=== PATIENT | female | born 1970 ===

== ENCOUNTER 2020-12-11 20:09 | Emergency (ER) | payer MEDICARE, MEDICAID, SELFPAY ==
--- NOTE | 2020-12-12 01:21 | ED_ITS ---
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 Mode of arrival: ambulatory Limitations: no limitations History of Present Illness HPI narrative: 50 yo female with LLE pain and erythema x 1 day has known ulcer on leg then noted x 1 day increased redness and pain, has not been on antibiotics recently MD complaint: rash Onset (ago): day(s) (1) Location: LLE Severity: moderate Quality: aching Pain Consistency: constant Relieving factors: none Exacerbating factors: movement Context: none Associated symptoms: myalgias Treatments prior to arrival: bandages Related Data Previous Rx's Medication Instructions Recorded cephalexin 500 mg PO TID 7 Days #21 cap 12/12/20 doxycycline hyclate 100 mg PO BID 7 Days #14 cap 12/12/20 Allergies Allergy/AdvReac Type Severity Reaction Status Date / Time penicillin V Allergy Unknown Verified 05/11/18 00:00 Penicillins Allergy Unknown RASH Unverified 08/06/20 16:21 Review of Systems Review of Systems: Constitutional : No Fever, No Chills ENT/Mouth : No sore throat, No Rhinorrhea Eyes: No Eye Pain, No Swelling, No Redness Cardiovascular : No Chest Pain, No SOB Respiratory : No Cough, No Sputum Gastrointestinal : No Nausea, No Vomiting, No Diarrhea, No abdominal Pain Genitourinary : No Dysuria, No Hematuria Musculoskeletal : No joint pain, pos Myalgias, No Joint Swelling Skin : No Skin Lesions, positive skin rash Neuro : No Weakness, No Numbness, No Headache Psych : No Anxiety, No Depression Heme/Lymph: No Bruising, No Bleeding,No Lymphadenopathy Endocrine : No Polyuria, No Polydipsia All other systems reviewed and are negative PMFSH Past Medical History Attestation statement: The following information was validated with the patient. Medical History Anemia Cognitive impairment DVT (deep venous thrombosis) Hypertension Hypothyroid Obesity TBI (traumatic brain injury) Social History Social History (Updated 12/12/20 @ 01:49 by Nati Higgins DO) Smoking Status: Never smoker Use of substances other than those prescribed or required for medical reasons: No Advance Directives: No Advance Directives Information Provided: No Physical Exam Vital Signs: Vital Signs: Body Mass Index 70.9 Appearance: Alert. Oriented X3. No acute distress. Eyes: Pupils equal, round and reactive to light. ENT: Pharynx normal. Neck: Normal inspection. Neck supple. CVS: Normal heart rate and rhythm. Pulses normal. Respiratory: No respiratory distress. Breath sounds normal. Abdomen: Soft and nontender. morbidly obese Skin: Skin warm and dry. Normal skin color. Normal skin turgor. Extremities: bilateral LE edema 3+ with hyperpigmented flaking skin, LLE superficial ulcerations on lower calf - significant erythema noted on anterior hernandez goes up medially to prox thigh, no obvious fluctuance, distal pulses intact Neuro: Oriented X 3. No motor deficit. No sensory deficit. Course Course Course Narrative: hospitalist has seen the patient at this time, feels patient can trial PO antibiotics and return if area worsens MDM - Skin/Abscess/Foreign Bdy MDM Narrative Medical decision making narrative: 50 yo female with hx of obesity, asthma, anemia LE edema (?lymphedema) reports 1 day of worsening L leg pain and erythema - at this time skin appears infected and erythema extends to L upper thigh - will need labs, cultures, DVT study, IV antibiotics, likely admit Lab Data Result diagrams: 12/12/20 02:55 12/12/20 02:54 Labs: Lab Results 12/12/20 12/12/20 Range/Units 02:55 02:55 WBC 10.7 (4.8-10.8) X10*3/uL RBC 3.88 L (4.20-5.50) X10*6/uL Hgb 11.0 L (12.0-16.0) g/dl Hct 34.6 L (37-47) % MCV 89.2 (80-98) fL MCH 28.4 (27.0-33.0) pg MCHC 31.8 (31.0-35.0) g/dl RDW 15.1 (11.0-16.0) % Plt Count 234 (160-400) X10*3/uL MPV 10.8 (9.4-12.3) fL Immature Gran % (Auto) 0.7 H (0.0-0.4) % Neut % (Auto) 77.7 H (45-73) % Lymph % (Auto) 7.7 L (20-40) % Linn % (Auto) 11.7 H (2-11) % Eos % (Auto) 1.7 (0-4) % Baso % (Auto) 0.5 (0-2) % Lymph # (Auto) 0.8 L (1.2-4.9) X10*3/uL Linn # (Auto) 1.3 H (0.1-1.2) X10*3/uL Eos # (Auto) 0.2 (0.0-0.4) X10*3/uL Baso # (Auto) 0.1 (0.0-0.2) X10*3/uL Abs Immat Gran (auto) 0.08 H (0.00-0.03) X10*3/uL Absolute Neuts (auto) 8.3 (2.0-8.3) X10*3/uL Absolute Nucleated RBC 0.000 (0.0-0.012) X10*3/uL Nucleated RBC % (auto) 0.0 (0.0-0.2) /100WBC COVID-19 (ADRIANO) Negative (Negative) COVID-19 Clin Com See Note Discharge Plan Discharge Clinical Impression: Cellulitis Patient Disposition: Home, Self-Care Instructions: Cellulitis (ED) Additional Instructions: return to ED for any worsening symptoms or concerns RETURN IF YOU FEEL YOU ARE NOT IMPROVING Prescriptions: New doxycycline hyclate 100 mg capsule 100 mg PO BID 7 Days Qty: 14 RF: 0 cephalexin 500 mg capsule 500 mg PO TID 7 Days Qty: 21 RF: 0 Print Language: Azeri
--- NOTE | 2020-12-12 01:31 | US_ITS ---
EXAMINATION: US VENOUS ULTRASOUND WITH DOPPLER LOWER EXTREMITY, LEFT CLINICAL INFORMATION: Pain, swelling COMPARISON: None TECHNIQUE: Ultrasound of the deep veins is performed from the hip to the calf with compression sonography and color and pulse Doppler assessment. Spectral analysis with color-flow imaging is performed. FINDINGS: There is normal venous compression and respiratory variation and augmented flow. The visualized common femoral vein, superficial femoral vein, profunda femoral vein, popliteal vein, and the trifurcation region shows no evidence of deep venous thrombosis. There is no significant popliteal fossa cyst. Prominent lymph node is noted in the upper left thigh. If the patient's symptoms persist, followup ultrasound in 5 days 7 days might be of value to exclude proximal propagation from a non-visualized calf vein. US/US venous duplex LE LT IMPRESSION: 1. No DVT demonstrated in the left lower extremity. 2. Prominent lymph node in the upper left thigh which is nonspecific and may be reactive.
[2020-12-12 01:34] VITALS: BMI 70.9
[2020-12-12 02:00] VITALS: BP 113/69; PULSE 68; RESP 20; O2SAT 96
[2020-12-12 03:03] LABS: MANUAL DIFF FLAG NO
[2020-12-12 03:07] LABS: Basophils Absolute Auto 0.1 X10*3/uL (0.0-0.2); Basophils Percent Auto 0.5 % (0-2); Eosinophils Absolute Auto 0.2 X10*3/uL (0.0-0.4); Eosinophils Percent Auto 1.7 % (0-4); Hematocrit 34.6 % (37-47); Imm Gran Abs Auto 0.08 X10*3/uL (0.00-0.03); Imm Gran Pct Auto 0.7 % (0.0-0.4); Lymphocytes Absolute Auto 0.8 X10*3/uL (1.2-4.9); Lymphocytes Percent Auto 7.7 % (20-40); Mean Corpuscular HGB Conc 31.8 g/dl (31.0-35.0); Mean Corpuscular Hemoglobin 28.4 pg (27.0-33.0); Mean Corpuscular Volume 89.2 fL (80-98); Mean Platelet Volume 10.8 fL (9.4-12.3); Monocytes Absolute Auto 1.3 X10*3/uL (0.1-1.2); Monocytes Percent Auto 11.7 % (2-11); Neutrophils Absolute Auto 8.3 X10*3/uL (2.0-8.3); Neutrophils Percent Auto 77.7 % (45-73); Platelet Count 234 X10*3/uL (160-400); Red Blood Count 3.88 X10*6/uL (4.20-5.50); Red Cell Distribution Width 15.1 % (11.0-16.0); White Blood Count 10.7 X10*3/uL (4.8-10.8)
[2020-12-12] MEDS: cefEPime HCl 1 GM in 0.9 % Sodium Chloride 50 ML IV (03:14)
[2020-12-12 03:19] LABS: COVID-19 Test Negative (Negative)
[2020-12-12 04:00] VITALS: BP 147/69; PULSE 66; TEMP 37.3; O2SAT 96
[2020-12-12] MEDS: vancomycin HCL 1,000 MG, vancomycin HCL 750 MG in 0.9 % Sodium Chloride 500 ML 267.5 MG IV (04:25)
[2020-12-12 04:28] LABS: INTERNATIONAL NORM RATIO 1.2 (0.9-1.1)
[2020-12-12 04:31] LABS: Partial Thromboplastin Time 19.3 SEC (24.1-38.0)
[2020-12-12 04:51] LABS: Alanine Aminotransferase 19 U/L (0-31); Albumin Level 3.3 g/dL (3.5-5.0); Alkaline Phosphatase 91 U/L (39-117); Anion Gap 17 (12-20); Aspartate Amino Transferase 25 U/L (5-31); Bilirubin Direct 0.2 mg/dL (0.0-0.5); Bilirubin Total 0.6 mg/dL (0.0-1.0); Blood Urea Nitrogen 16 mg/dL (9-16); Calcium 6.3 mg/dL (8.4-10.2); Carbon Dioxide 23 mmol/L (22-29); Chloride 98 mmol/L (96-108); Creatinine Clr Calc Pharmacy 130.1; Estimated Glomerular Filt Rate > 60; Glucose Random 118 mg/dL (60-115); Magnesium 1.9 mg/dL (1.6-2.6); Potassium 3.4 mmol/l (3.3-5.1); Sodium 135 mmol/L (135-145); Total Protein 6.8 g/dL (6.5-8.0)
== END 2020-12-12 06:33 | disposition home or self-care (01) ==
PROVIDERS: Emergency Provider Emergency Medicine; PCP Nurse Practitioner Family
DX: L03.116 Cellulitis of left lower limb (principal); M79.662 Pain in left lower leg; M79.10 Myalgia, unspecified site; R60.0 Localized edema; Z79.899 Other long term (current) drug therapy; Z20.822 Contact with and (suspected) exposure to COVID-19
CPT/HCPCS: 36415; 80048; 80076; 83605; 83735; 85025; 85610; 85730; 87040; 87635; 93971; 96365; 96366; 96367; 99283; 99284; J0692; J3370

== ENCOUNTER → 2021-11-10 14:09 | Outpatient (REF) | payer MEDICARE, MEDICAID, SELFPAY ==
--- NOTE | 2021-11-10 14:16 | CA_ITS ---
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 The visually estimated ejection fraction is between 60-65%. - No obvious valvular pathology seen on this study. - Probable aortic arch plaque, but not well seen. Findings Procedure Information The patient declines contrast. Left Ventricle Normal left ventricular cavity size. There is mildly increased left ventricular wall thickness. The left ventricular systolic function is normal. The visually estimated ejection fraction is between 60-65%. There is no evidence of regional wall motion abnormalities. Diastolic function is normal for age. Right Ventricle Normal right ventricular cavity size and systolic function. Atria Both atria are normal in size. Aortic Valve The aortic valve was not well visualized. There is no aortic valve stenosis. The mean gradient is 6 mmHg. There is no aortic valve regurgitation. Mitral Valve The mitral valve appears normal. There is mild mitral annular calcification. There is no mitral valve stenosis. Pulmonic Valve The pulmonic valve was not well visualized. Tricuspid Valve The tricuspid valve was not well visualized. There is trace tricuspid valve regurgitation. Tricuspid regurgitation envelope is inadequate for calculation of right ventricular systolic pressure. Great Vessels The asc aorta and aortic arch are normal in size. Probable aortic arch plaque, but not well seen. Venous The inferior vena cava is normal in size and collapses greater than 50% with inspiration. Pericardium/Pleural There is no evidence of pericardial effusion. Prior Study Comparison Changes noted compared to prior study dated: 07/08/2020. See comments on aorta. Recommendations, Care & Conclusions No obvious valvular pathology seen on this study. Measurements 2D Linear Measurements IVSd: 1.10 0.6-0.9/0.6-1.0 cm LVIDd: 4.68 3.9-5.3/4.2-5.9 cm LVIDd Index: 1.93 2.4-3.2/2.2-3.1 cm/m2 LVIDs: 2.88 2.0-3.6 cm LVPWd: 1.02 0.7-1.1 cm Ao Root: 2.90 2.1-3.5 cm LA Diam: 4.60 2.7-3.8/3.0-4.0 cm LAIDs Index: 1.90 1.5-2.3 cm/m2 LV Mass: 220.41 67-162/88-224 g LV Mass Index: 91.08 43-95/49-115 g/m2 LVOT Diam: 2.00 3.0+(-)1.3 cm Mitral Valve MV Pk E: 0.75 MV PK A: 0.68 MV Decel Time: 212.00 E/A: 1.10 E'Lateral: 7.51 E'Medial: 11.40 E/E' Med: 6.60 E/E' Lat: 9.90 PHT: 62.00 MVA PHT: 3.55 Decel Calvert: 3.52 Aortic Valve AoV Pk Kalen: 1.69 AoV Mn Kalen: 1.17 AoV VTI: 0.40 AoV Pk Grad: 11.00 Aov Mn Grad: 6.00 KAYODE Cont.VTI: 2.13 LVOT LVOT Pk Kalen: 1.29 LVOT Mn Kalen: 0.89 LVOT VTI: 0.27 LVOT Pk Grad: 7.00 LVOT Mn Grad: 3.00 LVOT Diam: 2.00 LVOT Area: 3.14 Diastolic Function MV Pk E: 0.75 MV Pk A: 0.68 E/A: 1.10 E'Medial: 11.40 E/E' Med: 6.60 E' Laterial: 7.51 E/E' Lat: 9.90 Right Ventricle TAPSE (mm): 2.29 TVS' Kalen: 16.50 Great Vessels Aorta Ao Root-2D: 2.90 2.0-3.7 cm Ao Asc: 3.50 2.1-3.4 cm Ao Arch: 3.30 Updated in Other Vendor System with Status of Final Baldo Gudino MD electronically signed on 11/12/2021 12:50:10 PM with status of Final
== END ==
LOC: HO.CARD 14:09
PROVIDERS: PCP Nurse Practitioner Family; Visit Provider Internal Medicine Cardiovascular Disease
DX: I10 Essential (primary) hypertension (principal)
CPT/HCPCS: 93306

== ENCOUNTER 2021-12-08 10:24 | Outpatient (REF) | payer MEDICARE, MEDICAID, SELFPAY ==
--- NOTE | ~2021-12-08 | US_ITS ---
EXAMINATION: US RETROPERITONEAL LIMITED (RENAL ONLY) US RENAL DOPPLER CLINICAL INFORMATION: Hypertension. Rule out renal artery stenosis. COMPARISON: None TECHNIQUE: Mckeon-scale and color imaging of the kidneys. Mckeon-scale, color and Doppler imaging of the renal arteries including waveform spectral analysis. Exam is limited due to patient body habitus. FINDINGS: RIGHT KIDNEY: 10.8 x 5.5 x 6.1 cm (SAG x AP x TRV). The kidney is normal in size, contour, and echogenicity. Renal cortical thickness is normal. No calculi or focal parenchymal lesions. No hydronephrosis. LEFT KIDNEY: 10.5 x 5.1 x 5.2 cm (SAG x AP x TRV). The kidney is normal in size, contour, and echogenicity. Renal cortical thickness is normal. No calculi or focal parenchymal lesions. No hydronephrosis. The abdominal aorta is difficult to visualize. Peak systolic velocity measures 220 cm/s which is elevated making calculation of renal artery to aorta ratio inaccurate. The visualized right renal artery appears patent. Right renal artery peak systolic velocities are normal measuring 134 cm/s, 128 cm/s and 80 cm/s proximally, in the midportion and distally. Segmental resistive indices in the right kidney are normal measuring between 0.6 and 0.8. The right renal vein is patent. The visualized left renal artery appears patent. Left renal artery peak systolic velocities are normal measuring 101, 81 and 79 cm/s proximally, in the midportion and distally. Resistive indices of the segmental renal arteries in the left kidney are normal measuring 0.7. The left renal vein is patent. US/US renal BI IMPRESSION: Limited exam due to patient body habitus. Normal-appearing kidneys. No evidence of renal artery stenosis.
--- NOTE | ~2021-12-08 | US_ITS ---
EXAMINATION: US RETROPERITONEAL LIMITED (RENAL ONLY) US RENAL DOPPLER CLINICAL INFORMATION: Hypertension. Rule out renal artery stenosis. COMPARISON: None TECHNIQUE: Mckeon-scale and color imaging of the kidneys. Mckeon-scale, color and Doppler imaging of the renal arteries including waveform spectral analysis. Exam is limited due to patient body habitus. FINDINGS: RIGHT KIDNEY: 10.8 x 5.5 x 6.1 cm (SAG x AP x TRV). The kidney is normal in size, contour, and echogenicity. Renal cortical thickness is normal. No calculi or focal parenchymal lesions. No hydronephrosis. LEFT KIDNEY: 10.5 x 5.1 x 5.2 cm (SAG x AP x TRV). The kidney is normal in size, contour, and echogenicity. Renal cortical thickness is normal. No calculi or focal parenchymal lesions. No hydronephrosis. The abdominal aorta is difficult to visualize. Peak systolic velocity measures 220 cm/s which is elevated making calculation of renal artery to aorta ratio inaccurate. The visualized right renal artery appears patent. Right renal artery peak systolic velocities are normal measuring 134 cm/s, 128 cm/s and 80 cm/s proximally, in the midportion and distally. Segmental resistive indices in the right kidney are normal measuring between 0.6 and 0.8. The right renal vein is patent. The visualized left renal artery appears patent. Left renal artery peak systolic velocities are normal measuring 101, 81 and 79 cm/s proximally, in the midportion and distally. Resistive indices of the segmental renal arteries in the left kidney are normal measuring 0.7. The left renal vein is patent. US/US renal doppler IMPRESSION: Limited exam due to patient body habitus. Normal-appearing kidneys. No evidence of renal artery stenosis.
== END 2021-12-08 10:25 | disposition home or self-care (01) ==
LOC: HO.US 10:24
PROVIDERS: Visit Provider Internal Medicine Cardiovascular Disease
DX: I10 Essential (primary) hypertension (principal)
CPT/HCPCS: 76775; 93975

== ENCOUNTER 2022-02-17 17:44 | Emergency (ER) | payer MEDICARE, MEDICAID, SELFPAY ==
[2022-02-17 18:37] VITALS: BP 115/62; PULSE 64; RESP 18; TEMP 37; O2SAT 98; BMI 73.2
--- NOTE | 2022-02-17 18:41 | ECG_ITS ---
Test Reason : abnormal labs Blood Pressure : / mmHG Vent. Rate : 073 BPM Atrial Rate : 073 BPM P-R Int : 178 ms QRS Dur : 084 ms QT Int : 438 ms P-R-T Axes : 072 001 073 degrees QTc Int : 482 ms Sinus rhythm with Premature atrial complexes Prolonged QT Abnormal ECG When compared with ECG of 21-MAY-2018 09:47, Premature atrial complexes are now Present T wave inversion less evident in Lateral leads Referred By: Generic ED Physician Electronically Signed By:PAMELLA VICTOR
[2022-02-17 19:41] LABS: MANUAL DIFF FLAG NO
[2022-02-17 19:59] LABS: Basophils Absolute Auto 0.1 X10*3/uL (0.0-0.2); Basophils Percent Auto 0.7 % (0-2); Eosinophils Absolute Auto 0.2 X10*3/uL (0.0-0.4); Eosinophils Percent Auto 2.6 % (0-4); Hematocrit 33.4 % (37.0-47.0); Hemoglobin 10.3 g/dl (12.0-16.0); Imm Gran Abs Auto 0.02 X10*3/uL (0.00-0.03); Imm Gran Pct Auto 0.3 % (0.0-0.4); Lymphocytes Absolute Auto 1.1 X10*3/uL (1.2-4.9); Lymphocytes Percent Auto 15.9 % (20-40); Mean Corpuscular HGB Conc 30.8 g/dl (31.0-35.0); Mean Corpuscular Hemoglobin 26.8 pg (27.0-33.0); Mean Corpuscular Volume 86.8 fL (80.0-98.0); Mean Platelet Volume 9.8 fL (9.4-12.3); Monocytes Absolute Auto 0.8 X10*3/uL (0.1-1.2); Monocytes Percent Auto 11.3 % (2-11); Neutrophils Percent Auto 69.2 % (45-73); Platelet Count 303 X10*3/uL (160-400); Red Blood Count 3.85 X10*6/uL (4.20-5.50); Red Cell Distribution Width 17.4 % (11.0-16.0); White Blood Count 7.2 X10*3/uL (4.8-10.8)
[2022-02-17 20:09] LABS: Anion Gap 12 (12-20); Blood Urea Nitrogen 11 mg/dL (9-16); Calcium 7.1 mg/dL (8.4-10.2); Carbon Dioxide 28 mmol/L (22-29); Chloride 102 mmol/L (96-108); Creatinine Clr Calc Pharmacy 122.1; Estimated Glomerular Filt Rate > 60; Glucose Random 109 mg/dL (60-115); Potassium 3.8 mmol/L (3.3-5.1); Sodium 138 mmol/L (135-145)
--- NOTE | 2022-02-17 20:55 | ED_ITS ---
HPI - Recheck/Abnormal Lab/Rx General Chief Complaint: Recheck/Abnormal Lab/Rx Stated Complaint: Abnormal labs Time Seen by Provider: 02/17/22 20:54 Source: patient and family Mode of arrival: ambulatory Limitations: no limitations History of Present Illness HPI narrative: patient had labs drawn at [facility] nurse called to go to the hospital for abnormal labs patient not aware what kind of abnormal labs per records we do not see any labs done last labs were done on 12/12. Patient asymptomatic otherwise Related Data Previous Rx's Medication Instructions Recorded cephalexin 500 mg capsule 500 mg PO TID 7 Days #21 cap 12/12/20 doxycycline hyclate 100 mg capsule 100 mg PO BID 7 Days #14 cap 12/12/20 Allergies Allergy/AdvReac Type Severity Reaction Status Date / Time penicillin V Allergy Unknown Rash Verified 02/17/22 18:36 Penicillins Allergy Unknown RASH Verified 02/17/22 18:36 Review of Systems Review of Systems: Yes all other systems are reviewed and are negative FOR[facility] Past Medical History Medical History Anemia Cognitive impairment DVT (deep venous thrombosis) Hypertension Hypothyroid Obesity TBI (traumatic brain injury) Social History Social History Advance Directives: No Advance Directives Information Provided: No Patient : No Physical Exam Vital Signs: Vital Signs: Last Vital Signs Temp 98.6 F 02/17/22 18:37 Pulse 64 02/17/22 18:37 Resp 18 02/17/22 18:37 BP 115/62 02/17/22 18:37 Pulse Ox 98 02/17/22 18:37 BMI result Body Mass Index 73.2 Appearance: Alert. Oriented X3. No acute distress. obese patient Eyes: PERRLA, No Nystagmus ENT: Pharynx normal. Oral Mucosa moist Neck: Normal inspection. Neck supple. CVS: Normal heart rate and rhythm. Pulses normal. Respiratory: No respiratory distress. Equal air entry bilateral, no wheezing/rales/rhonchi Abdomen: Soft and nontender. Bowel sounds are present, no mass palpable, no CVA tenderness Skin: Skin warm and dry. Normal skin color. Normal skin turgor. Extremities: No lower extremity edema. No calf tenderness Neuro: Oriented X 3. No motor deficit. MDM - Recheck/Abnormal Lab/Rx MDM Narrative Medical decision making narrative: patient is stable vitals stable labs no acute metabolic problem was seen patient advised to follow with PCP Lab Data Attestation: I reviewed the patient's lab results. Result diagrams: 02/17/22 19:37 02/17/22 19:37 Labs: Lab Results 02/17/22 02/17/22 02/17/22 Range/Units 19:37 19:37 19:37 WBC 7.2 (4.8-10.8) X10*3/uL RBC 3.85 L (4.20-5.50) X10*6/uL Hgb 10.3 L (12.0-16.0) g/dl Hct 33.4 L (37.0-47.0) % MCV 86.8 (80.0-98.0) fL MCH 26.8 L (27.0-33.0) pg MCHC 30.8 L (31.0-35.0) g/dl RDW 17.4 H (11.0-16.0) % Plt Count 303 (160-400) X10*3/uL MPV 9.8 (9.4-12.3) fL Immature Gran % (Auto) 0.3 (0.0-0.4) % Neut % (Auto) 69.2 (45-73) % Lymph % (Auto) 15.9 L (20-40) % Gibson % (Auto) 11.3 H (2-11) % Eos % (Auto) 2.6 (0-4) % Baso % (Auto) 0.7 (0-2) % Lymph # (Auto) 1.1 L (1.2-4.9) X10*3/uL Gibson # (Auto) 0.8 (0.1-1.2) X10*3/uL Eos # (Auto) 0.2 (0.0-0.4) X10*3/uL Baso # (Auto) 0.1 (0.0-0.2) X10*3/uL Abs Immat Gran (auto) 0.02 (0.00-0.03) X10*3/uL Absolute Neuts (auto) 5.0 (2.0-8.3) x10*3/uL Absolute Nucleated RBC 0.000 (0.0-0.012) X10*3/uL Nucleated RBC % (auto) 0.0 (0.0-0.2) /100WBC Sodium 138 (135-145) mmol/L Potassium 3.8 (3.3-5.1) mmol/L Chloride 102 (96-108) mmol/L Carbon Dioxide 28 (22-29) mmol/L Anion Gap 12 (12-20) BUN 11 (9-16) mg/dL Creatinine 0.82 (0.5-1.4) mg/dL Estim Creat Clear Calc 122.1 Estimated GFR > 60 Random Glucose 109 (60-115) mg/dL Calcium 7.1 L D (8.4-10.2) mg/dL Troponin I High Sens 10.0 (<3.5-17.0) ng/L ECG Data Attestation: I personally reviewed and interpreted this ECG as follows: Interpretation: normal sinus rhythm with heart rate 73 beats per minute with few premature PACs no acute ST-T changes no acute ischemia normal interval normal axis Discharge Plan Discharge Clinical Impression: Normal exam Patient Disposition: Home, Self-Care Instructions: Normal Exam (ED) Additional Instructions: we did not find anything significant wrong in your labs , follow with PCP Prescriptions: No Action doxycycline hyclate 100 mg capsule 100 mg PO BID 7 Days Qty: 14 0RF cephalexin 500 mg capsule 500 mg PO TID 7 Days Qty: 21 0RF Interventions: ED Discharge Assessment Last Done: 02/17/22 21:22 Discharge Date/Time: 02/17/22 21:23
== END 2022-02-17 21:23 | disposition home or self-care (01) ==
PROVIDERS: Emergency Provider Internal Medicine; PCP Nurse Practitioner Family
DX: Z03.89 Encounter for observation for other suspected diseases and conditions ruled out (principal); Z87.820 Personal history of traumatic brain injury; Z86.718 Personal history of other venous thrombosis and embolism
CPT/HCPCS: 36415; 80048; 84484; 85025; 93005; 99283

== ENCOUNTER 2022-06-10 11:07 | Outpatient (REF) | payer MEDICARE, MEDICAID, SELFPAY ==
--- NOTE | ~2022-06-10 | MM_ITS ---
EXAMINATION: MM SCREENING DIGITAL BREAST TOMOSYNTHESIS, BILATERAL CLINICAL INFORMATION: Screening. Asymptomatic. The lifetime risk of breast cancer based on the Tyrer-Cuzick Model is 10%. COMPARISON: Mammography: 02/25/2019 (baseline). TECHNIQUE: Digital breast tomosynthesis is performed in both the craniocaudal and mediolateral oblique views along with computer-aided detection (CAD). Synthesized 2D images are generated from the tomosynthesis. Additional right MLO x2 and additional left MLO views are provided. FINDINGS: There are scattered areas of fibroglandular density (ACR BI-RADS breast composition Category b). There are no significant masses, abnormal calcifications, or other abnormalities. Parenchymal pattern is similar to prior studies. No developing density. No significant changes. MM/MM tomosynthesis screening BI IMPRESSION: No mammographic evidence of malignancy. ASSESSMENT: BI-RADS 1: Negative RECOMMENDATION: Routine annual mammography screening. This patient's information was entered into a reminder system with a target due date for their next mammogram.
== END 2022-06-10 11:08 | disposition home or self-care (01) ==
LOC: HO.MAMMO 11:07
PROVIDERS: PCP Nurse Practitioner Family; Visit Provider Pediatrics Pediatric Gastroenterology
DX: Z12.31 Encounter for screening mammogram for malignant neoplasm of breast (principal)
CPT/HCPCS: 77063; 77067

== ENCOUNTER 2022-06-20 11:13 | Outpatient (REF) | payer MEDICARE, MEDICAID, SELFPAY ==
[2022-06-20 12:05] LABS: COVID-19 Test Negative (Negative)
== END 2022-06-20 11:14 | disposition home or self-care (01) ==
LOC: HO.LAB 11:13
PROVIDERS: Visit Provider Internal Medicine
DX: Z20.822 Contact with and (suspected) exposure to COVID-19 (principal)
CPT/HCPCS: 87635; C9803

== ENCOUNTER 2022-08-03 11:01 | Outpatient (REF) | payer MEDICARE, MEDICAID, SELFPAY ==
--- NOTE | ~2022-08-03 | US_ITS ---
EXAMINATION: US DIAGNOSTIC ULTRASOUND BREAST, RIGHT CLINICAL INFORMATION: Question right breast lump lower inner quadrant. COMPARISON: Mammography of June 10, 2022 and February 25, 2019. TECHNIQUE: Ultrasound of the breast is performed with real-time childress scale imaging and color Doppler. FINDINGS: There is no focal suspicious finding. There is no solid mass, architectural abnormality, duct ectasia, or edema in the soft tissue planes. No abnormality was identified on mammography of June 10, 2022 on reexamination. Results are discussed with the patient at time of visit. US/US breast RT limited IMPRESSION: No specific ultrasound findings to suggest malignancy. Recommend continued clinical follow-up. ASSESSMENT: BI-RADS 1: Negative RECOMMENDATION: Routine annual mammography screening. Clinical follow-up This patient's information was entered into a reminder system with a target due date for their next mammogram.
== END 2022-08-03 11:02 | disposition home or self-care (01) ==
LOC: HO.MAMMO 11:01
PROVIDERS: PCP Nurse Practitioner Family; Visit Provider Nurse Practitioner Family
DX: N63.14 Unspecified lump in the right breast, lower inner quadrant (principal)
CPT/HCPCS: 76642

== ENCOUNTER → 2022-08-23 10:57 | Outpatient (BNVA) | payer MEDICARE, MEDICAID, SELFPAY | PROVIDERS: PCP Nurse Practitioner Family; Visit Provider Internal Medicine Endocrinology, Diabetes & Metabolism | DX: E20.9 Hypoparathyroidism, unspecified (principal) | CPT/HCPCS: 99202 ==

== ENCOUNTER → 2022-11-22 08:16 | Outpatient (REF) | payer MEDICARE, MEDICAID, SELFPAY ==
[2022-11-22 09:24] LABS: Albumin Level 3.8 g/dL (3.5-5.0); Phosphorus 5.5 mg/dL (2.7-4.5)
[2022-11-22 09:44] LABS: Vitamin D 25-OH Total 42.3 ng/mL (>30)
[2022-11-23 16:14] LABS: Calcium (PTHI) 7.4 mg/dL (8.6-10.4); PTHI 8 pg/mL (16-77)
== END ==
LOC: HO.CARD 08:16
PROVIDERS: Absent Provider Internal Medicine Endocrinology, Diabetes & Metabolism; Visit Provider Physician Assistant Medical
DX: R07.9 Chest pain, unspecified (principal); E20.9 Hypoparathyroidism, unspecified
CPT/HCPCS: 36415; 82040; 82306; 83970; 84100

== ENCOUNTER → 2022-11-24 09:52 | Outpatient (BNVA) | payer MEDICARE, MEDICAID, SELFPAY | PROVIDERS: PCP Nurse Practitioner Family; Visit Provider Internal Medicine Endocrinology, Diabetes & Metabolism | DX: E20.9 Hypoparathyroidism, unspecified (principal) | CPT/HCPCS: 99212 ==

== ENCOUNTER 2022-12-25 22:02 | Emergency (ER) | payer MEDICARE, MEDICAID, SELFPAY ==
--- NOTE | ~2022-12-25 | CT_ITS ---
EXAMINATION: CT HEAD WITHOUT CONTRAST CLINICAL INFORMATION: Headache COMPARISON: 09/14/2007 TECHNIQUE: Contiguous axial imaging was performed from the skull base to vertex without intravenous administration of contrast. This CT examination was performed using dose optimization techniques as appropriate, variously including the following: *Automated exposure control *Adjustment of mA and/or kV according to patient size (this includes techniques or standardized protocols for targeted exams where dose is matched to indication/reason for exam; i.e. extremities or head) *Use of iterative reconstruction technique DLP: 779 mGy-cm FINDINGS: There is no evidence of acute intracranial hemorrhage or territorial infarction. No abnormal mass-effect or midline shift is seen. Mckeon to white matter differentiation is well preserved. No extra-axial fluid collections are identified. The ventricles are normal in size. There is moderate periventricular and patchy subcortical white matter hypoattenuation consistent with chronic small vessel ischemic disease. The osseous structures and soft tissues are normal. The mastoid air cells and visualized portions of the paranasal sinuses are well-aerated. CT/CT head/brain wo IV con IMPRESSION: No acute intracranial pathology. Chronic small vessel ischemic disease.
[2022-12-25 22:41] VITALS: BP 149/73; PULSE 47; RESP 16; TEMP 36.1; O2SAT 94; BMI 47.1
--- NOTE | 2022-12-26 01:21 | ECG_ITS ---
Test Reason : headache Blood Pressure : / mmHG Vent. Rate : 046 BPM Atrial Rate : 046 BPM P-R Int : 186 ms QRS Dur : 090 ms QT Int : 450 ms P-R-T Axes : 063 -18 064 degrees QTc Int : 393 ms Sinus bradycardia Otherwise normal ECG When compared with ECG of 17-FEB-2022 19:12, Premature atrial complexes are no longer Present Vent. rate has decreased BY 27 BPM QT has shortened Referred By: Sydni Vitale Electronically Signed By:HEIDY FOFANA MD
--- NOTE | 2022-12-26 01:32 | ED_ITS ---
HPI - Headache General Chief Complaint: Headache Stated Complaint: paralaysis,headache on the left side for 4 days Time Seen by Provider: 12/26/22 00:58 History of Present Illness HPI Narrative: Patient is 52 years old presents today with having headache that is been ongoing for the last week. Patient was evaluated at [facility], had a CT scan of the head done which were grossly negative. Diagnosed with migraine patient given pain medications. The pain is on the right side. Associated with nausea. No vomiting. Patient complaining of continuing pain. Now feels like she has pain in her eye. She came in for further evaluation. Related Data Home Medications Medication Instructions Recorded Confirmed cholecalciferol (vitamin D3) 50 50 mcg PO QAM 04/27/22 mcg (2,000 unit) capsule clonidine HCl 0.1 mg tablet 0.1 mg PO BEDTIME 04/27/22 diltiazem HCl 360 mg 360 mg PO DAILY 04/27/22 capsule,extended release 24 hr docusate sodium 100 mg capsule 100 mg PO 04/27/22 labetalol 100 mg tablet 200 mg PO BID 04/27/22 lisinopril 40 mg tablet 40 mg PO QAM 04/27/22 calcium carbonate 500 mg calcium 500 mg PO BID 08/23/22 08/23/22 (1,250 mg) tablet ferrous sulfate 325 mg (65 mg 325 mg PO TID 08/23/22 iron) tablet (FeroSul) levothyroxine 112 mcg tablet 112 mcg PO QAM 08/23/22 Previous Rx's Medication Instructions Recorded calcitriol 0.25 mcg capsule 0.5 mcg PO QAM #30 caps 11/24/22 ibuprofen 400 mg tablet 400 mg PO Q6H PRN pain #20 tabs 12/26/22 ondansetron 4 mg disintegrating 4 mg PO TID PRN nausea and 12/26/22 tablet vomiting 5 days #10 tabs Allergies Allergy/AdvReac Type Severity Reaction Status Date / Time Penicillins Allergy Unknown RASH Verified 12/25/22 22:49 Review of Systems Review of Systems: No fever no chills no cough no congestion or upper respiratory symptoms No diaphoresis All system reviewed otherwise negative Yes all other systems are reviewed and are negative PMFSH Past Medical History Attestation statement: The following information was validated with the patient. Medical History Anemia Cognitive impairment DVT (deep venous thrombosis) Hypertension Hypoparathyroidism Hypothyroid Obesity TBI (traumatic brain injury) Surgical History No pertinent past surgical history Family History Family History Mother HTN (hypertension) Father Diabetes Social History Social History Household Members Other:: mom Housing: House Alcohol intake: never Patient Tobacco Use Status: Never used Tobacco Advance Directives: No Physical Exam Vital Signs: Vital Signs: Last Vital Signs Temp 97.8 F 12/26/22 01:44 Pulse 43 L 12/26/22 01:49 Resp 22 H 12/26/22 01:49 BP 144/69 H 12/26/22 01:49 Pulse Ox 96 12/26/22 01:44 O2 Del Method 12/26/22 01:44 BMI result Body Mass Index 47.1 Appearance: Alert. Oriented X3. No acute distress. Eyes: Pupils equal, round and reactive to light. Extraocular muscles grossly intact. ENT: Pharynx normal. Neck: Normal inspection. Neck supple. No lymph nodes noted. No crepitus CVS: Normal heart rate and rhythm. Pulses normal. Normal S1 and S2 Respiratory: No respiratory distress. Breath sounds normal. No Wheezing. No rales Abdomen: Soft and nontender. No rigidity. No distention. good BS x4 Skin: Skin warm and dry. Normal skin color. Normal skin turgor. Extremities: No lower extremity edema. Neurovascular intact to all extremities. No Lacerations. No Rash Neuro: Oriented X 3. No motor deficit. No sensory deficit. Moving all extermities. No slurred speech Medications Administered Discontinued Medications Generic Name Dose Route Start Last Admin Trade Name Freq PRN Reason Stop Dose Admin Diphenhydramine HCl 50 mg 12/26/22 01:21 12/26/22 01:45 Diphenhydramine Hcl 50 Mg/Ml Vial IVPUSH 12/26/22 01:22 50 mg ONCE ONE Administration Ketorolac Tromethamine 30 mg 12/26/22 01:20 12/26/22 01:45 Ketorolac Tromethamine 30 Mg/Ml Vial IVPUSH 12/26/22 01:21 30 mg ONCE ONE Administration Metoclopramide HCl 10 mg 12/26/22 01:21 12/26/22 01:45 Metoclopramide Hcl 10 Mg/2 Ml Vial IVPUSH 12/26/22 01:22 10 mg ONCE ONE Administration Medical Decision Making Medical Decision Making MDM Narrative: Patient's symptom is ongoing. In the last couple days there is question of unable to open the right eye fully. No difficulty closing the eye. No difficulty with speech. No focal weakness in the arms or legs. Vision grossly intact. Patient's sed rate was less than 50. There is no evidence for temporal arteritis. Patient's intra-ocular pressure was checked it was 18 OS, OD. No evidence for glaucoma. Pupils are equal reactive. Gross vision was intact. CT scan of the head was negative for any acute evidence of bleeding. Given patient's symptom onset was a few days ago. There is no signs of ischemia noted on the CT scan. Patient was given treatment for migraine she had a history of the same. She was given Toradol, Reglan, Benadryl. Good resolution of patient's headache. Will discharge patient home. He is currently in stable condition neurologically intact. Patient's symptoms not consistent with meningitis. Differential Diagnosis Differential Diagnoses: The differential diagnosis associated with the presentation includes Migraine headache, temporal arteritis, intracranial bleed, meningitis Admission/Observation Consideration of admission/observation: Escalation of care including admission/observation considered Lab Data MDM Lab Attestation statement: I reviewed the patient's lab results. 12/26/22 01:39 12/26/22 01:39 Labs: Lab Results 12/26/22 12/26/22 12/26/22 Range/Units 01:39 01:39 01:39 WBC 7.3 (4.8-10.8) X10*3/uL RBC 4.46 (4.20-5.50) X10*6/uL Hgb 12.5 D (12.0-16.0) g/dl Hct 38.7 (37.0-47.0) % MCV 86.8 (80.0-98.0) fL MCH 28.0 (27.0-33.0) pg MCHC 32.3 (31.0-35.0) g/dl RDW 14.6 (11.0-16.0) % Plt Count 234 (160-400) X10*3/uL MPV 10.7 (9.4-12.3) fL Immature Gran % (Auto) 0.1 (0.0-0.4) % Neut % (Auto) 62.9 (45-73) % Lymph % (Auto) 21.3 (20-40) % Peach % (Auto) 11.9 H (2-11) % Eos % (Auto) 3.0 (0-4) % Baso % (Auto) 0.8 (0-2) % Lymph # (Auto) 1.6 (1.2-4.9) X10*3/uL Peach # (Auto) 0.9 (0.1-1.2) X10*3/uL Eos # (Auto) 0.2 (0.0-0.4) X10*3/uL Baso # (Auto) 0.1 (0.0-0.2) X10*3/uL Abs Immat Gran (auto) 0.01 (0.00-0.03) X10*3/uL Absolute Neuts (auto) 4.6 (2.0-8.3) x10*3/uL Absolute Nucleated RBC 0.000 (0.0-0.012) X10*3/uL Nucleated RBC % (auto) 0.0 (0.0-0.2) /100WBC ESR 28 H (0-20) MM/HR Sodium 140 (135-145) mmol/L Potassium 4.5 (3.3-5.1) mmol/L Chloride 102 (96-108) mmol/L Carbon Dioxide 25 (22-29) mmol/L Anion Gap 18 (12-20) BUN 23 H (9-16) mg/dL Creatinine 0.92 (0.5-1.4) mg/dL Estim Creat Clear Calc 106.8 Estimated GFR > 60 Random Glucose 122 H (60-115) mg/dL Calcium 9.6 D (8.4-10.2) mg/dL Total Bilirubin 0.5 (0.0-1.0) mg/dL Direct Bilirubin < 0.2 (0.0-0.5) mg/dL AST 29 (5-31) U/L ALT 29 (0-31) U/L Alkaline Phosphatase 105 (39-117) U/L Total Protein 7.3 (6.5-8.0) g/dL Albumin 4.0 (3.5-5.0) g/dL Radiology Impression Discussion of test interpretation with radiology: I have reviewed the radiologist's reading. Independent Historian Clinical information obtained from an independent historian. History obtained from or confirmed by: Other Family External Record Review External record reviewed: Inpatient record Prescription Management I considered prescription management with: Other Pain medication Chronic Conditions Patient?s care impacted by: Hypertension Discharge Plan Discharge Clinical Impression: Headache, Migraine Patient Disposition: Home, Self-Care Instructions: Migraine Headache (ED) Prescriptions: New ibuprofen 400 mg tablet 400 mg PO Q6H PRN (Reason: pain) Qty: 20 0RF ondansetron 4 mg tablet,disintegrating 4 mg PO TID PRN (Reason: nausea and vomiting) 5 Days Qty: 10 0RF No Action cholecalciferol (vitamin D3) 50 mcg (2,000 unit) capsule 50 mcg PO QAM docusate sodium 100 mg capsule 100 mg PO labetalol 100 mg tablet 200 mg PO BID diltiazem HCl 360 mg capsule,extended release 24hr 360 mg PO DAILY clonidine HCl 0.1 mg tablet 0.1 mg PO BEDTIME lisinopril 40 mg tablet 40 mg PO QAM levothyroxine 112 mcg tablet 112 mcg PO QAM ferrous sulfate [FeroSul] 325 mg (65 mg iron) tablet 325 mg PO TID calcium carbonate 500 mg calcium (1,250 mg) tablet 500 mg PO BID calcitriol 0.25 mcg capsule 0.5 mcg PO QAM Qty: 30 3RF Referrals: [facility] [Primary Care Provider] - Print Language: Japanese
[2022-12-26 01:43] LABS: MANUAL DIFF FLAG NO
[2022-12-26 01:44] VITALS: BP 144/69; PULSE 44; RESP 20; TEMP 36.6; O2SAT 96
[2022-12-26] MEDS: Metoclopramide HCl 10 MG/2 ML VIAL IVPUSH (01:45)
[2022-12-26] MEDS: diphenhydrAMINE HCL 50 MG/ML VIAL IVPUSH (01:45)
[2022-12-26] MEDS: Ketorolac Tromethamine 30 MG/ML VIAL IVPUSH (01:45)
--- NOTE | 2022-12-26 01:45 | MHC.EDTECH ---
pt unable to keep eyes open for visual acuity at this time.
[2022-12-26 01:46] LABS: Basophils Absolute Auto 0.1 X10*3/uL (0.0-0.2); Basophils Percent Auto 0.8 % (0-2); Eosinophils Absolute Auto 0.2 X10*3/uL (0.0-0.4); Hematocrit 38.7 % (37.0-47.0); Hemoglobin 12.5 g/dl (12.0-16.0); Imm Gran Abs Auto 0.01 X10*3/uL (0.00-0.03); Imm Gran Pct Auto 0.1 % (0.0-0.4); Lymphocytes Absolute Auto 1.6 X10*3/uL (1.2-4.9); Lymphocytes Percent Auto 21.3 % (20-40); Mean Corpuscular HGB Conc 32.3 g/dl (31.0-35.0); Mean Corpuscular Volume 86.8 fL (80.0-98.0); Mean Platelet Volume 10.7 fL (9.4-12.3); Monocytes Absolute Auto 0.9 X10*3/uL (0.1-1.2); Monocytes Percent Auto 11.9 % (2-11); Neutrophils Absolute Auto 4.6 x10*3/uL (2.0-8.3); Neutrophils Percent Auto 62.9 % (45-73); Platelet Count 234 X10*3/uL (160-400); Red Blood Count 4.46 X10*6/uL (4.20-5.50); Red Cell Distribution Width 14.6 % (11.0-16.0); White Blood Count 7.3 X10*3/uL (4.8-10.8)
[2022-12-26 01:49] VITALS: BP 144/69; PULSE 43; RESP 22
--- NOTE | 2022-12-26 02:00 | PC.NURSE ---
iv line placed. flushing well. bloodwork obtained and sent down to lab. pt medicated according to mar. family member at bedside
[2022-12-26 02:01] LABS: Alanine Aminotransferase 29 U/L (0-31); Alkaline Phosphatase 105 U/L (39-117); Anion Gap 18 (12-20); Aspartate Amino Transferase 29 U/L (5-31); Bilirubin Direct < 0.2 mg/dL (0.0-0.5); Bilirubin Total 0.5 mg/dL (0.0-1.0); Blood Urea Nitrogen 23 mg/dL (9-16); Calcium 9.6 mg/dL (8.4-10.2); Carbon Dioxide 25 mmol/L (22-29); Chloride 102 mmol/L (96-108); Creatinine Clr Calc Pharmacy 106.8; Estimated Glomerular Filt Rate > 60; Glucose Random 122 mg/dL (60-115); Potassium 4.5 mmol/L (3.3-5.1); Sodium 140 mmol/L (135-145); Total Protein 7.3 g/dL (6.5-8.0)
[2022-12-26 02:23] LABS: Erythrocyte Sedimentation Rate 28 MM/HR (0-20)
--- NOTE | 2022-12-26 03:41 | PC.NURSE ---
pt able to sleep at this time. pt sister cortes left at this time. asked to please call for updates [phone]
[2022-12-26 05:18] VITALS: BP 131/60; PULSE 40; RESP 18; O2SAT 97
--- NOTE | 2022-12-26 05:37 | PC.NURSE ---
this rn called pt sister cortes. sister states will arrive in about 15 minutes
--- NOTE | 2022-12-26 05:44 | MHC.EDTECH ---
pt able to stand and open eyes for visual acuity. pt forgot glasses at home that she uses daily. pt unable to complete visual acuity due to not having her glasses with her. pt unable to see majority of chart, only top two lines completed. rn aware.
--- NOTE | 2022-12-26 06:13 | PC.NURSE ---
iv removed at time of discharge. pt verbalized no pain at this time. pt ambulatory at discharge however requested w/c to assist into car. pt sister picked pt up for discharge. discharge packet provided to pt. pt and sister verbalize understanding of discharge plan.
== END 2022-12-26 06:15 | disposition home or self-care (01) ==
PROVIDERS: Emergency Provider Emergency Medicine Emergency Medical Services
DX: G43.909 Migraine, unspecified, not intractable, without status migrainosus (principal); Z79.899 Other long term (current) drug therapy
CPT/HCPCS: 36415; 70450; 80048; 80076; 85025; 85652; 93005; 96374; 96375; 99284; J1200; J1885; J2765

== ENCOUNTER 2023-01-10 12:59 | Outpatient (REF) | payer MEDICARE, MEDICAID, SELFPAY ==
[2023-01-10 14:56] LABS: Albumin Level 4.1 g/dL (3.5-5.0); Phosphorus 5.2 mg/dL (2.7-4.5)
[2023-01-10 14:59] LABS: Blood Urea Nitrogen 15 mg/dL (9-16); Estimated Glomerular Filt Rate > 60
== END 2023-01-10 13:00 | disposition home or self-care (01) ==
LOC: HO.LAB 12:59
PROVIDERS: Internal Medicine Endocrinology, Diabetes & Metabolism; PCP Registered Nurse; Visit Provider Psychiatry & Neurology Neurology
DX: E20.9 Hypoparathyroidism, unspecified (principal); G93.49 Other encephalopathy; I10 Essential (primary) hypertension
CPT/HCPCS: 36415; 82040; 82310; 82565; 84100; 84520

== ENCOUNTER 2023-01-23 13:48 | Outpatient (REF) | payer MEDICARE, MEDICAID, SELFPAY ==
[2023-01-23 14:45] LABS: Creatinine, mg/dL 83.35
[2023-01-23 15:43] LABS: Creatinine, 24Hr Urine 2.5 G/Day (1.0-2.0); Total Volume 24 Hour Urine 3000 mL
[2023-01-25 18:39] LABS: Calcium, 24 Hr Urine 339 mg/24 h; Calcium/Creatinine Ratio 136 mg/g creat (30-275); Creatinine 24Hr Urine 2.49 g/24 h (0.50-2.15)
== END 2023-01-23 13:49 | disposition home or self-care (01) ==
LOC: HO.LNP 13:48
PROVIDERS: Visit Provider Internal Medicine Endocrinology, Diabetes & Metabolism
DX: E20.9 Hypoparathyroidism, unspecified (principal)
CPT/HCPCS: 82340; 82570

== ENCOUNTER 2023-01-25 10:04 | Outpatient (REF) | payer MEDICARE, MEDICAID, SELFPAY ==
--- NOTE | ~2023-01-25 | CT_ITS ---
EXAMINATION: CT ANGIOGRAM BRAIN, HEAD CLINICAL INFORMATION: Persistent headache COMPARISON: CT head without contrast 12/26/2022 TECHNIQUE: Noncontrast head CT was performed. Test bolus sequences followed by intravenous administration 75 mL of Omnipaque 350 intravenous contrast. Helical imaging was performed in the axial plane from the skull base to the vertex. Delayed postcontrast imaging of the head was also performed. The data was processed at the radiology ct technologist workstation for generation of MIP sequences. Three-dimensional volume rendered reformatted images were also generated at an offline 3-D workstation. The degree of stenosis determined by NASCET criteria. This CT examination was performed using dose optimization techniques as appropriate, variously including the following: *Automated exposure control *Adjustment of mA and/or kV according to patient size (this includes techniques or standardized protocols for targeted exams where dose is matched to indication/reason for exam; i.e. extremities or head) *Use of iterative reconstruction technique DLP: 2983 mGy-cm FINDINGS: CT Head: There is no evidence of acute intracranial hemorrhage or edematous territorial infarction. Scattered hypoattenuation in the periventricular and deep white matter are consistent with moderate microangiopathy. Mckeon-white matter differentiation is preserved. The ventricles are normal in size and configuration. No evidence for obstructive hydrocephalus. No abnormal mass effect or midline shift. No extra-axial fluid collections. No pathologic intra-axial enhancement or regional oligemia. No acute soft tissue or osseous abnormalities. Left maxillary sinus mucosal thickening.> Brain CTA: Intracranial Internal Carotid Arteries: No focal stenosis or occlusion. Right Anterior Cerebral Artery: Normal A1 segment. Normal opacification of the distal [place]UPE segments. Left Anterior Cerebral Artery: Normal A1 segment. Normal opacification of the distal [place] segments. Anterior Communicating Artery: Normal. Right Middle Cerebral Artery: Normal M1 segment of the MCA without focal stenosis or occlusion. Normal arborization of the distal segments. Left Middle Cerebral Artery: Normal M1 segment of the MCA without focal stenosis or occlusion. Normal arborization of the distal segments. Right Vertebral Artery: Congenitally diminutive and terminates as PICA. Left Vertebral Artery: Moderate calcified atherosclerotic disease of the intradural left vertebral artery without significant luminal narrowing. Basilar Artery: Mild calcified atherosclerotic disease of the proximal basilar artery without focal stenosis or occlusion. Normal appearance of the proximal superior cerebellar arteries. Right Posterior Cerebral Artery: Normal P1 segment. Normal opacification of the distal CHOKER SETTER segments. Left Posterior Cerebral Artery: Normal P1 segment. Normal opacification of the distal CHOKER SETTER segments. CT/CT angio head IMPRESSION: 1. No acute intracranial abnormality including hemorrhage, mass effect, hydrocephalus, or acute territorial edematous infarction. 2. No intracranial arterial high-grade stenosis or large vessel occlusion. No intracranial aneurysm.
[2023-01-25] MEDS: iohexoL 350 MG/ML 100 ML INFUS..BTL IV (11:30)
== END 2023-01-25 10:05 | disposition home or self-care (01) ==
LOC: HO.CT 10:04
PROVIDERS: Visit Provider Psychiatry & Neurology Neurology
DX: G44.52 New daily persistent headache (NDPH) (principal)
CPT/HCPCS: 70496; Q9967

== ENCOUNTER → 2023-02-02 10:35 | Outpatient (BNVA) | payer MEDICARE, MEDICAID, SELFPAY | PROVIDERS: PCP Registered Nurse; Visit Provider Internal Medicine Endocrinology, Diabetes & Metabolism | DX: E20.9 Hypoparathyroidism, unspecified (principal) | CPT/HCPCS: 99212 ==

== ENCOUNTER 2023-06-14 09:53 | Outpatient (REF) | payer MEDICARE, MEDICAID, SELFPAY ==
--- NOTE | ~2023-06-14 | MM_ITS ---
EXAMINATION: MM SCREENING DIGITAL BREAST TOMOSYNTHESIS, BILATERAL CLINICAL INFORMATION: Screening. Asymptomatic. The lifetime risk of breast cancer based on the Tyrer-Cuzick Model is 14%. COMPARISON: Mammography: 06/10/2022, 02/25/2019. Right breast ultrasound 08/03/2022. TECHNIQUE: Digital breast tomosynthesis is performed in both the craniocaudal and mediolateral oblique views along with computer-aided detection (CAD). Synthesized 2D images are generated from the tomosynthesis. FINDINGS: There are scattered areas of fibroglandular density (ACR BI-RADS breast composition Category b). There are no suspicious masses, suspicious grouped calcifications, or areas of architectural distortion. The parenchymal pattern is stable from prior exams. MM/MM tomosynthesis screening BI IMPRESSION: No mammographic evidence of malignancy. ASSESSMENT: BI-RADS BI-RADS 1 - Negative RECOMMENDATION: Routine annual mammography screening. 1 year F/U This examination should not preclude the clinical evaluation of a suspicious palpable abnormality. This patient's information was entered into a reminder system with a target due date for their next mammogram.
== END 2023-06-14 09:54 | disposition home or self-care (01) ==
LOC: HO.MAMMO 09:53
PROVIDERS: PCP Nurse Practitioner Family; Visit Provider Nurse Practitioner Family
DX: Z12.31 Encounter for screening mammogram for malignant neoplasm of breast (principal)
CPT/HCPCS: 77063; 77067

== ENCOUNTER → 2023-06-14 10:30 | Outpatient (BNV) | payer MEDICARE, MEDICAID, SELFPAY | PROVIDERS: PCP Nurse Practitioner Family; Visit Provider Radiology Diagnostic Radiology | DX: Z12.31 Encounter for screening mammogram for malignant neoplasm of breast (principal) | CPT/HCPCS: 77063; 77067 ==

== ENCOUNTER 2023-08-30 14:31 | Emergency (ER) | payer MEDICARE, MEDICAID, SELFPAY ==
--- NOTE | 2023-08-30 | ECG_ITS ---
Test Reason : cp Blood Pressure : / mmHG Vent. Rate : 052 BPM Atrial Rate : 000 BPM P-R Int : 000 ms QRS Dur : 084 ms QT Int : 458 ms P-R-T Axes : 000 006 054 degrees QTc Int : 425 ms Sinus bradycardia with occasional Premature ventricular complexes Abnormal ECG When compared with ECG of 26-DEC-2022 01:31, Premature ventricular complexes are new Referred By: Generic ED Physician Electronically Signed By:AZIZA OLMOS MD
--- NOTE | ~2023-08-30 | XR_ITS ---
EXAMINATION: XR CHEST CLINICAL INFORMATION: Chest pain. COMPARISON: 05/21/2018. TECHNIQUE: Frontal view of the chest was obtained. FINDINGS: The lung volumes are low. The cardiomediastinal silhouette is stable. There is mild diffuse increased markings. There is no focal lung consolidation or pleural effusion. The bony structures and soft tissues are unremarkable. XR/XR chest 1V IMPRESSION: Low lung volume slightly limits evaluation. Mild diffuse increased markings possibly technical due to the low lung volumes. Edema or developing pneumonia considered less likely.
--- NOTE | ~2023-08-30 | CT_ITS ---
EXAMINATION: CT ANGIOGRAM OF THE CHEST WITH AND WITHOUT CONTRAST (CT PULMONARY ANGIOGRAM FOR PE) CLINICAL INFORMATION: Reason for Exam cp COMPARISON: None available. TECHNIQUE: Prior to contrast administration, noncontrast localization images were obtained. Subsequently, multidetector volumetric imaging was performed from the thoracic inlet to below the diaphragms following the administration of 65 mL Omnipaque 350 intravenous contrast. No contrast reaction reported Sagittal, coronal, and MIP oblique sagittal reformatted images were obtained on the CT workstation, uploaded to PACS, and reviewed. This CT examination was performed using dose optimization techniques as appropriate, variously including the following: *Automated exposure control *Adjustment of mA and/or kV according to patient size (this includes techniques or standardized protocols for targeted exams where dose is matched to indication/reason for exam; i.e. extremities or head) *Use of iterative reconstruction technique Total exam dose-length product 593 mGy-cm FINDINGS: QUALITY OF STUDY/CONTRAST BOLUS: Satisfactory. PULMONARY ARTERIES: No pulmonary emboli. THORACIC AORTA: No aneurysm. LUNG: There is minimal atelectatic change or scarring at the right lung base. The lungs are otherwise clear. PLEURA: No pleural effusion or pneumothorax. MEDIASTINUM: Normal heart size. No pericardial effusion. No hilar or mediastinal lymphadenopathy. No evidence of septal bowing or right heart strain. CORONARY ARTERY CALCIFICATION: Mild. CHEST WALL/AXILLA: There are enlarged left axillary lymph nodes measuring up to 2.8 cm. OSSEOUS STRUCTURES: No acute or suspicious osseous abnormality. UPPER ABDOMEN: Unremarkable. No reflux of contrast into the hepatic veins to suggest elevated right heart pressures. CT/CT angio chest PE protocol IMPRESSION: No evidence for pulmonary embolism. No active cardiopulmonary disease. Enlarged left axillary lymph nodes of uncertain significance. Clinical follow-up suggested. Consider CT follow-up in 3 months. VTE: Negative.
[2023-08-30 14:34] VITALS: BP 108/50; PULSE 50; O2SAT 96
[2023-08-30 14:42] VITALS: BP 92/54; PULSE 47; RESP 15; TEMP 36.6; O2SAT 95; BMI 68.2
--- NOTE | 2023-08-30 15:05 | ED_ITS ---
HPI - Chest Pain General Chief Complaint: Chest Pain Stated Complaint: CP Time Seen by Provider: 08/30/23 14:34 History of Present Illness HPI narrative: Patient is a 53-year-old female with a history of hypertension, question history of atrial fibrillation history of hypothyroid presented with having chest pain while patient trying to walk out of the wound center at [facility]. Patient claims she has some chest pain associated with some shortness of breath and dizziness. The dizziness is fairly constant. There was no diaphoresis. There is no fever there is no chills. There is no coughing or congestion or upper respiratory symptoms. Patient from home. Never had any risk stratification. No history of diabetes, high cholesterol, smoking, [place]. No family history of coronary artery disease. No new leg swelling. No travel history. ? history of blood clots. The pain is nonradiating it seems to be constant Related Data Home Medications Medication Instructions Recorded Confirmed cholecalciferol (vitamin D3) 50 50 mcg PO QAM 04/27/22 mcg (2,000 unit) capsule clonidine HCl 0.1 mg tablet 0.1 mg PO BEDTIME 04/27/22 diltiazem HCl 360 mg 360 mg PO DAILY 04/27/22 capsule,extended release 24 hr docusate sodium 100 mg capsule 100 mg PO 04/27/22 labetalol 100 mg tablet 200 mg PO BID 04/27/22 lisinopril 40 mg tablet 40 mg PO QAM 04/27/22 calcium carbonate 500 mg calcium 500 mg PO BID 08/23/22 08/23/22 (1,250 mg) tablet ferrous sulfate 325 mg (65 mg 325 mg PO TID 08/23/22 iron) tablet (FeroSul) levothyroxine 112 mcg tablet 112 mcg PO QAM 08/23/22 Previous Rx's Medication Instructions Recorded ibuprofen 400 mg tablet 400 mg PO Q6H PRN pain #20 tabs 12/26/22 ondansetron 4 mg disintegrating 4 mg PO TID PRN nausea and 12/26/22 tablet vomiting 5 days #10 tabs calcitriol 0.25 mcg capsule 0.5 mcg (2 x 0.25 mcg) PO QAM #60 07/17/23 caps Allergies Allergy/AdvReac Type Severity Reaction Status Date / Time Penicillins Allergy Unknown RASH Verified 08/30/23 14:42 Review of Systems Review of Systems: Positive for chest pain Yes all other systems are reviewed and are negative [facility] Past Medical History Attestation statement: The following information was validated with the patient. Medical History Hypoparathyroidism TBI (traumatic brain injury) Obesity Cognitive impairment Anemia DVT (deep venous thrombosis) Hypothyroid Hypertension Surgical History No pertinent past surgical history Family History Family History Mother HTN (hypertension) Father Diabetes Social History Social History Household Members Other:: mom Housing: House Alcohol intake: never Patient Tobacco Use Status: Never used Tobacco Advance Directives: No Advance Directives Information Provided: No Physical Exam Vital Signs: Vital Signs: Last Vital Signs Temp 97.8 F 08/30/23 14:42 Pulse 47 L 08/30/23 14:42 Resp 15 08/30/23 14:42 BP 92/54 L 08/30/23 14:42 Pulse Ox 95 08/30/23 14:42 O2 Del Method Room Air 08/30/23 14:42 BMI result Body Mass Index 68.2 Appearance: Alert. Oriented X3. No acute distress. Eyes: Pupils equal, round and reactive to light. ENT: Pharynx normal. Neck: Normal inspection. Neck supple. No lymph nodes noted. No crepitus CVS: Normal heart rate and rhythm. Pulses normal. Normal S1 and S2 Respiratory: No respiratory distress. Breath sounds normal. No Wheezing. No rales Abdomen: Soft and nontender. No rigidity. No distention. good BS x4 Skin: Skin warm and dry. Normal skin color. Normal skin turgor. Extremities: No lower extremity edema. Neurovascular intact to all extremities. No Lacerations. No Rash Neuro: Oriented X 3. No motor deficit. No sensory deficit. Moving all extermities. No slurred speech Medical Decision Making Medical Decision Making MDM Narrative: Patient is 53 years old positive history of hypertension. A larger size lady. Weighs approximately 380 lb. Question history of DVT in the past was documented in chart. Patient's cardiac enzymes and D-dimer is pending. Patient's chest pain is atypical for ACS. My interpretation of the patient's EKG showed a sinus rhythm heart rate is 50 SD QRS QTC within normal limits there is PVC noted patient in no distress. Pain is controlled. Awaiting cardiac enzyme awaiting D-dimer results. Differential Diagnosis Differential Diagnoses: The differential diagnosis associated with the presentation includes ACS, pneumonia, pneumothorax, PE Admission/Observation Consideration of admission/observation: Escalation of care including admission/observation considered Lab Data MDM Lab Attestation statement: I reviewed the patient's lab results. Independent Historian Clinical information obtained from an independent historian. History obtained from or confirmed by: EMS External Record Review External record reviewed: Prior outpatient radiology Previous outpatient echo showed a normal EF. Discharge Plan Discharge Clinical Impression: Chest pain Patient Disposition: Still a Patient Prescriptions: No Action calcitriol 0.25 mcg capsule 0.5 mcg PO QAM Qty: 60 4RF ibuprofen 400 mg tablet 400 mg PO Q6H PRN (Reason: pain) Qty: 20 0RF ondansetron 4 mg tablet,disintegrating 4 mg PO TID PRN (Reason: nausea and vomiting) 5 Days Qty: 10 0RF cholecalciferol (vitamin D3) 50 mcg (2,000 unit) capsule 50 mcg PO QAM docusate sodium 100 mg capsule 100 mg PO labetalol 100 mg tablet 200 mg PO BID diltiazem HCl 360 mg capsule,extended release 24hr 360 mg PO DAILY clonidine HCl 0.1 mg tablet 0.1 mg PO BEDTIME lisinopril 40 mg tablet 40 mg PO QAM levothyroxine 112 mcg tablet 112 mcg PO QAM ferrous sulfate [FeroSul] 325 mg (65 mg iron) tablet 325 mg PO TID calcium carbonate 500 mg calcium (1,250 mg) tablet 500 mg PO BID
[2023-08-30 15:48] LABS: MANUAL DIFF FLAG NO
[2023-08-30 15:49] LABS: Basophils Absolute Auto 0.1 X10*3/uL (0.0-0.2); Basophils Percent Auto 0.9 % (0-2); Eosinophils Absolute Auto 0.2 X10*3/uL (0.0-0.4); Eosinophils Percent Auto 2.7 % (0-4); Hematocrit 29.4 % (37.0-47.0); Hemoglobin 9.1 g/dl (12.0-16.0); Imm Gran Abs Auto 0.02 X10*3/uL (0.00-0.03); Imm Gran Pct Auto 0.3 % (0.0-0.4); Lymphocytes Absolute Auto 0.9 X10*3/uL (1.2-4.9); Lymphocytes Percent Auto 14.2 % (20-40); Mean Corpuscular Hemoglobin 27.2 pg (27.0-33.0); Mean Corpuscular Volume 87.8 fL (80.0-98.0); Mean Platelet Volume 10.1 fL (9.4-12.3); Monocytes Absolute Auto 0.8 X10*3/uL (0.1-1.2); Monocytes Percent Auto 11.6 % (2-11); Neutrophils Absolute Auto 4.7 x10*3/uL (2.0-8.3); Neutrophils Percent Auto 70.3 % (45-73); Platelet Count 254 X10*3/uL (160-400); Red Blood Count 3.35 X10*6/uL (4.20-5.50); Red Cell Distribution Width 15.7 % (11.0-16.0); White Blood Count 6.6 X10*3/uL (4.8-10.8)
[2023-08-30 15:58] LABS: D Dimer High Sensitivity 344 NG/ML
[2023-08-30 16:01] LABS: Anion Gap 16 (12-20); Blood Urea Nitrogen 21 mg/dL (9-16); Calcium 7.9 mg/dL (8.4-10.2); Carbon Dioxide 23 mmol/L (22-29); Chloride 105 mmol/L (96-108); Creatinine Clr Calc Pharmacy 98.1; Estimated Glomerular Filt Rate 54; Glucose Random 151 mg/dL (60-115); Potassium 4.1 mmol/L (3.3-5.1); Sodium 140 mmol/L (135-145)
[2023-08-30 16:10] VITALS: PULSE 49
[2023-08-30 16:13] VITALS: BMI 68.9
[2023-08-30 16:17] VITALS: BP 93/51; PULSE 45; RESP 14; TEMP 36.9; O2SAT 95
[2023-08-30] MEDS: iohexoL 350 MG/ML 100 ML INFUS..BTL IV (16:53)
--- NOTE | 2023-08-30 18:43 | PC.NURSE ---
Addendum entered by Arabella Boles 08/30/23 18:46: monitor car operator applied on pt arrival - kishor/junctional rhythm, hypotensive. 20 G IV placed by right AC by EMS. Original Note: pt a&ox4, vss, reporting improvement of sob/cp/dizziness prior to arrival. pt resting quietly, pending repeat trop, family member/health care proxy at bedside. no new orders at this time.
[2023-08-30 18:57] LABS: Troponin-I High Sensitivity 8.5 ng/L (<3.5-17.0)
[2023-08-30 19:33] VITALS: PULSE 49; RESP 20; O2SAT 96
== END 2023-08-30 19:36 | disposition home or self-care (01) ==
PROVIDERS: Emergency Medicine Emergency Medical Services; Emergency Provider Emergency Medicine
DX: R07.9 Chest pain, unspecified (principal); R06.02 Shortness of breath; I10 Essential (primary) hypertension; G31.84 Mild cognitive impairment of uncertain or unknown etiology; E66.9 Obesity, unspecified; Z68.44 Body mass index [BMI] 60.0-69.9, adult; I48.91 Unspecified atrial fibrillation; Z87.820 Personal history of traumatic brain injury; Z86.718 Personal history of other venous thrombosis and embolism; Z79.899 Other long term (current) drug therapy
CPT/HCPCS: 36415; 71045; 71275; 80048; 84484; 85025; 85379; 93005; 99284; 99285; Q9967

== ENCOUNTER 2024-03-06 12:03 | Outpatient (REF) | payer MEDICARE, MEDICAID, SELFPAY ==
[2024-03-06 13:19] LABS: MANUAL DIFF FLAG NO
[2024-03-06 13:35] LABS: Basophils Absolute Auto 0.1 X10*3/uL (0.0-0.2); Basophils Percent Auto 0.9 % (0-2); Eosinophils Absolute Auto 0.3 X10*3/uL (0.0-0.4); Eosinophils Percent Auto 4.4 % (0-4); Hematocrit 26.7 % (37.0-47.0); Hemoglobin 7.2 g/dl (12.0-16.0); Imm Gran Abs Auto 0.09 X10*3/uL (0.00-0.03); Imm Gran Pct Auto 1.2 % (0.0-0.4); Lymphocytes Percent Auto 13.5 % (20-40); Mean Corpuscular Volume 77.8 fL (80.0-98.0); Mean Platelet Volume 9.8 fL (9.4-12.3); Monocytes Absolute Auto 0.8 X10*3/uL (0.1-1.2); NRBC Pct Auto 0.3 /100WBC (0.0-0.2); Neutrophils Absolute Auto 5.2 x10*3/uL (2.0-8.3); Platelet Count 341 X10*3/uL (160-400); Red Blood Count 3.43 X10*6/uL (4.20-5.50); Red Cell Distribution Width 19.5 % (11.0-16.0); White Blood Count 7.5 X10*3/uL (4.8-10.8)
[2024-03-06 13:49] LABS: Iron 18 mcg/dL (30-160); Percent Iron Saturation 6 % (15-50); Total Iron Binding Capacity 301 mcg/dL (228-428); Unsaturated Iron Binding 283 ug/dL
[2024-03-06 14:05] LABS: Ferritin 35 ng/mL (10-250)
== END 2024-03-06 12:04 | disposition home or self-care (01) ==
LOC: HO.HHCL 12:03
PROVIDERS: Visit Provider Registered Nurse
DX: D64.9 Anemia, unspecified (principal)
CPT/HCPCS: 36415; 82728; 83540; 85025

== ENCOUNTER → 2024-04-02 10:03 | Outpatient (BNV) | payer MEDICARE, MEDICAID, SELFPAY | PROVIDERS: PCP Registered Nurse; Referring Provider Registered Nurse; Visit Provider Internal Medicine Medical Oncology | DX: D50.9 Iron deficiency anemia, unspecified (principal) | CPT/HCPCS: 99204; 99213 ==

== ENCOUNTER 2024-04-11 15:03 | Outpatient (AMB) | payer MEDICARE, MEDICAID, SELFPAY ==
[2024-04-11 15:10] VITALS: BP 136/56; PULSE 64; BMI 67.1
--- NOTE | 2024-04-11 15:10 | A.OFFVIS_ITS ---
Vital Signs 04/11/24 15:10 Height 5 ft 2 in Weight 366 lb 13.587 oz BMI 67.1 BP 136/56 L Blood Pressure Location Lt brachial Position Sitting Pulse 64 Pulse Source Pulse Oximeter Intake Visit Reasons: Hypoparathyroidism-lvm Intake Note: Patient present today for Hypoparathyroidism follow up visit. Sensor Specialist Required: Yes Sensor Specialist Language: Electric Sign Assembler Name: Zak Mckeon Accompanied by: niece Allergies Penicillins Allergy (Unknown, Verified 04/11/24 15:17) RASH HPI Comments Details: This is a 52-year-old female referred for hypoparathyroidism. Dxed 1 mo ago Patient is currently on vitamin D3 2000 IU per day,.calcitrol 0.5 ug QD and calcium 500 mg BID . There is no history of thyroid or parathyroid surgery. 3 . repeat uncorrected calcium was 7.4 PTH of 8. The patient c/o numbness but no paresthesias or cramping or history of seizures.Father has hypocalcemia . Denies kidney stones or osteoporosis. [facility] Medical History Hypoparathyroidism TBI (traumatic brain injury) Obesity Cognitive impairment Anemia DVT (deep venous thrombosis) Hypothyroid Hypertension Surgical History No pertinent past surgical history Family History Mother HTN (hypertension) Father Diabetes Paternal Aunt Colon cancer Maternal Aunt Breast CA Social History Household Members Other:: mom Housing: House Alcohol intake: never Patient Tobacco Use Status: Never used Tobacco service: No Physical Exam Vital Signs: Last Vital Signs Pulse 64 04/11/24 15:10 BP 136/56 L 04/11/24 15:10 BMI result Body Mass Index 67.1 Const Other: There is a negative Chovsteks and Troussea's sign. thyroid gland is normal size weighs by 15 g. There are no thyroid nodules palpated. lungs are clear to auscultation. Heart is S1-S2 . abdominal exam is benign Assessment & Plan Assessment & Plan (1) Hypoparathyroidism: Code(s): E20.9 - Hypoparathyroidism, unspecified Category: Medical Plan: this is a 53-year-old female with history of hypoparathyroidism. Possible etiologies behind the hypocalcemia idiopathic hypoparathyroidism. A 24 hour urine collection for calcium was normal on 0.5 mcg of calcitriol Plan is to increase the calcitriol to 0. 0.5 mcg in the a.m. and 0.25 mcg in the p.m. will recheck calcium, albumin phosphorus about 10 days' time. Will attempt to refer to a hypoparathyroidism expert at [facility] as this is unusual case of possible genetic etiology namely Dr. Pj Mitchell[facility] use of recombinant PTH such as Transcon PTH in future. Orders: Referrals Endocrinology Referral E20.9 - Hypoparathyroidism, unspecified Medications: Changed From calcitriol 0.5 mcg (2 x 0.25 mcg) PO QAM 60 caps 4RF To calcitriol take 2 capsules in AM (o.5 mcg) and 1 capsule in PM (.25 mcg) orally every morning; 90 caps 4RF Coding Level of Care Code Est Pt Level 3 (18102) Diagnoses Hypoparathyroidism E20.9
== END 2024-04-11 16:10 | disposition home or self-care (01) ==
PROVIDERS: Visit Provider Internal Medicine Endocrinology, Diabetes & Metabolism
DX: E20.9 Hypoparathyroidism, unspecified (principal)
CPT/HCPCS: 99213

== ENCOUNTER → 2024-04-11 15:03 | Outpatient (BNVA) | payer MEDICARE, MEDICAID, SELFPAY | PROVIDERS: Visit Provider Internal Medicine Endocrinology, Diabetes & Metabolism | DX: E20.9 Hypoparathyroidism, unspecified (principal); E66.01 Morbid (severe) obesity due to excess calories; Z68.44 Body mass index [BMI] 60.0-69.9, adult | CPT/HCPCS: 99212 ==

== ENCOUNTER 2024-05-29 10:15 | Outpatient (RCR) | payer MEDICARE, MEDICAID, SELFPAY ==
[2024-04-11 09:59] VITALS: BP 125/49; PULSE 59; RESP 20; TEMP 36.8; O2SAT 97
[2024-04-11] MEDS: Iron Sucrose Complex 200 MG in 0.9 % Sodium Chloride 100 ML 440 MG IV (10:07)
[2024-04-18 12:05] VITALS: BP 123/58; PULSE 53; RESP 16; TEMP 36.6; O2SAT 97
[2024-04-18] MEDS: Iron Sucrose Complex 200 MG in 0.9 % Sodium Chloride 100 ML 440 MG IV (12:14)
[2024-05-09 11:12] VITALS: BP 140/78; PULSE 55; RESP 18; TEMP 36.6
[2024-05-09] MEDS: Iron Sucrose Complex 200 MG in 0.9 % Sodium Chloride 100 ML 440 MG IV (11:24)
[2024-05-16 12:03] VITALS: BP 106/54; PULSE 50; RESP 20; TEMP 36.4; O2SAT 95
[2024-05-16] MEDS: Iron Sucrose Complex 200 MG in 0.9 % Sodium Chloride 100 ML 440 MG IV (12:20)
[2024-05-16] MEDS: 0.9 % Sodium Chloride Flush 10 ML SYRINGE 5 ML IVFLUSH (12:37)
[2024-05-16 12:43] LABS: MANUAL DIFF FLAG NO
[2024-05-16 12:45] LABS: Basophils Absolute Auto 0.1 X10*3/uL (0.0-0.2); Basophils Percent Auto 1.3 % (0-2); Eosinophils Absolute Auto 0.2 X10*3/uL (0.0-0.4); Hematocrit 35.5 % (37.0-47.0); Hemoglobin 10.9 g/dl (12.0-16.0); Imm Gran Abs Auto 0.02 X10*3/uL (0.00-0.03); Imm Gran Pct Auto 0.4 % (0.0-0.4); Lymphocytes Absolute Auto 0.8 X10*3/uL (1.2-4.9); Lymphocytes Percent Auto 17.4 % (20-40); Mean Corpuscular HGB Conc 30.7 g/dl (31.0-35.0); Mean Corpuscular Hemoglobin 24.5 pg (27.0-33.0); Mean Platelet Volume 9.9 fL (9.4-12.3); Monocytes Absolute Auto 0.7 X10*3/uL (0.1-1.2); Monocytes Percent Auto 14.2 % (2-11); Neutrophils Percent Auto 62.7 % (45-73); Platelet Count 194 X10*3/uL (160-400); Red Blood Count 4.44 X10*6/uL (4.20-5.50); Red Cell Distribution Width 23.6 % (11.0-16.0); White Blood Count 4.7 X10*3/uL (4.8-10.8)
--- NOTE | 2024-05-16 12:45 | HO.INF ---
12:40pm lab in blood drawn. no difficulties noted
[2024-05-16 13:19] LABS: Ferritin 133 ng/mL (10-250)
[2024-05-21 11:25] VITALS: BP 115/65; PULSE 58; RESP 16; TEMP 36.6; O2SAT 95
[2024-05-21] MEDS: Iron Sucrose Complex 200 MG in 0.9 % Sodium Chloride 100 ML 440 MG IV (11:38)
[2024-05-21] MEDS: 0.9 % Sodium Chloride Flush 10 ML SYRINGE 5 ML IVFLUSH (11:39)
[2024-05-29 10:25] VITALS: BP 137/72; PULSE 56; RESP 18; TEMP 36.6; O2SAT 97
[2024-05-29] MEDS: Iron Sucrose Complex 200 MG in 0.9 % Sodium Chloride 100 ML 440 MG IV (10:38)
[2024-05-29] MEDS: 0.9 % Sodium Chloride Flush 10 ML SYRINGE 5 ML IVFLUSH (10:56)
== END 2024-05-29 11:05 | disposition home or self-care (01) ==
LOC: HO.INF 10:15
PROVIDERS: Visit Provider Internal Medicine Medical Oncology
DX: D50.9 Iron deficiency anemia, unspecified (principal)
CPT/HCPCS: 36415; 82728; 85025; 96365; 96374; J1756

== ENCOUNTER 2024-06-19 09:37 | Outpatient (REF) | payer MEDICARE, MEDICAID, SELFPAY | END 2024-06-19 09:38 | disposition home or self-care (01) | LOC: HO.MAMMO 09:37 | PROVIDERS: PCP Registered Nurse; Visit Provider Nurse Practitioner Family | DX: Z12.31 Encounter for screening mammogram for malignant neoplasm of breast (principal) | CPT/HCPCS: 77063; 77067 ==

== ENCOUNTER → 2024-06-19 10:15 | Outpatient (BNV) | payer MEDICARE, MEDICAID, SELFPAY | PROVIDERS: PCP Registered Nurse; Visit Provider Radiology Diagnostic Radiology | DX: Z12.31 Encounter for screening mammogram for malignant neoplasm of breast (principal) | CPT/HCPCS: 77063; 77067 ==

== ENCOUNTER 2024-08-01 08:02 | Outpatient (AMB) | payer MEDICARE, MEDICAID, SELFPAY ==
--- NOTE | 2024-08-01 08:04 | MHC.OFFVIS ---
Vital Signs 08/01/24 08:07 Height 5 ft 3 in Weight 372 lb 12.827 oz BMI 66.0 BP 148/80 H Blood Pressure Location Lt brachial Position Sitting Pulse 61 Pulse Source Pulse Oximeter Intake Visit Reasons: Hypoparathyroidism-conf Intake Note: Patient present today for Hypoparathyroidism follow up visit. Refractory Products Supervisor Required: No Refractory Products Supervisor Services: Refractory Products Supervisor Offered & Declined Accompanied by: Other Relationship Allergies Penicillins Allergy (Unknown, Verified 08/01/24 08:10) RASH Medication List - Last Reconciled 08/01/24 by Gay Bellamy MD calcitriol take 2 capsules in AM (o.5 mcg) and 1 capsule in PM (.25 mcg) orally every morning; calcium carbonate 500 mg PO BID cholecalciferol (vitamin D3) 50 mcg PO QAM diltiazem HCl CD 360 mg PO DAILY docusate sodium 100 mg PO DAILY ferrous sulfate (FeroSul) 325 mg PO TID labetalol 200 mg PO BID levothyroxine 112 mcg PO QAM lisinopril 40 mg PO QAM ondansetron 4 mg PO TID PRN 5 days HPI Comments Details: 54-year-old female coming in today for follow up of hypoparathyroidism. Here today with sebastian Marroquin who is doing the interpretation. She was previously seeing Dr. Agrawal, last visit March 2024. Per chart review he was originally diagnosed sometime in 2020/beginning of 2021 with hypoparathyroidism after she was noted to be hypocalcemic. No history of thyroid or parathyroid surgery. Father has a history of hypocalcemia. She has no history of kidney stones. No history of fractures. Reviewed investigations of the time, which showed a normal magnesium level from 2020 of 1.9. Patient is currently on vitamin D3 2000 IU per day,.calcitrol 0.5 ug in the morning and 0.25 mcg in evening and calcium 500 mg BID.. Sebastian lives with her and reports good adherence to the medications The patient denies any perioral numbness, paresthesias or cramping or history of seizures. No blood in urine. Perimenopausal, get periods every few months. No vision changes, but hasnt seen an eye doctor in a while. No history of cataracts. No kidney stones. No fractures or falls. No mental status changes. No nausea , vomiting, no abd pain , weight has been stable no weight changes. repeat uncorrected calcium was 7.4 PTH of 8. Denies kidney stones or osteoporosis. Review of systems Constitutional: no fevers, chills or weight loss HEENT: no changes in vision Cardiac: No chest pain, discomfort or palpitations. Pulmonary: dypnea on exertion GI:No abdominal pain, no nausea or vomiting, no anorexia, no blood in stool : no burning micturition, dysuria or increase in urinary frequency Neurologic: No dizziness, no weakness in extremities Physical exam General: sitting comfortably in no acute distress HEENT: normocephalic/atraumatic, , moist oral mucosa Neck: supple, symmetrical, no thyromegaly , no dorsocervical or supraclavicular fat pads Cardiac: normal heart sounds Pulm: normal breath sounds B/L, no added breath sounds Abd: not distended, no tenderness Extremities: Has bilateral pitting edema chronic venous stasis, ulceration on the left leg. Neuro: AAO x3, Speech: normal, no facial droop, moving all 4 extremities [facility] Medical History (Updated 08/01/24 @ 08:59 by Gay Bellamy MD) Hypoparathyroidism TBI (traumatic brain injury) Obesity Cognitive impairment Anemia DVT (deep venous thrombosis) Hypothyroid Hypertension Surgical History No pertinent past surgical history Family History Mother HTN (hypertension) Father Diabetes Paternal Aunt Colon cancer Maternal Aunt Breast CA Social History Household Members Other:: mom Housing: House Alcohol intake: never Patient Tobacco Use Status: Never used Tobacco service: No Physical Exam Vital Signs: Last Vital Signs Pulse 61 08/01/24 08:07 BP 148/80 H 08/01/24 08:07 BMI result Body Mass Index 66.0 Results Reviewed Results Reviewed: Laboratory Tests 02/25/19 12/12/20 02/17/22 11:40 04:17 19:37 Hgb Hct Creatinine Estimated GFR Calcium 8.5 D 6.3 L 7.1 L D Magnesium 1.9 Phosphorus Iron 26 L Iron Saturation 8 L TIBC % Saturation Unsat Iron Binding Ferritin AST ALT TSH 3rd Generation 4.09 H PTH Intact Calcium (PTH Intact) Ur 24 Hour Volume Ur Creatinine 24 Hour Ur Calcium 24 Hr Calcium/Creat 24 Hr 11/22/22 12/26/22 01/10/23 08:29 01:39 13:15 Hgb Hct Creatinine 0.92 0.83 Estimated GFR > 60 > 60 Calcium 9.6 D 9.0 D Magnesium Phosphorus 5.5 H 5.2 H Iron Iron Saturation TIBC % Saturation Unsat Iron Binding Ferritin AST ALT TSH 3rd Generation PTH Intact 8 L Calcium (PTH Intact) 7.4 L Ur 24 Hour Volume Ur Creatinine 24 Hour Ur Calcium 24 Hr Calcium/Creat 24 Hr 01/23/23 01/23/23 08/30/23 08:00 08:00 15:41 Hgb Hct Creatinine 1.06 Estimated GFR 54 Calcium 7.9 L D Magnesium Phosphorus Iron Iron Saturation TIBC % Saturation Unsat Iron Binding Ferritin AST ALT TSH 3rd Generation PTH Intact Calcium (PTH Intact) Ur 24 Hour Volume 3000 Ur Creatinine 24 Hour 2.49 H 2.5 H Ur Calcium 24 Hr 339 H Calcium/Creat 24 Hr 136 03/06/24 04/02/24 05/16/24 12:07 11:00 12:42 Hgb 7.2 L D 8.7 L D 10.9 L D Hct 26.7 L 30.5 L 35.5 L Creatinine 0.71 Estimated GFR > 60 Calcium 7.5 L Magnesium Phosphorus Iron 18 L 207 H Iron Saturation TIBC 301 347 % Saturation 6 L 60 H Unsat Iron Binding 283 140 Ferritin 35 31 133 AST 17 ALT 9 TSH 3rd Generation PTH Intact Calcium (PTH Intact) Ur 24 Hour Volume Ur Creatinine 24 Hour Ur Calcium 24 Hr Calcium/Creat 24 Hr US RETROPERITONEAL LIMITED (RENAL ONLY) Nov 2021 US RENAL DOPPLER CLINICAL INFORMATION: Hypertension. Rule out renal artery stenosis. COMPARISON: None TECHNIQUE: Mckeon-scale and color imaging of the kidneys. Mckeon-scale, color and Doppler imaging of the renal arteries including waveform spectral analysis. Exam is limited due to patient body habitus. FINDINGS: RIGHT KIDNEY: 10.8 x 5.5 x 6.1 cm (SAG x AP x TRV). The kidney is normal in size, contour, and echogenicity. Renal cortical thickness is normal. No calculi or focal parenchymal lesions. No hydronephrosis. LEFT KIDNEY: 10.5 x 5.1 x 5.2 cm (SAG x AP x TRV). The kidney is normal in size, contour, and echogenicity. Renal cortical thickness is normal. No calculi or focal parenchymal lesions. No hydronephrosis. The abdominal aorta is difficult to visualize. Peak systolic velocity measures 220 cm/s which is elevated making calculation of renal artery to aorta ratio inaccurate. The visualized right renal artery appears patent. Right renal artery peak systolic velocities are normal measuring 134 cm/s, 128 cm/s and 80 cm/s proximally, in the midportion and distally. Segmental resistive indices in the right kidney are normal measuring between 0.6 and 0.8. The right renal vein is patent. The visualized left renal artery appears patent. Left renal artery peak systolic velocities are normal measuring 101, 81 and 79 cm/s proximally, in the midportion and distally. Resistive indices of the segmental renal arteries in the left kidney are normal measuring 0.7. The left renal vein is patent. US/US renal BI IMPRESSION: Limited exam due to patient body habitus. Normal-appearing kidneys. No evidence of renal artery stenosis. Assessment & Plan Assessment & Plan (1) Hypoparathyroidism: Code(s): E20.9 - Hypoparathyroidism, unspecified Category: Medical Qualifiers: Hypoparathyroidism type: unspecified Qualified Code(s): E20.9 - Hypoparathyroidism, unspecified Plan: Patient who is diagnosed with hypoparathyroidism sometime around 11/2021, who is currently maintained on calcitriol 0.5 mcg in a.m. and 0.25 mcg in evening, calcium 500 mg b.i.d. and vitamin-D 2000 units daily, these labs in March 2023 showed calcium of 7.5 with albumin of 3.6, hence corrected calcium of 7.9. Our goal is to maintain it in the lower normal range which would be something around 8-8.5. This is in order to prevent hypercalciuria. Her dosage of calcitriol was increased after this from 0.5 once a day to 0.5 in the morning and 0.25 mcg in the evening which she has been taking. We will repeat her calcium, phosphorus, magnesium and PTH levels. I will also obtain 24 hour urine calcium levels. The last 1 done in 2022 showed her 24 hour urine calcium was 339 which is elevated since goal in woman is less than 250 mg per 24 hours, however her urine volume was 3 L which was also very increased so inadequate collection. Her kidney function stable, and renal ultrasound from November 2021 did not show any nephrocalcinosis, however even though it was in an appropriate collection, given elevated calcium levels in the urine, we will repeat renal ultrasound as well. These should be done of the 2 or 3 year kylah on treatment. She has not had any workup for why she has developed hypoparathyroidism. Differentials include autoimmune polyglandular syndrome type 1, however no history of candidiasis. She does not have any symptoms of adrenal insufficiency, however we will check for 21 hydroxylase antibodies. Other differentials include other genetic mutations causing hyperparathyroidism especially given that she has family history of hypercalcemia in her father per the chart. I will please genetics referral for [facility]. This was placed previously as well but does not seem like patient was able to get to them. She was also previously given a referral for [facility] to see hyperparathyroidism expert over there, however she says she did not hear from them, we will place this again as she would benefit from genetic workup to evaluate this. In the near future, trans con PTH has been approved by FDA, and we will hopefully be available in December 2024, can consider treating her with that in the future if she does not reach her goals with adequate calcium and calcitriol treatment. Plan: -ordered repeat calcium, phosphorus, creatinine, PTH, ionized calcium, albumin, magnesium levels to be done -ordered 21 hydroxylase antibodies to evaluate for adrenal insufficiency as 1 of the differentials is autoimmune polyglandular syndrome type 1 -ordered 24 hour urine calcium and creatinine -ordered kidney ultrasound -[facility] genetics referral -[facility] endocrinology referral for further evaluation of hyperparathyroidism etiology if genetics is more feasible to be done there -continue calcitriol 0.25 mcg in a.m. 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 Currently does not report any symptoms of hypothyroidism or hyperthyroidism. She has not had TFTs done in a while. Plan: -ordered TSH with reflex T4 Plan I spent 30 minutes in reviewing the record, seeing the patient and documenting in the medical record. Orders: Orders Calcium Today E20.9 - Hypoparathyroidism, unspecified Calcium, Ionized Today E20.9 - Hypoparathyroidism, unspecified Magnesium Today E20.9 - Hypoparathyroidism, unspecified 21 Hydroxylase Antibody Today E20.9 - Hypoparathyroidism, unspecified Albumin Level Today E20.9 - Hypoparathyroidism, unspecified Phosphorus Today E20.9 - Hypoparathyroidism, unspecified Parathyroid Hormone Intact Today E20.9 - Hypoparathyroidism, unspecified Vitamin D 25-OH Total Today E20.9 - Hypoparathyroidism, unspecified TSH reflex Free T4 Today E20.9 - Hypoparathyroidism, unspecified Calcium, 24 Hr Ur Today E20.9 - Hypoparathyroidism, unspecified Creatinine, 24 Hr Group Today E20.9 - Hypoparathyroidism, unspecified Creatinine Today E20.9 - Hypoparathyroidism, unspecified US renal BI Today E20.9 - Hypoparathyroidism, unspecified Referrals Genetics Referral E20.9 - Hypoparathyroidism, unspecified Endocrinology Referral E20.9 - Hypoparathyroidism, unspecified Patient Instructions: Dr. Pj Mitchell at [facility] [email or web address] [id number] Also placing genetics referral for [facility] Do kidney ultrasound Do blood work Do 24 hour urine test 24 hr urine collection instructions You have been asked to collect your urine for 24 hours to assess for calcium excretion. You must choose a 24 hour period of time when you will be home. The morning of the first day, DISCARD the FIRST morning void and then note the time. You will collect every single void from then on for 24 hours. For example, if you wake up at 6am and urinate, flush down that void. You will then collect every drop of urine all day and all night through 6am the following day. You will urinate one last time at 6am for the collection. The jug of urine must be kept in the refrigerator until you bring it to the lab.You have been asked to collect your urine for 24 hours to assess for calcium excretion. You must choose a 24 hour period of time when you will be home. The morning of the first day, DISCARD the FIRST morning void and then note the time. You will collect every single void from then on for 24 hours. For example, if you wake up at 6am and urinate, flush down that void. You will then collect every drop of urine all day and all night through 6am the following day. You will urinate one last time at 6am for the collection. The jug of urine must be kept in the refrigerator until you bring it to the lab. 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
[2024-08-01 08:07] VITALS: BP 148/80; PULSE 61; BMI 66.0
== END 2024-08-01 08:46 | disposition home or self-care (01) ==
PROVIDERS: PCP Registered Nurse; Visit Provider Student in an Organized Health Care Education/Training Program
DX: E20.9 Hypoparathyroidism, unspecified (principal); E06.3 Autoimmune thyroiditis
CPT/HCPCS: 99214; G2211

== ENCOUNTER → 2024-08-01 08:02 | Outpatient (BNVA) | payer MEDICARE, MEDICAID, SELFPAY | PROVIDERS: PCP Registered Nurse; Visit Provider Student in an Organized Health Care Education/Training Program | DX: E20.9 Hypoparathyroidism, unspecified (principal); E06.3 Autoimmune thyroiditis | CPT/HCPCS: 99212 ==

== ENCOUNTER 2024-08-13 10:00 | Outpatient (REF) | payer MEDICARE, MEDICAID, SELFPAY ==
--- NOTE | ~2024-08-13 | US_ITS ---
EXAMINATION: US RETROPERITONEAL LIMITED (RENAL ONLY) CLINICAL INFORMATION: Hypoparathyroidism, unspecified.. COMPARISON: Ultrasound renal with Doppler 12/08/2021. TECHNIQUE: Real-time imaging of the kidneys. Technically limited study secondary to body habitus. FINDINGS: RIGHT KIDNEY: 9.9 x 4.6 x 6.5 cm (SAG x AP x TRV). The kidney is normal in size, contour, and echogenicity. Renal cortical thickness is normal. No calculi or focal parenchymal lesions. No hydronephrosis. LEFT KIDNEY: 10.9 x 4.9 x 6.6 cm (SAG x AP x TRV). The kidney is normal in size, contour, and echogenicity. Renal cortical thickness is normal. No calculi or focal parenchymal lesions. No hydronephrosis. US/US renal BI IMPRESSION: Normal exam without nephrolithiasis. Electronically signed by: Keagan Guillen MD 10/03/2024 11:51 AM [facility]
== END 2024-08-13 10:01 | disposition home or self-care (01) ==
LOC: HO.HMGCX 10:00
PROVIDERS: PCP Registered Nurse; Visit Provider Student in an Organized Health Care Education/Training Program
DX: E20.9 Hypoparathyroidism, unspecified (principal)
CPT/HCPCS: 76775

== ENCOUNTER 2024-10-01 11:03 | Outpatient (AMB) | payer MEDICARE, MEDICAID, SELFPAY ==
[2024-10-01 11:06] VITALS: BP 122/70; PULSE 55; BMI 69.5
--- NOTE | 2024-10-01 11:06 | A.OFFVIS_ITS ---
Vital Signs 10/01/24 11:06 Height 5 ft 3 in Weight 392 lb 6.765 oz BMI 69.5 BP 122/70 Blood Pressure Location Rt brachial Position Sitting Pulse 55 Pulse Source Pulse Oximeter Intake Visit Reasons: Hypoparathyroidism-lvm Intake Note: Patient present today for Hypoparathyroidism follow up visit. Hotel Director Required: Yes Hotel Director Language: Pre Algebra Teacher Services: Hotel Director Present Hotel Director Name: YARITZA Dean/GUANAKO SPANS Accompanied by: Other Relationship Allergies Penicillins Allergy (Unknown, Verified 10/01/24 11:08) RASH Medication List - Last Reconciled 10/01/24 by Gay Bellamy MD calcitriol take 2 capsules in AM (o.5 mcg) and 1 capsule in PM (.25 mcg) orally every morning; calcium carbonate 500 mg PO BID cholecalciferol (vitamin D3) 50 mcg PO QAM diltiazem HCl CD 360 mg PO DAILY docusate sodium 100 mg PO DAILY ferrous sulfate (FeroSul) 325 mg PO TID labetalol 200 mg PO BID levothyroxine 112 mcg PO QAM lisinopril 40 mg PO QAM ondansetron 4 mg PO TID PRN 5 days HPI Comments Details: 54-year-old female coming in today for follow up of hypoparathyroidism. Here today with daughter who is doing the interpretation. HPI from prior visit Per chart review he was originally diagnosed sometime in 2020/beginning of 2021 with hypoparathyroidism after she was noted to be hypocalcemic. No history of thyroid or parathyroid surgery. Father has a history of hypocalcemia. She has no history of kidney stones. No history of fractures. Reviewed investigations of the time, which showed a normal magnesium level from 2020 of 1.9. Interval history Patient is currently on vitamin D3 2000 IU per day,.calcitrol 0.5 ug in the morning and 0.25 mcg in evening and calcium 500 mg once daily.. Last time they had reported 500 mg twice daily. But she showed me a list which has 500 mg as once daily and she gets prepackaged medications. Daughter lives with her and reports good adherence to the medications Today she is complaining of intermittent perioral numbness, paresthesias or cramping denies history of seizures. No blood in urine. Renal ultrasound done 08/13/2024, still not reported Perimenopausal, get periods every few months. No vision changes, but hasnt seen an eye doctor in a while. No history of cataracts. No kidney stones. No fractures or falls. No mental status changes. No nausea , vomiting, no abd pain , weight has been stable no weight changes. 2022 PTH of 8. Denies kidney stones or osteoporosis. Most recent labs are from April 12 calcium 7.5, albumin 3.6 I had ordered repepat ;labs last visit in Aug 13 she hasnt had them done Review of systems Constitutional: no fevers, chills or weight loss HEENT: no changes in vision Cardiac: No chest pain, discomfort or palpitations. Pulmonary: dypnea on exertion GI:No abdominal pain, no nausea or vomiting, no anorexia, no blood in stool : no burning micturition, dysuria or increase in urinary frequency Neurologic: No dizziness, no weakness in extremities Physical exam General: sitting comfortably in no acute distress HEENT: normocephalic/atraumatic, , moist oral mucosa Neck: supple, symmetrical, no thyromegaly , no dorsocervical or supraclavicular fat pads Cardiac: normal heart sounds Pulm: normal breath sounds B/L, no added breath sounds Abd: not distended, no tenderness Extremities: Has bilateral pitting edema chronic venous stasis, ulceration on the left leg. Neuro: AAO x3, Speech: normal, no facial droop, moving all 4 extremities Laboratory Tests 02/25/19 12/12/20 02/17/22 11:40 04:17 19:37 Hgb Hct Creatinine Estimated GFR Calcium 8.5 D 6.3 L 7.1 L D Magnesium 1.9 Phosphorus Iron 26 L Iron Saturation 8 L TIBC % Saturation Unsat Iron Binding Ferritin AST ALT TSH 3rd Generation 4.09 H PTH Intact Calcium (PTH Intact) Ur 24 Hour Volume Ur Creatinine 24 Hour Ur Calcium 24 Hr Calcium/Creat 24 Hr 11/22/22 12/26/2201/10/23 08:29 01:39 13:15 Hgb Hct Creatinine 0.92 0.83 Estimated GFR > 60 > 60 Calcium 9.6 D 9.0 D Magnesium Phosphorus 5.5 H 5.2 H Iron Iron Saturation TIBC % Saturation Unsat Iron Binding Ferritin AST ALT TSH 3rd Generation PTH Intact 8 L Calcium (PTH Intact) 7.4 L Ur 24 Hour Volume Ur Creatinine 24 Hour Ur Calcium 24 Hr Calcium/Creat 24 Hr 01/23/23 01/23/23 08/30/23 08:00 08:00 15:41 Hgb Hct Creatinine 1.06 Estimated GFR 54 Calcium 7.9 L D Magnesium Phosphorus Iron Iron Saturation TIBC % Saturation Unsat Iron Binding Ferritin AST ALT TSH 3rd Generation PTH Intact Calcium (PTH Intact) Ur 24 Hour Volume 3000 Ur Creatinine 24 Hour 2.49 H 2.5 H Ur Calcium 24 Hr 339 H Calcium/Creat 24 Hr 136 03/06/24 04/02/24 05/16/24 12:07 11:00 12:42 Hgb 7.2 L D 8.7 L D 10.9 L D Hct 26.7 L 30.5 L 35.5 L Creatinine 0.71 Estimated GFR > 60 Calcium 7.5 L Magnesium Phosphorus Iron 18 L 207 H Iron Saturation TIBC 301 347 % Saturation 6 L 60 H Unsat Iron Binding 283 140 Ferritin 35 31 133 AST 17 ALT 9 TSH 3rd Generation PTH Intact Calcium (PTH Intact) Ur 24 Hour Volume Ur Creatinine 24 Hour Ur Calcium 24 Hr Calcium/Creat 24 Hr US RETROPERITONEAL LIMITED (RENAL ONLY) Nov 2021 US RENAL DOPPLER CLINICAL INFORMATION: Hypertension. Rule out renal artery stenosis. COMPARISON: None TECHNIQUE: Mckeon-scale and color imaging of the kidneys. Mckeon-scale, color and Doppler imaging of the renal arteries including waveform spectral analysis. Exam is limited due to patient body habitus. FINDINGS: RIGHT KIDNEY: 10.8 x 5.5 x 6.1 cm (SAG x AP x TRV). The kidney is normal in size, contour, and echogenicity. Renal cortical thickness is normal. No calculi or focal parenchymal lesions. No hydronephrosis. LEFT KIDNEY: 10.5 x 5.1 x 5.2 cm (SAG x AP x TRV). The kidney is normal in size, contour, and echogenicity. Renal cortical thickness is normal. No calculi or focal parenchymal lesions. No hydronephrosis. The abdominal aorta is difficult to visualize. Peak systolic velocity measures 220 cm/s which is elevated making calculation of renal artery to aorta ratio inaccurate. The visualized right renal artery appears patent. Right renal artery peak systolic velocities are normal measuring 134 cm/s, 128 cm/s and 80 cm/s proximally, in the midportion and distally. Segmental resistive indices in the right kidney are normal measuring between 0.6 and 0.8. The right renal vein is patent. The visualized left renal artery appears patent. Left renal artery peak systolic velocities are normal measuring 101, 81 and 79 cm/s proximally, in the midportion and distally. Resistive indices of the segmental renal arteries in the left kidney are normal measuring 0.7. The left renal vein is patent. US/US renal BI IMPRESSION: Limited exam due to patient body habitus. Normal-appearing kidneys. No evidence of renal artery stenosis. [facility] Medical History Hypoparathyroidism TBI (traumatic brain injury) Obesity Cognitive impairment Anemia DVT (deep venous thrombosis) Hypothyroid Hypertension Surgical History No pertinent past surgical history Family History Mother HTN (hypertension) Father Diabetes Paternal Aunt Colon cancer Maternal Aunt Breast CA Social History Household Members Other:: mom Housing: House Alcohol intake: never Patient Tobacco Use Status: Never used Tobacco service: No Physical Exam Vital Signs: Last Vital Signs Pulse 55 10/01/24 11:06 BP 122/70 10/01/24 11:06 BMI result Body Mass Index 69.5 Assessment & Plan Assessment & Plan (1) Hypoparathyroidism: Code(s): E20.9 - Hypoparathyroidism, unspecified Category: Medical Qualifiers: Hypoparathyroidism type: unspecified Qualified Code(s): E20.9 - Hypoparathyroidism, unspecified Plan: Patient who is diagnosed with hypoparathyroidism sometime around 11/2021, who is currently maintained on calcitriol 0.5 mcg in a.m. and 0.25 mcg in evening, calcium 500 mg once daily. and vitamin-D 2000 units daily, these labs in March 2023 showed calcium of 7.5 with albumin of 3.6, hence corrected calcium of 7.9. Our goal is to maintain it in the lower normal range which would be something around 8-8.5. This is in order to prevent hypercalciuria. Her dosage of calcitriol was increased after this from 0.5 once a day to 0.5 in the morning and 0.25 mcg in the evening which she has been taking. We had ordered repeat her calcium, phosphorus, magnesium and PTH levels. She hasnt had these done yet. I will also obtain 24 hour urine calcium levels. The last 1 done in 2022 stef wed her 24 hour urine calcium was 339 which is elevated since goal in woman is less than 250 mg per 24 hours, however her urine volume was 3 L which was also very increased so inadequate collection. Her kidney function stable, and renal ultrasound from November 2021 did not show any nephrocalcinosis, however even though it was in an appropriate collection, given elevated calcium levels in the urine, we will repeat renal ultrasound as well. These should be done of the 2 or 3 year kylah on treatment. US renal done 07/29/24 , report pending She has not had any workup for why she has developed hypoparathyroidism. Differentials include autoimmune polyglandular syndrome type 1, however no history of candidiasis. She does not have any symptoms of adrenal insufficiency, however we will check for 21 hydroxylase antibodies. Other differentials include other genetic mutations causing hypoparathyroidism especially given that she has family history of hypocalcemia in her father per the chart. I will please genetics referral for [facility]. This was placed previously as well but does not seem like patient was able to get to them. She was also previously given a referral for [facility] to see hyperparathyroidism expert over there, however she says she did not hear from them, I placed this again visit in Jul 2024 as she would benefit from genetic workup to evaluate this and I have asked them to call their office. Patients daughter expressed difficult yregarding trnasport to [place] but will ing to take her for one visit . In the near future, trans con PTH has been approved by FDA, and we will hopefully be available in December 2024, can consider treating her with that in the future if she does not reach her goals with adequate calcium and calcitriol treatment. Today 10/01/2024 she is reporting intermittent perioral numbness and paresthesias in her extremities. Plan: -ordered repeat calcium, phosphorus, creatinine, PTH, ionized calcium, albumin, magnesium levels to be done -ordered 21 hydroxylase antibodies to evaluate for adrenal insufficiency as 1 of the differentials is autoimmune polyglandular syndrome type 1 -ordered 24 hour urine calcium and creatinine -follow up report of kidney ultrasound -[facility] genetics referral already in place, we will method staff to check status -[facility] referral for further evaluation of hyperparathyroidism etiology if genetics is more feasible to be done there -continue calcitriol 0.25 mcg in a.m. 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 Currently does not report any symptoms of hypothyroidism or hyperthyroidism. She has not had TFTs done in a while. Plan: -ordered TSH with reflex T4 Plan I spent 30 minutes in reviewing the record, seeing the patient and documenting in the medical record. Patient Instructions: Dr. Pj Mitchell at [facility] [email or web address] [id number] Call the office of the doctor in [facility] and schedule an appointment Also placing genetics referral for [facility], call our office to check status of this in 2-3 weeks if you havent heard from anyone Do blood work Do 24 hour urine test Increase calcium to 500 mg twice daily 24 hr urine collection instructions You have been asked to collect your urine for 24 hours to assess for calcium excretion. You must choose a 24 hour period of time when you will be home. The morning of the first day, DISCARD the FIRST morning void and then note the time. You will collect every single void from then on for 24 hours. For example, if you wake up at 6am and urinate, flush down that void. You will then collect every drop of urine all day and all night through 6am the following day. You will urinate one last time at 6am for the collection. The jug of urine must be kept in the refrigerator until you bring it to the lab.You have been asked to collect your urine for 24 hours to assess for calcium excretion. You must choose a 24 hour period of time when you will be home. The morning of the first day, DISCARD the FIRST morning void and then note the time. You will collect every single void from then on for 24 hours. For example, if you wake up at 6am and urinate, flush down that void. You will then collect every drop of urine all day and all night through 6am the following day. You will urinate one last time at 6am for the collection. The jug of urine must be kept in the refrigerator until you bring it to the lab. Call our office to confirm what doses of calcium, calcitriol (rocaltrol) , vitamin D she is taking Llame al consultorio del m?dico en [place] y programe josh chau. Adem?s de realizar josh referencia gen?krysten para [facility], llame a nuestra oficina para verificar el estado de esto en 2 o 3 semanas si no cervantes tenido noticias de nadie. hacer an?lisis de rosanna Hacer examen de orina de 24 horas Aumentar el calcio a 500 mg dos veces al d?a. Instrucciones para la recolecci?n de orina de 24 horas. Se le cervantes pedido que recolecte orina samantha 24 horas para evaluar la excreci?n de calcio. Debe elegir un per?odo de 24 horas en el que estar? en casa. La ma?crow del primer d?a, DESCARTE el PRIMER vac?o de la ma?crow y luego anote la hora. A partir de domonique momento, recolectar?s todos los vac?os samantha 24 horas. Por ejemplo, si te despiertas a las 6 de la ma?crow y orinas, pilar domonique vac?o. Luego recolectar? cada gota de orina samantha todo el d?a y toda la noche hasta las 6 a.m. del d?a siguiente. Orinar?s por ?ltima vez a las 6 a. m. para la recolecci?n. La jarra de orina debe guardarse en el refrigerador hasta que la lleve al laboratorio. Se le cervantes pedido que recolecte orina samantha 24 horas para evaluar la excreci?n de calcio. Debe elegir un per?odo de 24 horas en el que estar? en casa. La ma?crow del primer d?a, DESCARTE el PRIMER vac?o de la ma?crow y luego anote la hora. A partir de domonique momento, recolectar?s todos los vac?os samantha 24 horas. Por ejemplo, si te despiertas a las 6 de la ma?crow y orinas, pilar domonique vac?o. Luego recolectar? cada gota de orina samantha todo el d?a y toda la noche hasta las 6 a.m. del d?a siguiente. Orinar?s por ?ltima vez a las 6 a. m. para la recolecci?n. El frasco de orina debe conservarse en el frigor?fico hasta eaton llegada al laboratorio. Llame a nuestra oficina para confirmar qu? dosis de calcio, calcitriol (rocaltrol) y vitamina D est? tomando. 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
== END 2024-10-01 11:36 | disposition home or self-care (01) ==
PROVIDERS: PCP Registered Nurse; Visit Provider Student in an Organized Health Care Education/Training Program
DX: E20.9 Hypoparathyroidism, unspecified (principal); E06.3 Autoimmune thyroiditis
CPT/HCPCS: 99214

== ENCOUNTER → 2024-10-01 11:03 | Outpatient (BNVA) | payer MEDICARE, MEDICAID, SELFPAY | PROVIDERS: PCP Registered Nurse; Visit Provider Student in an Organized Health Care Education/Training Program | DX: E20.9 Hypoparathyroidism, unspecified (principal); E06.3 Autoimmune thyroiditis | CPT/HCPCS: 99212 ==

== ENCOUNTER 2024-10-07 09:54 | Outpatient (REF) | payer MEDICARE, MEDICAID, SELFPAY ==
[2024-10-07 10:28] LABS: MANUAL DIFF FLAG NO
[2024-10-07 10:41] LABS: Basophils Absolute Auto 0.1 X10*3/uL (0.0-0.2); Basophils Percent Auto 0.9 % (0-2); Eosinophils Absolute Auto 0.2 X10*3/uL (0.0-0.4); Eosinophils Percent Auto 3.3 % (0-4); Hematocrit 36.7 % (37.0-47.0); Hemoglobin 11.9 g/dl (12.0-16.0); Imm Gran Abs Auto 0.05 X10*3/uL (0.00-0.03); Imm Gran Pct Auto 0.7 % (0.0-0.4); Lymphocytes Absolute Auto 0.9 X10*3/uL (1.2-4.9); Lymphocytes Percent Auto 13.6 % (20-40); Mean Corpuscular HGB Conc 32.4 g/dl (31.0-35.0); Mean Corpuscular Volume 89.3 fL (80.0-98.0); Mean Platelet Volume 10.5 fL (9.4-12.3); Monocytes Absolute Auto 0.8 X10*3/uL (0.1-1.2); Neutrophils Absolute Auto 4.9 x10*3/uL (2.0-8.3); Neutrophils Percent Auto 70.5 % (45-73); Platelet Count 235 X10*3/uL (160-400); Red Blood Count 4.11 X10*6/uL (4.20-5.50); White Blood Count 6.9 X10*3/uL (4.8-10.8)
[2024-10-07 10:51] LABS: Estimated Average Glucose 143 mg/dL; Hemoglobin A1c % 6.6 % (<6.0); Total Hemoglobin (HGBA1C) 3133.9864 umol/L
[2024-10-07 11:07] LABS: Parathyroid Hormone Intact 9.7 pg/mL (8.7-77.1)
[2024-10-07 11:19] LABS: Alanine Aminotransferase 15 U/L (0-31); Albumin Level 3.7 g/dL (3.5-5.0); Alkaline Phosphatase 110 U/L (39-117); Anion Gap 10 (12-20); Aspartate Amino Transferase 26 U/L (5-31); Bilirubin Total 0.4 mg/dL (0.0-1.0); Blood Urea Nitrogen 15 mg/dL (9-16); Calcium 8.2 mg/dL (8.4-10.2); Carbon Dioxide 30 mmol/L (22-29); Chloride 104 mmol/L (96-108); Estimated Glomerular Filt Rate > 60; Glucose Random 147 mg/dL (60-115); Magnesium 1.7 mg/dL (1.6-2.6); Phosphorus 5.2 mg/dL (2.7-4.5); Potassium 4.4 mmol/L (3.3-5.1); Sodium 140 mmol/L (135-145); Total Protein 7.4 g/dL (6.5-8.0)
[2024-10-07 11:20] LABS: Cholesterol 126 mg/dL (<200); HDL Cholesterol 42 mg/dL (>40); LDL Cholesterol Calculated 67 mg/dL (<100); Triglycerides 88 mg/dL (<150)
[2024-10-07 11:22] LABS: HIV AB/AG Nonreactive (Nonreactive); HIV Num 1 0.08 S/CO (0.00-0.99)
[2024-10-07 11:24] LABS: TSH reflex Free T4 2.78 uIU/mL (0.32-4.0); Vitamin D 25-OH Total 32.9 ng/mL (>30)
[2024-10-07 11:25] LABS: Ferritin 70 ng/mL (10-250)
[2024-10-08 14:29] LABS: Calcium, Ionized 4.5 mg/dL (4.7-5.5)
[2024-10-08 14:48] LABS: HCV Log PCR <1.18 NOT DETECTED Log IU/mL (NOT DETECTED); HepC Viral Load <15 NOT DETECTED IU/mL (NOT DETECTED)
[2024-10-09 09:03] LABS: RPR Rapid Plasma Reagin NON-REACTIVE (NON-REACTIVE)
[2024-10-18 17:38] LABS: 21 Hydroxylase Antibody NEGATIVE (NEGATIVE)
== END 2024-10-07 09:55 | disposition home or self-care (01) ==
LOC: HO.LAB 09:54
PROVIDERS: Internal Medicine Medical Oncology; PCP Registered Nurse; Visit Provider Student in an Organized Health Care Education/Training Program
DX: Z00.00 Encounter for general adult medical examination without abnormal findings (principal); Z11.3 Encounter for screening for infections with a predominantly sexual mode of transmission; E20.9 Hypoparathyroidism, unspecified; D50.9 Iron deficiency anemia, unspecified
CPT/HCPCS: 36415; 80053; 80061; 82306; 82330; 82728; 83036; 83519; 83735; 83970; 84100; 84443; 85025; 86592; 87389; 87522

== ENCOUNTER 2024-10-09 12:02 | Outpatient (REF) | payer MEDICARE, MEDICAID, SELFPAY ==
[2024-10-09 12:40] LABS: Creatinine, mg/dL 72.71
[2024-10-09 12:46] LABS: Creatinine, 24Hr Urine 0.7 G/Day (1.0-2.0); Total Volume 24 Hour Urine 975 mL
[2024-10-11 17:07] LABS: Calcium, 24 Hr Urine 189 mg/24 h; Calcium/Creatinine Ratio 285 mg/g creat (30-275); Creatinine 24Hr Urine 0.66 g/24 h (0.50-2.15)
== END 2024-10-09 12:03 | disposition home or self-care (01) ==
LOC: HO.LNP 12:02
PROVIDERS: Visit Provider Student in an Organized Health Care Education/Training Program
DX: E20.9 Hypoparathyroidism, unspecified (principal)
CPT/HCPCS: 82340; 82570

== ENCOUNTER 2024-10-28 10:00 | Outpatient (AMB) | payer MEDICARE, MEDICAID, SELFPAY ==
--- NOTE | 2024-10-28 10:01 | A.OFFVIS_ITS ---
Vital Signs 10/28/24 10:02 Height 5 ft 3 in Weight 395 lb 8.148 oz BMI 70.1 BP 130/90 H Blood Pressure Location Lt brachial Position Sitting Pulse 65 Pulse Source Pulse Oximeter Intake Visit Reasons: Hypoparathyroidism Intake Note: Patient present today for Hypoparathyroidism follow up visit. Enterprise Services Manager Required: Yes Enterprise Services Manager Language: Cable Television Program Director Services: Enterprise Services Manager Present Enterprise Services Manager Name: Polly Information Interpreted: non-clinical & clinical Accompanied by: Sister Allergies Penicillins Allergy (Unknown, Verified 10/28/24 10:06) RASH Medication List - Last Reconciled 10/28/24 by Gay Bellamy MD calcitriol take 2 capsules in AM (o.5 mcg) and 2 capsule in PM (0.5 mcg) orally every morning; calcium carbonate 500 mg PO BID cholecalciferol (vitamin D3) 50 mcg PO QAM diltiazem HCl CD 360 mg PO DAILY docusate sodium 100 mg PO DAILY labetalol 200 mg PO BID levothyroxine 112 mcg PO QAM lisinopril 40 mg PO QAM ondansetron 4 mg PO TID PRN 5 days HPI Comments Details: 54-year-old female coming in today for follow up of hypoparathyroidism. Here today with daughter who is doing the interpretation. HPI from prior visit Per chart review he was originally diagnosed sometime in 2020/beginning of 2021 with hypoparathyroidism after she was noted to be hypocalcemic. No history of thyroid or parathyroid surgery. Father has a history of hypocalcemia. She has no history of kidney stones. No history of fractures. Reviewed investigations of the time, which showed a normal magnesium level from 2020 of 1.9. Renal Us 08/13/24 normal No blood in urine. Perimenopausal, get periods every few months. No vision changes, but hasnt seen an eye doctor in a while. No history of cataracts. No kidney stones. No fractures or falls. No mental status changes. No nausea , vomiting, no abd pain , weight has been stable no weight changes. 2022 PTH of 8. Denies kidney stones or osteoporosis. labs are from April 12 calcium 7.5, albumin 3.6 Interval history Patient is currently on vitamin D3 2000 IU per day,.calcitrol 0.5 ug in the morning and 0.5 mcg in evening and not taking the calcium anymore due to size of the pills.. she gets prepackaged medications. Daughter lives with her and reports good adherence to the medications Today she is complaining of intermittent perioral numbness, paresthesias or cramping denies history of seizures. labs last visit 10/07/24 showed low ionized calcium of Ionized calcium of 4.5 which is low, low total calcium of 8.2 with albumin of 3.7, corrected calcium would be something around 8.5. Given she was having symptoms of perioral numbness, I had increased her calcium carbonate to 500 mg twice daily as well as went up on her calcitriol to 0.5 mcg twice daily. However patient tells me today that she has not been taking her calcium carbonate because the size of the pills was bothering her. I emphasized to her importance of taking her calcium and low calcium levels in the blood can result in if not managed timely. Review of systems Constitutional: no fevers, chills or weight loss HEENT: no changes in vision Cardiac: No chest pain, discomfort or palpitations. Pulmonary: dypnea on exertion GI:No abdominal pain, no nausea or vomiting, no anorexia, no blood in stool : no burning micturition, dysuria or increase in urinary frequency Neurologic: No dizziness, no weakness in extremities Physical exam General: sitting comfortably in no acute distress HEENT: normocephalic/atraumatic, , moist oral mucosa Neck: supple, symmetrical, no thyromegaly , no dorsocervical or supraclavicular fat pads Cardiac: normal heart sounds Pulm: normal breath sounds B/L, no added breath sounds Abd: not distended, no tenderness Extremities: Has bilateral pitting edema chronic venous stasis, ulceration on the left leg. Neuro: AAO x3, Speech: normal, no facial droop, moving all 4 extremities Laboratory Tests 02/25/19 12/12/20 02/17/22 11:40 04:17 19:37 Hgb Hct Creatinine Estimated GFR Calcium 8.5 D 6.3 L 7.1 L D Magnesium 1.9 Phosphorus Iron 26 L Iron Saturation 8 L TIBC % Saturation Unsat Iron Binding Ferritin AST ALT TSH 3rd Generation 4.09 H PTH Intact Calcium (PTH Intact) Ur 24 Hour Volume Ur Creatinine 24 Hour Ur Calcium 24 Hr Calcium/Creat 24 Hr 11/22/22 12/26/22 01/10/23 08:29 01:39 13:15 Hgb Hct Creatinine 0.92 0.83 Estimated GFR > 60 > 60 Calcium 9.6 D 9.0 D Magnesium Phosphorus 5.5 H 5.2 H Iron Iron Saturation TIBC % Saturation Unsat Iron Binding Ferritin AST ALT TSH 3rd Generation PTH Intact 8 L Calcium (PTH Intact) 7.4 L Ur 24 Hour Volume Ur Creatinine 24 Hour Ur Calcium 24 Hr Calcium/Creat 24 Hr 01/23/23 01/23/23 08/30/23 08:00 08:00 15:41 Hgb Hct Creatinine 1.06 Estimated GFR 54 Calcium 7.9 L D Magnesium Phosphorus Iron Iron Saturation TIBC % Saturation Unsat Iron Binding Ferritin AST ALT TSH 3rd Generation PTH Intact Calcium (PTH Intact) Ur 24 Hour Volume 3000 Ur Creatinine 24 Hour 2.49 H 2.5 H Ur Calcium 24 Hr 339 H Calcium/Creat 24 Hr 136 03/06/24 04/02/24 05/16/24 12:07 11:00 12:42 Hgb 7.2 L D 8.7 L D 10.9 L D Hct 26.7 L 30.5 L 35.5 L Creatinine 0.71 Estimated GFR > 60 Calcium 7.5 L Magnesium Phosphorus Iron 18 L 207 H Iron Saturation TIBC 301 347 % Saturation 6 L 60 H Unsat Iron Binding 283 140 Ferritin 35 31 133 AST 17 ALT 9 TSH 3rd Generation PTH Intact Calcium (PTH Intact) Ur 24 Hour Volume Ur Creatinine 24 Hour Ur Calcium 24 Hr Calcium/Creat 24 Hr Laboratory Tests 01/23/23 04/02/24 10/07/24 08:00 11:00 10:25 Calcium 8.2 L D Ionized Calcium 4.5 L Phosphorus 5.2 H Magnesium 1.7 Albumin 3.6 3.7 25-OH Vitamin D Total 32.9 TSH 2.78 PTH Intact 9.7 Ur 24 Hour Volume Ur Creatinine mg/dL 83.35 Ur Creatinine 24 Hour Ur Calcium 24 Hr Calcium/Creat 24 Hr 10/09/24 08:00 Calcium Ionized Calcium Phosphorus Magnesium Albumin 25-OH Vitamin D Total TSH PTH Intact Ur 24 Hour Volume 975 Ur Creatinine mg/dL 72.71 Ur Creatinine 24 Hour 0.7 L Ur Calcium 24 Hr 189 Calcium/Creat 24 Hr 285 H US RETROPERITONEAL LIMITED (RENAL ONLY) 08/13/24 CLINICAL INFORMATION: Hypoparathyroidism, unspecified.. COMPARISON: Ultrasound renal with Doppler 12/08/2021. TECHNIQUE: Real-time imaging of the kidneys. Technically limited study secondary to body habitus. FINDINGS: RIGHT KIDNEY: 9.9 x 4.6 x 6.5 cm (SAG x AP x TRV). The kidney is normal in size, contour, and echogenicity. Renal cortical thickness is normal. No calculi or focal parenchymal lesions. No hydronephrosis. LEFT KIDNEY: 10.9 x 4.9 x 6.6 cm (SAG x AP x TRV). The kidney is normal in size, contour, and echogenicity. Renal cortical thickness is normal. No calculi or focal parenchymal lesions. No hydronephrosis. US/US renal BI IMPRESSION: Normal exam without nephrolithiasis. Electronically signed by: Keagan Guillen MD 10/03/2024 11:51 AM EST US RETROPERITONEAL LIMITED (RENAL ONLY) Nov 2021 US RENAL DOPPLER CLINICAL INFORMATION: Hypertension. Rule out renal artery stenosis. COMPARISON: None TECHNIQUE: Mckeon-scale and color imaging of the kidneys. Mckeon-scale, color and Doppler imaging of the renal arteries including waveform spectral analysis. Exam is limited due to patient body habitus. FINDINGS: RIGHT KIDNEY: 10.8 x 5.5 x 6.1 cm (SAG x AP x TRV). The kidney is normal in size, contour, and echogenicity. Renal cortical thickness is normal. No calculi or focal parenchymal lesions. No hydronephrosis. LEFT KIDNEY: 10.5 x 5.1 x 5.2 cm (SAG x AP x TRV). The kidney is normal in size, contour, and echogenicity. Renal cortical thickness is normal. No calculi or focal parenchymal lesions. No hydronephrosis. The abdominal aorta is difficult to visualize. Peak systolic velocity measures 220 cm/s which is elevated making calculation of renal artery to aorta ratio inaccurate. The visualized right renal artery appears patent. Right renal artery peak systolic velocities are normal measuring 134 cm/s, 128 cm/s and 80 cm/s proximally, in the midportion and distally. Segmental resistive indices in the right kidney are normal measuring between 0.6 and 0.8. The right renal vein is patent. The visualized left renal artery appears patent. Left renal artery peak systolic velocities are normal measuring 101, 81 and 79 cm/s proximally, in the midportion and distally. Resistive indices of the segmental renal arteries in the left kidney are normal measuring 0.7. The left renal vein is patent. US/US renal BI IMPRESSION: Limited exam due to patient body habitus. Normal-appearing kidneys. No evidence of renal artery stenosis. ON LICENSE OF [facility] Medical History Hypoparathyroidism TBI (traumatic brain injury) Obesity Cognitive impairment Anemia DVT (deep venous thrombosis) Hypothyroid Hypertension Surgical History No pertinent past surgical history Family History Mother HTN (hypertension) Father Diabetes Paternal Aunt Colon cancer Maternal Aunt Breast CA Social History Household Members Other:: mom Housing: House Alcohol intake: never Patient Tobacco Use Status: Never used Tobacco service: No Assessment & Plan Assessment & Plan (1) Hypoparathyroidism: Code(s): E20.9 - Hypoparathyroidism, unspecified Category: Medical Qualifiers: Hypoparathyroidism type: unspecified Qualified Code(s): E20.9 - Hypoparathyroidism, unspecified Plan: Patient who is diagnosed with hypoparathyroidism sometime around 11/2021, who is currently maintained on calcitriol 0.5 mcg in a.m. and 0.5 mcg in evening, and vitamin-D 2000 units daily, Our goal is to maintain calcium it in the lower normal range which would be something around 8-8.5. This is in order to prevent hypercalciuria. in 2022 showed her 24 hour urine calcium was 339 which is elevated since goal in woman is less than 250 mg per 24 hours, however her urine volume was 3 L which was also very increased so inadequate collection. Her kidney function stable, and renal ultrasound from 2023 did not show any nephrocalcinosis, These should be done of the 2 or 3 year kylah on treatment. US renal done 07/29/24 She has not had any workup for why she has developed hypoparathyroidism. Differentials include autoimmune polyglandular syndrome type 1, however no history of candidiasis. She does not have any symptoms of adrenal insufficiency, however we will check for 21 hydroxylase antibodies. Twenty-one hydroxylase antibodies came back negative. Other differentials include other genetic mutations causing hypoparathyroidism especially given that she has family history of hypocalcemia in her father per the chart. I will please genetics referral for [facility]. This was placed previously as well but does not seem like patient was able to get to them. She was also previously given a referral for [facility] to see hyperparathyroidism expert over there, however she says she did not hear from them, I placed this again visit in Jul 2024 as she would benefit from genetic workup to evaluate this and I have asked them to call their office. Patients daughter expressed difficult yregarding trnasport to [place] and at this time the refusing to go, we will let me know of the change their mind. [facility] has a wait time of 6-9 months and at this time referral is pending evaluation.. In the near future, trans con PTH has been approved by FDA, and we will hopefully be available in December 2024, can consider treating her with that in the future if she does not reach her goals with adequate calcium and calcitriol treatment. Last appointment 10/01/2024 she is reporting intermittent perioral numbness and paresthesias in her extremities. I had increased her calcium to 500 mg twice daily. labs last visit 10/07/24 showed low ionized calcium of Ionized calcium of 4.5 which is low, low total calcium of 8.2 with albumin of 3.7, corrected calcium would be something around 8.5. Given she was having symptoms of perioral numbness, I had increased her calcium carbonate to 500 mg twice daily as well as went up on her calcitriol to 0.5 mcg twice daily. Her 24 hour urine calcium was okay at 189. Slightly high calcium creatinine ratio of 285. However patient tells me today that she has not been taking her calcium carbonate because the size of the pills was bothering her. I emphasized to her importance of taking her calcium and low calcium levels in the blood can result in if not managed timely. Plan: -ordered repeat calcium, phosphorus, creatinine, , ionized calcium, albumin, magnesium levels to be done today -[facility] genetics referral already in place, she is on the wait list -[facility] endocrinology referral for further evaluation of hyperparathyroidism etiology if genetics is more feasible to be done there , patient refusing at this time we will let us know if she changes her mind -continue calcitriol 0.5 mcg in a.m. 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 Normal TSH at 2.87 from September 2024. Plan: -continue levothyroxine 112 mcg daily Plan I spent 30 minutes in reviewing the record, seeing the patient and documenting in the medical record. Orders: Orders Phosphorus Today E06.3 - Autoimmune thyroiditis, E20.9 - Hypoparathyroidism, unspecified Calcium, Ionized Today E06.3 - Autoimmune thyroiditis, E20.9 - Hypoparathyroidism, unspecified Magnesium Today E06.3 - Autoimmune thyroiditis, E20.9 - Hypoparathyroidism, unspecified Albumin Level Today E06.3 - Autoimmune thyroiditis, E20.9 - Hypoparathyroidism, unspecified Calcium Today E06.3 - Autoimmune thyroiditis, E20.9 - Hypoparathyroidism, unspecified Basic Metabolic Panel Today E20.9 - Hypoparathyroidism, unspecified Medications: New cholecalciferol (vitamin D3) 25 mcg PO DAILY 30 caps 6RF Changed From calcium carbonate 500 mg PO BID 60 tabs 6RF To calcium carbonate please send her a formulation with smaller pill size 500 mg PO BID 60 tabs 6RF Patient Instructions: Take calcium carbonate 500 mg twice daily Take calcitriol 0.5 mcg (0.25 mcg 2 pills ) twice daily Cotinue vitamin Do blood work today Repeat blood work in 2 weeks Follow up in 3 months [place] carbonato de calcio 500 mg dos veces al d?a. [place] calcitriol 0,5 mcg (0,25 mcg 2 pastillas) dos veces al d?a Continuar vitamina Hazte an?lisis de rosanna hoy Repetir an?lisis de rosanna en 2 semanas. Seguimiento en 3 meses. 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
[2024-10-28 10:02] VITALS: BP 130/90; PULSE 65; BMI 70.1
--- OUTSIDE RECORDS SUMMARY | 2024-10-30 14:19 | XMS_ITS | Patient Health Record ---
Author Organization [facility] enter Address [address] [place] [id number] Support Name Relationship Address Phone Yael Lee Guarantor Unknown [phone] Allergies Allergen (clinical drug ingredient) Drug/Non Drug Allergy documented on EMR Reaction Allergy Type Onset Date Status penicillin G Penicillin G Potassium rash Drug Allergy Active Reason For Referral No Information Medications Medication SIG (Take, Route, Frequency, Duration) Notes Start Date End Date Status Calcitriol 0.25 MCG 2 capsule Orally Onc e a day Active Docusate Sodium 100 MG 1 capsule as need ed Orally tome 1 capsula por la boca dos veces al linda en la manana y en la tarde Active Ferrous Sulfate 325 (65 Fe) MG 1 tablet Orally Three times a Week Active Labetalol HCl 100 MG 2 tablets Orally Tw ice a day Active Levothyroxine Sodium 112 MCG 1 tablet in the morning on an empty stomach Orally Once a day Active Lisinopril 40 MG 1 tablet Orally Once a day Active Oyster Calcium 500 MG 1 tablet with food Orally Twice a day Active Vitamin D 50 MCG (2000 UT) 1 capsule Ora lly Once a day Active Cardizem CD 360 MG 1 capsule Orally Onc e a day Active Social History DAST - Drug and Alcohol Question Answer Notes Total Score: 0 Interpretation: No problems reported Plan Of Treatment Pending Test Test Name Order Date [facility] 12/22/2022 Insurance Providers Payer Name Payer Address Payer Phone Subscriber Number Group Number Insured Name Patient Relationship to Insured Coverage Start Date Coverage End Date [facility] [address] [place] [phone] [id number] Yael Lee Self - patient is the insured [facility] Medicare Advantage Plan 1 [facility] [address] [place] [phone] [id number] Yael Lee Self - patient is the insured Medical (General) History Medical History History ICD Code hypertension Hypothyroidism anemia
--- OUTSIDE RECORDS SUMMARY | 2024-10-30 14:19 | XMS_ITS | Continuity of Care Document ---
Author Organization [facility] Address [address] [place] [id number] Care Team Providers Care Stores Assistant Name Role Phone Nila Barber NP, V Primary Care Physician [id number] Date(s): 09/11/24 - 10/11/[address] [address]- [place] Attending Physician: Alexis Greene Admitting Physician: Alexis Greene Referring Physician: Alexis Greene Encounter Type: Triage Allergies, Adverse Reactions, Alerts Substance Criticality Severity Reaction Reaction Severity Status penicillin rash all over my body Active Dilaudid unknown Active Problem List Condition Confirmation Course Effective Dates Status Health St atus Informant Depression Confirmed Active Enuresis Confirmed Active HYPERTENSION Confirmed Active Hypothyroidism Confirmed Active Mental retardation Confirmed Active MORBID OBESITY Confirmed Active Severe obesity Confirmed Active Venous ulcer Confirmed Active Ulcer Confirmed 2019 Active Social History Social History Type Response Smoking Status Former smoker, quit more than 30 days ago entered on: 05/20/24 Sex Sex Representation Female (finding) Patient Care team information Care Team Personnel Name: Nila Barber NP, V Position: [facility] Outreach Member Role: PCP [address]: [address] [place] [address] [address] [place] [address], [place] [address]- [place] Tele[employer]: Name: Marva Flores RN Position: [facility] RN Member Role: Primary Care Nurse Name: Brandon Valle RN Position: S RN Member Role: Primary Care Nurse Name: Duyen Enriquez RN Position: S RN Member Role: Primary Care Nurse Care Team Related Persons Name: MIMI PITTS Name: FRANNY MCGARRY Insurance Providers Guarantor name: EDUARDA Health Plan Information #: 1 Payer: MEDICARE PART B OUTPT Member Number: NA Policy Number: NA Group Number: NA Health Plan Information #: 2 Payer: [facility] Member Number: EDUARDA Policy Number: NA Group Number: NA
== END 2024-10-28 10:35 | disposition home or self-care (01) ==
PROVIDERS: PCP Registered Nurse; Visit Provider Student in an Organized Health Care Education/Training Program
DX: E20.9 Hypoparathyroidism, unspecified (principal); E06.3 Autoimmune thyroiditis
CPT/HCPCS: 99214

== ENCOUNTER → 2024-10-28 10:00 | Outpatient (BNVA) | payer MEDICARE, MEDICAID, SELFPAY | PROVIDERS: PCP Registered Nurse; Visit Provider Student in an Organized Health Care Education/Training Program | DX: E20.9 Hypoparathyroidism, unspecified (principal); E06.3 Autoimmune thyroiditis | CPT/HCPCS: 99212 ==

== ENCOUNTER 2025-01-27 11:09 | Outpatient (AMB) | payer MEDICARE, MEDICAID, SELFPAY ==
--- NOTE | 2025-01-27 11:12 | A.OFFVIS_ITS ---
Vital Signs 01/27/25 11:20 Weight 400 lb 12.806 oz BP 130/68 Blood Pressure Location Rt brachial Position Sitting Pulse 66 Pulse Source Pulse Oximeter Pulse Oximetry (%) 96 Oxygen Delivery Method Room Air Intake Visit Reasons: Hypoparathyroidism Intake Note: Patient present today for Hypoparathyroidism office visit. [employer] Boards Inspector Name: devonte dumas [id number] Information Interpreted: non-clinical & clinical Accompanied by: Sister Allergies Penicillins Allergy (Unknown, Verified 01/27/25 11:18) RASH Medication List - Last Reconciled 01/27/25 by Gay Bellamy MD [id number] 250-250-65 mg (Excedrin Migraine) 1 tab PO Q4-6H PRN calcitriol take 2 capsules in AM (o.5 mcg) and 2 capsule in PM (0.5 mcg) orally every morning; calcium carbonate 500 mg PO BID cholecalciferol (vitamin D3) 25 mcg PO DAILY diltiazem HCl CD 360 mg PO DAILY docusate sodium 100 mg PO DAILY labetalol 200 mg PO BID levothyroxine 112 mcg PO QAM lisinopril 40 mg PO QAM ondansetron 4 mg PO TID PRN 5 days HPI Comments Details: 54-year-old female coming in today for follow up of hypoparathyroidism. Here today with sister HPI from prior visit Per chart review he was originally diagnosed sometime in 2020/beginning of 2021 with hypoparathyroidism after she was noted to be hypocalcemic. No history of thyroid or parathyroid surgery. Father has a history of hypocalcemia. She has no history of kidney stones. No history of fractures. Reviewed investigations of the time, which showed a normal magnesium level from 2020 of 1.9. Renal Us 08/13/24 normal No blood in urine. Perimenopausal, get periods every few months. No vision changes, but hasnt seen an eye doctor in a while. No history of cataracts. No kidney stones. No fractures or falls. No mental status changes. No nausea , vomiting, no abd pain , weight has been stable no weight changes. 2022 PTH of 8. Denies kidney stones or osteoporosis. labs are from April 12 calcium 7.5, albumin 3.6 labs 10/07/24 showed low ionized calcium of Ionized calcium of 4.5 which is low, low total calcium of 8.2 with albumin of 3.7, corrected calcium would be something around 8.5. Given she was having symptoms of perioral numbness, I had increased her calcium carbonate to 500 mg twice daily as well as went up on her calcitriol to 0.5 mcg twice daily. However patient at last visit in October 2024 endorsed she was not taking her calcium carbonate because the size of the pills was bothering her. I had emphasized to her importance of taking her calcium and low calcium levels in the blood can result in if not managed timely. I had also asked her to do blood work at that time, but no blood work was done. Interval history Patient is currently on vitamin D3 1000 IU per day,. calcitrol 0.5 ug in the morning and 0.5 mcg in evening Calcium carbonate 500 mg BID, she is taking gummies from [employer] she gets prepackaged medications. sister lives with her and reports good adherence to the medications Today she is complaining of intermittent cramping in hands , denies perioral numbness denies history of seizures. She did not do the blood work on I had ordered it at the end of her visit in October 2024. Patients mother last week Physical exam General: sitting comfortably in no acute distress HEENT: normocephalic/atraumatic, , moist oral mucosa Neck: supple, symmetrical, Cardiac: normal heart sounds Pulm: normal breath sounds B/L, no added breath sounds Laboratory Tests 02/25/19 12/12/20 02/17/22 11:40 04:17 19:37 Hgb Hct Creatinine Estimated GFR Calcium 8.5 D 6.3 L 7.1 L D Magnesium 1.9 Phosphorus Iron 26 L Iron Saturation 8 L TIBC % Saturation Unsat Iron Binding Ferritin AST ALT TSH 3rd Generation 4.09 H PTH Intact Calcium (PTH Intact) Ur 24 Hour Volume Ur Creatinine 24 Hour Ur Calcium 24 Hr Calcium/Creat 24 Hr 11/22/22 12/26/22 01/10/23 08:29 01:39 13:15 Hgb Hct Creatinine 0.92 0.83 Estimated GFR > 60 > 60 Calcium 9.6 D 9.0 D Magnesium Phosphorus 5.5 H 5.2 H Iron Iron Saturation TIBC % Saturation Unsat Iron Binding Ferritin AST ALT TSH 3rd Generation PTH Intact 8 L Calcium (PTH Intact) 7.4 L Ur 24 Hour Volume Ur Creatinine 24 Hour Ur Calcium 24 Hr Calcium/Creat 24 Hr 01/23/23 01/23/23 08/30/23 08:00 08:00 15:41 Hgb Hct Creatinine 1.06 Estimated GFR 54 Calcium 7.9 L D Magnesium Phosphorus Iron Iron Saturation TIBC % Saturation Unsat Iron Binding Ferritin AST ALT TSH 3rd Generation PTH Intact Calcium (PTH Intact) Ur 24 Hour Volume 3000 Ur Creatinine 24 Hour 2.49 H 2.5 H Ur Calcium 24 Hr 339 H Calcium/Creat 24 Hr 136 03/06/24 04/02/24 05/16/24 12:07 11:00 12:42 Hgb 7.2 L D 8.7 L D 10.9 L D Hct 26.7 L 30.5 L 35.5 L Creatinine 0.71 Estimated GFR > 60 Calcium 7.5 L Magnesium Phosphorus Iron 18 L 207 H Iron Saturation TIBC 301 347 % Saturation 6 L 60 H Unsat Iron Binding 283 140 Ferritin 35 31 133 AST 17 ALT 9 TSH 3rd Generation PTH Intact Calcium (PTH Intact) Ur 24 Hour Volume Ur Creatinine 24 Hour Ur Calcium 24 Hr Calcium/Creat 24 Hr Laboratory Tests 01/23/23 04/02/24 10/07/24 08:00 11:00 10:25 Calcium 8.2 L D Ionized Calcium 4.5 L Phosphorus 5.2 H Magnesium 1.7 Albumin 3.6 3.7 25-OH Vitamin D Total 32.9 TSH 2.78 PTH Intact 9.7 Ur 24 Hour Volume Ur Creatinine mg/dL 83.35 Ur Creatinine 24 Hour Ur Calcium 24 Hr Calcium/Creat 24 Hr 10/09/24 08:00 Calcium Ionized Calcium Phosphorus Magnesium Albumin 25-OH Vitamin D Total TSH PTH Intact Ur 24 Hour Volume 975 Ur Creatinine mg/dL 72.71 Ur Creatinine 24 Hour 0.7 L Ur Calcium 24 Hr 189 Calcium/Creat 24 Hr 285 H US RETROPERITONEAL LIMITED (RENAL ONLY) 08/13/24 CLINICAL INFORMATION: Hypoparathyroidism, unspecified.. COMPARISON: Ultrasound renal with Doppler 12/08/2021. TECHNIQUE: Real-time imaging of the kidneys. Technically limited study secondary to body habitus. FINDINGS: RIGHT KIDNEY: 9.9 x 4.6 x 6.5 cm (SAG x AP x TRV). The kidney is normal in size, contour, and echogenicity. Renal cortical thickness is normal. No calculi or focal parenchymal lesions. No hydronephrosis. LEFT KIDNEY: 10.9 x 4.9 x 6.6 cm (SAG x AP x TRV). The kidney is normal in size, contour, and echogenicity. Renal cortical thickness is normal. No calculi or focal parenchymal lesions. No hydronephrosis. US/US renal BI IMPRESSION: Normal exam without nephrolithiasis. Electronically signed by: Keagan Guillen MD 10/03/2024 11:51 AM [facility] US RETROPERITONEAL LIMITED (RENAL ONLY) Nov 2021 US RENAL DOPPLER CLINICAL INFORMATION: Hypertension. Rule out renal artery stenosis. COMPARISON: None TECHNIQUE: Mckeon-scale and color imaging of the kidneys. Mckeon-scale, color and Doppler imaging of the renal arteries including waveform spectral analysis. Exam is limited due to patient body habitus. FINDINGS: RIGHT KIDNEY: 10.8 x 5.5 x 6.1 cm (SAG x AP x TRV). The kidney is normal in size, contour, and echogenicity. Renal cortical thickness is normal. No calculi or focal parenchymal lesions. No hydronephrosis. LEFT KIDNEY: 10.5 x 5.1 x 5.2 cm (SAG x AP x TRV). The kidney is normal in size, contour, and echogenicity. Renal cortical thickness is normal. No calculi or focal parenchymal lesions. No hydronephrosis. The abdominal aorta is difficult to visualize. Peak systolic velocity measures 220 cm/s which is elevated making calculation of renal artery to aorta ratio inaccurate. The visualized right renal artery appears patent. Right renal artery peak systolic velocities are normal measuring 134 cm/s, 128 cm/s and 80 cm/s proximally, in the midportion and distally. Segmental resistive indices in the right kidney are normal measuring between 0.6 and 0.8. The right renal vein is patent. The visualized left renal artery appears patent. Left renal artery peak systolic velocities are normal measuring 101, 81 and 79 cm/s proximally, in the midportion and distally. Resistive indices of the segmental renal arteries in the left kidney are normal measuring 0.7. The left renal vein is patent. US/US renal BI IMPRESSION: Limited exam due to patient body habitus. Normal-appearing kidneys. No evidence of renal artery stenosis. [facility] Medical History Hypoparathyroidism TBI (traumatic brain injury) Obesity Cognitive impairment Anemia DVT (deep venous thrombosis) Hypothyroid Hypertension Surgical History No pertinent past surgical history Family History Mother HTN (hypertension) Father Diabetes Paternal Aunt Colon cancer Maternal Aunt Breast CA Social History Household Members Other:: mom Housing: House Alcohol intake: never Patient Tobacco Use Status: Never used Tobacco service: No Assessment & Plan Assessment & Plan (1) Hypoparathyroidism: Code(s): E20.9 - Hypoparathyroidism, unspecified Category: Medical Qualifiers: Hypoparathyroidism type: unspecified Qualified Code(s): E20.9 - Hypoparathyroidism, unspecified Plan: Patient who is diagnosed with hypoparathyroidism sometime around 11/2021, who is currently maintained on calcitriol 0.5 mcg in a.m. and 0.5 mcg in evening, and vitamin-D 2000 units daily, Our goal is to maintain calcium it in the lower normal range which would be something around 8-8.5. This is in order to prevent hypercalciuria. in 2022 showed her 24 hour urine calcium was 339 which is elevated since goal in woman is less than 250 mg per 24 hours, however her urine volume was 3 L which was also very increased so inadequate collection. Her kidney function stable, and renal ultrasound from 2023 did not show any nephrocalcinosis, These should be done of the 2 or 3 year kylah on treatment. US renal done 07/29/24 She has not had any workup for why she has developed hypoparathyroidism. Differentials include autoimmune polyglandular syndrome type 1, however no history of candidiasis. She does not have any symptoms of adrenal insufficiency, Twenty-one hydroxylase antibodies came back negative. Other differentials include other genetic mutations causing hypoparathyroidism especially given that she has family history of hypocalcemia in her father per the chart. I referred her to Genetics at [facility] in 08/13. [facility] genetics has a wait time of 6-9 months and at this time referral is pending evaluation.This was placed previously as well but does not seem like patient was able to get to them. She was also previously given a referral for [facility] to see hyperparathyroidism expert over there, however she says she did not hear from them, I placed this again visit in Jul 2024 as she would benefit from genetic workup to evaluate this and I have asked them to call their office. Patients daughter expressed difficult yregarding trnasport to [place] and at this time the refusing to go, will let me know of the change their mind. . Her mother also last week, and she is very distraught at this time. At the visit on 10/01/2024 she is reporting intermittent perioral numbness and paresthesias in her extremities. I had increased her calcium to 500 mg twice daily. labs 10/07/24 showed low ionized calcium of Ionized calcium of 4.5 which is low, low total calcium of 8.2 with albumin of 3.7, corrected calcium would be something around 8.5. Given she was having symptoms of perioral numbness, I had increased her calcium carbonate to 500 mg twice daily as well as went up on her calcitriol to 0.5 mcg twice daily. Her 24 hour urine calcium was okay at 189. Slightly high calcium creatinine ratio of 285. However patient was not adherent with her calcium carbonate because the size of the pills was bothering her. I had emphasized to her importance of taking her calcium and low calcium levels in the blood can result in if not managed timely. I had asked her to do blood work at last visit in October 2024. She did not get this done. Today she comes without any blood work done. I emphasized importance of doing blood work today, Plan: -ordered repeat calcium, phosphorus, creatinine, , ionized calcium, albumin, magnesium levels to be done today -[facility] genetics referral already in place, she is on the wait list [place] [place] for further evaluation of hyperparathyroidism etiology if genetics is more feasible to be done there , patient refusing at this time we will let us know if she changes her mind -continue calcitriol 0.5 mcg in a.m. 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 Normal TSH at 2.87 from September 2024. Plan: -continue levothyroxine 112 mcg daily Plan See above Orders: Orders TSH reflex Free T4 Today E06.3 - Autoimmune thyroiditis, E20.9 - Hypoparathyroidism, unspecified Albumin Level Today E06.3 - Autoimmune thyroiditis, E20.9 - Hypoparathyroidism, unspecified Vitamin D 25-OH Total Today E06.3 - Autoimmune thyroiditis, E20.9 - Hypoparathyroidism, unspecified Basic Metabolic Panel Today E06.3 - Autoimmune thyroiditis, E20.9 - Hypoparathyroidism, unspecified Calcium Today E06.3 - Autoimmune thyroiditis, E20.9 - Hypoparathyroidism, unspecified Calcium, Ionized Today E06.3 - Autoimmune thyroiditis, E20.9 - Hypoparathyroidism, unspecified Phosphorus Today E06.3 - Autoimmune thyroiditis, E20.9 - Hypoparathyroidism, unspecified Parathyroid Hormone Intact Today E06.3 - Autoimmune thyroiditis, E20.9 - Hyp oparathyroidism, unspecified Magnesium Today E06.3 - Autoimmune thyroiditis, E20.9 - Hypoparathyroidism, unspecified Medications: Refilled cholecalciferol (vitamin D3) 25 mcg PO DAILY 30 caps 8RF Patient Instructions: Take calcium carbonate 500 mg twice daily Take calcitriol 0.5 mcg (0.25 mcg 2 pills ) twice daily Cotinue vitamin D Do blood work today Follow up in 3 months [place] carbonato de calcio 500 mg dos veces al d?a. [place] calcitriol 0,5 mcg (0,25 mcg 2 pastillas) dos veces al d?a Continuar vitamina D Hazte an?lisis de rosanna hoy Seguimiento en 3 meses. 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
[2025-01-27 11:20] VITALS: BP 130/68; PULSE 66; O2SAT 96
--- OUTSIDE RECORDS SUMMARY | 2025-01-27 12:40 | XMS_ITS | Encounter Summary ---
Author Organization [employer] Address [address] [place] [address] Care Team Providers Care Real Estate Coordinator Name Role Phone Monica Hernandez Primary Care Provider Loc Agrawal MD Unavailable [phone] Lamar De Paz MD Unavailable [phone] Ralph Reece MD Unavailable [phone] Reason for Visit * Reason Onset Date Comments Durable Medical Equipment 04/11/2024 Encounter Details Date Type Department Care Team (Late st Contact Info) Description 04/11/2024 Telephone [facility] MED [facility] PEDS [address], [place] [phone] Monica Hernandez FNP [address] [place], [place] [phone] Durable Medical Equipment Social History Tobacco Use Types Packs/Day Years Used Date Smoking Tobacco: Former Cigarettes Passive Smoke Exposure: Never Smokeless Tobacco: Never Alcohol Use Standard Drinks/Week Comments Never 0 (1 standard drink = 0.6 oz pur e alcohol) Depression Answer Date Recorded Patient Health Questionnaire-9 Score 4 04/05/2024 Patient Health Questionnaire-9 Score 4 04/05/2024 Last PHQ-9: Questionnaire Data Not on file 0 04/05/2024 Housing Stability Answer Date Recorded What is your housing situation today? I have vi bustos 04/05/[address] you li ve. Do you have problems with any of the following? Not on file 04/05/2024 Food Insecurity Answer Date Recorded Within the past 12 months, y ou worried that your food would run out before you got money to buy more: Never True 04/05/2024 Within the past 12 months,th e food you bought just didn't last and you didn't have enough money to get more: Never True Transportation Answer Date Recorded In the past 12 months, has l ack of transportation kept you from medical appts, meetings, work or from getting things needed for daily living? No 04/05/2024 Utilities Answer Date Recorded In the past 12 months, has t he electric, gas, oil or water company threatened to shut off services in your home? No 04/05/2024 Depression Answer Date Recorded Patient Health Questionnaire-2 Score 2 04/05/2024 Comments Unknown Sex and Gender Information Value Date Recorded Sex Assigned at Female 09/19/2022 10:15 AM EDT Legal Sex Female 10:15 AM EDT Gender Identity Female 09/19/2022 10:15 AM EDT Sexual Orientation Choose not to disclose 2021 10:15 AM EDT documented as of this encounter Miscellaneous Notes * Telephone Encounter - Jerri Bates - 04/18/2024 10:13 AM EDT TC from PT's sister requested a call back regarding the electric scooter. I asked sister who did the evaluation, and she was unsure. Also, I informed her that the script was sent to [facility], but now she states they never received anything. Please call to clarify, as I am getting different explanations. * Telephone Encounter - Jerri Bates - 04/11/2024 11:37 AM EDT Tc from pt sister Yary requesting a call back regarding status on electrical scooter, states theycontacted [facility] however was advised to call pcp office because they do not handle supply. Was informed script has to be sent over to [facility] instead. Sister quan little upset due to it being several month trying to get DME . Please contact phone# [phone] regarding next step. documented in this encounter Plan of Treatment Upcoming Encounters Date Type Department Care Team (Late st Contact Info) Description 03/03/2025 11:15 AM EDT Office Visit [facility] MED [facility] PEDS [address] [place] [address] Monica Hernandez FNP [address] [place] [address] documented as of this encounter Visit Diagnoses Not on filedocumented in this encounter Additional Health Concerns Assessment Noted Time PHQ-9 Depression Total Score: 4 04/05/20 24 10:31 AM EDT documented as of this encounter Care Teams Real Estate Coordinator Relationship Specialty Start Date End Date Monica Hernandez FNP [address] [place] [address] PCP - General Family Medicine 07/14/22 Loc Agrawal MD [address] [address] Endocrinology 10/20/24 Lamar De Paz MD [address] [place] [address] Hematology and Oncology 10/20/24 Ralph Reece MD [address] [place] [address] Cardiology 10/20/24 documented as of this encounter
--- OUTSIDE RECORDS SUMMARY | 2025-01-27 12:40 | XMS_ITS | Patient Health Record ---
Author Organization [facility] Address [address] [place] [id number] Support Name Relationship Address Phone Yael Lee Guarantor Unknown [phone] Allergies Allergen (clinical drug ingredient) Drug/Non Drug [...] Insured Coverage Start Date Coverage End Date [facility] [address] [place] [address] [id number] Yael Lee Self - patient is the insured [facility] Medicare Advantage Plan 1 [facility] [address] [place] [address] [id number] Yael Lee Self - patient is the insured Medical (General) History Medical History History ICD Code hypertension Hypothyroidism anemia
--- OUTSIDE RECORDS SUMMARY | 2025-01-27 12:40 | XMS_ITS | Encounter Summary ---
Author Organization [employer] Address [address] [facility] [facility] [address] [place] [address] Care Team Providers Care Pharmacy Affairs Assistant Name Role Phone Monica Hernandez Primary Care Provider Loc Agrawal MD Unavailable [phone] Lamar De Paz MD Unavailable [phone] Ralph Reece MD Unavailable [phone] Reason for Visit * Reason Comments Med Refill Encounter Details Date Type Department Care Team (Late st Contact Info) Description 05/06/2024 Refill [facility] MED [facility] PEDS [address] [place], [place] [phone] Monica Hernandez FNP [address] [place], [place] [phone] Hypothyroidism, unspecified type Social History Tobacco Use Types Packs/Day Years [...] AM EDT documented as of this encounter Plan of Treatment Upcoming Encounters Date Type Department Care Team (Late st Contact Info) Description 03/03/2025 11:15 AM EDT Office Visit [facility]EDS [address] [place] [address] Monica Hernandez FNP [address] [place] [address] documented as of this encounter Visit Diagnoses Diagnosis Hypothyroidism, unspecified type documented in this encounter Additional Health Concerns Assessment Noted Time PHQ-9 Depression Total Score: 4 04/05/20 24 10:31 AM EDT documented as of this encounter Care Teams Pharmacy Affairs Assistant Relationship Specialty Start Date End Date Monica Hernandez FNP [address] [place] [address] PCP - General Family Medicine 07/14/22 Loc Agrawal MD [address] [address] Endocrinology 10/20/24 Lamar De Paz MD [address] [place] [address] Hematology and Oncology 10/20/24 Ralph Reece MD [address] [place] [address] Cardiology 10/20/24 documented as of this encounter
--- OUTSIDE RECORDS SUMMARY | 2025-01-27 12:40 | XMS_ITS | Clinical Summary ---
Author Organization [employer] Address [address] [place] [address] Care Team Providers Care Winder Fixer Name Role Phone PedroMonica matos CLARISSE Primary Care Provider [phone] Loc Agrawal MD Unavailable [phone] Lamar De Paz MD Unavailable [phone] Ralph Reece MD Unavailable [phone] Allergies Active Allergy Reactions Criticality Noted Date Comments Hydromorphone-Bupivacaine- Nacl 02/06/2023 Penicillin G Unknown 12/22/2022 Penicillins Other reaction(s): unspecified Medications * This document contains information received from the source organization and may not represent a complete record from that organization. levothyroxine (Synthroid, Levoxyl) 112 MCG tabletIndications :Hypothyroidism, unspecified type TAKE 1 TABLET BY MOUTH EVERY MORNING 90 tablet 4 Active D3 Super Strength 50 MCG (1999 UT) capsuleIndication s:Vitamin D deficiency TAKE 1 CAPSULE BY MOUTH EVERY MORNING 90 capsule 3 4 Active Oyster Shell Calcium 500 MG tabletIndications :Routine health maintenance TAKE 1 TABLET BY MOUTH EVERY MORNING 90 tablet 3 4 Active calcitriol (Rocaltrol) 0.25 MCG capsule Take 0.5 mcg by mouth Once per day. 3 Active ferrous sulfate (FeroSul) 325 (65 Fe) MG tabletIndications :Anemia, unspecified type TAKE 1 TABLET BY MOUTH EVERY MORNING 90 tablet 4 Active lisinopril 40 MG tabletIndications :Essential hypertension TAKE 1 TABLET BY MOUTH EVERY MORNING 90 tablet 3 4 Active docusate sodium (Colace) 100 MG capsuleIndication s:Constipation, unspecified constipation type TAKE 1 CAPSULE BY MOUTH TWICE DAILY IN THE MORNING AND IN THE EVENING 180 capsule 1 4 Active labetalol (Normodyne) 100 MG tablet TAKE 2 TABLETS BY MOUTH TWICE DAILY IN THE MORNING AND EVENING 360 tablet 1 4 Active dilTIAZem CD (Cardizem CD) 360 MG 24 hr capsule TAKE 1 CAPSULE BY MOUTH EVERY MORNING 90 capsule 1 4 Active melatonin 5 MG tabletIndications :Sleep difficulties TAKE 1 TABLET BY MOUTH 60 MINUTES BEFORE BEDTIME NEEDED FOR SLEEP 90 tablet 3 4 Active Active Problems Problem Noted Date Diagnosed Date Elevated hemoglobin A1c 10/31/2024 Assessment & Plan (10/31/2024 11:15 AM EST): Lab Results Component Value Date HGBA1C 6.6 (H) 10/07/2024 - Repeat A1c to confirm diagnosis - Encouraged lifestyle intervention to decrease simple sugar/carb intake Intermittent chest pain 10/20/2024 Overview (10/20/2024): Followed by [facility] - Dr. Reece Sep 2024: echo, nuclear stress test, 30 day Holter pending ED precautions Healthcare maintenance 11/11/2023 Overview (08/18/2024): Mammogram: BIRADS 1 on 06/09/24 Colon CA screening: (+) fam hx of colon CA. Cologuard ordered 11/10/23. Initially declined colonoscopy referral, but then did accept and was referred to [facility] in March 2024 Pap: 07/12/22 NILM HPV neg (repeat 3 years due to infrequent testing) Assessment & Plan (08/18/2024 2:59 PM EDT): Requested routine labs, ordered today to complete prior to next appt Venous stasis dermatitis of both lower extremiti es 05/10/2023 Assessment & Plan (11/11/2023 12:03 PM EST): -Cont triamcinolone 0.1% cream BID PRN. Reviewed med use and safety Assessment & Plan (05/10/2023 7:46 AM EDT): -Start triamcinolone 0.1% cream BID PRN. Reviewed med use and safety Hypothyroidism 05/04/2023 Overview (04/06/2024): Following with [facility] Davida Agrawal Levothyroxine 112mcg daily Assessment & Plan (04/06/2024 11:15 AM EDT): Repeat TSH ordered Assessment & Plan (08/11/2023 6:18 AM EDT): Following with [facility] Davida Agrawal Depressive disorder 02/06/2023 Vitamin D deficiency 10/22/2022 Assessment & Plan (04/05/2024 11:21 AM EDT): -Cont Vit D 2000 units daily Family history of colon cancer 10/22/2022 Hypoparathyroidism 09/01/2022 Overview (10/31/2024): Following with [facility] Davida Agrawal/ Dr. Bellamy (last consult Oct 2024) Goal calcium range: 8-8.5 Referred for [facility] genetics consult in Jul 2024 to eval for genetic mutations that may be contributing to condition Medications: Calcitriol 0.5mcg BID Vit D 2000 units daily Calcium 500mg BID (purchasing OTC gummies as pills were too big) Assessment & Plan (04/06/2024 11:22 AM EDT): -Endo note w/ calcium 500mg BID, although pt currently taking once daily. She would like to replace current calcium pill due to size. -Plan: check BMP, phosphorus, PTH, TSH -Med adjustment (calcium) pending lab results Assessment & Plan (11/11/2023 11:55 AM EST): -Following with [facility] Davida Agrawal. Per last consult note in Aug 2022: Hypoparathyroidism. Possible etiologies behind the hypocalcemia could include secondary hyperparathyroidism due to vitamin-D deficiency versus idiopathic hypoparathyroidism. Plan is to recheck calcium, phosphorus, PTH, albumin. Further workup and/or treatment will be based on the above Menorrhagia with irregular cycle 02/16/2022 Overview (08/18/2024): Following with [facility] - Dr. Mayers 2013: recommendation for EMB & sonohysterogram d/t focal endometrial hypoechoic area on US measuring [id number] Pap: 07/12/22 NILM HPV neg [facility]: hysteroscopy with polypectomy, D&C, IUD insertion on 06/10/24 Assessment & Plan (04/06/2024 11:41 AM EDT): Have missed multiple appts for procedure, although hero reports that pt recently completed US and has follow up scheduled with [facility] within the next month. Reviewed importance of keeping appt Physical deconditioning 07/19/2018 Assessment & Plan (10/20/2024 7:56 PM EST): - High risk for falls - Preventative measures: Bariatric commode: DME request Jul 2024 - pending Bariatric Tub Transfer Bench: DME request 10/20/24 Microcytic anemia 11/10/2015 Overview (10/20/2024): Following with [facility] Heme/Onc - Dr. De Paz (last consult note Sep 2024) Completed IV iron (Venofer) in 2023 GI: referred to [facility], initial consult scheduled. Per Heme/Onc note Sep 2024, pt declining colonoscopy but open to Cologuard. 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 [facility] - had IUD placement in 2023 but fell out shortly thereafter Lab Results Component Value Date HGB 11.9 (L) 10/07/2024 HGB 7.2 (L) 03/06/2024 HGB 12.9 05/09/2023 Assessment & Plan (10/20/2024 7:41 PM EST): Reports feeling better s/p iron infusions, Hbg level has improved to 11.9 Determination of need for PO iron per Heme/Onc ED precautions Assessment & Plan (08/18/2024 2:53 PM EDT): Reports feeling better s/p iron infusions, and that her HBG has improved (no number available) Evaluation is in process ED precautions Assessment & Plan (04/06/2024 11:51 AM EDT): Hx ANIYA, previously followed by [facility]. Last available consult note from Jul 2018 Plan to cont on oral iron (pt declined IV iron), and to arrange for colonoscopy (does not appear this was performed) ED precautions reviewed Follow up with [facility] as scheduled Assessment & Plan (11/11/2023 12:02 PM EST): ?? Hx ANIYA, previously followed by [facility]. Last available consult note from Jul 2018 ?? Plan to cont on oral iron (pt declined IV iron), and to arrange for colonoscopy (does not appear this was performed) ?? Repeat labs ordered today Assessment & Plan (05/10/2023 7:45 AM EDT): Requested to check POC Hbg, WNL in office today Essential hypertension 11/10/2015 Overview (08/15/2024): [facility] - Dr. Reece (last consult: March 2024) Medications: - lisinopril 40mg daily - labetalol 200mg BID - diltiazem 360mg daily Assessment & Plan (08/18/2024 2:54 PM EDT): Well controlled in office, cont as above Assessment & Plan (04/06/2024 11:27 AM EDT): Well controlled in office, cont as above Intellectual disability 11/10/2015 Severe obesity (BMI >= 40) 11/10/2015 Assessment & Plan (10/20/2024 8:00 PM EST): BMI 64.66 Encouraged lifestyle interventions including physical movement/activity and diet rich in fruits, vegetables, and lean meat Previous interventions include RW for ambulation and PT Proposed benefits of electric scooter: improve ability to complete iADLs and mobility outside of the home while still maintaining safety. TEAM Rehab eval completed Jul 2024. 2nd eval at [facility] completed Sep 2024. Documents faxed to [employer]. DME request for bariatric commode placed 04/06/24 DME request for bariatric tub transfer bench placed 10/20/24 Assessment & Plan (08/20/2024 10:30 AM EDT): BMI 66.78 Encouraged lifestyle interventions including physical movement/activity and diet rich in fruits, vegetables, and lean meat Due to body habitus and gait instability, pt reports has experienced >2 falls in the past year Previous interventions include RW for ambulation and PT Proposed benefits of electric scooter: improve ability to complete iADLs and mobility outside of the home while still maintaining safety. TEAM Rehab eval completed Jul 2024. DME request for bariatric commode placed 04/06/24 Assessment & Plan (04/06/2024 11:50 AM EDT): BMI 64.21 Encouraged lifestyle interventions including physical movement/activity and diet rich in fruits, vegetables, and lean meat Due to body habitus and gait instability, pt reports has experienced >2 falls in the past year Previous interventions include RW for ambulation and PT Proposed benefits of electric scooter: improve ability to complete iADLs and mobility outside of the home while still maintaining safety. DME pending DME request for bariatric commode placed 04/06/24 Assessment & Plan (05/10/2023 7:42 AM EDT): ?? BMI 68.09 ?? Encouraged lifestyle interventions including physical movement/activity and diet rich in fruits, vegetables, and lean meat ?? Due to body habitus and gait instability, pt reports has experienced >2 falls in the past year ?? Previous interventions include RW for ambulation and PT ?? Proposed benefits of electric scooter: improve ability to complete iADLs and mobility outside of the home while still maintaining safety ?? Referral to PT for eval of electric scooter on 05/09/23 Peripheral venous insufficiency 11/10/2015 Urinary incontinence 11/10/2015 Assessment & Plan (10/31/2024 11:13 AM EST): - DME request for 2XL diapers from other supply company as current diapers no longer very absorbant per pt report Assessment & Plan (05/10/2023 7:43 AM EDT): ?? 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 Overview (04/06/2024): Following with [facility] PRN Resolved Problems Problem Noted Date Diagnosed Date Resolved Date Hypertension 05/04/2023 08/11/2023 Ulcerative lesion 02/06/2023 04/06/2024 Noncompliance with treatment regimen 02/16/2022 08/11/2023 Acquired hypothyroidism 11/10/201507/22 Encounters Date Type Department Care Team Description 01/23/2025 Telephone [facility] [address] [place] [address] Monica Hernandez FNP January recall 11/01/2024 Telephone [facility] [address] [place] [address] Monica Hernandez FNP Durable Medical Equipment 10/30/2024 3:30 PM EST Telemedicine [facility] [address], [place] [phone] Monica Hernandez FNP Elevated hemoglobin A1c (Primary Dx); Healthcare maintenance; Hypoparathyroidism, unspecified hypoparathyroidism type (CMS/HCC); Urinary incontinence, unspecified type 10/30/2024 Travel from Last 3 Months Immunizations Name Administration Dates Next Due Influenza, IIV3, injectable 07/21/2011 Moderna Covid-19 Vaccine 12+ 02/17/2022,04/14/20,03/17/2021 Pneumococcal Polysaccharide PPSV23 10/10/2011, TD (adult), 2 Lf tetanus tox oid, preservative free, adsorbed 11/28/2006,07/01/1997 Tdap 05/09/2023,12/28/2012 Zoster, Recombinant 05/31/2022,03/23/2022 Family History Medical History Relation Name Comments Hypertension Brother Diabetes Father Colon cancer Father's Sister 4 Aunts Hypertension Maternal Grandfather Diabetes Maternal Grandmother Hypertension Maternal Grandmother Hypertension Mother Colon cancer Paternal Grandfather Diabetes Paternal Grandmother Hypertension Paternal Grandmother Relation Name Status Comments Brother Father Father's Sister Maternal Grandfather Maternal Grandmother Mother Paternal Grandfather Paternal Grandmother Social History Tobacco Use Types Packs/Day Years [...] not to disclose 2021 10:15 AM EDT Last Filed Vital Signs Vital Sign Reading Time Taken Comments Blood Pressure 142/80 10/14/2024 11:25 AM EST Pulse 63 10/14/2024 10:29 AM EST Temperature 36.8 ??C (98.2 ??F) 10/14/2024 10:[address] Respiratory Rate 16 10/14/2024 10:29 AM EST Oxygen Saturation 93% 10/14/2024 10:29 AM EST Inhaled Oxygen Concentration - - Weight 166 kg (365 lb) 10/14/2024 10:29 AM EST Height 160 cm (5' 3 ) 10/14/2024 10:29 AM EST Body Mass Index 64.66 10/14/2024 10:29 AM EST Plan of Treatment Upcoming Encounters Date Type Department Care Team (Late st Contact Info) Description 03/03/2025 11:15 AM EDT Office Visit [facility] [address] [place], [place] [phone] Monica Hernandez, CLARISSE [address] [place] [address] Health Maintenance Due Date Last Done Comments CT Colonography 1970 Colonoscopy 1970 Colorectal Cancer Screening 1970 FIT DNA/Cologuard 1970 FIT 1970 FOBT 1970 Sigmoidoscopy 1970 Alcohol/Substance Use Screening 1982 Hepatitis B Vaccines (1 of 3 - 19+ 3-dose series) 1989 Pneumococcal Vaccine: 50+ Years (2 of 2 - PCV) 2020 10/10/2011, 06/29/2010 COVID-19 Vaccine ( season) 2024 02/17/2022, 04/14/2021, 03/17/2021 Influenza Vaccine (#1) 2024 07/21/2011 Depression Screening 04/05/2025 04/05/2024, 04/05/20 24 SDOH Screening 04/05/2025 04/05/2024 Mammogram 06/19/2025 06/19/2024, 02/26/2019 Pap Smear 07/15/2025 07/15/2022 Tobacco Screening 08/16/2025 08/16/2024 Cervical Cancer Screening 07/15/2027 HPV/Cotest 07/15/2027 07/15/2022 Lipid Panel 10/07/2029 10/07/2024, 02/16/2022 DTaP/Tdap/Td Vaccines (3 - Td or Tdap) 05/09/2033 05/09/2023, 12/28/2012, 11/28/2006, Additional history exists RSV Patients and Patients Aged 60 years or older (1 - 1-dose 75+ series) 2045 Zoster Vaccines Completed 05/31/2022, 03/23/2022 HIV Screening Completed 10/07/2024 Hepatitis C Screening Completed 10/07/2024 HIB Vaccines Aged Out No longer eligi ble based on patient's age to complete this topic HPV Vaccines Aged Out No longer eligi ble based on patient's age to complete this topic Hepatitis A Vaccines Aged Out No long er eligible based on patient's age to complete this topic IPV Vaccines Aged Out No longer eligi ble based on patient's age to complete this topic Meningococcal Vaccine Aged Out No renetta mouna eligible based on patient's age to complete this topic RSV under 20 months Aged Out No longe r eligible based on patient's age to complete this topic Rotavirus Vaccines Aged Out No longer eligible based on patient's age to complete this topic Procedures Procedure Name Priority Date/Time Associated Diagnosis Comments HEPATITIS C VIRAL RNA, QUANTITATIVE, REAL-TIME PCR Routine 10/07/2024 10:25 AM EST Healthcare maintenance HIV 1/2 ANTIGEN/ANTIBODY, FOURTH GENERATION W/RFL Routine 10/07/2024 10:25 AM EST Healthcare maintenance LIPID PANEL, STANDARD Routine 10/07/2024 10:25 AM EST Healthcare maintenance BI MAMMOGRAM SCREENING TOMOSYNTHESIS BILATERAL Routine 06/19/2024 10:05 AM EDT THINPREP IMAGING PAP AND HPV MRNA E6/E7, WITH CT/NG, TRICHOMONAS Routine 07/15/2022 5:54 PM EDT from Last 3 Months or Most Recently Relevant to Health Maintenance Results * Hepatitis C Viral RNA, Quantitative, Real-Time PCR (10/07/2024 10:25 AM EST) Hepatitis C Viral Load <15 NOT DETECTED NOT DETECTED IU/mL [facility] HCV Log PCR <1.18 NOT DETECTED NOT DETECTED Log IU/mL [facility] Comment:For additional infor juan josé, please refer tohttp://education.Right Relevance/faq/FQH88v8(This link is being provided for informational/educational purposes only.)THIS TEST WAS PERFORMED AT:[employer] [place] [phone] BARR MD Blood 10/07/2024 10:2 5 AM EST 10/07/2024 10:25 AM EST Monica Hernandez RN ASSESSMENT LAB BLOOD ORDERABLES Final Res ult [facility] [address] [place] [address] [phone] * HIV-1/2 Antigen and Antibodies, Fourth Generation, with Reflexes (10/07/2024 10:25 AM EST) [facility] HIV AB/AG Nonreactive Nonreactive [facility] Comment:HIV-1 p24 Ag and/or HIV-1/HIV-2 Ab not detected.A test result that is nonreactive does not exclude thepossibility of exposure to or infection with HIV-1 and/orHIV-2. Nonreactive results in this assay for individualswith prior exposure to HIV-1 and/or HIV-2 may be due toantigen and antibody levels that are below the limit ofdetection of this assay.The [employer] HIV Ag/Ab Combo assay result andsupplemental assay results should be interpreted inconjunction with the patient's clinical presentation,history and other laboratory results. If the results areinconsistent with clinical evidence, additional testing issuggested to confirm the result. Blood Venous blood specimen / Unknown 10/07/2024 10:25 AM EST 10/07/2024 10:25 AM EST us Monica Hernandez RN ASSESSMENT LAB BLOOD ORDERABLES Final Res ult [facility] [address] [place] [address] [phone] * BI Mammogram Screening Tomosynthesis Bilateral (06/19/2024 10:05 AM EDT) Anatomical Region Laterality Modality Breast Bilateral Mammography 06/19/2024 10:0 5 AM EDT Narrative 06/26/2024 11:59 AM EDT ? [facility] [place] ? [address] ?[place] [address] ? Mammography Report ? Signed ? Patient: Yael Lee ?MR#: [id number] ?? [id number] ? : 1970 ?Acct:[id number] ? Age/Sex: 54 / F ?ADM Date: 06/19/24 ? Loc: HO.MAMMO ? Attending Dr: Anahy Mcbride ? Ordering Physician: Monica Hernandez ?Results: 1Negat ?? francesca ? Date of Service: 06/19/24 ?Follow Up: 1 Year From Orig ?? inal Mammogram ? Procedure(s): MM tomosynthesis screening BI ?? Accession Number(s): [id number] ? cc: Monica Hernandez RN ASSESSMENT ? EXAMINATION: ?? MM SCREENING DIGITAL BREAST TOMOSYNTHESIS, BILATERAL ? CLINICAL INFORMATION: ? Screening. Asymptomatic. ? COMPARISON: ?? Mammography: This study is compared with prior exams dating back to ?? 2019. ? TECHNIQUE: ?? Digital breast tomosynthesis is performed in both the craniocaudal and ?? mediolateral oblique views along with computer-aided detection (CAD). ?? Synthesized 2D images are generated from the tomosynthesis. ? FINDINGS: ?? The breasts are almost entirely fatty (ACR BI-RADS breast composition ?? Category a). ? There are no significant masses, abnormal calcifications, or other ?? abnormalities. ? MM/MM tomosynthesis screening BI ?? IMPRESSION: ?? No mammographic evidence of malignancy. ? ASSESSMENT: ? BI-RADS BI-RADS 1 - Negative ? RECOMMENDATION: ?? Routine annual mammography screening. ? 1 year F/U ? This examination should not preclude the clinical evaluation of a ?? suspicious palpable abnormality. ? This patient's information was entered into a reminder system with a ?? target due date for their next mammogram. ? Dictated By: ?Silvana Espinoza MD ? Signed By: ?<Electronically signed by Silvana Espinoza MD in OV> ? 06/26/24 1155 ? DD/ 1005 ? TD/TT: ? Industrial Economics Teacher: ? Procedure Note Mason, Image - 06/26/2024 [facility] [address] [place] [address] Mammography Report Signed Patient: Yael Lee MMR#: [id number] : 1970Acct:[id number] Age/Sex: 54 / FADM Date: 06/19/24 Loc: HO.MAMMO Attending Dr: Anahy Mcbride Ordering Physician: Monica Hernandez FNPResults: 1Negat francesca Date of Service: 06/19/24Follow Up: 1 Year From Orig inal Mammogram Procedure(s): MM tomosynthesis screening BI Accession Number(s): [id number] cc: Monica Hernandez RN ASSESSMENT EXAMINATION: MM SCREENING DIGITAL BREAST TOMOSYNTHESIS, BILATERAL CLINICAL INFORMATION: Screening. Asymptomatic. COMPARISON: Mammography: This study is compared with prior exams dating back to 2019. TECHNIQUE: Digital breast tomosynthesis is performed in both the craniocaudal and mediolateral oblique views along with computer-aided detection (CAD). Synthesized 2D images are generated from the tomosynthesis. FINDINGS: The breasts are almost entirely fatty (ACR BI-RADS breast composition Category a). There are no significant masses, abnormal calcifications, or other abnormalities. MM/MM tomosynthesis screening BI IMPRESSION: No mammographic evidence of malignancy. ASSESSMENT: BI-RADS BI-RADS 1 - Negative RECOMMENDATION: Routine annual mammography screening. 1 year F/U This examination should not preclude the clinical evaluation of a suspicious palpable abnormality. This patient's information was entered into a reminder system with a target due date for their next mammogram. Dictated By: Silvana Espinoza MD Signed By: <Electronically signed by Silvana Espinoza MD in OV> 06/26/24 1155 DD/ 1005 TD/TT: Industrial Economics Teacher: Monica Hernandez RN ASSESSMENT IMG BI PROCEDURES Final Result * THINPREP TIS PAP AND HPV mRNA E6/E7, CT/NG, TRICH (07/15/2022 5:54 PM EDT) Chlamydia trachomatis RNA, TMA, Urogenital NOT DETECTED NOT DETECTED [facility] Clinical Information: None given [facility] COMMENT SEE COMMENT [facility] Comment: The analytical performance characteristics of this assay, when used to test SurePath(TM) specimens have been determined by [facility]. The modifications have not been cleared or approved by the FDA. This assay has been validated pursuant to the CLIA regulations and is used for clinical purposes. ?? For additional information, please refer to https://education.wesync.tv.SideStripe/faq/QAZ211 (This link is being provided for information/ educational purposes only.) ?? COMMENT [facility] Comment: EXPLANATORY NOTE: ? The Pap is a screening test for cervical cancer. It is ?? not a diagnostic test and is subject to false negative ?? and false positive results. It is most reliable when a ?? satisfactory sample, regularly obtained, is submitted ?? with relevant clinical findings and history, and when ?? the Pap result is evaluated along with historic and ?? current clinical information. ?? COMMENT: SEE COMMENT [facility] Comment: This case could not be evaluated with computer assisted technology. The slide was manually screened according to routine procedures. Account Administrator: SEE COMMENT [facility] Comment: MARAMIRO Gallagher(ASCP) CT screening location: [address] ??[id number] HPV nRNA E6/E7 Not Detected Not Detected [facility] Comment: Methodology: Substation Supervisor-Mediated Amplification This assay detects E6/E7 viral messenger RNA (mRNA) from 14 high-risk HPV types (16,18,31,33,35,39,45,51,52,56,58,59,66,68). ? Cervical sources are required for HPV testing. If a vaginal source from a patient who has had a total hysterectomy with removal of cervix was ?? submitted, please contact the testing laboratory for alternative testing options. ?? For additional information, please refer to http://[employer].Right Relevance/faq/MSU256n0 (This link if provided for information/ educational purposes only.) Interpretation/Re sult: Negative for intraepithelial lesion or malignancy. [facility] LMP: NONE GIVEN [facility] Neisseria gonorrhoeae RNA, TMA, Urogenital NOT DETECTED NOT DETECTED [facility] Prev. BX: NONE GIVEN [facility] Prev. PAP: NONE GIVEN [facility] SOURCE: None given [facility] Statement Of Adequacy: SEE COMMENT [facility] Comment: Satisfactory for evaluation. Endocervical/transformation zone component absent. Age and/or menstrual status not provided Trichomonas vaginalis, QL, TMA, PAP Vial NOT DETECTED NOT DETECTED [facility] Comment: The analytical performance characteristics of this assay have been determined by [facility]. The modifications have not been cleared or approved by the FDA. This assay has been validated pursuant to the CLIA regulations and is used for clinical purposes. ?? For additional information, please refer to http://[employer]vance/ faq/Trichomonastma (This link is being provided for information/ educational purposes only.) ?? NO COLLECTION DATE RECEIVED. WE HAVE USED THE DATE THE SPECIMEN WAS RECEIVED BY THIS LABORATORY THE COLLECTION DATE. IF THIS IS INCORRECT, PLEASE CONTACT CLIENT SERVICES. PHONE NUMBER: ?? Chlamydia trachomatis RNA, TMA, Urogenital NOT DETECTED NOT DETECTED [facility] Clinical Information: None given [facility] COMMENT SEE COMMENT [facility] Comment: The analytical performance characteristics of this assay, when used to test SurePath(TM) specimens have been determined by [facility]. The modifications have not been cleared or approved by the FDA. This assay has been validated pursuant to the CLIA regulations and is used for clinical purposes. ?? For additional information, please refer to https://[employer]/faq/ZQE191 (This link is being provided for information/ educational purposes only.) ?? COMMENT SEE COMMENT [facility] Comment: EXPLANATORY NOTE: ? The Pap is a screening test for cervical cancer. It is ?? not a diagnostic test and is subject to false negative ?? and false positive results. It is most reliable when a ?? satisfactory sample, regularly obtained, is submitted ?? with relevant clinical findings and history, and when ?? the Pap result is evaluated along with historic and ?? current clinical information. ?? COMMENT: SEE COMMENT [facility] Comment: This case could not be evaluated with computer assisted technology. The slide was manually screened according to routine procedures. Account Administrator: SEE COMMENT [facility] Comment: RAMIRO CALABRESE(ASCP) CT screening location: [address] ??[address] HPV nRNA E6/E7 Not Detected Not Detected [facility] Comment: Methodology: Substation Supervisor-Mediated Amplification This assay detects E6/E7 viral messenger RNA (mRNA) from 14 high-risk HPV types (16,18,31,33,35,39,45,51,52,56,58,59,66,68). ? Cervical sources are required for HPV testing. If a vaginal source from a patient who has had a total hysterectomy with removal of cervix was ?? submitted, please contact the testing laboratory for alternative testing options. ?? For additional information, please refer to http://education.Right Relevance/faq/TQM541q0 (This link if provided for information/ educational purposes only.) Interpretation/Re sult: Negative for intraepithelial lesion or malignancy. [facility] LMP: NONE GIVEN [facility] Neisseria gonorrhoeae RNA, TMA, Urogenital NOT DETECTED NOT DETECTED [facility] Prev. BX: NONE GIVEN [facility] Prev. PAP: NONE GIVEN [facility] SOURCE: None given [facility] Statement Of Adequacy: SEE COMMENT [facility] Comment: Satisfactory for evaluation. Endocervical/transformation zone component absent. Age and/or menstrual status not provided Trichomonas vaginalis, QL, TMA, PAP Vial NOT DETECTED NOT DETECTED [facility] Comment: The analytical performance characteristics of this assay have been determined by [facility]. The modifications have not been cleared or approved by the FDA. This assay has been validated pursuant to the CLIA regulations and is used for clinical purposes. ?? For additional information, please refer to http://education.[employer]vance/ faq/Trichomonastma (This link is being provided for information/ educational purposes only.) ?? NO COLLECTION DATE RECEIVED. WE HAVE USED THE DATE THE SPECIMEN WAS RECEIVED BY THIS LABORATORY THE COLLECTION DATE. IF THIS IS INCORRECT, PLEASE CONTACT CLIENT SERVICES. PHONE NUMBER: ?? 07/15/2022 5:54 PM EDT Anahy Mcbride [facility] ORDERABLES Final Result [facility] [address] from Last 3 Months or Most Recently Relevant to Health Maintenance Insurance [facility] STAND[employer] [place] [id number] Care Teams Winder Fixer Relationship Specialty Start Date End Date Monica Hernandez FNP [address] [place] [address] PCP - General Family Medicine 07/14/22 Loc Agrawal MD [address] [place] [address] Endocrinology 10/20/24 Lamar De Paz MD [address] [place] [address] Hematology and Oncology 10/20/24 Ralph Reece MD [address] [place] [address] Cardiology 10/20/24
--- OUTSIDE RECORDS SUMMARY | 2025-01-27 12:40 | XMS_ITS | Clinical Summary ---
Author Organization [employer] [employer] [facility] it Address [address] [place] [address] Care Team Providers Care Library Attendant Name Role Phone Unavailable Primary Care Provider Unavailabl e Social History Tobacco Use Types Packs/Day Years Used Date Smoking Tobacco: Never Assessed Comments Unknown Sex and Gender Information Value Date Recorded Sex Assigned at Not on file Legal Sex Female 12:37 PM EST Gender Identity Not on file Sexual Orientation Not on file Plan of Treatment Health Maintenance Due Date Last Done Comments Breast Cancer Screening 1970 DTaP,Tdap,and Td Vaccines (1 - Tdap) 1989 Hepatitis B Vaccines (1 of 3 - 19+ 3-dose series) 1989 Cervical Cancer Screening: P ap Smear 1991 Pneumococcal Vaccine: 50+ Ye ars (1 of 1 - PCV) 2020 Zoster Vaccines (1 of 2) 2020 COVID-19 Vaccine ( - 2023-2 5 season) 2024 Influenza Vaccine (#1) 2024 HIB Vaccines Aged Out No longer eligi [...] on patient's age to complete this topic MMR Vaccines Aged Out No longer eligi ble based on patient's age to complete this topic Meningococcal ACWY Vaccine Aged Out N o longer eligible based on patient's age to complete this topic Meningococcal B Vacine Aged Out No lo nger eligible based on patient's age to complete this topic Pneumococcal Vaccine: Pediat rics (0 to 5 Years) and At-Risk Patients (6 to 64 Years) Aged Out No longer eligible b ased on patient's age to complete this topic RSV Immunization Patients Un víctor 20 months Aged Out No longer eligible b ased on patient's age to complete this topic Varicella Vaccines Aged Out No longer eligible based on patient's age to complete this topic
--- OUTSIDE RECORDS SUMMARY | 2025-01-27 12:41 | XMS_ITS | Encounter Summary ---
Author Organization [employer] Address [address] [facility] 7t [place] [address] Care Team Providers Care Rotary Surface Grinder Name Role Phone Monica Hernandez Primary Care Provider [phone] Loc Agrawal MD Unavailable [phone] Lamar De Paz MD Unavailable [phone] Ralph Reece MD Unavailable [phone] Reason for Visit * Reason Comments Med Refill Encounter Details Date Type Department Care Team (Late st Contact Info) Description 08/12/2023 Refill [facility] MEDICINE [address] [place] [address] Monica Hernandez FNP [address] [place] [address] Sleep difficulties Social History Tobacco Use Types Packs/Day Years Used Date Smoking Tobacco: Former Cigarettes Passive Smoke Exposure: Never Smokeless Tobacco: Never Alcohol Use Standard Drinks/Week Comments Never 0 (1 standard drink = 0.6 oz pur e alcohol) Depression Answer Date Recorded Patient Health Questionnaire-9 Score 2 05/09/2023 Depression Answer Date Recorded Patient Health Questionnaire-2 Score 0 05/09/2023 Comments Unknown Sex and Gender Information Value [...] Description 03/03/2025 11:15 AM EDT Office Visit [facility] MED & PEDS [address] [place] [address] Monica Hernandez FNP [address] [place] [address] documented as of this encounter Visit Diagnoses Diagnosis Sleep difficulties documented in this encounter Additional Health Concerns Assessment Noted Time PHQ-9 Depression Total Score: 2 05/09/20 23 9:29 AM EDT documented as of this encounter Care Teams Rotary Surface Grinder Relationship Specialty Start Date End Date Monica Hernandez FNP [address] [place] [address] PCP - General Family Medicine 07/14/22 Loc Agrawal MD [address] [place] [address] Endocrinology 10/20/24 Lamar De Paz MD [address] [place] [address] Hematology and Oncology 10/20/24 Ralph Reece MD [address] [place] [address] Cardiology 10/20/24 documented as of this encounter
--- OUTSIDE RECORDS SUMMARY | 2025-01-27 12:41 | XMS_ITS | Encounter Summary ---
Author Organization [employer] Address [address] [facility] 7t [place] [address] Care Team Providers Care Exhibit Display Representative Name Role Phone Monica Hernandez Primary Care Provider [phone] Loc Agrawal MD Unavailable [phone] Lamar De Paz MD Unavailable [phone] Ralph Reece MD Unavailable [phone] Encounter Details Date Type Department Care Team (Late st Contact Info) Description 10/25/2022 Telephone [facility] MEDICINE [address] [place] [address] Monica Hernandez FNP [address] [place], [place] [phone] Social History Tobacco Use Types Packs/Day Years [...] Description 03/03/2025 11:15 AM EDT Office Visit [facility] CHC MED & PEDS [address] [place], [place] [phone] Monica Hernandez FNP [address], [place] [phone] documented as of this encounter Visit Diagnoses Not on filedocumented in this encounter Care Teams Exhibit Display Representative Relationship Specialty Start Date End Date Monica Hernandez FNP [address] [place] [address] PCP - General Family Medicine 07/14/22 Loc Agrawal MD [address] [place] [address] Endocrinology 10/20/24 Lamar De Paz MD [address] [place] [address] Hematology and Oncology 10/20/24 Ralph Reece MD [address] [place] [address] Cardiology 10/20/24 documented as of this encounter
--- OUTSIDE RECORDS SUMMARY | 2025-01-27 12:41 | XMS_ITS | Encounter Summary ---
Author Organization [employer] Address [address] [facility] 7t [place] [address] Care Team Providers Care Asphalt Engineer Name Role Phone Monica Hernandez Primary Care Provider Loc Agrawal MD Unavailable [phone] Lamar De Paz MD Unavailable [phone] Ralph Reece MD Unavailable [phone] Reason for Visit * Reason Onset Date Comments January recall 01/23/2025 Encounter Details Date Type Department Care Team (Late st Contact Info) Description 01/23/2025 Telephone [facility] CHC MED & PEDS [address] [place], [place] [phone] Monica Hernandez FNP [address] [place], [place] [phone] January recall Social History Tobacco Use Types Packs/Day Years [...] encounter Miscellaneous Notes * Telephone Encounter - Mat Maldonado MA - 01/23/2025 9:07 AM EST Telephone call to patient to schedule the following recall: Visit type: Follow up Appointment notes: Chronic conditions Patient agree to appointment on 03/03/2025 at 11:15 AM with Mary . Pt aware appt location geni be [facility]. documented in this encounter Plan of Treatment Upcoming Encounters Date Type Department Care Team ([facility] Contact Info) Description 03/03/2025 11:15 AM EDT Office Visit [facility] MED & PEDS [address] [place] [address] Monica Hernandez FNP [address] [place] [address] documented as of this encounter Visit Diagnoses Not on filedocumented in this encounter Additional Health Concerns Assessment Noted Time PHQ-9 Depression Total Score: 4 04/05/20 24 10:31 AM EDT documented as of this encounter Care Teams Asphalt Engineer Relationship Specialty Start Date End Date Monica Hernandez FNP [address] [place] [address] PCP - General Family Medicine 07/14/22 Loc Agrawal MD [address] [address] Endocrinology 10/20/24 Lamar De Paz MD [address] [place] [address] Hematology and Oncology 10/20/24 Ralph Reece MD [address] [place] [address] Cardiology 10/20/24 documented as of this encounter
--- OUTSIDE RECORDS SUMMARY | 2025-01-27 12:41 | XMS_ITS | Encounter Summary ---
Author Organization [employer] Address [address] [facility] 7t [place] [address] Care Team Providers Care Family Member Caretaker Name Role Phone Monica Hernandez Primary Care Provider Loc Agrawal MD Unavailable [phone] Lamar De Paz MD Unavailable [phone] Ralph Reece MD Unavailable [phone] Reason for Visit * Reason Onset Date Comments Durable Medical Equipment 11/01/2024 Encounter Details Date Type Department Care Team (Late st Contact Info) Description 11/01/2024 Telephone [facility] CHC MED & PEDS [address] [place], [place] [phone] Monica eHrnandez FNP [address] [place], [place] [phone] Durable Medical Equipment Social History Tobacco Use [...] encounter Miscellaneous Notes * Telephone Encounter - Myrtle Jessica LPN - 11/01/2024 11:21 AM EST Transportation Inspector spoke with pt and sister both requested for Rx to be sent to [facility] and request to cancel order at [facility] which physician underwriter call multiple time to [facility] LVM . Sending to pcp as an FYI ----- Message from Monica Hernandez sent at 10/31/2024 11:18 AM EST ----- Hola Pryor - thank you for all your attention to [employer] DME items! I spoke with them yesterday and the bariatric commode and tub transfer bench are ready for bean picker. Electric scooter in process. They did report that current 2XL diapers from [facility] are less absorbant (brand changed), and I spoke with [facility] and they no longer carry any other brands in her size. Pt/sister asking if possible to send DME request for diapers to other DME company to see if they have more absorbant diaper brand? I * Telephone Encounter - Myrtle Jessica LPN - 11/01/2024 11:21 AM EST ----- Message from Monica Hernandez sent at 10/31/2024 11:18 AM EST ----- Hola Pryor - thank you for all your attention to [employer] items! I spoke with them yesterday and the bariatric commode and tub transfer bench are ready for bean picker. Electric scooter in process. They did report that current 2XL diapers from [facility] are less absorbant (brand changed), and I spoke with [facility] and they no longer carry any other brands in her size. Pt/sister asking if possible to send DME request for diapers to other DME company to see if they have more absorbant diaper brand? I documented in this encounter Plan of Treatment Upcoming Encounters Date Type Department Care Team (Late st Contact Info) Description 03/03/2025 11:15 AM EDT Office Visit [facility] MED & PEDS [address] [place] [address] Monica Hernandez FNP [address] [place] [address] documented as of this encounter Visit Diagnoses Not on filedocumented in this encounter Additional Health Concerns Assessment Noted Time PHQ-9 Depression Total Score: 4 04/05/20 24 10:31 AM EDT documented as of this encounter Care Teams Family Member Caretaker Relationship Specialty Start Date End Date Monica Hernandez FNP [address] [place] [address] PCP - General Family Medicine 07/14/22 Loc Agrawal MD [address] [place] [address] Endocrinology 10/20/24 Lamar De Paz MD [address] [place] [address] Hematology and Oncology 10/20/24 Ralph Reece MD [address] [place] [address] Cardiology 10/20/24 documented as of this encounter
== END 2025-01-27 11:47 | disposition home or self-care (01) ==
PROVIDERS: PCP Registered Nurse; Visit Provider Student in an Organized Health Care Education/Training Program
DX: E20.9 Hypoparathyroidism, unspecified (principal); E06.3 Autoimmune thyroiditis
CPT/HCPCS: 99213

== ENCOUNTER 2025-01-27 11:09 | Outpatient (REF) | payer MEDICARE, MEDICAID, SELFPAY ==
[2025-01-27 12:18] LABS: MANUAL DIFF FLAG NO
[2025-01-27 13:30] LABS: Basophils Absolute Auto 0.1 X10*3/uL (0.0-0.2); Eosinophils Absolute Auto 0.2 X10*3/uL (0.0-0.4); Eosinophils Percent Auto 2.8 % (0-4); Hematocrit 22.2 % (37.0-47.0); Imm Gran Abs Auto 0.06 X10*3/uL (0.00-0.03); Lymphocytes Absolute Auto 0.9 X10*3/uL (1.2-4.9); Lymphocytes Percent Auto 14.3 % (20-40); Mean Corpuscular HGB Conc 27.9 g/dl (31.0-35.0); Mean Corpuscular Hemoglobin 20.8 pg (27.0-33.0); Mean Corpuscular Volume 74.5 fL (80.0-98.0); Mean Platelet Volume 9.8 fL (9.4-12.3); Monocytes Absolute Auto 0.7 X10*3/uL (0.1-1.2); Neutrophils Absolute Auto 4.2 x10*3/uL (2.0-8.3); Neutrophils Percent Auto 69.9 % (45-73); Platelet Count 268 X10*3/uL (160-400); Red Blood Count 2.98 X10*6/uL (4.20-5.50); Red Cell Distribution Width 18.4 % (11.0-16.0)
[2025-01-27 13:39] LABS: Estimated Average Glucose 157 mg/dL; Hemoglobin A1C 81.8434 umol/L; Hemoglobin A1c % 7.1 % (<6.0)
--- OUTSIDE RECORDS SUMMARY | 2025-01-27 13:45 | XMS_ITS | Clinical Summary ---
Author Organization [employer] [facility] it Address [address] [place] [address] Care Team Providers Care Media Technician Name Role Phone Unavailable Primary Care Provider [...]
[2025-01-27 14:02] LABS: Hemoglobin 6.2 g/dl (12.0-16.0); NRBC Pct Auto 1.2 /100WBC (0.0-0.2)
[2025-01-27 14:14] LABS: Parathyroid Hormone Intact 10.3 pg/mL (8.7-77.1)
[2025-01-27 14:17] LABS: Alanine Aminotransferase 19 U/L (0-31); Albumin Level 3.5 g/dL (3.5-5.0); Alkaline Phosphatase 93 U/L (39-117); Anion Gap 14 (12-20); Aspartate Amino Transferase 27 U/L (5-31); Bilirubin Total 0.5 mg/dL (0.0-1.0); Blood Urea Nitrogen 20 mg/dL (9-16); Calcium 6.6 mg/dL (8.4-10.2); Carbon Dioxide 26 mmol/L (22-29); Chloride 104 mmol/L (96-108); Estimated Glomerular Filt Rate > 60; Glucose Random 110 mg/dL (60-115); Magnesium 1.7 mg/dL (1.6-2.6); Phosphorus 4.6 mg/dL (2.7-4.5); Potassium 3.9 mmol/L (3.3-5.1); Sodium 140 mmol/L (135-145); Total Protein 7.6 g/dL (6.5-8.0)
[2025-01-27 14:28] LABS: TSH reflex Free T4 4.02 uIU/mL (0.32-4.0); Vitamin D 25-OH Total 34.4 ng/mL (>30)
[2025-01-27 15:52] LABS: Free T4 (Free Thyroxine) 1.12 ng/dL (0.71-1.85)
[2025-01-28 13:24] LABS: Calcium, Ionized 3.6 mg/dL (4.7-5.5)
== END 2025-01-27 11:10 | disposition home or self-care (01) ==
LOC: HO.LAB 11:09
PROVIDERS: PCP Registered Nurse; Visit Provider Student in an Organized Health Care Education/Training Program
DX: Z13.89 Encounter for screening for other disorder (principal)
CPT/HCPCS: 36415; 80053; 82306; 82330; 83036; 83735; 83970; 84100; 84439; 84443; 85025; 99212

== ENCOUNTER 2025-01-27 15:44 | Emergency (ER) | payer MEDICARE, MEDICAID, SELFPAY ==
[2025-01-27] VITALS (9 sets, daily range): BP systolic 133–166; BP diastolic 61–91; PULSE 60–72; RESP 16–25; TEMP 36.6–36.8; O2SAT 93–98; BMI 73.2
--- NOTE | 2025-01-27 15:56 | ED.GENADULT ---
HPI - General Adult General Chief complaint: Recheck/Abnormal Lab/Rx Stated complaint: abnormal labs Time Seen by Provider: 01/27/25 17:04 Source: patient Mode of arrival: ambulatory Limitations: no limitations and other (Traumatic brain injury) History of Present Illness ED Provider: Dr. Darlin Pratt HPI narrative: Patient comes to the emergency room accompanied by her family. According to the family, patient had an appointment today with her vocational psychologist who ordered routine lab work. It was noted on the lab work that patient's hemoglobin is low. Patient states that she has had this issue in the past, patient complaining of heavy menstrual periods, patient currently menstruating. According to the family, they have tried to correct the menorrhea with IUDs. However, last summer patient had an IUD placed and the IUD ?fell out . Since then, patient had refused to have the IUD reinserted. Patient states that she has been feeling a bit tired, denies chest pain or shortness of breath. Also, per patient's sister/healthcare proxy, the patient has been a bit depressed. A few days ago patient's mother . Patient is not SI or HI Related Data Home Medications ?Medication ?Instructions ?Recorded ?Confirmed diltiazem HCl 360 mg 360 mg PO DAILY 04/27/22 01/27/25 capsule,extended release 24 hr docusate sodium 100 mg capsule 100 mg PO DAILY 04/27/22 01/27/25 labetalol 100 mg tablet 200 mg PO BID 04/27/22 01/27/25 lisinopril 40 mg tablet 40 mg PO QAM 04/27/22 01/27/25 Previous Rx's ?Medication ?Instructions ?Recorded ondansetron 4 mg disintegrating 4 mg PO TID PRN nausea and 12/26/22 tablet vomiting 5 days #10 tabs calcitriol 0.25 mcg capsule See Rx Instructions PO QAM #120 10/14/24 caps culibmh-ajloagefvfnfd-vkdakbim 250 1 tab PO Q4-6H PRN Headache #30 10/28/24 mg-250 mg-65 mg tablet (Excedrin tabs Migraine) calcium carbonate 500 mg PO BID #60 tabs 10/28/24 levothyroxine 112 mcg tablet 112 mcg PO QAM #90 tabs 01/08/25 cholecalciferol (vitamin D3) 25 25 mcg PO DAILY #30 caps 01/27/25 mcg (1,000 unit) capsule Allergies Allergy/AdvReac Type Severity Reaction Status Date / Time Penicillins Allergy Unknown RASH Verified 01/27/25 15:57 Review of Systems Review of Systems: Constitutional : No Weight loss, No Fever, No Chills, No Night Sweats, complaining of chronic fatigue ENT/Mouth : No Hearing loss, No Ear Pain, No Nasal Congestion, No Sinus Pain, No Hoarseness, No sore throat, No Rhinorrhea, No Swallowing Difficulty Eyes: No Eye Pain, No Swelling, No Redness, No Foreign Body, No Discharge, No Vision Changes Cardiovascular : No Chest Pain, No SOB, No Dyspnea on Exertion, No Orthopnea, No Edema, No Palpitations Respiratory : No Cough, No Sputum, No Wheezing, No Smoke Exposure, No Dyspnea Gastrointestinal : No Nausea, No Vomiting, No Diarrhea, No Constipation, No abdominal Pain, No Hematochezia, No Melena Genitourinary : Complaining of menorrhagia, No Dysuria, No Urinary Frequency, No Hematuria, No Urinary Incontinence, No Urgency, No Flank Pain, No Urinary Flow Changes, No Hesitancy Musculoskeletal : No joint pain, No Myalgias, No Joint Swelling Skin : No Skin Lesions, No rash Neuro : No Weakness, No Numbness, No Paresthesias, No Loss of Consciousness, No Dizziness, No Headache Psych : No Anxiety/Panic, No Depression, No SI/HI/AH/VH, No Social Issues, Heme/Lymph: No Bruising, No Bleeding,No Lymphadenopathy Endocrine : No Polyuria, No Polydipsia, No Temperature Intolerance [facility] Past Medical History Medical History Hypoparathyroidism TBI (traumatic brain injury) Obesity Cognitive impairment Anemia DVT (deep venous thrombosis) Hypothyroid Hypertension Surgical History No pertinent past surgical history Family History Family History Mother HTN (hypertension) Father Diabetes Paternal Aunt Colon cancer Maternal Aunt Breast CA Social History Social History Household Members Other:: mom Housing: House Alcohol intake: never Patient Tobacco Use Status: Never used Tobacco Smoked in Last 30 Days: No Use of substances other than those prescribed or required for medical reasons: No Advance Directives: No Advance Directives Information Provided: No Do you have a plan to hurt others: No Plan Patient : No service: No Physical Exam ED Vital Signs: Vital Signs - 24 hr 01/27/25 15:54 01/27/25 17:22 01/27/25 17:55 Temperature 98 F 98.2 F 98.3 F Pulse Rate 72 62 61 Respiratory Rate 19 24 H 18 Blood Pressure 146/71 H 135/74 150/75 H Pulse Oximetry 93 98 Oxygen Delivery Method Room Air Room Air 01/27/25 18:15 01/27/25 20:06 01/27/25 20:20 Temperature 98.3 F 98.3 F Pulse Rate 60 65 64 Respiratory Rate 16 25 H 16 Blood Pressure 156/73 H 133/91 H 136/79 Pulse Oximetry 96 Oxygen Delivery Method Room Air 01/27/25 20:55 01/27/25 21:20 01/27/25 22:24 Temperature 98.0 F 98.3 F 98.1 F Pulse Rate 65 65 66 Respiratory Rate 24 H 16 18 Blood Pressure 166/78 H 164/83 H 145/61 H Pulse Oximetry 97 Oxygen Delivery Method Room Air 01/28/25 00:03 Temperature 97.8 F Pulse Rate 66 Respiratory Rate 16 Blood Pressure 161/85 H Pulse Oximetry 95 Oxygen Delivery Method Room Air BMI result Body Mass Index 73.2 Const Other: Appearance: Alert. Oriented X3. No acute distress. Eyes: Pupils equal, round and reactive to light. ENT: Pharynx normal. Neck: Normal inspection. Neck supple. No lymph nodes noted. No crepitus CVS: Normal heart rate and rhythm. Pulses normal. Normal S1 and S2 Respiratory: No respiratory distress. Breath sounds normal. No Wheezing. No rales Abdomen: Soft and nontender. No rigidity. No distention. Skin: Skin warm and dry. Pale skin color. Normal skin turgor. Extremities: No lower extremity edema. No Lacerations. No Rash Neuro: Oriented X 3. No motor deficit. No sensory deficit. Moving all extremities. No slurred speech. CN 2 through 12 grossly intact Psych: calm, cooperative, normal affect Course Course Course Narrative: This is a Rapid Medical Examination (RME) performed by Bobo Ku PA-C in triage. Full HPI, ROS, assessment and treatment plan per primary provider in the Main ED. 54 yo female hx of hypothyroid, heavy AUB, here for eval of low H&H. had blood work done this morning per PCP - hgb 6.2, hct 22.2. admits to vaginal bleeding at present. assoc fatigue. no chest pain. hx of blood transfusions/ iron infusions. last transfusion 05/2024. Plan: repeat labs, iron profile, type and screen Medical Decision Making Medical Decision Making [facility] Narrative: My interpretation of labs: Patient's hemoglobin 6.2, hematocrit 21.6, platelets 249. No abnormality in patient's chemistry. Patient's family at bedside, patient awake and alert. Patient has a healthcare proxy due to history of TBI. Both patient and family are agreeable with a blood transfusion. Patient's sister/healthcare proxy signed the consent. Otherwise, patient has no other complaints. Discussed with the patient and her family that it is likely that after a blood transfusion, if she is feeling well, she will likely be discharged home. They all agree with plan Patient received 2 units of blood, patient feeling better. Patient ready for discharge Differential Diagnosis Differential Diagnoses: The differential diagnosis associated with the presentation includes (Chronic anemia, iron deficiency anemia, blood loss anemia) Admission/Observation Consideration of admission/observation: Escalation of care including admission/observation considered (Given patient's past medical history and presentation, observation has been considered) Lab Data [facility] Lab Attestation statement: I reviewed the patient's lab results. 01/27/25 16:23 01/27/25 16:23 Labs: Lab Results 01/27/25 Range/Units 16:23 WBC 5.9 (4.8-10.8) X10*3/uL RBC 2.97 L (4.20-5.50) X10*6/uL Hgb 6.2 L* (12.0-16.0) g/dl Hct 21.6 L (37.0-47.0) % MCV 72.7 L (80.0-98.0) fL MCH 20.9 L (27.0-33.0) pg MCHC 28.7 L (31.0-35.0) g/dl RDW 18.2 H (11.0-16.0) % Plt Count 249 (160-400) X10*3/uL MPV 9.2 L (9.4-12.3) fL Immature Gran % (Auto) 0.8 H (0.0-0.4) % Neut % (Auto) 68.4 (45-73) % Lymph % (Auto) 14.8 L (20-40) % [place] % (Auto) 12.3 H (2-11) % Eos % (Auto) 2.7 (0-4) % Baso % (Auto) 1.0 (0-2) % Lymph # (Auto) 0.9 L (1.2-4.9) X10*3/uL [place] # (Auto) 0.7 (0.1-1.2) X10*3/uL Eos # (Auto) 0.2 (0.0-0.4) X10*3/uL Baso # (Auto) 0.1 (0.0-0.2) X10*3/uL Abs Immat Gran (auto) 0.05 H (0.00-0.03) X10*3/uL Absolute Neuts (auto) 4.1 (2.0-8.3) x10*3/uL Absolute Nucleated RBC 0.070 H (0.0-0.012) X10*3/uL Nucleated RBC % (auto) 1.2 H (0.0-0.2) /100WBC PT 13.9 H (10.9-12.4) SEC INR 1.2 H (0.9-1.1) APTT 26.5 (26.0-36.8) SEC Sodium 138 (135-145) mmol/L Potassium 3.8 (3.3-5.1) mmol/L Chloride 104 (96-108) mmol/L Carbon Dioxide 26 (22-29) mmol/L Anion Gap 12 (12-20) BUN 18 H (9-16) mg/dL Creatinine 0.66 (0.5-1.4) mg/dL Estim Creat Clear Calc 157.8 Estimated GFR > 60 Random Glucose 143 H (60-115) mg/dL Calcium 6.4 L (8.4-10.2) mg/dL Magnesium 1.7 (1.6-2.6) mg/dL Iron 11 L (30-160) mcg/dL TIBC 307 (228-428) mcg/dL % Saturation 4 L (15-50) % Unsat Iron Binding 296 ug/dL Total Bilirubin 0.6 (0.0-1.0) mg/dL AST 30 (5-31) U/L ALT 19 (0-31) U/L Alkaline Phosphatase 90 (39-117) U/L Total Protein 7.4 (6.5-8.0) g/dL Albumin 3.4 L (3.5-5.0) g/dL Blood Type B Positive Antibody Screen NEGATIVE Crossmatch See Detail Critical Care Time Critical Care Time Critical Care Time: Yes Total Critical Care Time: 60 Attestation: I have personally provided critical care time. Time includes review of lab data, radiology results, discussion with consultants, and monitoring for potential decompensation. Intervention performed as documented. Discharge Plan Discharge Clinical Impression: Menorrhagia, Anemia Patient Disposition: Home, Self-Care Instructions: Dysfunctional Uterine Bleeding (ED), Anemia (ED) Additional Instructions: Please follow-up with your primary care physician tomorrow. If you have any worsening or new symptoms, please return to the emergency room or call 911 Prescriptions: No Action calcitriol 0.25 mcg capsule See Rx Instructions PO QAM Qty: 120 8RF Rx Instructions: take 2 capsules in AM (o.5 mcg) and 2 capsule in PM (0.5 mcg) orally every morning; levothyroxine 112 mcg tablet 112 mcg PO QAM Qty: 90 3RF ondansetron 4 mg tablet,disintegrating 4 mg PO TID PRN (Reason: nausea and vomiting) 5 Days Qty: 10 0RF Excedrin Migraine 250-250-65 mg Tablet 1 tab PO Q4-6H PRN (Reason: Headache) Qty: 30 3RF docusate sodium 100 mg capsule 100 mg PO DAILY labetalol 100 mg tablet 200 mg PO BID diltiazem HCl 360 mg capsule,extended release 24hr 360 mg PO DAILY lisinopril 40 mg tablet 40 mg PO QAM calcium carbonate 500 mg calcium (1,250 mg) tablet 500 mg PO BID Qty: 60 6RF Rx Instructions: please send her a formulation with smaller pill size cholecalciferol (vitamin D3) 25 mcg (1,000 unit) capsule 25 mcg PO DAILY Qty: 30 8RF Print Language: [place]
--- NOTE | 2025-01-27 15:57 | ECG_ITS ---
Test Reason : fatigue Blood Pressure : */* mmHG Vent. Rate : 66 BPM Atrial Rate : 66 BPM P-R Int : 160 ms QRS Dur : 92 ms QT Int : 434 ms P-R-T Axes : 80 -2 74 degrees QTcB Int : 454 ms Sinus rhythm with occasional Premature ventricular complexes Otherwise normal ECG When compared with ECG of 30-Aug-2023 14:43, rhythm change Referred By: Kerry Ku Electronically Signed By: PAMELLA VICTOR
[2025-01-27 16:28] LABS: MANUAL DIFF FLAG NO
[2025-01-27 16:31] LABS: Basophils Absolute Auto 0.1 X10*3/uL (0.0-0.2); Eosinophils Absolute Auto 0.2 X10*3/uL (0.0-0.4); Eosinophils Percent Auto 2.7 % (0-4); Hematocrit 21.6 % (37.0-47.0); Imm Gran Abs Auto 0.05 X10*3/uL (0.00-0.03); Imm Gran Pct Auto 0.8 % (0.0-0.4); Lymphocytes Absolute Auto 0.9 X10*3/uL (1.2-4.9); Lymphocytes Percent Auto 14.8 % (20-40); Mean Corpuscular HGB Conc 28.7 g/dl (31.0-35.0); Mean Corpuscular Hemoglobin 20.9 pg (27.0-33.0); Mean Corpuscular Volume 72.7 fL (80.0-98.0); Mean Platelet Volume 9.2 fL (9.4-12.3); Monocytes Absolute Auto 0.7 X10*3/uL (0.1-1.2); Monocytes Percent Auto 12.3 % (2-11); Neutrophils Absolute Auto 4.1 x10*3/uL (2.0-8.3); Neutrophils Percent Auto 68.4 % (45-73); Platelet Count 249 X10*3/uL (160-400); Red Blood Count 2.97 X10*6/uL (4.20-5.50); Red Cell Distribution Width 18.2 % (11.0-16.0); White Blood Count 5.9 X10*3/uL (4.8-10.8)
[2025-01-27 16:32] LABS: NRBC Pct Auto 1.2 /100WBC (0.0-0.2)
[2025-01-27 16:33] LABS: Hemoglobin 6.2 g/dl (12.0-16.0)
[2025-01-27 16:35] LABS: INTERNATIONAL NORM RATIO 1.2 (0.9-1.1); Prothrombin Time 13.9 SEC (10.9-12.4)
[2025-01-27 16:38] LABS: Partial Thromboplastin Time 26.5 SEC (26.0-36.8)
[2025-01-27 17:00] LABS: Alanine Aminotransferase 19 U/L (0-31); Albumin Level 3.4 g/dL (3.5-5.0); Alkaline Phosphatase 90 U/L (39-117); Anion Gap 12 (12-20); Aspartate Amino Transferase 30 U/L (5-31); Bilirubin Total 0.6 mg/dL (0.0-1.0); Blood Urea Nitrogen 18 mg/dL (9-16); Calcium 6.4 mg/dL (8.4-10.2); Carbon Dioxide 26 mmol/L (22-29); Chloride 104 mmol/L (96-108); Creatinine Clr Calc Pharmacy 157.8; Estimated Glomerular Filt Rate > 60; Glucose Random 143 mg/dL (60-115); Iron 11 mcg/dL (30-160); Magnesium 1.7 mg/dL (1.6-2.6); Percent Iron Saturation 4 % (15-50); Potassium 3.8 mmol/L (3.3-5.1); Sodium 138 mmol/L (135-145); Total Iron Binding Capacity 307 mcg/dL (228-428); Total Protein 7.4 g/dL (6.5-8.0); Unsaturated Iron Binding 296 ug/dL
--- NOTE | 2025-01-27 17:40 | PC.NURSE ---
2, 18gIVs placed in the AC's bilaterally. blood transfusion slip filled out/placed in pt's chart. pt pending blood from blood bank at this time. vitals remain stable/up to date. nsr on the community marketing manager. on RA w/o difficulty - no sob/wob noted. respirations even/unlabored. family bedside for support. plan of care ongoing. call babcock placed within reach.
--- NOTE | 2025-01-27 18:17 | PC.NURSE ---
pt tolerated first 15 min of 1st unit of PRBC w/o difficulty. no signs of complications/adverse reactions noted. vss and up to date. nsr on the manager cardiac cath. pt remains on RA w/o difficulty. PRBC transfusion set to maintenance rate of 190mls/hr. plan of care ongoing. call babcock placed within reach.
--- OUTSIDE RECORDS SUMMARY | 2025-01-27 18:22 | XMS_ITS | Encounter Summary ---
Author Organization [employer] Address [address] [facility] [address] [place] [address] Care Team Providers Care Benzol Still Operator Name Role Phone Monica Hernandez Primary Care Provider [phone] Loc Agrawal MD Unavailable [phone] Lamar De Paz MD Unavailable [phone] Ralph Reece MD Unavailable [phone] Encounter Details Date Type Department Care Team (Late st Contact Info) Description 10/25/2022 Telephone [facility] [address] [place] [address] Monica Hernandez FNP [address] [place], [place] [phone] Social History Tobacco Use Types Packs/Day Years [...] 11:15 AM EDT Office Visit [facility] MED & PEDS [address] [place], [place] [phone] Monica Hernandez FNP [address] [place], [place] [phone] documented as of this encounter Visit Diagnoses Not on filedocumented in this encounter Care Teams Benzol Still Operator Relationship Specialty Start Date End Date Monica Hernandez FNP [address] [place] [address] PCP - General Family Medicine 07/14/22 Loc Agrawal MD [address] [place] [id number] Endocrinology 10/20/24 Lamar De Paz MD [address] [place] [id number] Hematology and Oncology 10/20/24 Ralph Reece MD [address] [place] [address] Cardiology 10/20/24 documented as of this encounter
--- OUTSIDE RECORDS SUMMARY | 2025-01-27 18:22 | XMS_ITS | Clinical Summary ---
Author Organization [employer] [facility] it Address [address] [place] [address] Care Team Providers Care Micro Paleontologist Name Role Phone Unavailable Primary Care Provider [...]
--- OUTSIDE RECORDS SUMMARY | 2025-01-27 18:22 | XMS_ITS | Encounter Summary ---
Author Organization [employer] Address [address] [facility] [address] [place] [address] Care Team Providers Care Cleaner Wall Name Role Phone Monica Hernandez Primary Care Provider [phone] Loc Agrawal MD Unavailable [phone] Lamar De Paz MD Unavailable Ralph Reece MD Unavailable [phone] Reason for Visit * Reason Comments Med Refill Encounter Details Date Type Department Care Team (Late st Contact Info) Description 08/12/2023 Refill [facility] [address] [place] [address] Monica Hernandez FNP [address] [place] [address] Sleep difficulties Social History Tobacco Use Types [...] Description 03/03/2025 11:15 AM EDT Office Visit [facility] PEDS [address] [place] [address] Monica Hernandez FNP [address] [place] [address] documented as of this encounter Visit Diagnoses Diagnosis Sleep difficulties documented in this encounter Additional Health Concerns Assessment Noted Time PHQ-9 Depression Total Score: 2 05/09/20 23 9:29 AM EDT documented as of this encounter Care Teams Cleaner Wall Relationship Specialty Start Date End Date Monica Hernandez FNP [address] [place] [address] PCP - General Family Medicine 07/14/22 Loc Agrawal MD [address] [place] [address] Endocrinology 10/20/24 Lamar De Paz MD [address] [place] [address] Hematology and Oncology 10/20/24 Ralph Reece MD [address] [place] [address] Cardiology 10/20/24 documented as of this encounter
--- OUTSIDE RECORDS SUMMARY | 2025-01-27 18:22 | XMS_ITS | Clinical Summary ---
Author Organization [employer] Address [address] [place] [address] Care Team Providers Care Actuarial Technician Name Role Phone PedroMonica matos CLARISSE Primary Care Provider [phone] oLc Agrawal MD Unavailable [phone] Lamar De Paz MD Unavailable [phone] Ralph Reece MD Unavailable [phone] Allergies Active Allergy Reactions Criticality Noted [...] chest pain 10/20/2024 Overview (10/20/2024): Followed by [facility] - Dr. Reece Sep 2024: echo, nuclear stress test, 30 day Holter pending ED precautions Healthcare maintenance 11/11/2023 Overview (08/18/2024): Mammogram: BIRADS 1 on 06/09/24 Colon CA screening: (+) fam hx of colon CA. Cologuard ordered 11/10/23. Initially declined colonoscopy referral, but then did accept and was referred to [facility] in March 2024 Pap: 07/12/22 NILM [...] safety Hypothyroidism 05/04/2023 Overview (04/06/2024): Following with [facility] Davida Agrawal Levothyroxine 112mcg daily Assessment & Plan (04/06/2024 11:15 AM EDT): Repeat TSH ordered Assessment & Plan (08/11/2023 6:18 AM EDT): Following with [facility] Davida Agrawal Depressive disorder 02/06/2023 Vitamin D deficiency 10/22/2022 Assessment & Plan (04/05/2024 11:21 AM EDT): -Cont Vit D 2000 units daily Family history of colon cancer 10/22/2022 Hypoparathyroidism 09/01/2022 Overview (10/31/2024): Following with [facility] Davida Agrawal/ Dr. Bellamy (last consult Oct 2024) Goal calcium range: 8-8.5 Referred for [facility] [place] in Jul 2024 to eval [...] Plan (11/11/2023 11:55 AM EST): -Following with [facility] Davida Agrawal. Per last consult note in Aug 2022: Hypoparathyroidism. Possible etiologies behind the hypocalcemia could include secondary hyperparathyroidism due to vitamin-D deficiency versus idiopathic hypoparathyroidism. Plan is to recheck calcium, phosphorus, PTH, albumin. Further workup and/or treatment will be based on the above Menorrhagia with irregular cycle 02/16/2022 Overview (08/18/2024): Following with [facility] OYSTER SORTER - Dr. Mayers 2013: recommendation for EMB & sonohysterogram d/t focal endometrial hypoechoic area on US measuring [id number] Pap: 07/12/22 NILM HPV neg [facility]: hysteroscopy with polypectomy, D&C, IUD insertion on 06/10/24 Assessment & Plan (04/06/2024 11:41 AM EDT): Have missed multiple appts for procedure, although hero reports that pt recently completed US and has follow up scheduled with [facility] OYSTER SORTER within the next month. Reviewed importance of keeping appt Physical deconditioning 07/19/2018 Assessment & Plan (10/20/2024 7:56 PM EST): - High risk for falls - Preventative measures: Bariatric commode: DME request Jul 2024 - pending Bariatric Tub Transfer Bench: DME request 10/20/24 Microcytic anemia 11/10/2015 Overview (10/20/2024): Following with [facility] Heme/Onc - Dr. De Paz (last consult note Sep 2024) Completed IV iron (Venofer) in 2023 GI: referred to [facility], initial consult scheduled. Per Heme/Onc note Sep 2024, pt declining colonoscopy but open to Cologuard. Order placed through PCP on 10/20/24 OYSTER SORTER: following with [facility] OBGYN - had IUD placement in [...] AM EDT): Hx ANIYA, previously followed by [facility] Heme/Onc. Last available consult note from Jul 2018 Plan to cont on oral iron (pt declined IV iron), and to arrange for colonoscopy (does not appear this was performed) ED precautions reviewed Follow up with [facility] Heme/Onc as scheduled Assessment & Plan (11/11/2023 12:02 PM EST): ?? Hx ANIYA, previously followed by [facility] Heme/Onc. Last available consult note from Jul 2018 ?? Plan to cont on oral iron (pt declined IV iron), and to arrange for colonoscopy (does not appear this was performed) ?? Repeat labs ordered today Assessment & Plan (05/10/2023 7:45 AM EDT): Requested to check POC Hbg, WNL in office today Essential hypertension 11/10/2015 Overview (08/15/2024): Following with [facility] - Dr. Reece (last consult: March 2024) [...] eval completed Jul 2024. 2nd eval at [facility] completed Sep 2024. Documents faxed to [employer]. DME request for bariatric [...] extremity with ulcer Overview (04/06/2024): Following with [facility] PRN Resolved Problems Problem Noted Date Diagnosed Date Resolved Date Hypertension 05/04/2023 08/11/2023 Ulcerative lesion 02/06/2023 04/06/2024 Noncompliance with treatment regimen 02/16/2022 08/11/2023 Acquired hypothyroidism 11/10/201507/22 Encounters Date Type Department Care Team Description 01/27/2025 Orders Only GENERIC EXTERNAL DATA DEPARTMENT Provider, Generic External Data 01/27/2025 Telephone [facility] [address] [place] [address] Monica Hernandez FNP critical lab 01/23/2025 Telephone [facility] [address] [place] [address] Monica Hernandez FNP January11/01/2024 Telephone [facility] [address] [place] [address] Monica Hernandez FNP Durable Medical Equipment 10/30/2024 3:30 PM EST Telemedicine [facility] [address] [place] [address] Monica Hernandez FNP Elevated hemoglobin A1c (Primary Dx); Healthcare maintenance; Hypoparathyroidism, unspecified hypoparathyroidism type (CMS/HCC); Urinary incontinence, unspecified type 10/30/2024 Travel from Last 3 Months Immunizations Name Administration Dates Next Due Influenza, IIV3, injectable 07/21/2011 Moderna Covid-19 Vaccine 12+ 02/17/2022,04/14/20 21,03/17/2021 Pneumococcal Polysaccharide PPSV23 10/10/2011, TD (adult), 2 [...] Upcoming Encounters Date Type Department Care Team ([facility] st Contact Info) Description 03/03/2025 11:15 AM EDT Office Visit [facility] [address] [place] [address] Monica Hernandez, LITHOGRAPH DESIGNER [address] [place] [address] Health Maintenance Due Date Last Done Comments [...] Procedure Name Priority Date/Time Associated Diagnosis Comments TYPE AND SCREEN Routine 01/27/2025 4:23 PM EDT IRON AND TOTAL IRON BINDING CAPACITY Routine 01/27/2025 4:23 PM EDT MAGNESIUM Routine 01/27/2025 4:23 PM EDT COMPREHENSIVE METABOLIC PANEL Routine 01/27/2025 4:23 PM EDT APTT Routine 01/27/2025 4:23 PM EDT PROTHROMBIN TIME-INR Routine 01/27/2025 4:23 PM EDT CBC WITH AUTO DIFFERENTIAL Routine 01/27/2025 4:23 PM EDT T4, FREE Routine 01/27/2025 12:16 PM EDT TSH W/REFLEX TO FT4 Routine 01/27/2025 1 2:16 PM EDT VITAMIN D,25-OH,TOTAL,IA Routine 01/27/2025 12:16 PM EDT MAGNESIUM Routine 01/27/2025 12:16 PM EDT PHOSPHATE ( PHOSPHORUS) Routine 01/27/2025 12:16 PM EDT PTH, INTACT WITHOUT CALCIUM Routine 01/27/2025 12:16 PM EDT COMPREHENSIVE METABOLIC PANEL Routine 01/27/2025 12:16 PM EDT Healthcare maintenance HEMOGLOBIN A1C Routine 01/27/2025 12:16 PM EDT Healthcare maintenance CBC WITH AUTO DIFFERENTIAL Routine 01/27/2025 12:16 PM EDT Healthcare maintenance HEPATITIS C VIRAL RNA, QUANTITATIVE, REAL-TIME PCR [...] Recently Relevant to Health Maintenance Results * (ABNORMAL) CBC auto differential (01/27/2025 4:23 PM EDT) White Blood Count 5.9 4.8 - 10.8 X10*3/uL [facility] Red Blood Count 2.97(L) 4.20 - 5.50 X10*6/uL [facility] Hemoglobin 6.2(LL) 12.0 - 16.0 g/dl [facility] Comment:Results of HGB leyva d to and read back by Amadeo 01/27/25 at 1633 by [email or web address].@[email or web address] require pathologyreview. Hematocrit 21.6(L) 37.0 - 47.0 % [facility] Mean Corpuscular Volume 72.7(L) 80.0 - 98.0 fL [facility] Mean Corpuscular Hemoglobin 20.9(L) 27.0 - 33.0 pg [facility] Mean Corpuscular HGB Conc 28.7(L) 31.0 - 35.0 g/dl [facility] Red Cell Distribution Width 18.2(H) 11.0 - 16.0 % [facility] Platelet Count 249 160 - 400 X10*3/uL [facility] Mean Platelet Volume 9.2(L) 9.4 - 12.3 fL [facility] Neutrophils Percent Auto 68.4 45 - 73 % [facility] Imm Gran Pct Auto 0.8(H) 0.0 - 0.4 % [facility] Lymphocytes Percent Auto 14.8(L) 20 - 40 % [facility] Monocytes Percent Auto 12.3(H) 2 - 11 % [facility] Eosinophils Percent Auto 2.7 0 - 4 % [facility] Basophils Percent Auto 1.0 0 - 2 % [facility] NRBC Pct Auto 1.2(H) 0.0 - 0.2 /100WBC [facility] Neutrophils Absolute Auto 4.1 2.0 - 8.3 x10*3/uL [facility] Imm Gran Abs Auto 0.05(H) 0.00 - 0.03 X10*3/uL [facility] Lymphocytes Absolute Auto 0.9(L) 1.2 - 4.9 X10*3/uL [facility] Monocytes Absolute Auto 0.7 0.1 - 1.2 X10*3/uL [facility] Eosinophils Absolute Auto 0.2 0.0 - 0.4 X10*3/uL [facility] Basophils Absolute Auto 0.1 0.0 - 0.2 X10*3/uL [facility] NRBC Abs Auto 0.070(H) 0.0 - 0.012 X10*3/uL [facility] 01/27/2025 4:23 PM EDT 01/27/2025 4:27 PM EDT Generic External Data Provider LAB BLOOD ORDERAB LES Final Result Performing Organization Address [facility] Co de Phone Number [facility] [address] [place] [phone] * (ABNORMAL) Iron And Total Iron Binding Capacity (01/27/2025 4:23 PM EDT) Iron 11(L) 30 - 160 mcg/dL [facility] Total Iron Binding Capacity 307 228 - 428 mcg/dL [facility] Percent Iron Saturation 4(L) 15 - 50 % [facility] Unsaturated Iron Binding 296 ug/dL [facility] 01/27/2025 4:23 PM EDT 01/27/2025 4:27 PM EDT Generic External Data Provider LAB BLOOD ORDERAB LES Final Result Performing Organization Address [facility]/ZIP Co de Phone Number [facility] [address] [place] [phone] [phone] * Partial Thromboplastin Time, Activated (APTT) (01/27/2025 4:23 PM EDT) Partial Thromboplastin Time 26.5 26.0 - 36.8 SEC [facility] Comment:For information rega rding the monitoring of direct thrombininhibitors, please refer to Pharmacy. 01/27/2025 4:23 PM EDT 01/27/2025 4:27 PM EDT us Generic External Data Provider LAB BLOOD ORDERAB LES Final Result Performing Organization Address [facility] Co de Phone Number [facility] [address] [place] [phone] * (ABNORMAL) Prothrombin Time-INR (01/27/2025 4:23 PM EDT) Prothrombin Time 13.9(H) 10.9 - 12.4 SEC [facility] INTERNATIONAL NORM RATIO 1.2(H) 0.9 - 1.1 [facility] Comment:INTERNATIONAL NORMAL IZED RATIO (INR) REFERENCE RANGES Reference RangeFor patients not on anticoagulant therapy: 0.9 - 1.1INR ranges for oral anticoagulanttherapy:For prevention and treatment of venous thrombosis and pulmonary embolism: 2.0 - 3.0For acute myocardial infarction with aspirin therapy: 2.0 - 3.0For acute myocardial infarction without aspirin therapy: 3.0 - 4.0For patients with mechanical prosthetic heart valves: 2.5 - 3.5 01/27/2025 4:23 PM EDT 01/27/2025 4:27 PM EDT us Generic External Data Provider LAB BLOOD ORDERAB LES Final Result Performing Organization Address [facility] Co de Phone Number [facility] [address] [place] [phone] * Type and screen (01/27/2025 4:23 PM EDT) Blood Type BP [facility] Antibody Screen NEGATIVE [facility] 01/27/2025 4:23 PM EDT 01/27/2025 4:29 PM EDT Generic External Data Provider LAB BLOOD BANK TE ST ORDERABLES Final Result Performing Organization Address City/[facility]/ZIP Co de Phone Number [facility] [address] [place] [phone] * Magnesium (01/27/2025 4:23 PM EDT) Only the most recent of2 resultswithin the time period is included. Magnesium 1.7 1.6 - 2.6 mg/dL [facility] 01/27/2025 4:23 PM EDT 01/27/2025 4:27 PM EDT us Generic External Data Provider LAB BLOOD ORDERAB LES Final Result [facility] [address] [place] [phone] * (ABNORMAL) Comprehensive Metabolic Panel (01/27/2025 4:23 PM EDT) Only the most recent of2 resultswithin the time period is included. Pathologist [facility] Sodium 138 135 - 145 mmol/L [facility] Potassium 3.8 3.3 - 5.1 mmol/L [facility] Chloride 104 96 - 108 mmol/L [facility] Carbon Dioxide 26 22 - 29 mmol/L [facility] Anion Gap 12 12 - 20 [facility] Urea Nitrogen (BUN) 18(H) 9 - 16 mg/dL [facility] Creatinine, Serum 0.66 0.5 - 1.4 mg/dL [facility] Creatinine Clr Calc Pharmacy 157.8 [facility] Comment:Provided height and weight: 157.48 cm,181.437 kg.eGFR (calculated from the MDRD study equation) and eCrCl(calculated from the Cockcroft-Gault equation) are based ondifferent parameters and may not yield comparable results.If eCrCl result is absurd, please check patient'sheight/weight. Estimated Glomerular Filt Rate >60 [facility] Comment:Chronic Kidney Disea se: Estimated GFR < 60 mL/min/1.45m0Xddsjw Kidney Disease: Estimated GFR < 15 mL/min/1.73m2 Glucose 143(H) 60 - 115 mg/dL [facility] Calcium 6.4(L) 8.4 - 10.2 mg/dL [facility] Bilirubin, Total 0.6 0.0 - 1.0 mg/dL [facility] Aspartate Amino Transferase 30 5 - 31 U/L [facility] Alanine Aminotransferase 19 0 - 31 U/L [facility] Total Protein 7.4 6.5 - 8.0 g/dL [facility] Albumin Level 3.4(L) 3.5 - 5.0 g/dL [facility] Alkaline Phosphatase 90 39 - 117 U/L [facility] 01/27/2025 4:23 PM EDT 01/27/2025 4:27 PM EDT us Generic External Data Provider LAB BLOOD ORDERAB LES Final Result [facility] [address] [place] [phone] * Vitamin D, 25-Hydroxy, Total, Immunoassay (01/27/2025 12:16 PM EDT) Vitamin D 25-OH Total 34.4 >30 ng/mL [facility] Comment:Health Based Referen ce Values*< 20 ng/mL [id number] ng/mL Insufficient> 30 ng/mL Sufficient*Tena CHERY. N Engl J Med. 2007;357:266-280Care must be taken in interpreting Vitamin D results fromdifferent laboratories and methodologies. Published datademonstrated that results from patients undergoinghemodialysis may show a negative bias when tested withvarious automated 25-OH vitamin D assays when compared toLC-MS/MS.When testing samples from patients whose predominant form ofVitamin D is Vitamin D2, such as patients receiving VitaminD2 supplementation, results that are subtherapeutic shouldbe confirmed with another method such as LC-MS/MS. 01/27/2025 12:1 6 PM EDT 01/27/2025 12:16 PM EDT us Generic External Data Provider LAB BLOOD ORDERAB LES Final Result Performing Organization Address [facility] Co de Phone Number [facility] [address] [place] [phone] * (ABNORMAL) TSH with Reflex to Free T4 (01/27/2025 12:16 PM EDT) TSH reflex Free T4 4.02(H) 0.32 - 4.0 uIU/mL [facility] 01/27/2025 12:1 6 PM EDT 01/27/2025 12:16 PM EDT us Generic External Data Provider LAB BLOOD ORDERAB LES Final Result Performing Organization Address [facility] Co de Phone Number [facility] [address] [place] [phone] * T4, Free (01/27/2025 12:16 PM EDT) Free T4 (Free Thyroxine) 1.12 0.71 - 1.85 ng/dL [facility] 01/27/2025 12:1 6 PM EDT 01/27/2025 12:16 PM EDT us Generic External Data Provider LAB BLOOD ORDERAB LES Final Result Performing Organization Address [facility] Co de Phone Number [facility] [address] [place] [phone] * (ABNORMAL) Phosphate (As Phosphorus) (01/27/2025 12:16 PM EDT) Phosphorus 4.6(H) 2.7 - 4.5 mg/dL [facility] 01/27/2025 12:1 6 PM EDT 01/27/2025 12:16 PM EDT us Generic External Data Provider LAB BLOOD ORDERAB LES Final Result Performing Organization Address [facility] Co de Phone Number [facility] [address] [place] [phone] * PTH, Intact Without Calcium (01/27/2025 12:16 PM EDT) Pathologist [facility] Parathyroid Hormone, Intact 10.3 8.7 - 77.1 pg/mL [facility] 01/27/2025 12:1 6 PM EDT 01/27/2025 12:16 PM EDT us Generic External Data Provider LAB BLOOD ORDERAB LES Final Result Performing Organization Address [facility]/ZIP Co de Phone Number [facility] [address] [place] [phone] * (ABNORMAL) Hemoglobin A1c (01/27/2025 12:16 PM EDT) [facility] Hemoglobin A1c 7.1(H) <6.0 % [facility] Comment:Hemoglobin A1C Refer ence Range Adults: 4.8 - 6.0 % Non diabetic: < 6.0 % Goal: < 7.0 %Additional Action Suggested: > 8.0 %Note: Hemoglobin A1c results are invalid for patients with abnormal amounts of HbF. Blood transfusions may impact the HbA1c concentration in the patient sample. Estimated Average Glucose 157 mg/dL [facility] Comment:eAG = Estimated ave rage glucose which is %A1C expressed asaverage glucose, using the formula of the J3E-SejfluiIeudfzd Glucose study (ADAG), Diabetes Care, Vol.31,#8,Jun. 2007 Blood Venous blood specimen / Unknown 01/27/2025 12:16 PM EDT 01/27/2025 12:16 PM EDT us Monica Hernandez LITHOGRAPH DESIGNER LAB BLOOD ORDERABLES Final Res ult Performing Organization Address [facility]/ZIP Co de Phone Number [facility] [address] [place] [phone] * Hepatitis C Viral RNA, Quantitative, Real-Time PCR (10/07/2024 10:25 AM EST) [facility] Hepatitis C Viral Load <15 NOT DETECTED NOT DETECTED IU/mL [facility] HCV Log PCR <1.18 NOT DETECTED NOT DETECTED Log IU/mL [facility] Comment:For additional infor juan josé, please refer tohttp://education.[address]/faq/WJD57e3(This link is being provided for informational/educational purposes only.)THIS TEST WAS PERFORMED AT:[employer] [place] [phone] BARR MD Blood 10/07/2024 10:2 5 AM EST 10/07/2024 10:25 AM EST Monica Hernandez LITHOGRAPH DESIGNER LAB BLOOD ORDERABLES Final Res ult [facility] [address] [place] [phone] * HIV-1/2 Antigen and Antibodies, Fourth Generation, with Reflexes (10/07/2024 10:25 AM EST) [facility] HIV AB/AG Nonreactive Nonreactive [facility] Comment:HIV-1 p24 Ag and/or HIV-1/HIV-2 Ab not detected.A test result that is nonreactive does not exclude thepossibility of exposure to or infection with HIV-1 and/orHIV-2. Nonreactive results in this assay for individualswith prior exposure to HIV-1 and/or HIV-2 may be due toantigen and antibody levels that are below the limit ofdetection of this assay.The AmberWave HIV Ag/Ab Combo assay result andsupplemental assay results should be interpreted inconjunction with the patient's clinical presentation,history and other laboratory results. If the results areinconsistent with clinical evidence, additional testing issuggested to confirm the result. Blood Venous blood specimen / Unknown 10/07/2024 10:25 AM EST 10/07/2024 10:25 AM EST us Monica Hernandez LITHOGRAPH DESIGNER LAB BLOOD ORDERABLES Final Res ult [facility] [address] [place] [phone] * BI Mammogram Screening Tomosynthesis Bilateral (06/19/2024 10:05 AM EDT) Anatomical Region Laterality Modality Breast Bilateral Mammography 06/19/2024 10:0 5 AM EDT Narrative 06/26/2024 11:59 AM EDT ? [facility] ? [address] ?[place] [id number] ? Mammography Report ? Signed ? Patient: Yael Lee ?MR#: [id number] ?? [id number] ? : 1970 ?Acct:[id number] ? Age/Sex: 54 / F ?ADM Date: 06/19/24 ? Loc: HO.MAMMO ? Attending Dr: Anahy Mcbride ? Ordering Physician: Monica Hernandez ?Results: 1Negat ?? francesca ? Date of Service: 06/19/24 ?Follow Up: 1 Year From Orig ?? inal Mammogram ? Procedure(s): MM tomosynthesis screening BI ?? Accession Number(s): [id number] ? cc: Monica Hernandez LITHOGRAPH DESIGNER ? EXAMINATION: ?? MM SCREENING DIGITAL BREAST [...] 1155 ? DD/ 1005 ? TD/TT: ? Indian Trader: ? Procedure Note Mason, Image - 06/26/2024 [facility] [address] [place] [address] Mammography Report Signed Patient: Yael Lee MMR#: [id number] : 1970Acct:[id number] Age/Sex: 54 / FADM Date: 06/19/24 Loc: HO.MAMMO Attending Dr: Anahy Mcbride Ordering Physician: Monica Hernandez FNPResults: 1Negat francesca Date of Service: 06/19/24Follow Up: 1 Year From Orig inal Mammogram Procedure(s): MM tomosynthesis screening BI Accession Number(s): [id number] cc: Monica Hernandez LITHOGRAPH DESIGNER EXAMINATION: MM SCREENING DIGITAL BREAST TOMOSYNTHESIS, BILATERAL [...] in OV> 06/26/24 1155 DD/ 1005 TD/TT: Indian Trader: Monica Hernandez LITHOGRAPH DESIGNER IMG BI PROCEDURES Final Result * THINPREP TIS PAP AND HPV mRNA E6/E7, CT/NG, TRICH (07/15/2022 5:54 PM EDT) Chlamydia trachomatis RNA, TMA, Urogenital NOT DETECTED NOT DETECTED [facility] Clinical Information: None given [facility] COMMENT [facility] Comment: The analytical performance characteristics of this assay, when used to test SurePath(TM) specimens have been determined by [employer]. The modifications have not been cleared or approved by the FDA. This assay has been validated pursuant to the CLIA regulations and is used for clinical purposes. ?? For additional information, please refer to https://education.[employer].com.Interactive TKO/faq/VKO595 (This link is being provided for information/ [...] was manually screened according to routine procedures. Litigation Docket Manager: [facility] Comment: MARAMRIO Gallagher(ASCP) CT screening location: [address] ??[id number] HPV nRNA E6/E7 Not Detected Not Detected [facility] Comment: Methodology: Microbiological Laboratory Technician-Mediated Amplification This assay detects E6/E7 viral messenger RNA (mRNA) from 14 high-risk HPV types (16,18,31,33,35,39,45,51,52,56,58,59,66,68). ? Cervical sources are required for HPV testing. If a vaginal source from a patient who has had a total hysterectomy with removal of cervix was ?? submitted, please contact the testing laboratory for alternative testing options. ?? For additional information, please refer to http://Your Style [email or web address].[address]/faq/[email or web address] (This link if provided for information/ educational [...] of this assay have been determined by [employer]. The modifications have not been cleared or approved by the FDA. This assay has been validated pursuant to the CLIA regulations and is used for clinical purposes. ?? For additional information, please refer to http://Your Style [email or web address].[address]/ faq/Trichomonastma (This link is being provided for information/ educational purposes only.) ?? NO COLLECTION DATE RECEIVED. WE HAVE USED THE DATE THE SPECIMEN WAS RECEIVED BY THIS LABORATORY THE COLLECTION DATE. IF THIS IS INCORRECT, PLEASE CONTACT CLIENT SERVICES. PHONE NUMBER: ?? Chlamydia trachomatis RNA, TMA, Urogenital NOT DETECTED NOT DETECTED [facility] Clinical Information: None given [facility] COMMENT SEE COMMENT [facility] Comment: The analytical performance characteristics of this assay, when used to test SurePath(TM) specimens have been determined by [employer]. The modifications have not been cleared or approved by the FDA. This assay has been validated pursuant to the CLIA regulations and is used for clinical purposes. ?? For additional information, please refer to https://Your Style [email or web address].[address]/faq/ZLW031 (This link is being provided for information/ [...] was manually screened according to routine procedures. Litigation Docket Manager: SEE COMMENT [facility] Comment: RAMIRO CALABRESE(ASCP) CT screening location: [address] ??[id number] HPV nRNA E6/E7 Not Detected Not Detected [facility] Comment: Methodology: Microbiological Laboratory Technician-Mediated Amplification This assay detects E6/E7 viral messenger RNA (mRNA) from 14 high-risk HPV types (16,18,31,33,35,39,45,51,52,56,58,59,66,68). ? Cervical sources are required for HPV testing. If a vaginal source from a patient who has had a total hysterectomy with removal of cervix was ?? submitted, please contact the testing laboratory for alternative testing options. ?? For additional information, please refer to http://education.[address]/faq/YMG983u8 (This link if provided for information/ educational [...] of this assay have been determined by [employer]. The modifications have not been cleared or approved by the FDA. This assay has been validated pursuant to the CLIA regulations and is used for clinical purposes. ?? For additional information, please refer to http://education.[address]/ faq/Trichomonastma (This link is being provided for information/ educational purposes only.) ?? NO COLLECTION DATE RECEIVED. WE HAVE USED THE DATE THE SPECIMEN WAS RECEIVED BY THIS LABORATORY THE COLLECTION DATE. IF THIS IS INCORRECT, PLEASE CONTACT CLIENT SERVICES. PHONE NUMBER: ?? 07/15/2022 5:54 PM EDT Anahy Mcbride [facility] LAB PATHOLOGY ORDERABLES Final Result [facility] [address] from Last 3 Months or Most Recently Relevant to Health Maintenance Insurance [facility] STANDARD [place] [id number] Care Teams Actuarial Technician Relationship Specialty Start Date End Date Monica Hernandez FNP [address] [place] [address] PCP - General Family Medicine 07/14/22 Loc Agrawal MD [address] [place] [address] Endocrinology 10/20/24 Lamar De Paz MD [address] [place] [address] Hematology and Oncology 10/20/24 Ralph Reece MD [address] [place] [address] Cardiology 10/20/24
--- OUTSIDE RECORDS SUMMARY | 2025-01-27 18:22 | XMS_ITS | Encounter Summary ---
Author Organization [employer] Address 75 [facility] 7t [place] [address] Care Team Providers Care Telecommunication Equipment Repairer Name Role Phone Monica Hernandez Primary Care Provider [phone] Loc Agrawal MD Unavailable [phone] Lamar De Paz MD Unavailable [phone] Ralph Reeec MD Unavailable [phone] Reason for Visit * Reason Onset Date Comments January recall 01/23/2025 Encounter Details Date Type Department Care Team (Late st Contact Info) Description 01/23/[address] [facility] [address] [place], [place] [phone] Monica Hernandez FNP [address] [place], [place] [phone] January recall Social History Tobacco Use Types [...] . Pt aware appt location geni be [facility]. documented in this encounter Plan of Treatment Upcoming Encounters Date Type Department Care Team ([facility] Contact Info) Description 03/03/2025 11:15 AM EDT Office Visit [facility] [address] [place] [address] Monica Hernandez FNP [address] [place] [address] documented as of this encounter Visit Diagnoses Not on filedocumented in this encounter Additional Health Concerns Assessment Noted Time PHQ-9 Depression Total Score: 4 04/05/20 24 10:31 AM EDT documented as of this encounter Care Teams Telecommunication Equipment Repairer Relationship Specialty Start Date End Date Monica Hernandez FNP [address] [place] [address] PCP - General Family Medicine 07/14/22 Loc Agrawal MD [address] [address] Endocrinology 10/20/24 Lamar De Paz MD [address] [place] [address] Hematology and Oncology 10/20/24 Ralph Reece MD [address] [place] [address] Cardiology 10/20/24 documented as of this encounter
--- OUTSIDE RECORDS SUMMARY | 2025-01-27 18:22 | XMS_ITS | Encounter Summary ---
Author Organization [employer] Address 75 [facility] 7t [place] [address] Care Team Providers Care Windows Desktop Support Name Role Phone Monica Hernandez Primary Care Provider Loc Agrawal MD Unavailable [phone] Lamar De Paz MD Unavailable [phone] Ralph Reece MD Unavailable [phone] Reason for Visit * Reason Comments Med Refill Encounter Details Date Type Department Care Team (Late st Contact Info) Description 05/06/2024 Refill [facility]EDS [address] [place], [place] [phone] Monica Hernandez FNP [address] [place], [place] [phone] Hypothyroidism, unspecified type Social History Tobacco Use [...] 11:15 AM EDT Office Visit [facility] MED & PEDS [address] [place] [address] Monica Hernandez FNP [address] [place] [address] documented as of this encounter Visit Diagnoses Diagnosis Hypothyroidism, unspecified type documented in this encounter Additional Health Concerns Assessment Noted Time PHQ-9 Depression Total Score: 4 04/05/20 24 10:31 AM EDT documented as of this encounter Care Teams Windows Desktop Support Relationship Specialty Start Date End Date Monica Hernandez FNP [address] [place] [address] PCP - General Family Medicine 07/14/22 Loc Agrawal MD [address] [address] Endocrinology 10/20/24 Lamar De Paz MD [address] [place] [address] Hematology and Oncology 10/20/24 Ralph Reece MD [address] [place] [address] Cardiology 10/20/24 documented as of this encounter
--- OUTSIDE RECORDS SUMMARY | 2025-01-27 18:22 | XMS_ITS | Encounter Summary ---
Author Organization [employer] Address 75 [facility] 7t [place] [address] Care Team Providers Care Brusher And Shearer Name Role Phone Monica Hernandez Primary Care Provider [phone] Loc Agrawal MD Unavailable [phone] Lamar De Paz MD Unavailable [phone] Ralph Reece MD Unavailable [phone] Reason for Visit * Reason Onset Date Comments critical lab 01/27/2025 Encounter Details Date Type Department Care Team (Late st Contact Info) Description 01/27/2025 Telephone [facility] [address] [place] [address] Monica Hernandez FNP [address] [place], [place] [phone] critical lab Social History Tobacco Use Types Packs/Day Years [...] encounter Miscellaneous Notes * Telephone Encounter - Dora Armas RN - 01/27/2025 4:23 PM EDT TC to [facility] Department to have wellness check done on pt due to critical results and recommendations to go to ER. [facility] Department stated that an officer will go to pt house and attempt to make contact. * Telephone Encounter - Dora Armas RN - 01/27/2025 4:00 PM EDT Call attempt #3. TC to pt using strawberry grower services. No answer. Voicemail left informing pt they have a critical blood count and provider if recommending they go to ER. Instructions left to pt to call office if they need clarification of instructions. * Telephone Encounter - Dora Armas RN - 01/27/2025 3:11 PM EDT Call Attempt #2. TC to pt using strawberry grow[employer] services. No answer. Detailed voicemail left informing that pt has a critical lab regarding her blood count and to go to nearest ER for further assessments and treatment. * Telephone Encounter - Dora Armas RN - 01/27/2025 2:22 PM EDT TC to pt using strawberry grower services. No answer. Detailed voicemail left informing that pt has a critical lab regarding her blood count and to go to nearest ER for further assessments and treatment. * Telephone Encounter - Daniela Sawyer RN - 01/27/2025 2:01 PM EDT TC to [facility] returning call from message left on critical line. Per pt has critical lab result. Hemoglobin 6.2 Hematocrit 22.2 Will route to PCP and team to advise. Haley COWART verbally aware. documented in this encounter Plan of Treatment Upcoming Encounters Date Type Department Care Team (Late st Contact Info) Description 03/03/2025 11:15 AM EDT Office Visit [facility] MED & PEDS [address] [place] [address] Monica Hernandez FNP [address] [place] [address] documented as of this encounter Visit Diagnoses Not on filedocumented in this encounter Additional Health Concerns Assessment Noted Time PHQ-9 Depression Total Score: 4 04/05/20 24 10:31 AM EDT documented as of this encounter Care Teams Brusher And Shearer Relationship Specialty Start Date End Date Monica Hernandez FNP [address] [place] [address] PCP - General Family Medicine 07/14/22 Loc Agrawal MD [address] [place] [address] [place] [address] Endocrinology 10/20/24 Lamar De Paz MD [address] [place] [address] Hematology and Oncology 10/20/24 Ralph Reece MD [address] [place] [address] Cardiology 10/20/24 documented as of this encounter
--- OUTSIDE RECORDS SUMMARY | 2025-01-27 18:22 | XMS_ITS | Encounter Summary ---
Author Organization [employer] Address [address] [facility] [address] 7t [place] [address] Care Team Providers Care Electronics Maintenance Technician Name Role Phone Pedrocarlo Monica ROBB Primary Care Provider [phone] Loc Agrawal MD Unavailable [phone] Lamar De Paz MD Unavailable [phone] Ralph Reece MD Unavailable [phone] Encounter Details Date Type Department Care Team (Late st Contact Info) Description 01/27/2025 Orders Only GENERIC EXTERNAL DATA DEPARTMENT Provider, Generic External Data Social History Tobacco Use Types Packs/Day Years [...] Description 03/03/2025 11:15 AM EDT Office Visit [facility] MED & PEDS [address] [place] [address] Monica Hernandez, FOOD SERVICES COORDINATOR [address] [place] [address] documented as of this encounter Procedures Procedure Name Priority Date/Time Associated Diagnosis Comments CBC WITH AUTO DIFFERENTIAL Routine 01/27/2025 4:23 PM EDT IRON AND TOTAL IRON BINDING CAPACITY Routine 01/27/2025 4:23 PM EDT APTT Routine 01/27/2025 4:23 PM EDT PROTHROMBIN TIME-INR Routine 01/27/2025 4:23 PM EDT TYPE AND SCREEN Routine 01/27/2025 4:23 PM EDT MAGNESIUM Routine 01/27/2025 4:23 PM EDT COMPREHENSIVE METABOLIC PANEL Routine 01/27/2025 4:23 PM EDT VITAMIN D,25-OH,TOTAL,IA Routine 01/27/2025 12:16 PM EDT TSH W/REFLEX TO FT4 Routine 01/27/2025 1 2:16 PM EDT T4, FREE Routine 01/27/2025 12:16 PM EDT PHOSPHATE ( PHOSPHORUS) Routine 01/27/2025 12:16 PM EDT PTH, INTACT WITHOUT CALCIUM Routine 01/27/2025 12:16 PM EDT MAGNESIUM Routine 01/27/2025 12:16 PM EDT documented in this encounter Results * Type and screen (01/27/2025 4:23 PM EDT) Blood Type BP [facility] Antibody Screen NEGATIVE [facility] 01/27/2025 4:23 PM EDT 01/27/2025 4:29 PM EDT Generic External Data Provider LAB BLOOD BANK TE ST ORDERABLES Final Result Performing Organization Address City/[facility]/ZIP Co de Phone Number [facility] [address] [place] [address] [phone] * (ABNORMAL) Iron And Total Iron Binding Capacity (01/27/2025 4:23 PM EDT) Iron 11(L) 30 - 160 mcg/dL [facility] Total Iron Binding Capacity 307 228 - 428 mcg/dL [facility] Percent Iron Saturation 4(L) 15 - 50 % [facility] Unsaturated Iron Binding 296 ug/dL [facility] 01/27/2025 4:23 PM EDT 01/27/2025 4:27 PM EDT us Generic External Data Provider LAB BLOOD ORDERAB LES Final Result Performing Organization Address City/[facility]/ZIP Co de Phone Number [facility] [address] [place] [address] [phone] * Magnesium (01/27/2025 4:23 PM EDT) Magnesium 1.7 1.6 - 2.6 mg/dL [facility] 01/27/2025 4:23 PM EDT 01/27/2025 4:27 PM EDT us Generic External Data Provider LAB BLOOD ORDERAB LES Final Result [facility] [address] [place] [address] [phone] * (ABNORMAL) Comprehensive Metabolic Panel (01/27/2025 4:23 PM EDT) Sodium 138 135 - 145 mmol/L [facility] Potassium 3.8 3.3 - 5.1 mmol/L [facility] Chloride 104 96 - 108 mmol/L [facility] Carbon Dioxide 26 22 - 29 mmol/L [facility] Anion Gap 12 12 - 20 [facility] Urea Nitrogen (BUN) 18(H) 9 - 16 mg/dL [facility] Creatinine, Serum 0.66 0.5 - 1.4 mg/dL [facility] Creatinine Clr Calc Pharmacy 157.8 [facility] Comment:Provided height and weight: 157.48 cm,181.437 kg.eGFR (calculated from the MDRD study equation) and eCrCl(calculated from the Cockcroft-Gault equation) are based ondifferent parameters and may not yield comparable results.If eCrCl result is absurd, please check patient'sheight/weight. Estimated Glomerular Filt Rate >60 [facility] Comment:Chronic Kidney Disea se: Estimated GFR < 60 mL/min/1.42s7Hvtaaw Kidney Disease: Estimated GFR < 15 mL/min/1.73m2 Glucose 143(H) 60 - 115 mg/dL [facility] Calcium 6.4(L) 8.4 - 10.2 mg/dL [facility] Bilirubin, Total 0.6 0.0 - 1.0 mg/dL [facility] Aspartate Amino Transferase 30 5 - 31 U/L [facility] Alanine Aminotransferase 19 0 - 31 U/L [facility] Total Protein 7.4 6.5 - 8.0 g/dL [facility] Albumin Level 3.4(L) 3.5 - 5.0 g/dL [facility] Alkaline Phosphatase 90 39 - 117 U/L [facility] 01/27/2025 4:23 PM EDT 01/27/2025 4:27 PM EDT Generic External Data Provider LAB BLOOD ORDERAB LES Final Result Performing Organization Address [facility] Co de Phone Number [facility] [address] [place] [phone] * Partial Thromboplastin Time, Activated (APTT) (01/27/2025 4:23 PM EDT) Partial Thromboplastin Time 26.5 26.0 - 36.8 SEC [facility] Comment:For information rega rding the monitoring of direct thrombininhibitors, please refer to Pharmacy. 01/27/2025 4:23 PM EDT 01/27/2025 4:27 PM EDT Generic External Data Provider LAB BLOOD ORDERAB LES Final Result Performing Organization Address [facility] Co de Phone Number [facility] [address] [place] [phone] * (ABNORMAL) Prothrombin Time-INR (01/27/2025 4:23 PM EDT) Prothrombin Time 13.9(H) 10.9 - 12.4 SEC [facility] INTERNATIONAL NORM RATIO 1.2(H) 0.9 - 1.1 [facility] Comment:INTERNATIONAL NORMAL IZED RATIO (INR) REFERENCE [...] Provider LAB BLOOD ORDERAB LES Final Result [facility] [address] [place] [address] [phone] * (ABNORMAL) CBC auto differential (01/27/2025 4:23 PM EDT) White Blood Count 5.9 4.8 - 10.8 X10*3/uL [facility] Red Blood Count 2.97(L) 4.20 - 5.50 X10*6/uL [facility] Hemoglobin 6.2(LL) 12.0 - 16.0 g/dl [facility] Comment:Results of HGB leyva d to and read back by Amadeo 01/27/25 at 1633 by [email or web address] require pathologyreview. Hematocrit 21.6(L) 37.0 - 47.0 % [facility] Mean Corpuscular Volume 72.7(L) 80.0 - 98.0 fL [facility] Mean Corpuscular Hemoglobin 20.9(L) 27.0 - 33.0 pg [facility] Mean Corpuscular HGB Conc 28.7(L) 31.0 - 35.0 g/dl [facility] Red Cell Distribution Width 18.2(H) 11.0 - 16.0 % [facility] Platelet Count 249 160 - 400 X10*3/uL [facility] Mean Platelet Volume 9.2(L) 9.4 - 12.3 fL [facility] Neutrophils Percent Auto 68.4 45 - 73 % [facility] Imm Gran Pct Auto 0.8(H) 0.0 - 0.4 % [facility] Lymphocytes Percent Auto 14.8(L) 20 - 40 % [facility] Monocytes Percent Auto 12.3(H) 2 - 11 % [facility] Eosinophils Percent Auto 2.7 0 - 4 % [facility] Basophils Percent Auto 1.0 0 - 2 % [facility] NRBC Pct Auto 1.2(H) 0.0 - 0.2 /100WBC [facility] Neutrophils Absolute Auto 4.1 2.0 - 8.3 x10*3/uL [facility] Imm Gran Abs Auto 0.05(H) 0.00 - 0.03 X10*3/uL [facility] Lymphocytes Absolute Auto 0.9(L) 1.2 - 4.9 X10*3/uL [facility] Monocytes Absolute Auto 0.7 0.1 - 1.2 X10*3/uL [facility] Eosinophils Absolute Auto 0.2 0.0 - 0.4 X10*3/uL [facility] Basophils Absolute Auto 0.1 0.0 - 0.2 X10*3/uL [facility] NRBC Abs Auto 0.070(H) 0.0 - 0.012 X10*3/uL [facility] 01/27/2025 4:23 PM EDT 01/27/2025 4:27 PM EDT us Generic External Data Provider LAB BLOOD ORDERAB LES Final Result Performing Organization Address City/[facility]/ZIP Co de Phone Number [facility] [address] [place] [phone] * T4, Free (01/27/2025 12:16 PM EDT) Free T4 (Free Thyroxine) 1.12 0.71 - 1.85 ng/dL [facility] 01/27/2025 12:1 6 PM EDT 01/27/2025 12:16 PM EDT us Generic External Data Provider LAB BLOOD ORDERAB LES Final Result [facility] [address] [place] [address] [phone] * (ABNORMAL) TSH with Reflex to Free T4 (01/27/2025 12:16 PM EDT) TSH reflex Free T4 4.02(H) 0.32 - 4.0 uIU/mL [facility] 01/27/2025 12:1 6 PM EDT 01/27/2025 12:16 PM EDT us Generic External Data Provider LAB BLOOD ORDERAB LES Final Result Performing Organization Address [facility]/ZIP Co de Phone Number [facility] [address] [place] [phone] * Vitamin D, 25-Hydroxy, Total, Immunoassay (01/27/2025 12:16 PM EDT) Vitamin D 25-OH Total 34.4 >30 ng/mL [facility] Comment:Health Based Referen ce Values*< 20 ng/mL Szyeistvi52-53 ng/mL Insufficient> 30 ng/mL Sufficient*Tena CHERY. N [...] ORDERAB LES Final Result Performing Organization Address [facility]/ZIP Co de Phone Number [facility] [address] [place] [address] [phone] * Magnesium (01/27/2025 12:16 PM EDT) Magnesium 1.7 1.6 - 2.6 mg/dL [facility] 01/27/2025 12:1 6 PM EDT 01/27/2025 12:16 PM EDT us Generic External Data Provider LAB BLOOD ORDERAB LES Final Result Performing Organization Address [facility] Co de Phone Number [facility] [address] [place] [phone] * (ABNORMAL) Phosphate (As Phosphorus) (01/27/2025 12:16 PM EDT) Phosphorus 4.6(H) 2.7 - 4.5 mg/dL [facility] 01/27/2025 12:1 6 PM EDT 01/27/2025 12:16 PM EDT us Generic External Data Provider LAB BLOOD ORDERAB LES Final Result Performing Organization Address [facility] Co de Phone Number [facility] [address] [place] [phone] * PTH, Intact Without Calcium (01/27/2025 12:16 PM EDT) Parathyroid Hormone, Intact 10.3 8.7 - 77.1 pg/mL [facility] 01/27/2025 12:1 6 PM EDT 01/27/2025 12:16 PM EDT Generic External Data Provider LAB BLOOD ORDERAB LES Final Result Performing Organization Address [facility] Co de Phone Number [facility] [address] [place] [phone] documented in this encounter Visit Diagnoses Not on filedocumented in this encounter Additional Health Concerns Assessment Noted Time PHQ-9 Depression Total Score: 4 04/05/20 24 10:31 AM EDT documented as of this encounter Care Teams Electronics Maintenance Technician Relationship Specialty Start Date End Date Monica Hernandez FNP [address] [place] [address] PCP - General Family Medicine 07/14/22 Loc Agrawal MD [address] [place] [address] Endocrinology 10/20/24 Lamar De Paz MD [address] [place] [address] Hematology and Oncology 10/20/24 Ralph Recee MD [address] [place] [address] Cardiology 10/20/24 documented as of this encounter
--- OUTSIDE RECORDS SUMMARY | 2025-01-27 18:22 | XMS_ITS | Encounter Summary ---
Author Organization [employer] Address 75 [facility] 7t [place] [address] Care Team Providers Care Arc And Gas Welder Name Role Phone Monica Hernandez Primary Care Provider Loc Agrawal MD Unavailable [phone] Lamar De Paz MD Unavailable [phone] Ralph Reece MD Unavailable [phone] Reason for Visit * Reason Onset Date Comments Durable Medical Equipment 04/11/2024 Encounter Details Date Type Department Care Team (Late st Contact Info) Description 04/11/2024 Telephone [facility] [address] [place], [place] [phone] Monica eHrnandez FNP [address] [place], [place] [phone] Durable Medical Equipment Social History Tobacco Use [...] her that the script was sent to [facility], but now she states [...] script has to be sent over to [facility] instead. Sister quan little upset due to it being several month trying to get DME . Please contact phone# [phone] regarding next step. documented in this encounter Plan of Treatment Upcoming Encounters Date Type Department Care Team (Late st Contact Info) Description 03/03/2025 11:15 AM EDT Office Visit [facility] [address] [place] [address] Monica Hernandez FNP [address] [place] [address] documented as of this encounter Visit Diagnoses Not on filedocumented in this encounter Additional Health Concerns Assessment Noted Time PHQ-9 Depression Total Score: 4 04/05/20 24 10:31 AM EDT documented as of this encounter Care Teams Arc And Gas Welder Relationship Specialty Start Date End Date Monica Hernandez FNP [address] [place] [address] PCP - General Family Medicine 07/14/22 Loc Agrawal MD [address] [address] Endocrinology 10/20/24 Lamar De Paz MD [address] [place] [address] Hematology and Oncology 10/20/24 Ralph Reece MD [address] [place] [address] Cardiology 10/20/24 documented as of this encounter
--- OUTSIDE RECORDS SUMMARY | 2025-01-27 18:22 | XMS_ITS | Encounter Summary ---
Author Organization [employer] Address [address] [facility] [address] [place] [address] Care Team Providers Care On Air Talent Name Role Phone Monica Hernandez Primary Care Provider [phone] Loc Agrawal MD Unavailable [phone] Lamar De Paz MD Unavailable [phone] Ralph Reece MD Unavailable [phone] Reason for Visit * Reason Onset Date Comments Durable Medical Equipment 11/01/2024 Encounter Details Date Type Department Care Team (Late st Contact Info) Description 11/01/2024 Telephone [facility] MED & PEDS [address] [place], [place] [phone] Monica Hernandez FNP [address] [place], [place] [phone] Durable Medical Equipment Social History Tobacco Use [...] Jessica LPN - 11/01/2024 11:21 AM EST Sheet Writer spoke with pt and sister both requested for Rx to be sent to [facility] and request to cancel order at [facility] which staff writer call multiple time to [facility] LVM . Sending to pcp as an FYI ----- Message from Monica Hernandez sent at 10/31/2024 11:18 AM EST ----- Hola Pryor - thank you for all your attention to [employer] [facility]! I spoke with them yesterday and the bariatric commode and tub transfer bench are ready for sweet pickled fruit maker. Electric scooter in process. They did report [...] sent at 10/31/2024 11:18 AM EST ----- Hloa Pryor - thank you for all your attention to [employer] [facility]! I spoke with them yesterday and the bariatric commode and tub transfer bench are ready for sweet pickled fruit maker. Electric scooter in process. They did report [...] Description 03/03/2025 11:15 AM EDT Office Visit [facility] MED & PEDS [address] [place] [address] Monica Hernandez FNP [address] [place] [address] documented as of this encounter Visit Diagnoses Not on filedocumented in this encounter Additional Health Concerns Assessment Noted Time PHQ-9 Depression Total Score: 4 04/05/20 24 10:31 AM EDT documented as of this encounter Care Teams On Air Talent Relationship Specialty Start Date End Date Monica Hernandez FNP [address] [place] [address] PCP - General Family Medicine 07/14/22 Loc Agrawal MD [address] [place] [phone] Endocrinology 10/20/24 Lamar De Paz MD [address] [place] [id number] Hematology and Oncology 10/20/24 Ralph Reece MD [address] [place] [address] Cardiology 10/20/24 documented as of this encounter
--- NOTE | 2025-01-27 21:30 | PC.NURSE ---
2nd unit of RBC's started with no complications or reactions. Pt tolerating well. Monitoring is ongoing.
[2025-01-28 00:03] VITALS: BP 161/85; PULSE 66; RESP 16; TEMP 36.6; O2SAT 95
[2025-01-28 00:46] VITALS: BP 161/85; PULSE 66; RESP 16; TEMP 36.6
[2025-01-28 01:00] LABS: MANUAL DIFF FLAG NO
[2025-01-28 01:03] LABS: Basophils Absolute Auto 0.1 X10*3/uL (0.0-0.2); Eosinophils Absolute Auto 0.2 X10*3/uL (0.0-0.4); Eosinophils Percent Auto 2.7 % (0-4); Hematocrit 26.4 % (37.0-47.0); Hemoglobin 8.1 g/dl (12.0-16.0); Imm Gran Abs Auto 0.04 X10*3/uL (0.00-0.03); Imm Gran Pct Auto 0.5 % (0.0-0.4); Lymphocytes Absolute Auto 1.1 X10*3/uL (1.2-4.9); Lymphocytes Percent Auto 13.4 % (20-40); Mean Corpuscular HGB Conc 30.7 g/dl (31.0-35.0); Mean Corpuscular Hemoglobin 22.6 pg (27.0-33.0); Mean Corpuscular Volume 73.7 fL (80.0-98.0); Mean Platelet Volume 9.4 fL (9.4-12.3); Monocytes Absolute Auto 0.7 X10*3/uL (0.1-1.2); Monocytes Percent Auto 8.6 % (2-11); NRBC Pct Auto 0.5 /100WBC (0.0-0.2); Neutrophils Absolute Auto 6.1 x10*3/uL (2.0-8.3); Neutrophils Percent Auto 73.8 % (45-73); Platelet Count 267 X10*3/uL (160-400); Red Blood Count 3.58 X10*6/uL (4.20-5.50); Red Cell Distribution Width 19.5 % (11.0-16.0); White Blood Count 8.3 X10*3/uL (4.8-10.8)
[2025-01-28 01:24] VITALS: BP 156/73; PULSE 64; RESP 18; TEMP 36.9; O2SAT 95
== END 2025-01-28 01:25 | disposition home or self-care (01) ==
PROVIDERS: Physician Assistant Medical; Emergency Provider Emergency Medicine; PCP Registered Nurse
DX: N92.0 Excessive and frequent menstruation with regular cycle (principal); D64.9 Anemia, unspecified; I10 Essential (primary) hypertension; E03.9 Hypothyroidism, unspecified; E66.9 Obesity, unspecified; Z68.45 Body mass index [BMI] 70 or greater, adult; R79.1 Abnormal coagulation profile; Z87.820 Personal history of traumatic brain injury; Z86.718 Personal history of other venous thrombosis and embolism; Z79.899 Other long term (current) drug therapy
CPT/HCPCS: 36415; 36430; 80053; 82306; 82330; 83036; 83540; 83735; 83970; 84100; 84439; 84443; 85025; 85610; 85730; 86850; 86900; 86901; 86923; 93005; 99212; 99285; P9016

== ENCOUNTER → 2025-01-27 15:57 | Outpatient (BNV) | payer MEDICARE, MEDICAID, SELFPAY | PROVIDERS: Emergency Provider Emergency Medicine; PCP Registered Nurse; Visit Provider Internal Medicine | DX: I49.3 Ventricular premature depolarization (principal); R53.83 Other fatigue | CPT/HCPCS: 93010 ==

== ENCOUNTER 2025-01-28 17:20 | Observation (INO) | payer MEDICARE, MEDICAID, SELFPAY ==
[2025-01-28 17:32] VITALS: BP 138/64; PULSE 73; RESP 22; TEMP 36.6; O2SAT 94; BMI 73.2
--- NOTE | 2025-01-28 17:58 | ECG_ITS ---
Test Reason : ABNORMAL LABS Blood Pressure : */* mmHG Vent. Rate : 60 BPM Atrial Rate : 60 BPM P-R Int : 166 ms QRS Dur : 90 ms QT Int : 442 ms P-R-T Axes : 63 -9 63 degrees QTcB Int : 442 ms Normal sinus rhythm Normal ECG When compared with ECG of 27-Jan-2025 16:16, Premature ventricular complexes are no longer Present Referred By: Sydni Vitale Electronically Signed By: PAMELLA VICTOR
--- NOTE | 2025-01-28 18:06 | ED_ITS ---
HPI - General Adult General Chief complaint: Recheck/Abnormal Lab/Rx Stated complaint: Low calcium Time Seen by Provider: 01/28/25 17:26 History of Present Illness HPI narrative: Patient 54 years old presented today with having low calcium. Patient was noted to have a calcium of 6.4. Sent in for further evaluation. There is no chest pain or shortness breath no dizziness patient has no symptoms was in the ED yesterday. Was given a transfusion for the anemia. No coughing or congestion or upper respiratory symptoms no diaphoresis. Related Data Home Medications ?Medication ?Instructions ?Recorded ?Confirmed diltiazem HCl 360 mg 360 mg PO DAILY 04/27/22 01/27/25 capsule,extended release 24 hr docusate sodium 100 mg capsule 100 mg PO DAILY 04/27/22 01/27/25 labetalol 100 mg tablet 200 mg PO BID 04/27/22 01/27/25 lisinopril 40 mg tablet 40 mg PO QAM 04/27/22 01/27/25 Previous Rx's ?Medication ?Instructions ?Recorded ondansetron 4 mg disintegrating 4 mg PO TID PRN nausea and 12/26/22 tablet vomiting 5 days #10 tabs calcitriol 0.25 mcg capsule See Rx Instructions PO QAM #120 10/14/24 caps wetiihe-xzayofgyuocbg-xtfcnuul 250 1 tab PO Q4-6H PRN Headache #30 10/28/24 mg-250 mg-65 mg tablet (Excedrin tabs Migraine) calcium carbonate 500 mg PO BID #60 tabs 10/28/24 levothyroxine 112 mcg tablet 112 mcg PO QAM #90 tabs 01/08/25 cholecalciferol (vitamin D3) 25 25 mcg PO DAILY #30 caps 01/27/25 mcg (1,000 unit) capsule Allergies Allergy/AdvReac Type Severity Reaction Status Date / Time Penicillins Allergy Unknown RASH Verified 01/28/25 17:33 Review of Systems 2 Review of Systems: No chest pain or shortness breath no dizziness Yes all other systems are reviewed and are negative [facility] Past Medical History Attestation statement: The following information was validated with the patient. Medical History Hypoparathyroidism TBI (traumatic brain injury) Obesity Cognitive impairment Anemia DVT (deep venous thrombosis) Hypothyroid Hypertension Surgical History No pertinent past surgical history Family History Family History Mother HTN (hypertension) Father Diabetes Paternal Aunt Colon cancer Maternal Aunt Breast CA Social History Social History Household Members Other:: mom Housing: House Alcohol intake: never Patient Tobacco Use Status: Never used Tobacco Smoked in Last 30 Days: No Use of substances other than those prescribed or required for medical reasons: No Advance Directives: No Advance Directives Information Provided: No Do you have a plan to hurt others: No Plan Patient : No service: No Physical Exam ED Vital Signs: Vital Signs - 24 hr 01/28/25 17:32 01/28/25 19:22 Temperature 97.8 F 98.4 F Pulse Rate 73 59 Respiratory Rate 22 H 17 Blood Pressure 138/64 139/66 Pulse Oximetry 94 98 Oxygen Delivery Method Room Air Room Air BMI result Body Mass Index 73.2 Appearance: Alert. Oriented X3. No acute distress. Eyes: Pupils equal, round and reactive to light. ENT: Pharynx normal. Neck: Normal inspection. Neck supple. No lymph nodes noted. No crepitus CVS: Normal heart rate and rhythm. Pulses normal. Normal S1 and S2 Respiratory: No respiratory distress. Breath sounds normal. No Wheezing. No rales Abdomen: Soft and nontender. No rigidity. No distention. good BS x4 Skin: Skin warm and dry. Normal skin color. Normal skin turgor. Extremities: No lower extremity edema. Neurovascular intact to all extremities. No Lacerations. No Rash Neuro: Oriented X 3. No motor deficit. No sensory deficit. Moving all extermities. No slurred speech Medications Administered Generic Name Dose Route Start Last Admin Trade Name Freq PRN Reason Stop Dose Admin Calcium Gluconate 2 gm in 100 mls @ 400 mls/hr 01/28/25 20:20 01/28/25 20:29 Calcium Gluconate IV 01/28/25 20:34 400 mls/hr ONCE ONE Administration Discontinued Medications Generic Name Dose Route Start Last Admin Trade Name Freq PRN Reason Stop Dose Admin Calcium Carbonate 750 mg 01/28/25 20:21 01/28/25 20:29 Calcium Carbonate 750 Mg Tab.Chew PO 01/28/25 20:22 750 mg ONCE ONE Administration Calcium Gluconate 2 gm in 100 mls @ 400 mls/hr 01/28/25 19:04 01/28/25 19:40 Calcium Gluconate IV 01/28/25 19:18 Infused ONCE ONE Infusion Medical Decision Making Medical Decision Making [facility] Narrative: Patient's initial calcium came back in the 6 range. Patient's case discussed with the register of deeds. Wanted IV calcium. Patient is was given 2 g of calcium gluconate. The calcium level was repeated it was the same at 6.7. Had another discussion with the register of deeds. Wanted patient to be given additional oral and IV calcium. Patient will require admission monitoring until calcium stabilizes for 24 hours. Currently in stable condition. Case discussed with hospitalist team. Currently symptom free. Differential Diagnosis Differential Diagnoses: The differential diagnosis associated with the presentation includes Consult Healthcare Provider Management of the patient was discussed with: Hospitalist Lab Data [facility] Lab Attestation statement: I reviewed the patient's lab results. 01/28/25 18:38 01/28/25 18:38 Labs: Lab Results 01/28/25 01/28/25 Range/Units 18:38 19:53 WBC 6.5 (4.8-10.8) X10*3/uL RBC 3.50 L (4.20-5.50) X10*6/uL Hgb 7.8 L (12.0-16.0) g/dl Hct 26.8 L (37.0-47.0) % MCV 76.6 L (80.0-98.0) fL MCH 22.3 L (27.0-33.0) pg MCHC 29.1 L (31.0-35.0) g/dl RDW 19.6 H (11.0-16.0) % Plt Count 260 (160-400) X10*3/uL MPV 9.6 (9.4-12.3) fL Immature Gran % (Auto) 0.8 H (0.0-0.4) % Neut % (Auto) 72.8 (45-73) % Lymph % (Auto) 12.5 L (20-40) % Duval % (Auto) 9.6 (2-11) % Eos % (Auto) 3.1 (0-4) % Baso % (Auto) 1.2 (0-2) % Lymph # (Auto) 0.8 L (1.2-4.9) X10*3/uL Duval # (Auto) 0.6 (0.1-1.2) X10*3/uL Eos # (Auto) 0.2 (0.0-0.4) X10*3/uL Baso # (Auto) 0.1 (0.0-0.2) X10*3/uL Abs Immat Gran (auto) 0.05 H (0.00-0.03) X10*3/uL Absolute Neuts (auto) 4.7 (2.0-8.3) x10*3/uL Absolute Nucleated RBC 0.050 H (0.0-0.012) X10*3/uL Nucleated RBC % (auto) 0.8 H (0.0-0.2) /100WBC Sodium 139 (135-145) mmol/L Potassium 3.8 (3.3-5.1) mmol/L Chloride 104 (96-108) mmol/L Carbon Dioxide 28 (22-29) mmol/L Anion Gap 11 L (12-20) BUN 16 (9-16) mg/dL Creatinine 0.80 (0.5-1.4) mg/dL Estim Creat Clear Calc 130.2 Estimated GFR > 60 Random Glucose 124 H (60-115) mg/dL Calcium 6.7 L 6.7 L (8.4-10.2) mg/dL Magnesium 1.8 (1.6-2.6) mg/dL Independent Interpretation I performed an independent interpretation of an: EKG (My interpretation patient's EKG showed a sinus rhythm heart rate is 60 ND QRS QTC normal no acute ST segment elevation) External Record Review External record reviewed: Office record Chronic Conditions Hyperparathyroid Discharge Plan Discharge Clinical Impression: Hypoparathyroidism, Hypocalcemia Patient Disposition: Admitted As Inpatient Prescriptions: No Action calcitriol 0.25 mcg capsule See Rx Instructions PO QAM Qty: 120 8RF Rx Instructions: take 2 capsules in AM (o.5 mcg) and 2 capsule in PM (0.5 mcg) orally every morning; levothyroxine 112 mcg tablet 112 mcg PO QAM Qty: 90 3RF ondansetron 4 mg tablet,disintegrating 4 mg PO TID PRN (Reason: nausea and vomiting) 5 Days Qty: 10 0RF Excedrin Migraine 250-250-65 mg Tablet 1 tab PO Q4-6H PRN (Reason: Headache) Qty: 30 3RF docusate sodium 100 mg capsule 100 mg PO DAILY labetalol 100 mg tablet 200 mg PO BID diltiazem HCl 360 mg capsule,extended release 24hr 360 mg PO DAILY lisinopril 40 mg tablet 40 mg PO QAM calcium carbonate 500 mg calcium (1,250 mg) tablet 500 mg PO BID Qty: 60 6RF Rx Instructions: please send her a formulation with smaller pill size cholecalciferol (vitamin D3) 25 mcg (1,000 unit) capsule 25 mcg PO DAILY Qty: 30 8RF Print Language: English
[2025-01-28 18:43] LABS: MANUAL DIFF FLAG NO
[2025-01-28 18:47] LABS: Basophils Absolute Auto 0.1 X10*3/uL (0.0-0.2); Basophils Percent Auto 1.2 % (0-2); Eosinophils Absolute Auto 0.2 X10*3/uL (0.0-0.4); Eosinophils Percent Auto 3.1 % (0-4); Hematocrit 26.8 % (37.0-47.0); Hemoglobin 7.8 g/dl (12.0-16.0); Imm Gran Abs Auto 0.05 X10*3/uL (0.00-0.03); Imm Gran Pct Auto 0.8 % (0.0-0.4); Lymphocytes Absolute Auto 0.8 X10*3/uL (1.2-4.9); Lymphocytes Percent Auto 12.5 % (20-40); Mean Corpuscular HGB Conc 29.1 g/dl (31.0-35.0); Mean Corpuscular Hemoglobin 22.3 pg (27.0-33.0); Mean Corpuscular Volume 76.6 fL (80.0-98.0); Mean Platelet Volume 9.6 fL (9.4-12.3); Monocytes Absolute Auto 0.6 X10*3/uL (0.1-1.2); Monocytes Percent Auto 9.6 % (2-11); NRBC Pct Auto 0.8 /100WBC (0.0-0.2); Neutrophils Absolute Auto 4.7 x10*3/uL (2.0-8.3); Neutrophils Percent Auto 72.8 % (45-73); Platelet Count 260 X10*3/uL (160-400); Red Cell Distribution Width 19.6 % (11.0-16.0); White Blood Count 6.5 X10*3/uL (4.8-10.8)
[2025-01-28 19:01] LABS: Anion Gap 11 (12-20); Blood Urea Nitrogen 16 mg/dL (9-16); Calcium 6.7 mg/dL (8.4-10.2); Carbon Dioxide 28 mmol/L (22-29); Chloride 104 mmol/L (96-108); Creatinine Clr Calc Pharmacy 130.2; Estimated Glomerular Filt Rate > 60; Glucose Random 124 mg/dL (60-115); Magnesium 1.8 mg/dL (1.6-2.6); Potassium 3.8 mmol/L (3.3-5.1); Sodium 139 mmol/L (135-145)
[2025-01-28] MEDS: Calcium Gluconate/NaCl,Iso-Osm 2 GM/100 ML PLAST..BAG IV ×2 (19:20→20:29)
[2025-01-28 19:22] VITALS: BP 139/66; PULSE 59; RESP 17; TEMP 36.9; O2SAT 98
--- OUTSIDE RECORDS SUMMARY | 2025-01-28 19:36 | XMS_ITS | Encounter Summary ---
Author Organization [employer] Address [address] [facility] [address] [place] [address] Care Team Providers Care Pediatrics Physician Name Role Phone Monica Hernandez Primary Care Provider [phone] Loc Agrawal MD Unavailable [phone] Lamar De Paz MD Unavailable [phone] Ralph Reece MD Unavailable [phone] Encounter Details Date Type Department Care Team (Late st Contact Info) Description 10/25/[address] [facility] MEDICINE [address] [place] [address] Monica Hernandez FNP [address] [place], [place] [phone] Social History Tobacco Use Types Packs/Day Years [...] 11:15 AM EDT Office Visit [facility] MED & PEDS [address] [place], [place] [phone] Monica Hernandez FNP [address] [place], [place] [phone] documented as of this encounter Visit Diagnoses Not on filedocumented in this encounter Care Teams Pediatrics Physician Relationship Specialty Start Date End Date Monica Hernandez FNP [address] [place] [address] PCP - General Family Medicine 07/14/22 Loc Agrawal MD [address] [place] [address] Endocrinology 10/20/24 Lamar De Paz MD [address] [place] [address] Hematology and Oncology 10/20/24 Ralph Reece MD [address] [place] [address] Cardiology 10/20/24 documented as of this encounter
--- OUTSIDE RECORDS SUMMARY | 2025-01-28 19:36 | XMS_ITS | Clinical Summary ---
Author Organization [employer] Address [address] [facility] [address] [place] [address] Care Team Providers Care Load Builder Name Role Phone PedroMonica matos CLARISSE Primary Care Provider [phone] Loc Agrawal MD Unavailable [phone] Lamar De Paz MD Unavailable [phone] Ralph Reece MD Unavailable [phone] Allergies Active Allergy Reactions Criticality Noted [...] 10/20/2024 Overview (10/20/2024): Followed by [facility] - Dr. Reece Sep 2024: echo, nuclear stress test, 30 day Holter pending ED precautions Healthcare maintenance 11/11/2023 Overview (08/18/2024): Mammogram: BIRADS 1 on 06/09/24 Colon CA screening: (+) fam hx of colon CA. Cologuard ordered 11/10/23. Initially declined colonoscopy referral, but then did accept and was referred to [facility] in March 2024 Pap: 07/12/22 NILM [...] safety Hypothyroidism 05/04/2023 Overview (04/06/2024): Following with [facility] Daviad Agrawal Levothyroxine 112mcg daily Assessment & Plan (04/06/2024 11:15 AM EDT): Repeat TSH ordered Assessment & Plan (08/11/2023 6:18 AM EDT): Following with [facility] Davida Agrawal Depressive disorder 02/06/2023 Vitamin D deficiency 10/22/2022 Assessment & Plan (04/05/2024 11:21 AM EDT): -Cont Vit D 2000 units daily Family history of colon cancer 10/22/2022 Hypoparathyroidism 09/01/2022 Overview (10/31/2024): Following with [facility] Davida Agrawal/ Dr. Bellamy (last consult Oct 2024) Goal calcium range: 8-8.5 Referred for [facility] consult in Jul 2024 to eval [...] Plan (11/11/2023 11:55 AM EST): -Following with [facility] Davida Agrawal. Per last consult note in Aug 2022: Hypoparathyroidism. Possible etiologies behind the hypocalcemia could include secondary hyperparathyroidism due to vitamin-D deficiency versus idiopathic hypoparathyroidism. Plan is to recheck calcium, phosphorus, PTH, albumin. Further workup and/or treatment will be based on the above Menorrhagia with irregular cycle 02/16/2022 Overview (08/18/2024): Following with [facility] SENIOR SECURITY ANALYST - Dr. Mayers 2013: recommendation for EMB & sonohysterogram d/t focal endometrial hypoechoic area on US measuring [id number] Pap: 07/12/22 NILM HPV neg [facility] OBGYN: hysteroscopy with polypectomy, D&C, IUD insertion on 06/10/24 Assessment & Plan (04/06/2024 11:41 AM EDT): Have missed multiple appts for procedure, although hero reports that pt recently completed US and has follow up scheduled with [facility] SENIOR SECURITY ANALYST within the next month. Reviewed importance of keeping appt Physical deconditioning 07/19/2018 Assessment & Plan (10/20/2024 7:56 PM EST): - High risk for falls - Preventative measures: Bariatric commode: DME request Jul 2024 - pending Bariatric Tub Transfer Bench: DME request 10/20/24 Microcytic anemia 11/10/2015 Overview (10/20/2024): Following with [facility] Heme/Onc - Dr. De Paz (last consult note Sep 2024) Completed IV iron (Venofer) in 2023 GI: referred to [facility], initial consult scheduled. Per Heme/Onc note Sep 2024, pt declining colonoscopy but open to Cologuard. Order placed through PCP on 10/20/24 SENIOR SECURITY ANALYST: following with [facility] OBGYN - had IUD placement in 2023 [...] AM EDT): Hx ANIYA, previously followed by [facility]. Last available consult note from Jul 2018 Plan to cont on oral iron (pt declined IV iron), and to arrange for colonoscopy (does not appear this was performed) ED precautions reviewed Follow up with [facility] as scheduled Assessment & Plan (11/11/2023 12:02 PM EST): ?? Hx ANIYA, previously followed by [facility]. Last available consult note from Jul 2018 ?? Plan to cont on oral iron (pt declined IV iron), and to arrange for colonoscopy (does not appear this was performed) ?? Repeat labs ordered today Assessment & Plan (05/10/2023 7:45 AM EDT): Requested to check POC Hbg, WNL in office today Essential hypertension 11/10/2015 Overview (08/15/2024): [facility] (last consult: March 2024) [...] eval completed Jul 2024. 2nd eval at [facility] Re[facility] completed Sep 2024. Documents faxed to [employer]. DME request for bariatric [...] extremity with ulcer Overview (04/06/2024): Following with [facility] PRN Resolved Problems Problem Noted Date Diagnosed Date Resolved Date Hypertension 05/04/2023 08/11/2023 Ulcerative lesion 02/06/2023 04/06/2024 Noncompliance with treatment regimen 02/16/2022 08/11/2023 Acquired hypothyroidism 11/10/201507/22 Encounters Date Type Department Care Team Description 01/28/2025 Telephone [facility] [address] [place] [phone] Monica Hernandez FNP ER Follow-up 01/28/2025 Orders Only GENERIC EXTERNAL DATA DEPARTMENT Provider, Generic External Data 01/27/2025 Orders Only GENERIC EXTERNAL DATA DEPARTMENT Provider, Generic External Data 01/27/2025 Telephone [facility] [address] [place] [address] Monica Hernandez FNP critical lab 01/23/2025 Telephone [facility] [address] [place] [address] Monica Hernandez FNP January11/01/2024 Telephone [facility] [address] [place] [address] Monica Hernandez FNP Durable Medical Equipment 10/30/2024 3:30 PM EST Telemedicine [facility] [address] [place] [phone] Monica Hernandez FNP Elevated hemoglobin A1c (Primary [...] is your housing situation today? I have vijenae bustos 04/05/[address] you [...] [facility] [address] [place] [address] Monica Hernandez, AUDIO/VISUAL MANAGER [address] [place] [address] Health Maintenance Due Date Last Done Comments [...] 2024 07/21/2011 Depression Screening 04/05/2025 04/05/2024, 04/05/20 SDOH Screening 04/05/2025 04/05/2024 Mammogram 06/19/2025 06/19/2024, [...] Procedure Name Priority Date/Time Associated Diagnosis Comments MAGNESIUM Routine 01/28/2025 6:38 PM EDT BASIC METABOLIC PANEL Routine 01/28/2025 6:38 PM EDT CBC WITH AUTO DIFFERENTIAL Routine 01/28/2025 6:38 PM EDT CBC WITH AUTO DIFFERENTIAL Routine 01/28/2025 12:58 AM EDT TYPE AND SCREEN Routine 01/27/2025 4:23 PM EDT IRON AND TOTAL IRON BINDING CAPACITY Routine 01/27/2025 4:23 PM EDT MAGNESIUM Routine 01/27/2025 4:23 PM EDT COMPREHENSIVE METABOLIC PANEL Routine 01/27/2025 4:23 PM EDT APTT Routine 01/27/2025 4:23 PM EDT PROTHROMBIN TIME-INR Routine 01/27/2025 4:23 PM EDT CBC WITH AUTO DIFFERENTIAL Routine 01/27/2025 4:23 PM EDT PATHOLOGIST REVIEW - CBC Routine 01/27/2025 12:16 PM EDT CALCIUM, IONIZED Routine 01/27/2025 12:1 6 PM EDT T4, FREE Routine 01/27/2025 12:16 [...] Maintenance Results * (ABNORMAL) CBC auto differential (01/28/2025 6:38 PM EDT) Only the most recent of4 resultswithin the time period is included. White Blood Count 6.5 4.8 - 10.8 X10*3/uL [facility] Red Blood Count 3.50(L) 4.20 - 5.50 X10*6/uL [facility] Hemoglobin 7.8(L) 12.0 - 16.0 g/dl [facility] Hematocrit 26.8(L) 37.0 - 47.0 % [facility] Mean Corpuscular Volume 76.6(L) 80.0 - 98.0 fL [facility] Mean Corpuscular Hemoglobin 22.3(L) 27.0 - 33.0 pg [facility] Mean Corpuscular HGB Conc 29.1(L) 31.0 - 35.0 g/dl [facility] Red Cell Distribution Width 19.6(H) 11.0 - 16.0 % [facility] Platelet Count 260 160 - 400 X10*3/uL [facility] Mean Platelet Volume 9.6 9.4 - 12.3 fL [facility] Neutrophils Percent Auto 72.8 45 - 73 % [facility] Imm Gran Pct Auto 0.8(H) 0.0 - 0.4 % [facility] Lymphocytes Percent Auto 12.5(L) 20 - 40 % [facility] Monocytes Percent Auto 9.6 2 - 11 % [facility] Eosinophils Percent Auto 3.1 0 - 4 % [facility] Basophils Percent Auto 1.2 0 - 2 % [facility] NRBC Pct Auto 0.8(H) 0.0 - 0.2 /100WBC [facility] Neutrophils Absolute Auto 4.7 2.0 - 8.3 x10*3/uL [facility] Imm Gran Abs Auto 0.05(H) 0.00 - 0.03 X10*3/uL [facility] Lymphocytes Absolute Auto 0.8(L) 1.2 - 4.9 X10*3/uL [facility] Monocytes Absolute Auto 0.6 0.1 - 1.2 X10*3/uL [facility] Eosinophils Absolute Auto 0.2 0.0 - 0.4 X10*3/uL [facility] Basophils Absolute Auto 0.1 0.0 - 0.2 X10*3/uL [facility] NRBC Abs Auto 0.050(H) 0.0 - 0.012 X10*3/uL [facility] 01/28/2025 6:38 PM EDT 01/28/2025 6:42 PM EDT us Generic External Data Provider LAB BLOOD ORDERAB LES Final Result [facility] [address] [place] [phone] * Magnesium (01/28/2025 6:38 PM EDT) Only the most recent of3 resultswithin the time period is included. Magnesium 1.8 1.6 - 2.6 mg/dL [facility] 01/28/2025 6:38 PM EDT 01/28/2025 6:42 PM EDT us Generic External Data Provider LAB BLOOD ORDERAB LES Final Result Performing Organization Address [facility]/ZIP Co de Phone Number [facility] [address] [place] [phone] * (ABNORMAL) Basic Metabolic Panel (01/28/2025 6:38 PM EDT) Sodium 139 135 - 145 mmol/L [facility] Potassium 3.8 3.3 - 5.1 mmol/L [facility] Chloride 104 96 - 108 mmol/L [facility] Carbon Dioxide 28 22 - 29 mmol/L [facility] Anion Gap 11(L) 12 - 20 [facility] Urea Nitrogen (BUN) 16 9 - 16 mg/dL [facility] Creatinine, Serum 0.80 0.5 - 1.4 mg/dL [facility] Creatinine Clr Calc Pharmacy 130.2 [facility] Comment:Provided height and weight: 157.48 cm,181.437 kg.eGFR (calculated from the MDRD study equation) and eCrCl(calculated from the Cockcroft-Gault equation) are based ondifferent parameters and may not yield comparable results.If eCrCl result is absurd, please check patient'sheight/weight. Estimated Glomerular Filt Rate >60 [facility] Comment:Chronic Kidney Disea se: Estimated GFR < 60 mL/min/1.93g3Zxdolj Kidney Disease: Estimated GFR < 15 mL/min/1.73m2 Glucose 124(H) 60 - 115 mg/dL [facility] Calcium 6.7(L) 8.4 - 10.2 mg/dL [facility] 01/28/2025 6:38 PM EDT 01/28/2025 6:42 PM EDT us Generic External Data Provider LAB BLOOD ORDERAB LES Final Result Performing Organization Address City/[facility]/ZIP Co de Phone Number [facility] [address] [place] [phone] * (ABNORMAL) Iron And Total Iron Binding Capacity (01/27/2025 4:23 PM EDT) Iron 11(L) 30 - 160 mcg/dL [facility] Total Iron Binding Capacity 307 228 - 428 mcg/dL [facility] Percent Iron Saturation 4(L) 15 - 50 % [facility] Unsaturated Iron Binding 296 ug/dL [facility] 01/27/2025 4:23 PM EDT 01/27/2025 4:27 PM EDT Generic External Data Provider LAB BLOOD ORDERAB LES Final Result Performing Organization Address [facility]/ZIP Co de Phone Number [facility] [address] [place] [phone] * Partial Thromboplastin Time, Activated (APTT) (01/27/2025 4:23 PM EDT) Partial Thromboplastin Time 26.5 26.0 - 36.8 SEC [facility] Comment:For information rega rding the monitoring of direct thrombininhibitors, please refer to Pharmacy. 01/27/2025 4:23 PM EDT 01/27/2025 4:27 PM EDT us Generic External Data Provider LAB BLOOD ORDERAB LES Final Result Performing Organization Address [facility]/ZIP Co de Phone Number [facility] [address] [place] [address] [phone] * (ABNORMAL) Prothrombin Time-INR (01/27/2025 4:23 PM EDT) Prothrombin Time 13.9(H) 10.9 - 12.4 SEC [facility] INTERNATIONAL NORM RATIO 1.2(H) 0.9 - 1.1 [facility] Comment:INTERNATIONAL NORMAL IZED RATIO (INR) [...] ORDERAB LES Final Result Performing Organization Address City/[facility]/ZIP Co de Phone Number [facility] [address] [place] [phone] * Type and screen (01/27/2025 4:23 PM EDT) [facility] Blood Type BP [facility] Antibody Screen NEGATIVE [facility] 01/27/2025 4:23 PM EDT 01/27/2025 4:29 PM EDT Generic External Data Provider LAB BLOOD BANK TE ST ORDERABLES Final Result Performing Organization Address [facility] de Phone Number [facility] [address] [place] [phone] * (ABNORMAL) Comprehensive Metabolic Panel (01/27/2025 4:23 PM EDT) Only the most recent of2 resultswithin the time period is included. Sodium 138 135 - 145 mmol/L [facility] Potassium 3.8 3.3 - 5.1 mmol/L [facility] Chloride 104 96 - 108 mmol/L [facility] Carbon Dioxide 26 22 - 29 mmol/L [facility] Anion Gap 12 12 - 20 [facility] Urea Nitrogen (BUN) 18(H) 9 - 16 mg/dL [facility] Creatinine, Serum 0.66 0.5 - 1.4 mg/dL [facility] Creatinine Clr Calc Pharmacy 157.8 [facility] Comment:Provided height and weight: 157.48 cm,181.437 kg.eGFR (calculated from the MDRD study equation) and eCrCl(calculated from the Cockcroft-Gault equation) are based ondifferent parameters and may not yield comparable results.If eCrCl result is absurd, please check patient'sheight/weight. Estimated Glomerular Filt Rate >60 [facility] Comment:Chronic Kidney Disea se: Estimated GFR < 60 mL/min/1.83n0Rnfvaf Kidney Disease: Estimated GFR < 15 mL/min/1.73m2 Glucose 143(H) 60 - 115 mg/dL [facility] Calcium 6.4(L) 8.4 - 10.2 mg/dL [facility] Bilirubin, Total 0.6 0.0 - 1.0 mg/dL [facility] Aspartate Amino Transferase 30 5 - 31 U/L [facility] Alanine Aminotransferase 19 0 - 31 U/L [facility] Total Protein 7.4 6.5 - 8.0 g/dL [facility] Albumin Level 3.4(L) 3.5 - 5.0 g/dL [facility] Alkaline Phosphatase 90 39 - 117 U/L [facility] 01/27/2025 4:23 PM EDT 01/27/2025 4:27 PM EDT us Generic External Data Provider LAB BLOOD ORDERAB LES Final Result [facility] [address] [place] [phone] * Pathologist Review - CBC (01/27/2025 12:16 PM EDT) Pathologist Review - CBC SEE NOTE [facility] Comment:- Microcytic and hyp ochromic anemia with rare nucleatedRBCs: consider iron deficiency vs anemia of chronic diseasevs blood loss vs other etiologies.- No significant schistocytes are seen.Reviewed by Faustina Robertson MD 01/27/2025 12:1 6 PM EDT 01/27/2025 12:16 PM EDT us Monica Hernandez AUDIO/VISUAL MANAGER LAB BLOOD ORDERABLES Final Res ult Performing Organization Address [facility] Co de Phone Number [facility] [address] [place] [phone] * Vitamin D, 25-Hydroxy, Total, Immunoassay (01/27/2025 12:16 PM EDT) Vitamin D 25-OH Total 34.4 >30 ng/mL [facility] Comment:Health Based Referen ce Values*< 20 ng/mL Kvzyddezw77-42 ng/mL Insufficient> 30 ng/mL Sufficient*Tena CHERY. N [...] ORDERAB LES Final Result Performing Organization Address [facility] Co de Phone Number [facility] [address] [place] [phone] * (ABNORMAL) TSH with Reflex to Free T4 (01/27/2025 12:16 PM EDT) TSH reflex Free T4 4.02(H) 0.32 - 4.0 uIU/mL [facility] 01/27/2025 12:1 6 PM EDT 01/27/2025 12:16 PM EDT us Generic External Data Provider LAB BLOOD ORDERAB LES Final Result Performing Organization Address City/[facility] Co de Phone Number [facility] [address] [place] [phone] * T4, Free (01/27/2025 12:16 PM EDT) Free T4 (Free Thyroxine) 1.12 0.71 - 1.85 ng/dL [facility] 01/27/2025 12:1 6 PM EDT 01/27/2025 12:16 PM EDT us Generic External Data Provider LAB BLOOD ORDERAB LES Final Result Performing Organization Address [facility] Co de Phone Number [facility] [address] [place] [phone] * (ABNORMAL) Phosphate (As Phosphorus) (01/27/2025 12:16 PM EDT) Phosphorus 4.6(H) 2.7 - 4.5 mg/dL [facility] 01/27/2025 12:1 6 PM EDT 01/27/2025 12:16 PM EDT us Generic External Data Provider LAB BLOOD ORDERAB LES Final Result Performing Organization Address [facility] Co de Phone Number [facility] [address] [place] [phone] * PTH, Intact Without Calcium (01/27/2025 12:16 PM EDT) Parathyroid Hormone, Intact 10.3 8.7 - 77.1 pg/mL [facility] 01/27/2025 12:1 6 PM EDT 01/27/2025 12:16 PM EDT Generic External Data Provider LAB BLOOD ORDERAB LES Final Result Performing Organization Address [facility] Co de Phone Number [facility] [address] [place] [phone] * (ABNORMAL) Hemoglobin A1c (01/27/2025 12:16 PM EDT) Hemoglobin A1c 7.1(H) <6.0 % [facility] Comment:Hemoglobin A1C Refer ence Range Adults: 4.8 - 6.0 % Non diabetic: < 6.0 % Goal: < 7.0 %Additional Action Suggested: > 8.0 %Note: Hemoglobin A1c results are invalid for patients with abnormal amounts of HbF. Blood transfusions may impact the HbA1c concentration in the patient sample. Estimated Average Glucose 157 mg/dL [facility] Comment:eAG = Estimated ave rage glucose which is %A1C expressed asaverage glucose, using the formula of the O2S-PezagqdBmvmiwk Glucose study (ADAG), Diabetes Care, Vol.31,#8,Jun. 2007 Blood Venous blood specimen / Unknown 01/27/2025 12:16 PM EDT 01/27/2025 12:16 PM EDT Monica Hernandez AUDIO/VISUAL MANAGER LAB BLOOD ORDERABLES Final Res ult Performing Organization Address City/[facility]/ZIP Co de Phone Number [facility] [address] [place] [phone] * (ABNORMAL) Calcium, Ionized (01/27/2025 12:16 PM EDT) Calcium, Ionized 3.6(A) 4.7 - 5.5 mg/dL [facility] Comment:THIS TEST WAS PERFOR MED AT:[facility] [place] [phone] BARR MD 01/27/2025 12:1 6 PM EDT 01/27/2025 12:16 PM EDT Generic External Data Provider LAB BLOOD ORDERAB LES Final Result Performing Organization Address [facility]/ZIP Co de Phone Number [facility] [address] [place] [phone] * Hepatitis C Viral RNA, Quantitative, Real-Time PCR (10/07/2024 10:25 AM EST) Hepatitis C Viral Load <15 NOT DETECTED NOT DETECTED IU/mL [facility] HCV Log PCR <1.18 NOT DETECTED NOT DETECTED Log IU/mL [facility] Comment:For additional infor juan josé, please refer tohttp://education.[employer]/faq/NQG36d1(This link is being provided for informational/educational purposes only.)THIS TEST WAS PERFORMED AT:[facility] [place] [phone] BARR MD Blood 10/07/2024 10:2 5 AM EST 10/07/2024 10:25 AM EST Monica Hernandez AUDIO/VISUAL MANAGER LAB BLOOD ORDERABLES Final Res ult [facility] [address] [place] [phone] * HIV-1/2 Antigen and Antibodies, Fourth Generation, with Reflexes (10/07/2024 10:25 AM EST) Pathologist [facility] HIV AB/AG Nonreactive Nonreactive [facility] Comment:HIV-1 p24 Ag and/or HIV-1/HIV-2 Ab not detected.A test result that is nonreactive does not exclude thepossibility of exposure to or infection with HIV-1 and/orHIV-2. Nonreactive results in this assay for individualswith prior exposure to HIV-1 and/or HIV-2 may be due toantigen and antibody levels that are below the limit ofdetection of this assay.The [employer] HIV Ag/Ab Combo assay result andsupplemental assay results should be interpreted inconjunction with the patient's clinical presentation,history and other laboratory results. If the results areinconsistent with clinical evidence, additional testing issuggested to confirm the result. Blood Venous blood specimen / Unknown 10/07/2024 10:25 AM EST 10/07/2024 10:25 AM EST us Monica Hernandez AUDIO/VISUAL MANAGER LAB BLOOD ORDERABLES Final Res ult [facility] [address] [place] [phone] * BI Mammogram Screening Tomosynthesis Bilateral (06/19/2024 10:05 AM EDT) Anatomical Region Laterality Modality Breast Bilateral Mammography 06/19/2024 10:0 5 AM EDT Narrative 06/26/2024 11:59 AM EDT ? [facility] [place] ? [address] ?[place] [address] ? Mammography Report ? Signed ? Patient: Yael Lee ?MR#: [id number] ?? [id number] ? : 1970 ?Acct:[id number] ? Age/Sex: 54 / F ?ADM Date: 06/19/24 ? Loc: HO.MAMMO ? Attending Agnes Mcbride ? Ordering Physician: Monica Hernandez ?Results: 1Negat ?? francesca ? Date of Service: 06/19/24 ?Follow Up: 1 Year From Orig ?? inal Mammogram ? Procedure(s): MM tomosynthesis screening BI ?? Accession Number(s): [id number] ? cc: Monica Hernandez AUDIO/VISUAL MANAGER ? EXAMINATION: ?? MM SCREENING DIGITAL BREAST [...] 1155 ? DD/ 1005 ? TD/TT: ? Knitter Machine: ? Procedure Note Mason, Image - 06/26/2024 [facility] [address] [place] [address] Mammography Report Signed Patient: Yael Lee MMR#: [id number] : 1970Acct:[id number] Age/Sex: 54 / FADM Date: 06/19/24 Loc: [facility] Attending Dr: Anahy Mcbride Ordering Physician: Monica Hernandez FNPResults: 1Negat francesca Date of Service: 06/19/24Follow Up: 1 Year From Orig inal Mammogram Procedure(s): MM tomosynthesis screening BI Accession Number(s): [id number] cc: Monica Hernandez AUDIO/VISUAL MANAGER EXAMINATION: MM SCREENING DIGITAL BREAST TOMOSYNTHESIS, BILATERAL [...] in OV> 06/26/24 1155 DD/ 1005 TD/TT: Knitter Machine: Monica Hernandez AUDIO/VISUAL MANAGER IMG BI PROCEDURES Final Result * THINPREP TIS PAP AND HPV mRNA E6/E7, CT/NG, TRICH (07/15/2022 5:54 PM EDT) Chlamydia trachomatis RNA, TMA, Urogenital NOT DETECTED NOT DETECTED [facility] Clinical Information: None given [facility] COMMENT [facility] Comment: The analytical performance characteristics of this assay, when used to test SurePath(TM) specimens have been determined by [employer]. The modifications have not been cleared or approved by the FDA. This assay has been validated pursuant to the CLIA regulations and is used for clinical purposes. ?? For additional information, please refer to https://education.CloudByte/faq/HRL073 (This link is being provided for information/ [...] was manually screened according to routine procedures. Substance Abuse Therapist: [facility] Comment: RAMIRO CALABRESE(ASCP) CT screening location: [address] ??[phone] HPV nRNA E6/E7 Not Detected Not Detected [facility] Comment: Methodology: Pump Erector-Mediated Amplification This assay detects E6/E7 viral messenger RNA (mRNA) from 14 high-risk HPV types (16,18,31,33,35,39,45,51,52,56,58,59,66,68). ? Cervical sources are required for HPV testing. If a vaginal source from a patient who has had a total hysterectomy with removal of cervix was ?? submitted, please contact the testing laboratory for alternative testing options. ?? For additional information, please refer to http://[employer].CloudByte/faq/SGD781w4 (This link if provided for information/ educational [...] of this assay have been determined by [employer]. The modifications have not been cleared or approved by the FDA. This assay has been validated pursuant to the CLIA regulations and is used for clinical purposes. ?? For additional information, please refer to http://education.CloudByte/ faq/Trichomonastma (This link is being provided for information/ educational purposes only.) ?? NO COLLECTION DATE RECEIVED. WE HAVE USED THE DATE THE SPECIMEN WAS RECEIVED BY THIS LABORATORY THE COLLECTION DATE. IF THIS IS INCORRECT, PLEASE CONTACT CLIENT SERVICES. PHONE NUMBER: ?? Chlamydia trachomatis RNA, TMA, Urogenital NOT DETECTED NOT DETECTED [facility] Clinical Information: None given [facility] COMMENT SEE COMMENT [facility] Comment: The analytical performance characteristics of this assay, when used to test SurePath(TM) specimens have been determined by [employer]. The modifications have not been cleared or approved by the FDA. This assay has been validated pursuant to the CLIA regulations and is used for clinical purposes. ?? For additional information, please refer to https://[employer].CloudByte/faq/SNA903 (This link is being provided for information/ [...] was manually screened according to routine procedures. Substance Abuse Therapist: SEE COMMENT [facility] Comment: MAA, CT(ASCP) CT screening location: [address] ??[id number] HPV nRNA E6/E7 Not Detected Not Detected [facility] Comment: Methodology: Pump Erector-Mediated Amplification This assay detects E6/E7 viral messenger RNA (mRNA) from 14 high-risk HPV types (16,18,31,33,35,39,45,51,52,56,58,59,66,68). ? Cervical sources are required for HPV testing. If a vaginal source from a patient who has had a total hysterectomy with removal of cervix was ?? submitted, please contact the testing laboratory for alternative testing options. ?? For additional information, please refer to http://[employer].CloudByte/faq/PRR633g0 (This link if provided for information/ educational [...] of this assay have been determined by [employer]. The modifications have not been cleared or approved by the FDA. This assay has been validated pursuant to the CLIA regulations and is used for clinical purposes. ?? For additional information, please refer to http://education.Fiix.NextNine/ faq/Trichomonastma (This link is being provided for information/ educational purposes only.) ?? NO COLLECTION DATE RECEIVED. WE HAVE USED THE DATE THE SPECIMEN WAS RECEIVED BY THIS LABORATORY THE COLLECTION DATE. IF THIS IS INCORRECT, PLEASE CONTACT CLIENT SERVICES. PHONE NUMBER: ?? 07/15/2022 5:54 PM EDT Anahy Mcbride AUDIO/VISUAL MANAGER LAB PATHOLOGY ORDERABLES Final Result [facility] [address] from Last 3 Months or Most Recently Relevant to Health Maintenance Insurance [facility] STANDARD MEDICARE Care Teams Load Builder Relationship Specialty Start Date End Date Monica Hernandez FNP [address] [place] [address] PCP - General Family Medicine 07/14/22 Loc Agrawal MD [address] [place] [phone] Endocrinology 10/20/24 Lamar De Paz MD [address] [place] [phone] Hematology and Oncology 10/20/24 Ralph Reece MD [address] [place] [address] Cardiology 10/20/24
--- OUTSIDE RECORDS SUMMARY | 2025-01-28 19:36 | XMS_ITS | Encounter Summary ---
Author Organization [employer] Address [address] [place] [address] Care Team Providers Care Pharmacy Technician Assistant Name Role Phone Pedrocarlo Monica ROBB Primary Care Provider [phone] Loc Agrawal MD Unavailable [phone] Lamar De Paz MD Unavailable [phone] Ralph Reece MD Unavailable [phone] Encounter Details Date Type Department Care Team (Late st Contact Info) Description 01/28/2025 Orders Only GENERIC EXTERNAL DATA DEPARTMENT [...] [facility] [address] [place] [address] Monica Hernandez, SOCIAL SCIENCES DEPARTMENT CHAIR [address] [place] [address] documented as of this encounter Procedures Procedure Name Priority Date/Time Associated Diagnosis Comments CBC WITH AUTO DIFFERENTIAL Routine 01/28/2025 6:38 PM EDT MAGNESIUM Routine 01/28/2025 6:38 PM EDT BASIC METABOLIC PANEL Routine 01/28/2025 6:38 PM EDT CBC WITH AUTO DIFFERENTIAL Routine 01/28/2025 12:58 AM EDT documented in this encounter Results * Magnesium (01/28/2025 6:38 PM EDT) Magnesium 1.8 1.6 - 2.6 mg/dL [facility] 01/28/2025 6:38 PM EDT 01/28/2025 6:42 PM EDT us Generic External Data Provider LAB BLOOD ORDERAB LES Final Result [facility] [address] [place] [address] [phone] * (ABNORMAL) Basic Metabolic Panel (01/28/2025 6:38 PM EDT) Pathologist [facility] Sodium 139 135 - 145 mmol/L [facility] Potassium 3.8 3.3 - 5.1 mmol/L [facility] Chloride 104 96 - 108 mmol/L [facility] Carbon Dioxide 28 22 - 29 mmol/L [facility] Anion Gap 11(L) 12 - 20 [facility] Urea Nitrogen (BUN) 16 9 - 16 mg/dL [facility] Creatinine, Serum 0.80 0.5 - 1.4 mg/dL [facility] Creatinine Clr Calc Pharmacy 130.2 [facility] Comment:Provided height and weight: 157.48 cm,181.437 kg.eGFR (calculated from the MDRD study equation) and eCrCl(calculated from the Cockcroft-Gault equation) are based ondifferent parameters and may not yield comparable results.If eCrCl result is absurd, please check patient'sheight/weight. Estimated Glomerular Filt Rate >60 [facility] Comment:Chronic Kidney Disea se: Estimated GFR < 60 mL/min/1.04d3Zsmhwt Kidney Disease: Estimated GFR < 15 mL/min/1.73m2 Glucose 124(H) 60 - 115 mg/dL [facility] Calcium 6.7(L) 8.4 - 10.2 mg/dL [facility] 01/28/2025 6:38 PM EDT 01/28/2025 6:42 PM EDT us Generic External Data Provider LAB BLOOD ORDERAB LES Final Result [facility] [address] [place] [address] [phone] * (ABNORMAL) CBC auto differential (01/28/2025 6:38 PM EDT) [facility] White Blood Count 6.5 4.8 - 10.8 X10*3/uL [facility] Red Blood Count 3.50(L) 4.20 - 5.50 X10*6/uL [facility] Hemoglobin 7.8(L) 12.0 - 16.0 g/dl [facility] Hematocrit 26.8(L) 37.0 - 47.0 % [facility] Mean Corpuscular Volume 76.6(L) 80.0 - 98.0 fL [facility] Mean Corpuscular Hemoglobin 22.3(L) 27.0 - 33.0 pg [facility] Mean Corpuscular HGB Conc 29.1(L) 31.0 - 35.0 g/dl [facility] Red Cell Distribution Width 19.6(H) 11.0 - 16.0 % [facility] Platelet Count 260 160 - 400 X10*3/uL [facility] Mean Platelet Volume 9.6 9.4 - 12.3 fL [facility] Neutrophils Percent Auto 72.8 45 - 73 % [facility] Imm Gran Pct Auto 0.8(H) 0.0 - 0.4 % [facility] Lymphocytes Percent Auto 12.5(L) 20 - 40 % [facility] Monocytes Percent Auto 9.6 2 - 11 % [facility] Eosinophils Percent Auto 3.1 0 - 4 % [facility] Basophils Percent Auto 1.2 0 - 2 % [facility] NRBC Pct Auto 0.8(H) 0.0 - 0.2 /100WBC [facility] Neutrophils Absolute Auto 4.7 2.0 - 8.3 x10*3/uL [facility] Imm Gran Abs Auto 0.05(H) 0.00 - 0.03 X10*3/uL [facility] Lymphocytes Absolute Auto 0.8(L) 1.2 - 4.9 X10*3/uL [facility] Monocytes Absolute Auto 0.6 0.1 - 1.2 X10*3/uL [facility] Eosinophils Absolute Auto 0.2 0.0 - 0.4 X10*3/uL [facility] Basophils Absolute Auto 0.1 0.0 - 0.2 X10*3/uL [facility] NRBC Abs Auto 0.050(H) 0.0 - 0.012 X10*3/uL [facility] 01/28/2025 6:38 PM EDT 01/28/2025 6:42 PM EDT us Generic External Data Provider LAB BLOOD ORDERAB LES Final Result [facility] [address] [place] [address] [phone] * (ABNORMAL) CBC auto differential (01/28/2025 12:58 AM EDT) White Blood Count 8.3 4.8 - 10.8 X10*3/uL [facility] Red Blood Count 3.58(L) 4.20 - 5.50 X10*6/uL [facility] Hemoglobin 8.1(L) 12.0 - 16.0 g/dl [facility] Hematocrit 26.4(L) 37.0 - 47.0 % [facility] Mean Corpuscular Volume 73.7(L) 80.0 - 98.0 fL [facility] Mean Corpuscular Hemoglobin 22.6(L) 27.0 - 33.0 pg [facility] Mean Corpuscular HGB Conc 30.7(L) 31.0 - 35.0 g/dl [facility] Red Cell Distribution Width 19.5(H) 11.0 - 16.0 % [facility] Platelet Count 267 160 - 400 X10*3/uL [facility] Mean Platelet Volume 9.4 9.4 - 12.3 fL [facility] Neutrophils Percent Auto 73.8(H) 45 - 73 % [facility] Imm Gran Pct Auto 0.5(H) 0.0 - 0.4 % [facility] Lymphocytes Percent Auto 13.4(L) 20 - 40 % [facility] Monocytes Percent Auto 8.6 2 - 11 % [facility] Eosinophils Percent Auto 2.7 0 - 4 % [facility] Basophils Percent Auto 1.0 0 - 2 % [facility] NRBC Pct Auto 0.5(H) 0.0 - 0.2 /100WBC [facility] Neutrophils Absolute Auto 6.1 2.0 - 8.3 x10*3/uL [facility] Imm Gran Abs Auto 0.04(H) 0.00 - 0.03 X10*3/uL [facility] Lymphocytes Absolute Auto 1.1(L) 1.2 - 4.9 X10*3/uL [facility] Monocytes Absolute Auto 0.7 0.1 - 1.2 X10*3/uL [facility] Eosinophils Absolute Auto 0.2 0.0 - 0.4 X10*3/uL [facility] Basophils Absolute Auto 0.1 0.0 - 0.2 X10*3/uL [facility] NRBC Abs Auto 0.040(H) 0.0 - 0.012 X10*3/uL [facility] 01/28/2025 12:5 8 AM EDT 01/28/2025 1:00 AM EDT us Generic External Data Provider LAB BLOOD ORDERAB LES Final Result Performing Organization Address City/State/[facility] Co de Phone Number [facility] [address] [place] [address] [phone] documented in this encounter Visit Diagnoses Not on filedocumented in this encounter Additional Health Concerns Assessment Noted Time PHQ-9 Depression Total Score: 4 04/05/20 24 10:31 AM EDT documented as of this encounter Care Teams Pharmacy Technician Assistant Relationship Specialty Start Date End Date Monica Hernandez FNP [address] [place] [address] PCP - General Family Medicine 07/14/22 Loc Agrawal MD [address] [place] [address] [place] [phone] Endocrinology 10/20/24 Lamar De Paz MD [address] [place] [address] Hematology and Oncology 10/20/24 Ralph Reece MD [address] [place] [address] Cardiology 10/20/24 documented as of this encounter
--- OUTSIDE RECORDS SUMMARY | 2025-01-28 19:36 | XMS_ITS | Patient Health Record ---
Author Organization [facility] enter Address [address] [place] [phone] Support Name Relationship Address Phone Yael Lee Guarantor Unknown [phone] Allergies Allergen (clinical drug ingredient) Drug/Non Drug [...] Insured Coverage Start Date Coverage End Date [facility] [address] [place] [phone] [id number] Yael Lee Self - patient is the insured [facility] Medicare Advantage Plan 1 [facility] [address] [place] [address] [id number] Yael Lee Self - patient is the insured Medical (General) History Medical History History ICD Code hypertension Hypothyroidism anemia
--- OUTSIDE RECORDS SUMMARY | 2025-01-28 19:36 | XMS_ITS | Clinical Summary ---
Author Organization [facility] it Address [address] [place] [address] Care Team Providers Care Radio Frequency Design Engineer Name Role Phone Unavailable Primary Care Provider [...]
--- OUTSIDE RECORDS SUMMARY | 2025-01-28 19:36 | XMS_ITS | Encounter Summary ---
Author Organization [employer] Address [address] 7t [place] [address] Care Team Providers Care Field Artillery Senior Sergeant Name Role Phone Pedrocarlo Monica ROBB Primary Care Provider [phone] Loc Agrawal MD Unavailable [phone] Lamar De Paz MD Unavailable [phone] Ralph Reece MD Unavailable [phone] Encounter Details Date Type Department Care [...] Description 03/03/2025 11:15 AM EDT Office Visit [facility] [address] [place] [address] Monica Hernandez, GAS WELDING EQUIPMENT MECHANIC [address] [place] [address] documented as of this encounter Procedures Procedure [...] METABOLIC PANEL Routine 01/27/2025 4:23 PM EDT PATHOLOGIST REVIEW - CBC Routine 01/27/2025 12:16 PM EDT VITAMIN D,25-OH,TOTAL,IA Routine 01/27/2025 12:16 PM EDT TSH W/REFLEX TO FT4 Routine 01/27/2025 1 2:16 PM EDT T4, FREE Routine 01/27/2025 12:16 PM EDT PHOSPHATE ( PHOSPHORUS) Routine 01/27/2025 12:16 PM EDT PTH, INTACT WITHOUT CALCIUM Routine 01/27/2025 12:16 PM EDT MAGNESIUM Routine 01/27/2025 12:16 PM EDT CALCIUM, IONIZED Routine 01/27/2025 12:1 6 PM EDT documented in this encounter Results * Type and screen (01/27/2025 4:23 PM EDT) Blood Type BP [facility] Antibody Screen NEGATIVE [facility] 01/27/2025 4:23 PM EDT 01/27/2025 4:29 PM EDT us Generic External Data Provider LAB BLOOD BANK TE ST ORDERABLES Final Result [facility] [address] [place] [address] [phone] * (ABNORMAL) Iron And Total Iron Binding Capacity (01/27/2025 4:23 PM EDT) Iron 11(L) 30 - 160 mcg/dL [facility] Total Iron Binding Capacity 307 228 - 428 mcg/dL [facility] Percent Iron Saturation 4(L) 15 - 50 % [facility] Unsaturated Iron Binding 296 ug/dL [facility] 01/27/2025 4:23 PM EDT 01/27/2025 4:27 PM EDT us Generic External Data Provider LAB BLOOD ORDERAB LES Final Result Performing Organization Address City/[facility]/ZIP Co de Phone Number [facility] [address] [place] [address] [phone] * Magnesium (01/27/2025 4:23 PM EDT) Pathologist [facility] Magnesium 1.7 1.6 - 2.6 mg/dL [facility] 01/27/2025 4:23 PM EDT 01/27/2025 4:27 PM EDT Generic External Data Provider LAB BLOOD ORDERAB LES Final Result Performing Organization Address [facility] Co de Phone Number [facility] [address] [place] [address] [phone] * (ABNORMAL) Comprehensive Metabolic Panel (01/27/2025 4:23 PM EDT) Pathologist [facility] Sodium 138 135 - 145 mmol/L [facility] Potassium 3.8 3.3 - 5.1 mmol/L [facility] Chloride 104 96 - 108 mmol/L [facility] Carbon Dioxide 26 22 - 29 mmol/L [facility] Anion Gap 12 12 - 20 [facility] Urea Nitrogen (BUN) 18(H) 9 - 16 mg/dL [facility] Creatinine, Serum 0.66 0.5 - 1.4 mg/dL [facility] Creatinine Clr Calc Pharmacy 157.8 [facility] Comment:Provided height and weight: 157.48 cm,181.437 kg.eGFR (calculated from the MDRD study equation) and eCrCl(calculated from the Cockcroft-Gault equation) are based ondifferent parameters and may not yield comparable results.If eCrCl result is absurd, please check patient'sheight/weight. Estimated Glomerular Filt Rate >60 [facility] Comment:Chronic Kidney Disea se: Estimated GFR < 60 mL/min/1.74p7Vhegns Kidney Disease: Estimated GFR < 15 mL/min/1.73m2 Glucose 143(H) 60 - 115 mg/dL [facility] Calcium 6.4(L) 8.4 - 10.2 mg/dL [facility] Bilirubin, Total 0.6 0.0 - 1.0 mg/dL [facility] Aspartate Amino Transferase 30 5 - 31 U/L [facility] Alanine Aminotransferase 19 0 - 31 U/L [facility] Total Protein 7.4 6.5 - 8.0 g/dL [facility] Albumin Level 3.4(L) 3.5 - 5.0 g/dL [facility] Alkaline Phosphatase 90 39 - 117 U/L [facility] 01/27/2025 4:23 PM EDT 01/27/2025 4:27 PM EDT Generic External Data Provider LAB BLOOD ORDERAB LES Final Result Performing Organization Address [facility] Co de Phone Number [facility] [address] [place] [phone] * Partial Thromboplastin Time, Activated (APTT) (01/27/2025 4:23 PM EDT) Partial Thromboplastin Time 26.5 26.0 - 36.8 SEC [facility] Comment:For information rega rding the monitoring of direct thrombininhibitors, please refer to Pharmacy. 01/27/2025 4:23 PM EDT 01/27/2025 4:27 PM EDT Generic External Data Provider LAB BLOOD ORDERAB LES Final Result Performing Organization Address [facility] Co de Phone Number [facility] [address] [place] [phone] * (ABNORMAL) Prothrombin Time-INR (01/27/2025 4:23 PM EDT) Prothrombin Time 13.9(H) 10.9 - 12.4 SEC [facility] INTERNATIONAL NORM RATIO 1.2(H) 0.9 - 1.1 [facility] Comment:INTERNATIONAL NORMAL IZED RATIO (INR) [...] Provider LAB BLOOD ORDERAB LES Final Result [facility] [address] [place] [phone] * (ABNORMAL) CBC auto differential (01/27/2025 4:23 PM EDT) White Blood Count 5.9 4.8 - 10.8 X10*3/uL [facility] Red Blood Count 2.97(L) 4.20 - 5.50 X10*6/uL [facility] Hemoglobin 6.2(LL) 12.0 - 16.0 g/dl [facility] Comment:Results of HGB leyva d to and read back by Amadeo 01/27/25 at 1633 by [email or web address] require pathologyreview. Hematocrit 21.6(L) 37.0 - 47.0 % [facility] Mean Corpuscular Volume 72.7(L) 80.0 - 98.0 fL [facility] Mean Corpuscular Hemoglobin 20.9(L) 27.0 - 33.0 pg [facility] Mean Corpuscular HGB Conc 28.7(L) 31.0 - 35.0 g/dl [facility] Red Cell Distribution Width 18.2(H) 11.0 - 16.0 % [facility] Platelet Count 249 160 - 400 X10*3/uL [facility] Mean Platelet Volume 9.2(L) 9.4 - 12.3 fL [facility] Neutrophils Percent Auto 68.4 45 - 73 % [facility] Imm Gran Pct Auto 0.8(H) 0.0 - 0.4 % [facility] Lymphocytes Percent Auto 14.8(L) 20 - 40 % [facility] Monocytes Percent Auto 12.3(H) 2 - 11 % [facility] Eosinophils Percent Auto 2.7 0 - 4 % [facility] Basophils Percent Auto 1.0 0 - 2 % [facility] NRBC Pct Auto 1.2(H) 0.0 - 0.2 /100WBC [facility] Neutrophils Absolute Auto 4.1 2.0 - 8.3 x10*3/uL [facility] Imm Gran Abs Auto 0.05(H) 0.00 - 0.03 X10*3/uL [facility] Lymphocytes Absolute Auto 0.9(L) 1.2 - 4.9 X10*3/uL [facility] Monocytes Absolute Auto 0.7 0.1 - 1.2 X10*3/uL [facility] Eosinophils Absolute Auto 0.2 0.0 - 0.4 X10*3/uL [facility] Basophils Absolute Auto 0.1 0.0 - 0.2 X10*3/uL [facility] NRBC Abs Auto 0.070(H) 0.0 - 0.012 X10*3/uL [facility] 01/27/2025 4:23 PM EDT 01/27/2025 4:27 PM EDT us Generic External Data Provider LAB BLOOD ORDERAB LES Final Result [facility] [address] [place] [phone] * Pathologist Review - CBC (01/27/2025 12:16 PM EDT) Pathologist Review - CBC SEE NOTE [facility] Comment:- Microcytic and hyp ochromic anemia with rare nucleatedRBCs: consider iron deficiency vs anemia of chronic diseasevs blood loss vs other etiologies.- No significant schistocytes are seen.Reviewed by Faustina Robertson MD 01/27/2025 12:1 6 PM EDT 01/27/2025 12:16 PM EDT us Monica Hernandez GAS WELDING EQUIPMENT MECHANIC LAB BLOOD ORDERABLES Final Res ult Performing Organization Address [facility]/ZIP Co de Phone Number [facility] [address] [place] [phone] * (ABNORMAL) Calcium, Ionized (01/27/2025 12:16 PM EDT) Calcium, Ionized 3.6(A) 4.7 - 5.5 mg/dL [facility] Comment:THIS TEST WAS PERFOR MED AT:[employer] [place] [phone] BARR MD 01/27/2025 12:1 6 PM EDT 01/27/2025 12:16 PM EDT us Generic External Data Provider LAB BLOOD ORDERAB LES Final Result Performing Organization Address [facility] Co de Phone Number [facility] [address] [place] [phone] * T4, Free (01/27/2025 12:16 PM EDT) Free T4 (Free Thyroxine) 1.12 0.71 - 1.85 ng/dL [facility] 01/27/2025 12:1 6 PM EDT 01/27/2025 12:16 PM EDT us Generic External Data Provider LAB BLOOD ORDERAB LES Final Result Performing Organization Address [facility] Co de Phone Number [facility] [address] [place] [phone] * (ABNORMAL) TSH with Reflex to Free T4 (01/27/2025 12:16 PM EDT) TSH reflex Free T4 4.02(H) 0.32 - 4.0 uIU/mL [facility] 01/27/2025 12:1 6 PM EDT 01/27/2025 12:16 PM EDT Generic External Data Provider LAB BLOOD ORDERAB LES Final Result Performing Organization Address City/[facility]/ZIP Co de Phone Number [facility] [address] [place] [phone] * Vitamin D, 25-Hydroxy, Total, Immunoassay (01/27/2025 12:16 PM EDT) [facility] Vitamin D 25-OH Total 34.4 >30 ng/mL [facility] Comment:Health Based Referen ce Values*< 20 ng/mL [id number] ng/mL Insufficient> 30 ng/mL Sufficient*Tena CHERY. N [...] ORDERAB LES Final Result Performing Organization Address City/[facility]/ZIP Co de Phone Number [facility] [address] [place] [phone] * Magnesium (01/27/2025 12:16 PM EDT) Pathologist [facility] Magnesium 1.7 1.6 - 2.6 mg/dL [facility] 01/27/2025 12:1 6 PM EDT 01/27/2025 12:16 PM EDT Generic External Data Provider LAB BLOOD ORDERAB LES Final Result Performing Organization Address [facility] Co de Phone Number [facility] [address] [place] [phone] * (ABNORMAL) Phosphate (As Phosphorus) (01/27/2025 12:16 PM EDT) Phosphorus 4.6(H) 2.7 - 4.5 mg/dL [facility] 01/27/2025 12:1 6 PM EDT 01/27/2025 12:16 PM EDT Generic External Data Provider LAB BLOOD ORDERAB LES Final Result Performing Organization Address [facility] Phone Number [facility] [address] [place] [phone] * PTH, Intact Without Calcium (01/27/2025 12:16 PM EDT) Parathyroid Hormone, Intact 10.3 8.7 - 77.1 pg/mL [facility] 01/27/2025 12:1 6 PM EDT 01/27/2025 12:16 PM EDT Generic External Data Provider LAB BLOOD ORDERAB LES Final Result Performing Organization Address [facility] Co de Phone Number [facility] [address] [place] [phone] documented in this encounter Visit Diagnoses Not on filedocumented in this encounter Additional Health Concerns Assessment Noted Time PHQ-9 Depression Total Score: 4 04/05/20 24 10:31 AM EDT documented as of this encounter Care Teams Field Artillery Senior Sergeant Relationship Specialty Start Date End Date Monica Hernandez FNP [address] [place] [address] PCP - General Family Medicine 07/14/22 Loc Agrawal MD [address] [address] Endocrinology 10/20/24 Lamar De Paz MD 5 [place] [address] Hematology and Oncology 10/20/24 Ralph Reece MD [address] [place] [address] Cardiology 10/20/24 documented as of this encounter
--- OUTSIDE RECORDS SUMMARY | 2025-01-28 19:36 | XMS_ITS | Encounter Summary ---
Author Organization [employer] Address [address] [facility] 7t [place] [address] Care Team Providers Care Log Skidder Name Role Phone Monica Hernandez Primary Care Provider Loc Agrawal MD Unavailable [phone] Lamar De Paz MD Unavailable [phone] Ralph Reece MD Unavailable [phone] Reason for Visit * Reason Comments Med Refill Encounter Details Date Type Department Care Team (Late st Contact Info) Description 08/12/[address] [facility] [address] [place] [address] Monica Hernandez FNP [address] [place] [address] Sleep difficulties Social History Tobacco Use Types [...] Description 03/03/2025 11:15 AM EDT Office Visit [facility] MED & PEDS [address] [place] [address] Monica Hernandez FNP [address] [place] [address] documented as of this encounter Visit Diagnoses Diagnosis Sleep difficulties documented in this encounter Additional Health Concerns Assessment Noted Time PHQ-9 Depression Total Score: 2 05/09/20 23 9:29 AM EDT documented as of this encounter Care Teams Log Skidder Relationship Specialty Start Date End Date Monica Hernandez FNP [address] [place] [address] PCP - General Family Medicine 07/14/22 Loc Agrawal MD [address] [place] [address] Endocrinology 10/20/24 Lamar De Paz MD [address] [place] [address] Hematology and Oncology 10/20/24 Ralph Reece MD [address] [place] [address] Cardiology 10/20/24 documented as of this encounter
--- OUTSIDE RECORDS SUMMARY | 2025-01-28 19:36 | XMS_ITS | Encounter Summary ---
Author Organization [employer] Address [address] [facility] 7t [place] [address] Care Team Providers Care Environmental Planner Name Role Phone Monica Hernandez Primary Care Provider [phone] Loc Agrawal MD Unavailable [phone] Lamar De Paz MD Unavailable Ralph Reece MD Unavailable [phone] Reason for Visit * Reason Comments Med Refill Encounter Details Date Type Department Care Team (Late st Contact Info) Description 05/06/2024 Refill [facility] MED & PEDS [address] [place], [place] [phone] Monica Hernandez FNP [address] [place], [place] [phone] Hypothyroidism, unspecified type Social History Tobacco Use [...] Description 03/03/2025 11:15 AM EDT Office Visit [facility] MED & PEDS [address] [place] [address] Monica Hernandez FNP [address] [place] [address] documented as of this encounter Visit Diagnoses Diagnosis Hypothyroidism, unspecified type documented in this encounter Additional Health Concerns Assessment Noted Time PHQ-9 Depression Total Score: 4 04/05/20 24 10:31 AM EDT documented as of this encounter Care Teams Environmental Planner Relationship Specialty Start Date End Date Monica Hernandez FNP [address] [place] [address] PCP - General Family Medicine 07/14/22 Loc Agrawal MD [address] [address] Endocrinology 10/20/24 Lamar De Paz MD [address] [place] [address] Hematology and Oncology 10/20/24 Ralph Reece MD [address] [place] [address] Cardiology 10/20/24 documented as of this encounter
--- OUTSIDE RECORDS SUMMARY | 2025-01-28 19:36 | XMS_ITS | Encounter Summary ---
Author Organization [employer] Address [address] [facility] 7t [place] [address] Care Team Providers Care Dice Table Person Name Role Phone Monica Hernandez Primary Care Provider Loc Agrawal MD Unavailable [phone] Lamar De Paz MD Unavailable [phone] Ralph Reece MD Unavailable [phone] Reason for Visit * Reason Onset Date Comments critical lab 01/27/2025 Encounter Details Date Type Department Care Team (Late st Contact Info) Description 01/27/2025 Telephone [facility] [address] [place] [address] Monica Hernandez FNP [address] [place], [place] [phone] critical lab Social History Tobacco Use Types [...] Telephone Encounter - Dora Armas RN - 01/28/2025 9:24 AM EDT TC to pt using civil engineering intern services. No answer. Voicemail left instructing pt to call office back when able. * Telephone Encounter - Dora Armas RN - 01/27/2025 4:23 PM EDT TC to [employer] to have wellness check done on pt due to critical results and recommendations to go to ER. [facility] Department stated that an officer will go to pt house and attempt to make contact. * Telephone Encounter - Dora Armas RN - 01/27/2025 4:00 PM EDT Call attempt #3. TC to pt using civil engineering intern services. No answer. Voicemail left informing pt they have a critical blood count and provider if recommending they go to ER. Instructions left to pt to call office if they need clarification of instructions. * Telephone Encounter - Dora Armas RN - 01/27/2025 3:11 PM EDT Call Attempt #2. TC to pt using civil engineering intern services. No answer. Detailed voicemail left informing that pt has a critical lab regarding her blood count and to go to nearest ER for further assessments and treatment. * Telephone Encounter - Dora Armas RN - 01/27/2025 2:22 PM EDT TC to pt using civil engineering intern services. No answer. Detailed voicemail left informing that pt has a critical lab regarding her blood count and to go to nearest ER for further assessments and treatment. * Telephone Encounter - Daniela Sawyer RN - 01/27/2025 2:01 PM EDT TC to [facility] returning call from message left on critical line. Per pt has critical lab result. Hemoglobin 6.2 Hematocrit 22.2 Will route to PCP and team to advise. Haley COWART verbally aware. documented in this encounter Plan of Treatment Upcoming Encounters Date Type Department Care Team (Late st Contact Info) Description 03/03/2025 11:15 AM EDT Office Visit [facility] MED & PEDS [address] [place] [address] Monica Hernandez FNP [address] [place] [address] documented as of this encounter Visit Diagnoses Not on filedocumented in this encounter Additional Health Concerns Assessment Noted Time PHQ-9 Depression Total Score: 4 04/05/20 24 10:31 AM EDT documented as of this encounter Care Teams Dice Table Person Relationship Specialty Start Date End Date Monica Hernandez FNP [address] [place] [address] PCP - General Family Medicine 07/14/22 Loc Agrawal MD [address] [place] [address] Endocrinology 10/20/24 Lamar De Paz MD [address] [place] [address] Hematology and Oncology 10/20/24 Ralph Reece MD [address] [place] [address] Cardiology 10/20/24 documented as of this encounter
--- OUTSIDE RECORDS SUMMARY | 2025-01-28 19:36 | XMS_ITS | Encounter Summary ---
Author Organization [employer] Address 75 [facility] 7t [place] [address] Care Team Providers Care Forming Roll Operator Name Role Phone Monica Hernandez Primary Care Provider [phone] Loc Agrawal MD Unavailable [phone] Lamar De Paz MD Unavailable [phone] Ralph Reece MD Unavailable [phone] Reason for Visit * Reason Onset Date Comments Durable Medical Equipment 11/01/2024 Encounter Details Date Type Department Care Team (Late st Contact Info) Description 11/01/[address] [facility] MED & PEDS [address] [place], [place] [phone] Monica Hernandez FNP [address] [place], [place] [phone] Durable Medical Equipment Social History Tobacco Use [...] Jessica LPN - 11/01/2024 11:21 AM EST Hydraulic Strainer Operator spoke with pt and sister both requested for Rx to be sent to [facility] and request to cancel order at [facility] which global technical writer call multiple time to [facility] LVM . Sending to pcp as an FYI ----- Message from Monica Hernandez sent at 10/31/2024 11:18 AM EST ----- Hola Pryor - thank you for all your attention to Ms. [employer] DME items! I spoke with them yesterday and the bariatric commode and tub transfer bench are ready for chart picker. Electric scooter in process. They did [...] and tub transfer bench are ready for chart picker. Electric scooter in process. They did [...] Description 03/03/2025 11:15 AM EDT Office Visit [facility] MED & PEDS [address] [place] [address] Monica Hernandez FNP [address] [place] [address] documented as of this encounter Visit Diagnoses Not on filedocumented in this encounter Additional Health Concerns Assessment Noted Time PHQ-9 Depression Total Score: 4 04/05/20 24 10:31 AM EDT documented as of this encounter Care Teams Forming Roll Operator Relationship Specialty Start Date End Date Monica Hernandez FNP [address] [place] [address] PCP - General Family Medicine 07/14/22 Loc Agrawal MD [address] [place] [address] Endocrinology 10/20/24 Lamar De Paz MD [address] [place] [address] Hematology and Oncology 10/20/24 Ralph Reece MD [address] [place] [address] Cardiology 10/20/24 documented as of this encounter
--- OUTSIDE RECORDS SUMMARY | 2025-01-28 19:36 | XMS_ITS | Encounter Summary ---
Author Organization [employer] Address [address] [facility] 7t [place] [address] Care Team Providers Care Attendant Sales Name Role Phone Monica Hernandez Primary Care Provider Loc Agrawal MD Unavailable [phone] Lamar De Paz MD Unavailable [phone] Ralph Reece MD Unavailable [phone] Reason for Visit * Reason Onset Date Comments Durable Medical Equipment 04/11/2024 Encounter Details Date Type Department Care Team (Late st Contact Info) Description 04/11/2024 Telephone [facility] MED & PEDS [address] [place], [place] [phone] Monica Hernandez FNP [address] [place], [place] [phone] Durable Medical Equipment Social History Tobacco Use [...] her that the script was sent to [email or web address] [facility], but now she states they never received anything. Please call to clarify, as I am getting different explanations. * Telephone Encounter - Jerri Baets - 04/11/2024 11:37 AM EDT Tc from pt sister Yary requesting a call back regarding status on electrical scooter, states theycontacted [employer] [facility] [employer] however was advised to call pcp office because they do not handle supply. Was informed script has to be sent over to [place] tab ticketbroker instead. Sister quan little upset due to it being several month trying to get DME . Please contact phone# [phone] regarding next step. documented in this encounter Plan of Treatment Upcoming Encounters Date Type Department Care Team (Late st Contact Info) Description 03/03/2025 11:15 AM EDT Office Visit [facility] MED & PEDS [address] [place] [address] Monica Hernandez FNP [address] [place] [address] documented as of this encounter Visit Diagnoses Not on filedocumented in this encounter Additional Health Concerns Assessment Noted Time PHQ-9 Depression Total Score: 4 04/05/20 24 10:31 AM EDT documented as of this encounter Care Teams Attendant Sales Relationship Specialty Start Date End Date Monica Hernandez FNP [address] [place] [address] PCP - General Family Medicine 07/14/22 Loc Agrawal MD [address] [address] Endocrinology 10/20/24 Lamar De Paz MD [address] [place] [address] Hematology and Oncology 10/20/24 Ralph Reece MD [address] [place] [address] Cardiology 10/20/24 documented as of this encounter
--- OUTSIDE RECORDS SUMMARY | 2025-01-28 19:36 | XMS_ITS | Encounter Summary ---
Author Organization [employer] Address [address] [facility] [address] [place] [address] Care Team Providers Care Field Account Director Name Role Phone Monica Hernandez Primary Care Provider Loc Agrawal MD Unavailable [phone] Lamar De Paz MD Unavailable [phone] Ralph Reece MD Unavailable [phone] Reason for Visit * Reason Onset Date Comments January recall 01/23/2025 Encounter Details Date Type Department Care Team (Late st Contact Info) Description 01/23/2025 Telephone [facility] MED & PEDS [address] [place], [place] [phone] Monica Hernandez FNP [address] [place], [place] [phone] January recall Social History Tobacco Use Types [...] . Pt aware appt location geni be [facility]. documented in this encounter Plan of Treatment Upcoming Encounters Date Type Department Care Team ([facility] Contact Info) Description 03/03/2025 11:15 AM EDT Office Visit [facility] MED & PEDS [address] [place] [address] Monica Hernandez FNP [address] [place] [address] documented as of this encounter Visit Diagnoses Not on filedocumented in this encounter Additional Health Concerns Assessment Noted Time PHQ-9 Depression Total Score: 4 04/05/20 24 10:31 AM EDT documented as of this encounter Care Teams Field Account Director Relationship Specialty Start Date End Date Monica Hernandez FNP [address] [place] [address] PCP - General Family Medicine 07/14/22 Loc Agrawal MD [address] [address] Endocrinology 10/20/24 Lamar De Paz MD [address] [place] [id number] Hematology and Oncology 10/20/24 Ralph Reece MD [address] [place] [address] Cardiology 10/20/24 documented as of this encounter
--- OUTSIDE RECORDS SUMMARY | 2025-01-28 19:36 | XMS_ITS | Encounter Summary ---
Author Organization [employer] Address [address] [facility] 7[address] [place] [address] Care Team Providers Care Dry Starch Supervisor Name Role Phone Monica Hernandez Primary Care Provider Loc Agrawal MD Unavailable [phone] Lamar De Paz MD Unavailable [phone] Ralph Reece MD Unavailable [phone] Reason for Visit * Reason Onset Date Comments ER Follow-up 01/28/2025 Encounter Details Date Type Department Care Team (Late st Contact Info) Description 01/28/2025 Telephone [facility] [address] [place] [address] Monica Hernandez FNP [address] [place], [place] [phone] ER Follow-up Social History Tobacco Use Types Packs/Day Years [...] Encounter - Dora Armas RN - 01/28/2025 10:31 AM EDT TC to pt using tower equipment installer to schedule ER follow up appointment. No answer. Voicemail left instructing pt to return call to office. * Telephone Encounter - Gisela Sam - 01/28/2025 10:15 AM EDT Patient calling to report ED visit on : Date: 01/27/2025 Hospital: [facility] Seen for: Low hemoglobin (5) Symptomatic No *if yes message should go to Triage Patient advised will forward to team nurse for follow up documented in this encounter Plan of Treatment Upcoming Encounters Date Type Department Care Team ([facility] st Contact Info) Description 03/03/2025 11:15 AM EDT Office Visit [facility] MED & PEDS [address] [place] [address] Monica Hernandez FNP [address] [place], [place] [phone] documented as of this encounter Visit Diagnoses Not on filedocumented in this encounter Additional Health Concerns Assessment Noted Time PHQ-9 Depression Total Score: 4 04/05/20 10:31 AM EDT documented as of this encounter Care Teams Dry Starch Supervisor Relationship Specialty Start Date End Date Monica Hernandez FNP [address] [place] [address] PCP - General Family Medicine 07/14/22 Loc Agrawal MD [address] [place] [address] Endocrinology 10/20/24 Lamar De Paz MD [address] [place] [phone] Hematology and Oncology 10/20/24 Ralph Reece MD [address] [place] [address] Cardiology 10/20/24 documented as of this encounter
[2025-01-28 20:09] LABS: Calcium 6.7 mg/dL (8.4-10.2)
[2025-01-28] MEDS: Calcium Carbonate 750 MG TAB.CHEW PO (20:29)
--- NOTE | 2025-01-28 20:33 | PC.NURSE ---
sous chef kitchen manager at bedside. pt medicated per jan. this rn offered pt hospital bed at this time but pt states she is comfortable in the recliner at this time.
[2025-01-28 21:04] LABS: Alanine Aminotransferase 19 U/L (0-31); Albumin Level 3.5 g/dL (3.5-5.0); Alkaline Phosphatase 98 U/L (39-117); Aspartate Amino Transferase 27 U/L (5-31); Bilirubin Direct 0.2 mg/dL (0.0-0.5); Bilirubin Total 0.5 mg/dL (0.0-1.0); Total Protein 7.8 g/dL (6.5-8.0)
[2025-01-28 21:56] VITALS: BP 140/77; PULSE 76; RESP 20; TEMP 36.8; O2SAT 95
--- NOTE | 2025-01-28 22:40 | P.HPHOSP_ITS ---
History of Present Illness Date of Service: 01/28/25 Chief Complaint: Abnormal labs 54-year-old female with a past medical history of hypothyroidism, hypertension, anemia, mild cognitive impairment, traumatic brain injury, hypoparathyroidism, history of DVT; recent presentation to the ER for anemia status post blood transfusion; subsequently discharged home; patient had follow-up blood draw with her senior planning analyst and noticed to have hypocalcemia of 6.4-her senior planning analyst suggested to go to the ER for further evaluation. Patient denies any complaints. Denies any chest pain palpitations lightheadedness dizziness. Denies any fever chills cough or sputum production. Denies any GI or symptoms. Reports her appetite is normal. Review of all other systems is negative except mentioned above ER course: Per ER physician, patient is calcium levels were 6.4. Given 4 g of IV calcium gluconate in ER. ER MD Spoke to patient's senior planning analyst Dr. Gay Bellamy->who wanted to admit the patient until the calcium levels were above 7. Patient follow-up calcium level 1 in the ER was 6.7. Off note: I spoke to the patient and patient's family at bedside explained about the recommendations from the senior planning analyst, both agreed to the plan and agreed to stay in the hospital. [facility] Medical History Hypoparathyroidism TBI (traumatic brain injury) Obesity Cognitive impairment Anemia DVT (deep venous thrombosis) Hypothyroid Hypertension Family History Mother HTN (hypertension) Father Diabetes Paternal Aunt Colon cancer Maternal Aunt Breast CA Surgical History No pertinent past surgical history Social History Household Members Other:: mom Housing: House Alcohol intake: never Patient Tobacco Use Status: Never used Tobacco Smoked in Last 30 Days: No Use of substances other than those prescribed or required for medical reasons: No Advance Directives: No Advance Directives Information Provided: No Do you have a plan to hurt others: No Plan Patient : No service: No Meds Allergies Allergy/AdvReac Type Severity Reaction Status Date / Time Penicillins Allergy Unknown RASH Verified 01/28/25 17:33 Active Medications: Current Medications Acetaminophen (Acetaminophen 325 Mg Tablet) 650 mg PO Q6H PRN PRN Reason: Pain, Mild 1-3,fever,headache Calcium Carbonate (Calcium Carbonate 750 Mg Tab.Chew) 750 mg PO Q4H PRN PRN Reason: Heartburn Heparin Sodium (Porcine) (Heparin Sodium,Porcine 5,000 Unit/Ml Vial) 5,000 unit SUBCUT Q8H [facility] Magnesium Hydroxide (Milk Of Magnesia 30 Ml Oral.Susp) 30 ml PO DAILY PRN PRN Reason: Constipation Melatonin (Melatonin 3 Mg Tablet) 6 mg PO BEDTIME PRN PRN Reason: Insomnia Sodium Chloride (0.9 % Sodium Chloride Flush 3 Ml Syringe) 3 ml IVFLUSH QSHIFT [facility] Home Medications ?Medication ?Instructions ?Recorded ?Confirmed ?Last Taken ?Type diltiazem HCl 360 mg 360 mg PO DAILY 04/27/22 01/28/25 01/28/25 History capsule,extended release 24 hr docusate sodium 100 mg capsule 100 mg PO BID 04/27/22 01/28/25 01/28/25 History labetalol 100 mg tablet 200 mg PO BID 04/27/22 01/28/25 01/28/25 History lisinopril 40 mg tablet 40 mg PO DAILY 04/27/22 01/28/25 01/28/25 History calcitriol 0.25 mcg capsule 0.5 mcg PO BID 01/28/25 01/28/25 01/28/25 History levothyroxine 112 mcg tablet 112 mcg PO DAILY@0600 01/28/25 01/28/25 01/28/25 History Physical Exam 2 Vital Signs and Narrative: Vital Signs: Last Vital Signs Temp 98.2 F 01/28/25 21:56 Pulse 76 01/28/25 21:56 Resp 20 01/28/25 21:56 BP 140/77 H 01/28/25 21:56 Pulse Ox 95 01/28/25 21:56 O2 Del Method Room Air 01/28/25 21:56 BMI result Body Mass Index 73.2 Gen: Appears be in no acute distress HEENT: NCAT, Moist mucosa. Pulmonary: Vesicular breath sounds, fair air entry CVS: Normal S1-S2 Abdomen: BS+, Soft, Nontender Extremities: Warm well perfused Neuro: Alert and awake. Results Labs 01/28/25 18:38 01/28/25 18:38 Labs: Laboratory Results - last 24 hr 01/28/25 01/28/25 18:38 19:53 MCV 76.6 L MCH 22.3 L MCHC 29.1 L RDW 19.6 H Plt Count 260 MPV 9.6 Immature Gran % (Auto) 0.8 H Neut % (Auto) 72.8 Lymph % (Auto) 12.5 L [place] % (Auto) 9.6 Eos % (Auto) 3.1 Baso % (Auto) 1.2 Lymph # (Auto) 0.8 L [place] # (Auto) 0.6 Eos # (Auto) 0.2 Baso # (Auto) 0.1 Abs Immat Gran (auto) 0.05 H Absolute Neuts (auto) 4.7 Absolute Nucleated RBC 0.050 H Nucleated RBC % (auto) 0.8 H Anion Gap 11 L Estim Creat Clear Calc 130.2 Estimated GFR > 60 Random Glucose 124 H Calcium 6.7 L 6.7 L Magnesium 1.8 Total Bilirubin 0.5 Direct Bilirubin 0.2 AST 27 ALT 19 Alkaline Phosphatase 98 Total Protein 7.8 Albumin 3.5 Assessment and Plan (1) Hypocalcemia: Status: Acute Plan 54-year-old female with a past medical history of hypothyroidism, hypertension, anemia, mild cognitive impairment, traumatic brain injury, hypoparathyroidism, history of DVT; recent presentation to the ER for anemia status post blood transfusion; subsequently discharged home; patient had follow-up blood draw with her senior planning analyst and noticed to have hypocalcemia of 6.4 Hypocalcemia: Patient calcium levels were 6.4 as outpatient. Prior lab value shows calcium values ranging around 7.5-8.2. Calcium level on presentation to the ER was 6.7. Patient was given 4 g of calcium IV gluconate and follow-up calcium level of 6.7. (timing of the repeat labs is sooner) Patient albumin is 3.4. Corrected calcium is 6.9. I spoke to patient's senior planning analyst Dr. Gay Bellamy-> who specifically wanted the patient to be admitted, to repeat the calcium levels in the morning, and to increase the patient's calcitriol by 0.25 on current dose. Spoke to patient and patient's family who agreed to the above plan. Will add protein supplement Repeat calcium levels in a.m. Patient is on calcium carbonate b.i.d., calcitriol 0.5 mcg b.i.d., vitamin D3 25 mcg daily-> will continue. Calcitriol dose will be adjusted based on the morning levels of calcium. Ionized calcium levels pending. DVT prophylaxis: SubQ heparin Code status: Full code Quality Stroke Does the patient have a stroke diagnosis?: No VTE Prior VTE?: Yes VTE Risk Level:: Medical - moderate - high VTE Device Contraindication: N/A - Device Ordered VTE Drug Contraindication: N/A - Med Ordered
--- NOTE | 2025-01-28 23:02 | PHA.MEDREC ---
Addendum entered by Yakelin Hoffman RPh 01/28/25 23:08: Med rec was reviewed by [facility]. Original Note: Pharmacy Consult ? Medication Reconciliation Pharmacy has completed the medication reconciliation. Got Med Box List from family and was able to confirm med rec with that. Family at bedside confirmed she took her morning medications this morning,
[2025-01-29] MEDS: Heparin Sodium,Porcine 5,000 UNIT/ML VIAL 5000 UNIT SUBCUT ×4 (00:03→22:23)
[2025-01-29 01:04] VITALS: BP 142/71; PULSE 75; RESP 19; TEMP 36.7; O2SAT 95
[2025-01-29 05:22] LABS: Hematocrit 25.8 % (37.0-47.0); Hemoglobin 7.7 g/dl (12.0-16.0); Mean Corpuscular HGB Conc 29.8 g/dl (31.0-35.0); Mean Corpuscular Hemoglobin 22.4 pg (27.0-33.0); Mean Corpuscular Volume 75.2 fL (80.0-98.0); Mean Platelet Volume 9.7 fL (9.4-12.3); NRBC Pct Auto 0.7 /100WBC (0.0-0.2); Platelet Count 268 X10*3/uL (160-400); Red Blood Count 3.43 X10*6/uL (4.20-5.50); Red Cell Distribution Width 19.8 % (11.0-16.0); White Blood Count 7.4 X10*3/uL (4.8-10.8)
[2025-01-29 05:35] LABS: Anion Gap 15 (12-20); Blood Urea Nitrogen 14 mg/dL (9-16); Calcium 7.5 mg/dL (8.4-10.2); Carbon Dioxide 24 mmol/L (22-29); Chloride 102 mmol/L (96-108); Creatinine Clr Calc Pharmacy 140.8; Estimated Glomerular Filt Rate > 60; Glucose Random 99 mg/dL (60-115); Magnesium 1.7 mg/dL (1.6-2.6); Potassium 3.4 mmol/L (3.3-5.1); Sodium 138 mmol/L (135-145)
[2025-01-29 06:26] VITALS: BP 149/86; PULSE 64; RESP 15; TEMP 36.7; O2SAT 94
--- NOTE | 2025-01-29 06:28 | PC.NURSE ---
pt awake and sitting up in hospital bed, pt offers no complaints at this time. vss.
[2025-01-29 07:21] VITALS: BP 149/86; PULSE 96; RESP 20; TEMP 36.2; O2SAT 98
[2025-01-29] MEDS: 0.9 % Sodium Chloride Flush 3 ML SYRINGE IVFLUSH ×3 (07:44→22:24)
[2025-01-29] MEDS: Calcium Oyster Shell Elemental 500 MG TABLET PO ×2 (08:20→20:27)
[2025-01-29] MEDS: dilTIAZem HCL CD 180 MG CAP.ER.24H 360 MG PO (08:20)
[2025-01-29] MEDS: calcitrioL 0.25 MCG CAPSULE 0.5 MCG PO (08:20)
[2025-01-29] MEDS: Cholecalciferol (Vitamin D3) 25 MCG TABLET PO (08:21)
--- NOTE | 2025-01-29 10:29 | P.PNIM_ITS ---
Subjective Subjective Date of Service: 01/29/25 Review of Systems Follow hypocalcemia labs improving pt denies pain or discomfort Physical Exam 2 Vital Signs: Vital Signs: Last Vital Signs Temp 97.1 F 01/29/25 07:21 Pulse 96 01/29/25 07:21 Resp 20 01/29/25 07:21 BP 149/86 H 01/29/25 07:21 Pulse Ox 98 01/29/25 07:21 O2 Del Method Room Air 01/29/25 07:21 BMI result Body Mass Index 73.2 Appearing in no acute distress lung sounds are clear to auscultation heart regular rate rhythm, clear S1, S2 positive bowel sounds, abdomen is soft, nontender neuro patient is alert x3, no focal deficits Objective Data Active Medications Acetaminophen (Acetaminophen 325 Mg Tablet) 650 mg PO Q6H PRN PRN Reason: Pain, Mild 1-3,fever,headache Calcitriol (Calcitriol 0.25 Mcg Capsule) 0.5 mcg PO BID [facility] Last Admin: 01/29/25 08:20 Dose: 0.5 mcg Documented By: CHARIS Calcium Carbonate (Calcium Carbonate 750 Mg Tab.Chew) 750 mg PO Q4H PRN PRN Reason: Heartburn Calcium Carbonate (Calcium Oyster Shell Elemental 500 Mg Tablet) 500 mg PO BID [facility] Last Admin: 01/29/25 08:20 Dose: 500 mg Documented By: CHARIS Diltiazem HCl (Diltiazem Hcl Cd 180 Mg Cap.Er.24h) 360 mg PO DAILY [facility]; Protocol Last Admin: 01/29/25 08:20 Dose: 360 mg Documented By: CHARIS Heparin Sodium (Porcine) (Heparin Sodium,Porcine 5,000 Unit/Ml Vial) 5,000 unit SUBCUT Q8H [facility] Last Admin: 01/29/25 07:44 Dose: 5,000 unit Documented By: CHARIS Magnesium Hydroxide (Milk Of Magnesia 30 Ml Oral.Susp) 30 ml PO DAILY PRN PRN Reason: Constipation Melatonin (Melatonin 3 Mg Tablet) 6 mg PO BEDTIME PRN PRN Reason: Insomnia Sodium Chloride (0.9 % Sodium Chloride Flush 3 Ml Syringe) 3 ml IVFLUSH QSHIFT [facility] Last Admin: 01/29/25 07:44 Dose: 3 ml Documented By: CHARIS Vitamin D (Cholecalciferol (Vitamin D3) 25 Mcg Tablet) 25 mcg PO DAILY [facility] Last Admin: 01/29/25 08:21 Dose: 25 mcg Documented By: CHARIS Labs 01/29/25 04:36 01/29/25 04:36 Labs: Laboratory Results - last 24 hr 01/28/25 01/28/25 01/29/25 18:38 19:53 04:36 MCV 76.6 L 75.2 L MCH 22.3 L 22.4 L MCHC 29.1 L 29.8 L RDW 19.6 H 19.8 H Plt Count 260 268 MPV 9.6 9.7 Immature Gran % (Auto) 0.8 H Neut % (Auto) 72.8 Lymph % (Auto) 12.5 L [place] % (Auto) 9.6 Eos % (Auto) 3.1 Baso % (Auto) 1.2 Lymph # (Auto) 0.8 L [place] # (Auto) 0.6 Eos # (Auto) 0.2 Baso # (Auto) 0.1 Abs Immat Gran (auto) 0.05 H Absolute Neuts (auto) 4.7 Absolute Nucleated RBC 0.050 H 0.050 H Nucleated RBC % (auto) 0.8 H 0.7 H Anion Gap 11 L 15 Estim Creat Clear Calc 130.2 140.8 Estimated GFR > 60 > 60 Random Glucose 124 H 99 Calcium 6.7 L 6.7 L 7.5 L D Magnesium 1.8 1.7 Total Bilirubin 0.5 Direct Bilirubin 0.2 AST 27 ALT 19 Alkaline Phosphatase 98 Total Protein 7.8 Albumin 3.5 Assessment and Plan (1) Hypocalcemia: Status: Acute Plan 54-year-old female with a past medical history of hypothyroidism, hypertension, anemia, mild cognitive impairment, traumatic brain injury, hypoparathyroidism, history of DVT; recent presentation to the ER for anemia status post blood transfusion; subsequently discharged home; patient had follow-up blood draw with her security clerk and noticed to have hypocalcemia of 6.4 Hypocalcemia Patient calcium levels were 6.4 as outpatient. Prior lab value shows calcium values ranging around 7.5-8.2. Calcium level on presentation to the ER was 6.7. Patient was given 4 g of calcium IV gluconate and follow-up calcium level of 6.[address] security clerk [address] Gay Bellamy> wanted the patient to be admitted, to repeat the calcium levels in the morning, and to increase the patient's calcitriol by 0.25 on current dose. protein supplement Patient is on calcium carbonate b.i.d., calcitriol 0.5 mcg b.i.d., vitamin D3 25 mcg daily Calcitriol dose will be adjusted based on the morning levels of calcium. calcium 7.5, ionized ca pending Iron-deficiency anemia Iron 11/TIBC 307/% to 4 Iron infusion x1 Oral ferrous sulfate Hypertension Stable blood pressure Continue lisinopril Hypothyroidism Continue levothyroxine Super morbid obesity. BMI 73.2 Discussed importance of weight management as this may be contributing to worsening of other comorbidities DVT prophylaxis: SubQ heparin Code status: Full code Quality Stroke Does the patient have a stroke diagnosis?: No VTE Prior VTE?: Yes VTE Risk Level:: Medical - moderate - high VTE Device Contraindication: N/A - Device Ordered VTE Drug Contraindication: N/A - Med Ordered
[2025-01-29 11:26] VITALS: BP 160/78; PULSE 61; RESP 18; O2SAT 96
[2025-01-29] MEDS: Iron Sucrose Complex 200 MG/10 ML VIAL IVPUSH (11:28)
[2025-01-29] MEDS: Labetalol HCL 200 MG TABLET PO ×2 (11:28→20:27)
[2025-01-29] MEDS: lisinopriL 40 MG TABLET PO (11:28)
[2025-01-29] MEDS: Calcium Carbonate 750 MG TAB.CHEW PO (11:30)
--- NOTE | 2025-01-29 13:05 | MHC.CM.PN ---
PT LIVES WITH SISTER WHO IS HER FITTER TYPE BAR AND SEGMENT PT HAS HER OWN RIDE HOME DC PLAN HOME WITH FITTER TYPE BAR AND SEGMENT
[2025-01-29 16:41] VITALS: BP 103/45; PULSE 55; RESP 19; TEMP 36.7; O2SAT 94
[2025-01-29 20:00] VITALS: BP 132/63; PULSE 59; RESP 20; TEMP 36.6; O2SAT 97
[2025-01-29 20:09] VITALS: BMI 75.5
[2025-01-29] MEDS: calcitrioL 0.25 MCG CAPSULE 0.75 MCG PO (20:27)
[2025-01-29] MEDS: Docusate Sodium 100 MG CAPSULE PO (20:28)
[2025-01-30] VITALS: BP 110/52; PULSE 56; RESP 18; TEMP 36.2; O2SAT 94
[2025-01-30] MEDS: Acetaminophen 325 MG TABLET 650 MG PO (02:41)
[2025-01-30] MEDS: ondansetron HCL 4 MG/2 ML VIAL IVPUSH (02:57)
[2025-01-30 03:12] VITALS: BP 113/54; PULSE 52; RESP 18; TEMP 36.7; O2SAT 96
[2025-01-30] MEDS: Heparin Sodium,Porcine 5,000 UNIT/ML VIAL 5000 UNIT SUBCUT (05:51)
[2025-01-30] MEDS: Levothyroxine Sodium 112 MCG TABLET PO (05:51)
[2025-01-30 08:00] VITALS: BP 120/61; PULSE 56; RESP 18; TEMP 36.2; O2SAT 92
[2025-01-30] MEDS: lisinopriL 40 MG TABLET PO (08:28)
[2025-01-30] MEDS: dilTIAZem HCL CD 180 MG CAP.ER.24H 360 MG PO (08:28)
[2025-01-30] MEDS: Calcium Oyster Shell Elemental 500 MG TABLET PO (08:30)
[2025-01-30] MEDS: Docusate Sodium 100 MG CAPSULE PO (08:30)
[2025-01-30] MEDS: Labetalol HCL 200 MG TABLET PO (08:30)
[2025-01-30] MEDS: Cholecalciferol (Vitamin D3) 25 MCG TABLET PO (08:30)
[2025-01-30] MEDS: Ferrous Sulfate 324 MG TABLET.DR PO (08:30)
[2025-01-30] MEDS: calcitrioL 0.25 MCG CAPSULE 0.75 MCG PO (08:31)
--- NOTE | 2025-01-30 08:31 | P.DS_ITS ---
DS: Providers Provider Date of Service: 01/30/25 Date of admission: 01/28/25 22:45 Date of discharge: 01/30/25 Primary care physician: CLARISSE Wesley Attending physician on discharge: Samuel Huffman Discharging clinician: Dora Andrew DS: Diagnosis Discharge Diagnosis (1) Hypocalcemia: Status: Acute DS: Summary Hospital Course Hospital Course: From H&P on the day of admission 54-year-old female with a past medical history of hypothyroidism, hypertension, anemia, mild cognitive impairment, traumatic brain injury, hypoparathyroidism, history of DVT; recent presentation to the ER for anemia status post blood transfusion; subsequently discharged home; patient had follow-up blood draw with her wheelchair driver and noticed to have hypocalcemia of 6.4-her wheelchair driver suggested to go to the ER for further evaluation. Patient denies any complaints. Denies any chest pain palpitations lightheadedness dizziness. Denies any fever chills cough or sputum production. Denies any GI or symptoms. Reports her appetite is normal. Review of all other systems is negative except mentioned above ER course: Per ER physician, patient is calcium levels were 6.4. Given 4 g of IV calcium gluconate in ER. ER MD Spoke to patient's wheelchair driver Dr. Gay Cuevas->who wanted to admit the patient until the calcium levels were above 7. Patient follow-up calcium level 1 in the ER was 6.7. Of note: I spoke to the patient and patient's family at bedside explained about the recommendations from the wheelchair driver, both agreed to the plan and agreed to stay in the hospital. Hypocalcemia calcium levels were 6.4 as outpatient. Prior lab value shows calcium values ranging around 7.5-8.2. Calcium level on presentation to the ER was 6.7. Patient was given 4 g of calcium IV gluconate. albumin 3.4. wheelchair driver Dr. Gay Cuevas recommended admission, to repeat the calcium levels in the morning, and to increase the patient's calcitriol by 0.25 from current dose. Reviewed baseline calcium carbonate b.i.d., vitamin D3 25 mcg daily. Follow up calcium 7.5 improved to, ionized ca pending. outpatient follow up with Dr. cuevas recommended. She is eager to return home. Iron-deficiency anemia Iron 11/TIBC 307/% to 4. Iron infusion x1. started on Oral ferrous sulfate, no active bleeding noted, asymptomatic. Follows with hematology. Has been referred to GI for colonoscopy but has declined. Recommend outpatient follow-up Time Attestation Discharge Coordination Time (in mins): 35 Quality: Safe Use of Opioids Does Pt have an Active Cancer Diagnosis on the Problem List?: No Quality: Stroke Does the patient have a stroke diagnosis?: No Physical Exam Vital Signs: Vital Signs: Last Vital Signs Temp 97.2 F 01/30/25 08:00 Pulse 56 01/30/25 08:00 Resp 18 01/30/25 08:00 BP 120/61 01/30/25 08:00 Pulse Ox 92 01/30/25 08:00 O2 Del Method Room Air 01/30/25 08:00 BMI result Body Mass Index 75.5 Const: General: cooperative, comfortable, no acute distress, alert and awake Nutritional Appearance: obese Discharge Plan Discharge Anticipated Discharge Date/Time: 01/30/25 09:25 Patient Disposition: Home, Self-Care Discharge Diagnosis: Hypocalcemia Referrals: Monica Hernandez FNP [Primary Care Provider] - 1 Week Discharge Medications: New ferrous sulfate 324 mg (65 mg iron) Tablet,Delayed Release (Dr/Ec) 324 mg PO DAILY 90 Days Qty: 90 0RF calcitriol 0.25 mcg Capsule 0.75 mcg PO BID 30 Days Qty: 180 0RF Continued levothyroxine 112 mcg tablet 112 mcg PO DAILY@0600 docusate sodium 100 mg capsule 100 mg PO BID labetalol 100 mg tablet 200 mg PO BID diltiazem HCl 360 mg capsule,extended release 24hr 360 mg PO DAILY lisinopril 40 mg tablet 40 mg PO DAILY calcium carbonate 500 mg calcium (1,250 mg) tablet 500 mg PO BID Qty: 60 6RF Rx Instructions: please send her a formulation with smaller pill size cholecalciferol (vitamin D3) 25 mcg (1,000 unit) capsule 25 mcg PO DAILY Qty: 30 8RF Discontinued calcitriol 0.25 mcg capsule 0.5 mcg PO BID Rx Instructions: take 2 capsules in AM (o.5 mcg) and 2 capsule in PM (0.5 mcg) orally every morning; Discharge Orders: Discharge Order (Routine); Ordered 01/30/25 Ordered By: Dora Andrew Activity on Discharge: As tolerated Stand Alone Forms: Patient Portal Discharge page Print Language: Japanese Care Plan Goals: See below Health Concerns: Your calcium levels are increasing, your dose of calcitriol has been increased to 0.75 mcg twice daily - please take as prescribed. Call to schedule follow-up appointment with wheelchair driver for close monitoring of calcium levels You have been started on oral iron supplementation. Call to schedule follow-up appointment with PCP or Hematology to monitor iron levels/anemia. Consider outpatient follow-up with GI for colonoscopy as recommended by diagnostic technologist versus Cologuard if not already done Plan of Treatment: See above Assessment: See discharge summary
[2025-01-30 09:13] LABS: Calcium 8.1 mg/dL (8.4-10.2)
--- NOTE | 2025-01-30 10:14 | MHC.CM.PN ---
PT TO DC HOME TODAY WITH NO NEW SERVICES PT TO ARRANGE TRANSPORT
[2025-01-30 11:08] VITALS: BP 126/59; PULSE 64; RESP 18; TEMP 36.4; O2SAT 96
== END 2025-01-30 11:03 | disposition home or self-care (01) ==
LOC: HO.ED 20:38 → HO.EDOVER 22:47 → HO.S3 01-29 18:58
PROVIDERS: Admitting Provider Hospitalist; Emergency Provider Emergency Medicine Emergency Medical Services; PCP Registered Nurse; Visit Provider Physician Assistant Medical
DX: E83.51 Hypocalcemia (principal); I10 Essential (primary) hypertension; G31.84 Mild cognitive impairment of uncertain or unknown etiology; D50.9 Iron deficiency anemia, unspecified; E66.01 Morbid (severe) obesity due to excess calories; Z68.45 Body mass index [BMI] 70 or greater, adult; Z87.820 Personal history of traumatic brain injury
CPT/HCPCS: 36415; 80048; 80076; 82310; 82330; 83735; 85025; 85027; 93005; 96365; 96372; 96375; 99221; 99285; J0613; J1644; J1756; J2405

== ENCOUNTER → 2025-01-28 17:58 | Outpatient (BNV) | payer MEDICARE, MEDICAID, SELFPAY | PROVIDERS: Admitting Provider Hospitalist; Emergency Provider Emergency Medicine Emergency Medical Services; PCP Registered Nurse; Visit Provider Internal Medicine | DX: E83.51 Hypocalcemia (principal) | CPT/HCPCS: 93010 ==

== ENCOUNTER → 2025-01-28 22:45 | Outpatient (BNV) | payer MEDICARE, MEDICAID, SELFPAY | PROVIDERS: Admitting Provider Hospitalist; Emergency Provider Emergency Medicine Emergency Medical Services; PCP Registered Nurse; Visit Provider Nurse Practitioner Acute Care | DX: E83.51 Hypocalcemia (principal) | CPT/HCPCS: 99222; 99232 ==

== ENCOUNTER 2025-02-10 11:44 | Outpatient (REF) | payer MEDICARE, MEDICAID, SELFPAY ==
[2025-02-10 14:26] LABS: Hematocrit 29.8 % (37.0-47.0); Hemoglobin 8.5 g/dl (12.0-16.0); Mean Corpuscular HGB Conc 28.5 g/dl (31.0-35.0); Mean Platelet Volume 10.1 fL (9.4-12.3); Platelet Count 328 X10*3/uL (160-400); Red Blood Count 3.87 X10*6/uL (4.20-5.50); Red Cell Distribution Width 21.6 % (11.0-16.0); White Blood Count 6.1 X10*3/uL (4.8-10.8)
[2025-02-10 14:35] LABS: Albumin Level 3.6 g/dL (3.5-5.0); Anion Gap 14 (12-20); Blood Urea Nitrogen 18 mg/dL (9-16); Carbon Dioxide 28 mmol/L (22-29); Chloride 104 mmol/L (96-108); Estimated Glomerular Filt Rate > 60; Glucose Random 131 mg/dL (60-115); Sodium 142 mmol/L (135-145)
[2025-02-10 14:45] LABS: Alanine Aminotransferase 23 U/L (0-31); Albumin Level 3.6 g/dL (3.5-5.0); Alkaline Phosphatase 122 U/L (39-117); Anion Gap 15 (12-20); Aspartate Amino Transferase 25 U/L (5-31); Bilirubin Direct 0.2 mg/dL (0.0-0.5); Bilirubin Total 0.5 mg/dL (0.0-1.0); Blood Urea Nitrogen 19 mg/dL (9-16); Calcium 8.8 mg/dL (8.4-10.2); Carbon Dioxide 27 mmol/L (22-29); Chloride 104 mmol/L (96-108); Estimated Glomerular Filt Rate > 60; Glucose Random 127 mg/dL (60-115); Phosphorus 4.6 mg/dL (2.7-4.5); Sodium 142 mmol/L (135-145); Total Protein 7.7 g/dL (6.5-8.0)
[2025-02-10 14:56] LABS: Free T4 (Free Thyroxine) 1.12 ng/dL (0.71-1.85); Thyroid Stimulating Hormone 3.09 uIU/mL (0.32-4.0)
[2025-02-11 15:53] LABS: Calcium, Ionized 4.9 mg/dL (4.7-5.5)
== END 2025-02-10 11:45 | disposition home or self-care (01) ==
LOC: HO.CHCLDS 11:44
PROVIDERS: Student in an Organized Health Care Education/Training Program; PCP Registered Nurse; Referring Provider Nurse Practitioner Family; Visit Provider Registered Nurse
DX: E83.51 Hypocalcemia (principal); E06.3 Autoimmune thyroiditis; D50.9 Iron deficiency anemia, unspecified
CPT/HCPCS: 36415; 80048; 80076; 82040; 82330; 84100; 84439; 84443; 85027

== ENCOUNTER 2025-02-13 12:14 | Outpatient (AMB) | payer MEDICARE, MEDICAID, SELFPAY ==
--- NOTE | 2025-02-13 12:36 | MHC.OFFVIS ---
Vital Signs 02/13/25 12:37 Height 5 ft 2 in Weight 391 lb 15.71 oz BMI 71.7 BP 130/64 Blood Pressure Location Rt radial Position Sitting Pulse 54 Pulse Source Pulse Oximeter Pulse Oximetry (%) 98 Oxygen Delivery Method Room Air Intake Visit Reasons: Hypoparathyroidism Intake Note: Patient present today for Hypoparathyroidism follow up. Item Processor Required: Yes Item Processor Language: Plant Technician/Control Room Operator Services: Item Processor Offered & Declined Accompanied by: Niece Allergies Penicillins Allergy (Unknown, Verified 02/13/25 12:39) RASH HPI Comments Details: 54-year-old female coming in today for follow up of hypoparathyroidism. Here today with granddaughter Patient's granddaughter was on the phone with her mother, and they were having a conversation besides just answering my questions, which was very disruptive during the visit. When asked why she did not bring her pill bottles to the visit, she answered that no one told her, and when I pointed out that we usually write it in the instructions after the visit, she said we do not read those HPI from prior visit Per chart review he was originally diagnosed sometime in 2020/beginning of 2021 with hypoparathyroidism after she was noted to be hypocalcemic. No history of thyroid or parathyroid surgery. Father has a history of hypocalcemia. She has no history of kidney stones. No history of fractures. Reviewed investigations of the time, which showed a normal magnesium level from 2020 of 1.9. Renal Us 08/13/24 normal No blood in urine. Perimenopausal, get periods every few months. No vision changes, but hasnt seen an eye doctor in a while. No history of cataracts. No kidney stones. No fractures or falls. No mental status changes. No nausea , vomiting, no abd pain , weight has been stable no weight changes. 2022 PTH of 8. Denies kidney stones or osteoporosis. labs are from April 12 calcium 7.5, albumin 3.6 labs 10/07/24 showed low ionized calcium of Ionized calcium of 4.5 which is low, low total calcium of 8.2 with albumin of 3.7, corrected calcium would be something around 8.5. Given she was having symptoms of perioral numbness, I had increased her calcium carbonate to 500 mg twice daily as well as went up on her calcitriol to 0.5 mcg twice daily. However patient at last visit in October 2024 endorsed she was not taking her calcium carbonate because the size of the pills was bothering her. I had emphasized to her importance of taking her calcium and low calcium levels in the blood can result in if not managed timely. I had also asked her to do blood work at that time, but no blood work was done. Interval history 01/28/25 : calcium noted to be low at 6.7 , patient was sent to ED, normal EKG findings, patient was hospitalized in iv calcium given she will calcium became greater than 8 Patient is currently on vitamin D3 2 000 IU per day calcitriol increased to 0.75 ug in the morning and 0.75 mcg in evening from 0.5 Calcium carbonate 500 mg BID, back to prescription brand as there was concern whether she was taking the correct amount denies numbness or tingling in arms 02/10/2025: Phosphorus high at 4.6, normal kidney function, calcium of 9, ionized calcium of 4.9, albumin of 3.6, corrected calcium would be 9.3, she gets prepackaged medications. sister lives with her and reports good adherence to the medications denies history of seizures. Patients mother 2 weeks ago Physical exam General: sitting comfortably in no acute distress HEENT: normocephalic/atraumatic, , moist oral mucosa Neck: supple, symmetrical, Cardiac: normal heart sounds Pulm: normal breath sounds B/L, no added breath sounds Laboratory Tests 02/25/19 12/12/20 02/17/22 11:40 04:17 19:37 Hgb Hct Creatinine Estimated GFR Calcium 8.5 D 6.3 L 7.1 L D Magnesium 1.9 Phosphorus Iron 26 L Iron Saturation 8 L TIBC % Saturation Unsat Iron Binding Ferritin AST ALT TSH 3rd Generation 4.09 H PTH Intact Calcium (PTH Intact) Ur 24 Hour Volume Ur Creatinine 24 Hour Ur Calcium 24 Hr Calcium/Creat 24 Hr 11/22/22 12/26/22 01/10/23 08:29 01:39 13:15 Hgb Hct Creatinine 0.92 0.83 Estimated GFR > 60 > 60 Calcium 9.6 D 9.0 D Magnesium Phosphorus 5.5 H 5.2 H Iron Iron Saturation TIBC % Saturation Unsat Iron Binding Ferritin AST ALT TSH 3rd Generation PTH Intact 8 L Calcium (PTH Intact) 7.4 L Ur 24 Hour Volume Ur Creatinine 24 Hour Ur Calcium 24 Hr Calcium/Creat 24 Hr 01/23/23 01/23/23 08/30/23 08:00 08:00 15:41 Hgb Hct Creatinine 1.06 Estimated GFR 54 Calcium 7.9 L D Magnesium Phosphorus Iron Iron Saturation TIBC % Saturation Unsat Iron Binding Ferritin AST ALT TSH 3rd Generation PTH Intact Calcium (PTH Intact) Ur 24 Hour Volume 3000 Ur Creatinine 24 Hour 2.49 H 2.5 H Ur Calcium 24 Hr 339 H Calcium/Creat 24 Hr 136 03/06/24 04/02/24 05/16/24 12:07 11:00 12:42 Hgb 7.2 L D 8.7 L D 10.9 L D Hct 26.7 L 30.5 L 35.5 L Creatinine 0.71 Estimated GFR > 60 Calcium 7.5 L Magnesium Phosphorus Iron 18 L 207 H Iron Saturation TIBC 301 347 % Saturation 6 L 60 H Unsat Iron Binding 283 140 Ferritin 35 31 133 AST 17 ALT 9 TSH 3rd Generation PTH Intact Calcium (PTH Intact) Ur 24 Hour Volume Ur Creatinine 24 Hour Ur Calcium 24 Hr Calcium/Creat 24 Hr Laboratory Tests 01/23/23 04/02/24 10/07/24 08:00 11:00 10:25 Calcium 8.2 L D Ionized Calcium 4.5 L Phosphorus 5.2 H Magnesium 1.7 Albumin 3.6 3.7 25-OH Vitamin D Total 32.9 TSH 2.78 PTH Intact 9.7 Ur 24 Hour Volume Ur Creatinine mg/dL 83.35 Ur Creatinine 24 Hour Ur Calcium 24 Hr Calcium/Creat 24 Hr 10/09/24 08:00 Calcium Ionized Calcium Phosphorus Magnesium Albumin 25-OH Vitamin D Total TSH PTH Intact Ur 24 Hour Volume 975 Ur Creatinine mg/dL 72.71 Ur Creatinine 24 Hour 0.7 L Ur Calcium 24 Hr 189 Calcium/Creat 24 Hr 285 H Laboratory Tests 02/25/19 12/12/20 02/17/22 11:40 04:17 19:37 Hgb Hct Creatinine Estimated GFR Calcium 8.5 D 6.3 L 7.1 L D Magnesium 1.9 Phosphorus Ionized Calcium Iron 26 L Iron Saturation 8 L TIBC % Saturation Unsat Iron Binding Ferritin AST ALT Albumin TSH 3rd Generation 4.09 H TSH Free T4 PTH Intact Calcium (PTH Intact) Ur 24 Hour Volume Ur Creatinine 24 Hour Ur Calcium 24 Hr Calcium/Creat 24 Hr 11/22/22 12/26/22 01/10/23 08:29 01:39 13:15 Hgb Hct Creatinine 0.92 0.83 Estimated GFR > 60 > 60 Calcium 9.6 D 9.0 D Magnesium Phosphorus 5.5 H 5.2 H Ionized Calcium Iron Iron Saturation TIBC % Saturation Unsat Iron Binding Ferritin AST ALT Albumin TSH 3rd Generation TSH Free T4 PTH Intact 8 L Calcium (PTH Intact) 7.4 L Ur 24 Hour Volume Ur Creatinine 24 Hour Ur Calcium 24 Hr Calcium/Creat 24 Hr 01/23/23 01/23/23 08/30/23 08:00 08:00 15:41 Hgb Hct Creatinine 1.06 Estimated GFR 54 Calcium 7.9 L D Magnesium Phosphorus Ionized Calcium Iron Iron Saturation TIBC % Saturation Unsat Iron Binding Ferritin AST ALT Albumin TSH 3rd Generation TSH Free T4 PTH Intact Calcium (PTH Intact) Ur 24 Hour Volume 3000 Ur Creatinine 24 Hour 2.49 H 2.5 H Ur Calcium 24 Hr 339 H Calcium/Creat 24 Hr 136 03/06/24 04/02/24 05/16/24 12:07 11:00 12:42 Hgb 7.2 L D 8.7 L D 10.9 L D Hct 26.7 L 30.5 L 35.5 L Creatinine 0.71 Estimated GFR > 60 Calcium 7.5 L Magnesium Phosphorus Ionized Calcium Iron 18 L 207 H Iron Saturation TIBC 301 347 % Saturation 6 L 60 H Unsat Iron Binding 283 140 Ferritin 35 31 133 AST 17 ALT 9 Albumin TSH 3rd Generation TSH Free T4 PTH Intact Calcium (PTH Intact) Ur 24 Hour Volume Ur Creatinine 24 Hour Ur Calcium 24 Hr Calcium/Creat 24 Hr 01/28/25 01/29/25 01/30/25 19:53 04:36 08:39 Hgb Hct Creatinine 0.74 Estimated GFR > 60 Calcium 6.7 L 7.5 L D 8.1 L D Magnesium Phosphorus Ionized Calcium 4.0 L Iron Iron Saturation TIBC % Saturation Unsat Iron Binding Ferritin AST ALT Albumin 3.5 TSH 3rd Generation TSH Free T4 PTH Intact Calcium (PTH Intact) Ur 24 Hour Volume Ur Creatinine 24 Hour Ur Calcium 24 Hr Calcium/Creat 24 Hr 02/06/25 02/10/25 14:24 11:32 Hgb Hct Creatinine 0.85 Estimated GFR > 60 > 60 Calcium 9.1 D 9.0 Magnesium Phosphorus 4.6 H Ionized Calcium 4.9 Iron Iron Saturation TIBC % Saturation Unsat Iron Binding Ferritin AST ALT Albumin 3.6 3.6 TSH 3rd Generation TSH 3.09 Free T4 1.12 PTH Intact Calcium (PTH Intact) Ur 24 Hour Volume Ur Creatinine 24 Hour Ur Calcium 24 Hr Calcium/Creat 24 Hr US RETROPERITONEAL LIMITED (RENAL ONLY) 08/13/24 CLINICAL INFORMATION: Hypoparathyroidism, unspecified.. COMPARISON: Ultrasound renal with Doppler 12/08/2021. TECHNIQUE: Real-time imaging of the kidneys. Technically limited study secondary to body habitus. FINDINGS: RIGHT KIDNEY: 9.9 x 4.6 x 6.5 cm (SAG x AP x TRV). The kidney is normal in size, contour, and echogenicity. Renal cortical thickness is normal. No calculi or focal parenchymal lesions. No hydronephrosis. LEFT KIDNEY: 10.9 x 4.9 x 6.6 cm (SAG x AP x TRV). The kidney is normal in size, contour, and echogenicity. Renal cortical thickness is normal. No calculi or focal parenchymal lesions. No hydronephrosis. US/US renal BI IMPRESSION: Normal exam without nephrolithiasis. Electronically signed by: Keagan Guillen MD 10/03/2024 11:51 AM EST US RETROPERITONEAL LIMITED (RENAL ONLY) Nov 2021 US RENAL DOPPLER CLINICAL INFORMATION: Hypertension. Rule out renal artery stenosis. COMPARISON: None TECHNIQUE: Mckeon-scale and color imaging of the kidneys. Mckeon-scale, color and Doppler imaging of the renal arteries including waveform spectral analysis. Exam is limited due to patient body habitus. FINDINGS: RIGHT KIDNEY: 10.8 x 5.5 x 6.1 cm (SAG x AP x TRV). The kidney is normal in size, contour, and echogenicity. Renal cortical thickness is normal. No calculi or focal parenchymal lesions. No hydronephrosis. LEFT KIDNEY: 10.5 x 5.1 x 5.2 cm (SAG x AP x TRV). The kidney is normal in size, contour, and echogenicity. Renal cortical thickness is normal. No calculi or focal parenchymal lesions. No hydronephrosis. The abdominal aorta is difficult to visualize. Peak systolic velocity measures 220 cm/s which is elevated making calculation of renal artery to aorta ratio inaccurate. The visualized right renal artery appears patent. Right renal artery peak systolic velocities are normal measuring 134 cm/s, 128 cm/s and 80 cm/s proximally, in the midportion and distally. Segmental resistive indices in the right kidney are normal measuring between 0.6 and 0.8. The right renal vein is patent. The visualized left renal artery appears patent. Left renal artery peak systolic velocities are normal measuring 101, 81 and 79 cm/s proximally, in the midportion and distally. Resistive indices of the segmental renal arteries in the left kidney are normal measuring 0.7. The left renal vein is patent. US/US renal BI IMPRESSION: Limited exam due to patient body habitus. Normal-appearing kidneys. No evidence of renal artery stenosis. [facility] Medical History Hypoparathyroidism TBI (traumatic brain injury) Obesity Cognitive impairment Anemia DVT (deep venous thrombosis) Hypothyroid Hypertension Surgical History No pertinent past surgical history Family History Mother HTN (hypertension) Father Diabetes Paternal Aunt Colon cancer Maternal Aunt Breast CA Social History Household Members Other:: mom Housing: House Alcohol intake: never Patient Tobacco Use Status: Never used Tobacco service: No Physical Exam Vital Signs: Last Vital Signs Pulse 54 02/13/25 12:37 BP 130/64 02/13/25 12:37 Pulse Ox 98 02/13/25 12:37 Oxygen Delivery Method Room Air 02/13/25 12:37 BMI result Body Mass Index 71.7 Assessment & Plan Assessment & Plan (1) Hypoparathyroidism: Code(s): E20.9 - Hypoparathyroidism, unspecified Category: Medical Qualifiers: Hypoparathyroidism type: unspecified Qualified Code(s): E20.9 - Hypoparathyroidism, unspecified Plan: Patient who is diagnosed with hypoparathyroidism sometime around 11/2021, who is currently maintained on calcitriol 0.75 mcg in a.m. and 0.75 mcg in evening, and vitamin-D 2000 units daily, Our goal is to maintain calcium it in the lower normal range which would be something around 8-8.5. This is in order to prevent hypercalciuria. in 2022 showed her 24 hour urine calcium was 339 which is elevated since goal in woman is less than 250 mg per 24 hours, however her urine volume was 3 L which was also very increased so inadequate collection. Her kidney function stable, and renal ultrasound from 2023 did not show any nephrocalcinosis, These should be done of the 2 or 3 year kylah on treatment. US renal done 07/29/24 She has not had any workup for why she has developed hypoparathyroidism. Differentials include autoimmune polyglandular syndrome type 1, however no history of candidiasis. She does not have any symptoms of adrenal insufficiency, Twenty-one hydroxylase antibodies came back negative. Other differentials include other genetic mutations causing hypoparathyroidism especially given that she has family history of hypocalcemia in her father per the chart. I referred her to Genetics at [facility] in 08/13. [facility] genetics has a wait time of 6-9 months and at this time referral is pending evaluation.This was placed previously as well but does not seem like patient was able to get to them. She was also previously given a referral for [facility] to see hyperparathyroidism expert over there, however she says she did not hear from them, I placed this again visit in Jul 2024 as she would benefit from genetic workup to evaluate this and I have asked them to call their office. Patients daughter expressed difficult yregarding trnasport to [place] and at this time the refusing to go, will let me know of the change their mind. . Her mother also recently, and she is very distraught at this time. In September 2024, patient was not adherent to her calcium pills because of the size of the pills was bothering her hence we told her to switch to some other brand and she was taking [employer] gummies, however early January 2025, calcium levels dropped to 6.7 and she was sent to the ED for IV calcium replacement. Given there was concern of whether she is taking the correct amount or not, plus they are unable to bring medication bottles to the visit as she gets prepackaged pills, we decided to switch back to prescription only pills. Her calcitriol was increased to 0.75 mcg b.i.d.. Most recent labs from 02/10/2025 showed calcium is at 9, with albumin of 3.6, corrected calcium would be 9.3-9.4. We will decrease the amount of calcitriol, phosphorus is also high. Plan: -ordered repeat calcium, phosphorus, creatinine, , ionized calcium, albumin, vitamin-D to be done in 8 weeks -[facility] genetics referral already in place, she is on the wait list, [facility] genetics referral also placed and patient given [place] [place] for further evaluation of hyperparathyroidism etiology if genetics is more feasible to be done there , patient refusing at this time we will let us know if she changes her mind -reduce calcitriol 0.5 mcg in a.m. 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 Normal TSH and free T4 from January 2025 Plan: -continue levothyroxine 112 mcg daily Plan See above Orders: Orders Calcium, Ionized 8 Weeks E20.9 - Hypoparathyroidism, unspecified, E83.51 - Hypocalcemia Vitamin D 25-OH Total 8 Weeks E20.9 - Hypoparathyroidism, unspecified, E83.51 - Hypocalcemia Albumin Level 8 Weeks E20.9 - Hypoparathyroidism, unspecified, E83.51 - Hypocalcemia Calcium 8 Weeks E20.9 - Hypoparathyroidism, unspecified, E83.51 - Hypocalcemia Phosphorus 8 Weeks E20.9 - Hypoparathyroidism, unspecified, E83.51 - Hypocalcemia Basic Metabolic Panel 8 Weeks E20.9 - Hypoparathyroidism, unspecified, E83.51 - Hypocalcemia Medications: Changed From calcitriol 0.75 mcg (3 x 0.25 mcg) PO BID 30 days 180 caps 0RF To calcitriol 0.5 mcg (2 x 0.25 mcg) PO BID 30 days 120 caps 5RF Patient Instructions: reduce calcitriol to 0.5 mcg twice a day Continue calcium 500 mg twice daily Continue vitamin D 2000 units daily Do blood work in 8 weeks Follow up in 6 months Coding Level of Care Code Est Pt Level 3 (06082) Diagnoses Hypoparathyroidism, unspecified hypoparathyroidism type E20.9 Hypoparathyroidism type: unspecified 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
[2025-02-13 12:37] VITALS: BP 130/64; PULSE 54; O2SAT 98; BMI 71.7
--- OUTSIDE RECORDS SUMMARY | 2025-02-13 15:33 | XMS_ITS | Encounter Summary ---
Author Organization [employer] Address [address] [place] [address] Care Team Providers Care Entertainment Lawyer Name Role Phone Monica Hernandez Primary Care Provider Loc Agrawal MD Unavailable [phone] Lamar De Paz MD Unavailable [phone] Ralph Reece MD Unavailable [phone] Reason for Visit * Reason Onset Date Comments critical lab 01/27/2025 Encounter Details Date Type Department Care Team (Late st Contact Info) Description 01/27/2025 Telephone [facility] [address] [place] [address] Monica Hernandez FNP [address] [place], [place] [phone] critical lab Social History Tobacco Use Types [...] 9:24 AM EDT TC to pt using medical interpreter services. No answer. Voicemail left instructing pt to call office back when able. * Telephone Encounter - Dora Armas RN - 01/27/2025 4:23 PM EDT TC to [place] [employer] to have wellness check done on pt due to critical results and recommendations to go to ER. [facility] [place] Department stated that an officer will go to pt house and attempt to make contact. * Telephone Encounter - Dora Armas RN - 01/27/2025 4:00 PM EDT Call attempt #3. TC to pt using medical interpreter services. No answer. Voicemail left informing pt they have a critical blood count and provider if recommending they go to ER. Instructions left to pt to call office if they need clarification of instructions. * Telephone Encounter - Dora Armas RN - 01/27/2025 3:11 PM EDT Call Attempt #2. TC to pt using medical interpreter services. No answer. Detailed voicemail left informing that pt has a critical lab regarding her blood count and to go to nearest ER for further assessments and treatment. * Telephone Encounter - Dora Armas RN - 01/27/2025 2:22 PM EDT TC to pt using medical interpreter services. No answer. Detailed voicemail left informing that pt has a critical lab regarding her blood count and to go to nearest ER for further assessments and treatment. * Telephone Encounter - Daniela Sawyer RN - 01/27/2025 2:01 PM EDT [place] to [facility] [place] from message left on critical line. Per pt has critical lab result. Hemoglobin 6.2 Hematocrit 22.2 Will route to PCP and team to advise. Haley COWART verbally aware. documented in this encounter Plan of Treatment Upcoming Encounters Date Type Department Care Team (Late st Contact Info) Description 03/03/2025 11:15 AM EDT Office Visit [facility] [address] [place] [address] Monica Hernandez FNP [address] [place] [address] documented as of this encounter Visit Diagnoses Not on filedocumented in this encounter Additional Health Concerns Assessment Noted Time PHQ-9 Depression Total Score: 4 04/05/20 24 10:31 AM EDT documented as of this encounter Care Teams Entertainment Lawyer Relationship Specialty Start Date End Date Monica Hernandez FNP [address] [place] [address] PCP - General Family Medicine 07/14/22 Loc Agrawal MD [address] [place] [id number] Endocrinology 10/20/24 Lamar De Paz MD [address] [place] [id number] Hematology and Oncology 10/20/24 Ralph Reece MD [address] [place] [address] Cardiology 10/20/24 documented as of this encounter
--- OUTSIDE RECORDS SUMMARY | 2025-02-13 15:33 | XMS_ITS | Encounter Summary ---
Author Organization [employer] Address [address] [facility] [place] [place] [address] Care Team Providers Care Air Filler Name Role Phone Pedrocarlo Monica ROBB Primary Care Provider [phone] Loc Agrawal MD Unavailable [phone] Lamar De Paz MD Unavailable [phone] [place] Reece MD Unavailable [phone] Encounter Details Date Type Department Care [...] Description 03/03/2025 11:15 AM EDT Office Visit [facility] [address] [place] [address] Monica Hernandez, DINING ROOM HELPER [address] [place] [address] documented as of this encounter Procedures Procedure Name Priority Date/Time Associated Diagnosis Comments CALCIUM Routine 01/28/2025 7:53 PM EDT HEPATIC FUNCTION PANEL Routine 01/28/2025 7:53 PM EDT CBC WITH AUTO DIFFERENTIAL Routine 01/28/2025 6:38 PM EDT MAGNESIUM Routine 01/28/2025 6:38 PM EDT BASIC METABOLIC PANEL Routine 01/28/2025 6:38 PM EDT CBC WITH AUTO DIFFERENTIAL Routine 01/28/2025 12:58 AM EDT documented in this encounter Results * Hepatic Function Panel (01/28/2025 7:53 PM EDT) Bilirubin, Total 0.5 0.0 - 1.0 mg/dL [facility] Bilirubin, Direct 0.2 0.0 - 0.5 mg/dL [facility] Aspartate Amino Transferase 27 5 - 31 U/L [facility] Alanine Aminotransferase 19 0 - 31 U/L [facility] Total Protein 7.8 6.5 - 8.0 g/dL [facility] Albumin Level 3.5 3.5 - 5.0 g/dL [facility] Alkaline Phosphatase 98 39 - 117 U/L [facility] 01/28/2025 7:53 PM EDT 01/28/2025 7:57 PM EDT us Generic External Data Provider LAB BLOOD ORDERAB LES Final Result Performing Organization Address [facility] Co de Phone Number [facility] [address] [place] [phone] * (ABNORMAL) Calcium (01/28/2025 7:53 PM EDT) Calcium 6.7(L) 8.4 - 10.2 mg/dL [facility] 01/28/2025 7:53 PM EDT 01/28/2025 7:57 PM EDT us Generic External Data Provider LAB BLOOD ORDERAB LES Final Result Performing Organization Address [facility] Co de Phone Number [facility] [address] [place] [phone] * Magnesium (01/28/2025 6:38 PM EDT) Magnesium 1.8 1.6 - 2.6 mg/dL [facility] 01/28/2025 6:38 PM EDT 01/28/2025 6:42 PM EDT us Generic External Data Provider LAB BLOOD ORDERAB LES Final Result Performing Organization Address [facility] Co de Phone Number [facility] [address] [place] [phone] * (ABNORMAL) Basic Metabolic Panel (01/28/2025 6:38 PM EDT) Sodium 139 135 - 145 mmol/L [facility] Potassium 3.8 3.3 - 5.1 mmol/L [facility] Chloride 104 96 - 108 mmol/L [facility] Carbon Dioxide 28 22 - 29 mmol/L [facility] Anion Gap 11(L) 12 - 20 [facility] Urea Nitrogen (BUN) 16 9 - 16 mg/dL [facility] Creatinine, Serum 0.80 0.5 - 1.4 mg/dL [facility] Creatinine Clr Calc Pharmacy 130.2 [facility] Comment:Provided height and weight: 157.48 cm,181.437 kg.eGFR (calculated from the MDRD study equation) and eCrCl(calculated from the Cockcroft-Gault equation) are based ondifferent parameters and may not yield comparable results.If eCrCl result is absurd, please check patient'sheight/weight. Estimated Glomerular Filt Rate >60 [facility] Comment:Chronic Kidney Disea se: Estimated GFR < 60 mL/min/[id number] Kidney Disease: Estimated GFR < 15 mL/min/1.73m2 Glucose 124(H) 60 - 115 mg/dL [facility] Calcium 6.7(L) 8.4 - 10.2 mg/dL [facility] 01/28/2025 6:38 PM EDT 01/28/2025 6:42 PM EDT us Generic External Data Provider LAB BLOOD ORDERAB LES Final Result [facility] [address] [place] [address] [phone] * (ABNORMAL) CBC auto differential (01/28/2025 6:38 PM EDT) White Blood Count 6.5 4.8 - 10.8 X10*3/uL [facility] Red Blood Count 3.50(L) 4.20 - 5.50 X10*6/uL [facility] Hemoglobin 7.8(L) 12.0 - 16.0 g/dl [facility] Hematocrit 26.8(L) 37.0 - 47.0 % [facility] Mean Corpuscular Volume 76.6(L) 80.0 - 98.0 fL [facility] Mean Corpuscular Hemoglobin 22.3(L) 27.0 - 33.0 pg [facility] Mean Corpuscular HGB Conc 29.1(L) 31.0 - 35.0 g/dl [facility] Red Cell Distribution Width 19.6(H) 11.0 - 16.0 % [facility] Platelet Count 260 160 - 400 X10*3/uL [facility] Mean Platelet Volume 9.6 9.4 - 12.3 fL [facility] Neutrophils Percent Auto 72.8 45 - 73 % [facility] Imm Gran Pct Auto 0.8(H) 0.0 - 0.4 % [facility] Lymphocytes Percent Auto 12.5(L) 20 - 40 % [facility] Monocytes Percent Auto 9.6 2 - 11 % [facility] Eosinophils Percent Auto 3.1 0 - 4 % [facility] Basophils Percent Auto 1.2 0 - 2 % [facility] NRBC Pct Auto 0.8(H) 0.0 - 0.2 /100WBC [facility] Neutrophils Absolute Auto 4.7 2.0 - 8.3 x10*3/uL [facility] Imm Gran Abs Auto 0.05(H) 0.00 - 0.03 X10*3/uL [facility] Lymphocytes Absolute Auto 0.8(L) 1.2 - 4.9 X10*3/uL [facility] Monocytes Absolute Auto 0.6 0.1 - 1.2 X10*3/uL [facility] Eosinophils Absolute Auto 0.2 0.0 - 0.4 X10*3/uL [facility] Basophils Absolute Auto 0.1 0.0 - 0.2 X10*3/uL [facility] NRBC Abs Auto 0.050(H) 0.0 - 0.012 X10*3/uL [facility] 01/28/2025 6:38 PM EDT 01/28/2025 6:42 PM EDT us Generic External Data Provider LAB BLOOD ORDERAB LES Final Result [facility] [address] [place] [phone] * (ABNORMAL) CBC auto differential (01/28/2025 12:58 AM EDT) White Blood Count 8.3 4.8 - 10.8 X10*3/uL [facility] Red Blood Count 3.58(L) 4.20 - 5.50 X10*6/uL [facility] Hemoglobin 8.1(L) 12.0 - 16.0 g/dl [facility] Hematocrit 26.4(L) 37.0 - 47.0 % [facility] Mean Corpuscular Volume 73.7(L) 80.0 - 98.0 fL [facility] Mean Corpuscular Hemoglobin 22.6(L) 27.0 - 33.0 pg [facility] Mean Corpuscular HGB Conc 30.7(L) 31.0 - 35.0 g/dl [facility] Red Cell Distribution Width 19.5(H) 11.0 - 16.0 % [facility] Platelet Count 267 160 - 400 X10*3/uL [facility] Mean Platelet Volume 9.4 9.4 - 12.3 fL [facility] Neutrophils Percent Auto 73.8(H) 45 - 73 % [facility] Imm Gran Pct Auto 0.5(H) 0.0 - 0.4 % [facility] Lymphocytes Percent Auto 13.4(L) 20 - 40 % [facility] Monocytes Percent Auto 8.6 2 - 11 % [facility] Eosinophils Percent Auto 2.7 0 - 4 % [facility] Basophils Percent Auto 1.0 0 - 2 % [facility] NRBC Pct Auto 0.5(H) 0.0 - 0.2 /100WBC [facility] Neutrophils Absolute Auto 6.1 2.0 - 8.3 x10*3/uL [facility] Imm Gran Abs Auto 0.04(H) 0.00 - 0.03 X10*3/uL [facility] Lymphocytes Absolute Auto 1.1(L) 1.2 - 4.9 X10*3/uL [facility] Monocytes Absolute Auto 0.7 0.1 - 1.2 X10*3/uL [facility] Eosinophils Absolute Auto 0.2 0.0 - 0.4 X10*3/uL [facility] Basophils Absolute Auto 0.1 0.0 - 0.2 X10*3/uL [facility] NRBC Abs Auto 0.040(H) 0.0 - 0.012 X10*3/uL [facility] 01/28/2025 12:5 8 AM EDT 01/28/2025 1:00 AM EDT us Generic External Data Provider LAB BLOOD ORDERAB LES Final Result [facility] [address] [place] [phone] documented in this encounter Visit Diagnoses Not on filedocumented in this encounter Additional Health Concerns Assessment Noted Time PHQ-9 Depression Total Score: 4 04/05/20 24 10:31 AM EDT documented as of this encounter Care Teams Air Filler Relationship Specialty Start Date End Date Monica Hernandez FNP [address] [place] [phone] PCP - General Family Medicine 07/14/22 Loc Agrawal MD [address] [place] [address] Endocrinology 10/20/24 Lamar De Paz MD [address] [place] [address] Hematology and Oncology 10/20/24 [place] Reece MD [address] [place] [address] Cardiology 10/20/24 documented as of this encounter
--- OUTSIDE RECORDS SUMMARY | 2025-02-13 15:33 | XMS_ITS | Encounter Summary ---
Author Organization [employer] Address [address] [facility] [address] [place] [address] Care Team Providers Care Fire Control Technician Name Role Phone PedroFiliberto matosadali ROBB Primary Care Provider [phone] Loc Agrawal MD Unavailable [phone] Lamar De Paz MD Unavailable [phone] [place] Reece MD Unavailable [phone] Encounter Details Date Type Department Care Team (Latest Contact Info) Description 02/10/2025 Travel Social History Tobacco Use Types Packs/Day Years Used Date Smoking Tobacco: Former Cigarettes Passive Smoke Exposure: Never Smokeless Tobacco: Never Alcohol Use Standard Drinks/Week Comments Never 0 (1 standard drink = 0.6 oz pur e alcohol) Depression Answer Date Recorded Patient Health Questionnaire-9 Score 11 02/11/2025 Patient Health Questionnaire-9 Score 11 02/11/2025 Last PHQ-9: Questionnaire Data Not on file 0 02/11/2025 Housing Stability Answer Date Recorded What is [...] Answer Date Recorded Patient Health Questionnaire-2 Score 3 02/11/2025 Comments Unknown Sex and Gender Information Value [...] Description 03/03/2025 11:15 AM EDT Office Visit [facility] [address] [place] [address] Monica Hernandez FNP [address] [place] [address] documented as of this encounter Visit Diagnoses Not on filedocumented in this encounter Additional Health Concerns Assessment Noted Time PHQ-9 Depression Total Score: 3 02/11/20 25 11:14 AM EDT documented as of this encounter Care Teams Fire Control Technician Relationship Specialty Start Date End Date Monica Hernandez FNP [address] [place] [address] PCP - General Family Medicine 07/14/22 Loc Agrawal MD [address] [place] [address] Endocrinology 10/20/24 Lamar De Paz MD [address] [place] [address] Hematology and Oncology 10/20/24 [place] Reece MD [address] [place] [address] Cardiology 10/20/24 documented as of this encounter
--- OUTSIDE RECORDS SUMMARY | 2025-02-13 15:33 | XMS_ITS | Encounter Summary ---
Author Organization [employer] Address [address] [facility] [address] [place] [address] Care Team Providers Care Dietary Services Director Name Role Phone Pedrocarlo Monica ROBB Primary Care Provider [phone] Loc Agrawal MD Unavailable [phone] Lamar De Paz MD Unavailable [phone] [place] Reece MD Unavailable [phone] Encounter Details Date Type Department Care Team (Late st Contact Info) Description 02/10/2025 Orders Only GENERIC EXTERNAL DATA DEPARTMENT Provider, [...] Description 03/03/2025 11:15 AM EDT Office Visit [facility] [address] [place] [address] Monica Hernandez, TREKKING GUIDE [address] [place] [address] documented as of this encounter Procedures Procedure Name Priority Date/Time Associated Diagnosis Comments TSH Routine 02/10/2025 11:32 AM EDT T4, FREE Routine 02/10/2025 11:32 AM EDT PHOSPHATE ( PHOSPHORUS) Routine 02/10/2025 11:32 AM EDT CALCIUM, IONIZED Routine 02/10/2025 11:3 2 AM EDT ALBUMIN Routine 02/10/2025 11:32 AM EDT BASIC METABOLIC PANEL Routine 02/10/2025 11:32 AM EDT documented in this encounter Results * Calcium, Ionized (02/10/2025 11:32 AM EDT) Calcium, Ionized 4.9 4.7 - 5.5 mg/dL [facility] Comment:THIS TEST WAS PERFOR MED AT:[facility] [place] [id number] BARR MD 02/10/2025 11:3 2 AM EDT 02/10/2025 2:20 PM EDT Generic External Data Provider LAB BLOOD ORDERAB LES Final Result Performing Organization Address City/[facility]/ZIP Co de Phone Number [facility] [address] [place] [phone] * TSH (02/10/2025 11:32 AM EDT) Thyroid Stimulating Hormone 3.09 0.32 - 4.0 uIU/mL [facility] Comment:Note: A sustained TS H level above 2.5 uIU/mL may warrant further investigation. TSH 3rd Generation ([facility]) 02/10/2025 11:3 2 AM EDT 02/10/2025 2:21 PM EDT Generic External Data Provider LAB BLOOD ORDERAB LES Final Result Performing Organization Address [facility]/ZIP Co de Phone Number [facility] [address] [place] [phone] * T4, Free (02/10/2025 11:32 AM EDT) Free T4 (Free Thyroxine) 1.12 0.71 - 1.85 ng/dL [facility] 02/10/2025 11:3 2 AM EDT 02/10/2025 2:21 PM EDT Generic External Data Provider LAB BLOOD ORDERAB LES Final Result Performing Organization Address [facility] Co de Phone Number [facility] [address] [place] [phone] * (ABNORMAL) Phosphate (As Phosphorus) (02/10/2025 11:32 AM EDT) Phosphorus 4.6(H) 2.7 - 4.5 mg/dL [facility] 02/10/2025 11:3 2 AM EDT 02/10/2025 2:21 PM EDT Generic External Data Provider LAB BLOOD ORDERAB LES Final Result Performing Organization Address [facility]/ZIP Co de Phone Number [facility] [address] [place] [phone] * (ABNORMAL) Basic Metabolic Panel (02/10/2025 11:32 AM EDT) Sodium 142 135 - 145 mmol/L [facility] Potassium 4.0 3.3 - 5.1 mmol/L [facility] Chloride 104 96 - 108 mmol/L [facility] Carbon Dioxide 27 22 - 29 mmol/L [facility] Anion Gap 15 12 - 20 [facility] Urea Nitrogen (BUN) 19(H) 9 - 16 mg/dL [facility] Creatinine, Serum 0.86 0.5 - 1.4 mg/dL [facility] Estimated Glomerular Filt Rate >60 [facility] Comment:Chronic Kidney Disea se: Estimated GFR < 60 mL/min/[id number] Kidney Disease: Estimated GFR < 15 mL/min/1.73m2 Glucose 127(H) 60 - 115 mg/dL [facility] Calcium 8.8 8.4 - 10.2 mg/dL [facility] 02/10/2025 11:3 2 AM EDT 02/10/2025 2:21 PM EDT us Generic External Data Provider LAB BLOOD ORDERAB LES Final Result Performing Organization Address [facility]/ZIP Co de Phone Number [facility] [address] [place] [phone] * Albumin (02/10/2025 11:32 AM EDT) Albumin Level 3.6 3.5 - 5.0 g/dL [facility] 02/10/2025 11:3 2 AM EDT 02/10/2025 2:21 PM EDT us Generic External Data Provider LAB BLOOD ORDERAB LES Final Result [facility] [address] [place] [phone] documented in this encounter Visit Diagnoses Not on filedocumented in this encounter Additional Health Concerns Assessment Noted Time PHQ-9 Depression Total Score: 3 02/11/20 11:14 AM EDT documented as of this encounter Care Teams Dietary Services Director Relationship Specialty Start Date End Date Monica Hernandez FNP [address] [place] [address] PCP - General Family Medicine 07/14/22 Loc Agrawal MD [address] [place] [address] Endocrinology 10/20/24 Lamar De Paz MD [address] [place] [address] Hematology and Oncology 10/20/24 [place] Reece MD [address] [place] [address] Cardiology 10/20/24 documented as of this encounter
--- OUTSIDE RECORDS SUMMARY | 2025-02-13 15:33 | XMS_ITS | Encounter Summary ---
Author Organization [employer] Address 75 [facility] 7t [place] [address] Care Team Providers Care Security And Compliance Project Manager Name Role Phone Monica Hernandez Primary Care Provider Loc Agrawal MD Unavailable [phone] Lamar De Paz MD Unavailable [phone] [place] Reece MD Unavailable [phone] Reason for Visit * Reason Onset Date Comments January recall 01/23/2025 Encounter Details Date Type Department Care Team (Late st Contact Info) Description 01/23/2025 Telephone [facility] [address] [place], [place] [phone] Monica Hernandez FNP [address] [place], [place] [phone] January recall Social History Tobacco Use Types [...] Pt aware appt location geni be [facility]. documented in this encounter Plan of Treatment Upcoming Encounters Date Type Department Care Team ([facility] [address] Contact Info) Description 03/03/2025 11:15 AM EDT Office Visit [facility] [address] [place] [address] Monica Hernandez FNP [address] [place] [address] documented as of this encounter Visit Diagnoses Not on filedocumented in this encounter Additional Health Concerns Assessment Noted Time PHQ-9 Depression Total Score: 4 04/05/20 24 10:31 AM EDT documented as of this encounter Care Teams Security And Compliance Project Manager Relationship Specialty Start Date End Date Monica Hernandez FNP [address] [place] [address] PCP - General Family Medicine 07/14/22 Loc Agrawal MD [address] [address] Endocrinology 10/20/24 Lamar De Paz MD [address] [place] [address] Hematology and Oncology 10/20/24 [place] Reece MD [address] [place] [address] Cardiology 10/20/24 documented as of this encounter
--- OUTSIDE RECORDS SUMMARY | 2025-02-13 15:33 | XMS_ITS | Clinical Summary ---
Author Organization [employer] Address [address] [facility] [address] [place] [address] Care Team Providers Care Ballet Teacher Name Role Phone PedroFiliberto matosadali ROBB Primary Care Provider [phone] Loc Agrawal MD Unavailable [phone] Lamar De Paz MD Unavailable [phone] Ralph Reeec MD Unavailable [phone] Allergies Active Allergy Reactions Criticality Noted Date Comments Hydromorphone-Bupivacaine- Nacl 02/06/2023 Penicillin G Unknown 12/22/2022 Penicillins Other reaction(s): unspecified Medications * This document contains information received from the source organization and may not represent a complete record from that organization. levothyroxine (Synthroid, Levoxyl) 112 MCG tabletIndication s:Hypothyroidism , unspecified type TAKE 1 TABLET BY MOUTH EVERY MORNING 90 tablet 12/06/19 24 Active D3 Super Strength 50 MCG (1999) capsuleIndicatio ns:Vitamin D deficiency TAKE 1 CAPSULE BY MOUTH EVERY MORNING 90 capsule 3 02/08/20 24 Active lisinopril 40 MG tabletIndication s:Essential hypertension TAKE 1 TABLET BY MOUTH EVERY MORNING 90 tablet 3 07/31/20 24 Active docusate sodium (Colace) 100 MG capsuleIndicatio ns:Constipation, unspecified constipation type TAKE 1 CAPSULE BY MOUTH TWICE DAILY IN THE MORNING AND IN THE EVENING 180 capsule 1 08/27/20 24 Active labetalol (Normodyne) 100 MG tablet TAKE 2 TABLETS BY MOUTH TWICE DAILY IN THE MORNING AND EVENING 360 tablet 1 09/30/20 24 Active dilTIAZem CD (Cardizem CD) 360 MG 24 hr capsule TAKE 1 CAPSULE BY MOUTH EVERY MORNING 90 capsule 1 09/30/20 24 Active melatonin 5 MG tabletIndication s:Sleep difficulties TAKE 1 TABLET BY MOUTH 60 MINUTES BEFORE BEDTIME NEEDED FOR SLEEP 90 tablet 3 09/30/20 24 Active Pain Reliever Plus 250-250-65 MG tablet Take by mouth. TAKE 1 TABLET BY MOUTH EVERY 4 TO 6 HOURS NEEDED FOR HEADACHE 10/28/20 Active ferrous sulfate 324 (65 Fe) MG EC tablet Take 1 tablet by mouth in the morning. 01/31/20 Active calcitriol (Rocaltrol) 0.25 MCG capsule Take 3 capsules by mouth 2 times daily. Active Oyster Shell Calcium 500 MG tablet Take 1 tablet by mouth 2 times daily. Active Oyster Shell Calcium 500 MG tabletIndication s:Routine health maintenance TAKE 1 TABLET BY MOUTH EVERY MORNING 90 tablet 3 02/08/20 24 025 Discontinued(Me d list cleanup (will not trigger notification to Pharmacy)) calcitriol (Rocaltrol) 0.25 MCG capsule Take 0.5 mcg by mouth Once per day. 04/05/20 025 Discontinued(Me d list cleanup (will not trigger notification to Pharmacy)) ferrous sulfate (FeroSul) 325 (65 Fe) MG tabletIndication s:Anemia, unspecified type TAKE 1 TABLET BY MOUTH EVERY MORNING 90 tablet 06/06/20 24 025 Discontinued(Me d list cleanup (will not trigger notification to Pharmacy)) Active Problems Problem Noted Date Diagnosed Date Grief 02/11/2025 Exercise counseling 02/10/2025 Screening for colon cancer 02/10/2025 Hypocalcemia 02/10/2025 Dietary counseling 02/10/2025 Anxiety 02/10/2025 Elevated hemoglobin A1c 10/31/2024 Assessment & Plan (10/31/2024 11:15 AM EST): Lab Results Component Value Date HGBA1C 6.6 (H) 10/07/2024 - Repeat A1c to confirm diagnosis - Encouraged lifestyle intervention to decrease simple sugar/carb intake Intermittent chest pain 10/20/2024 Overview (10/20/2024): Followed by [facility] - Dr. Reece Sep 2024: echo, nuclear stress test, 30 day Holter pending ED precautions Healthcare maintenance 11/11/2023 Overview (08/18/2024): Mammogram: BIRADS 1 on 06/09/24 Colon CA screening: (+) fam hx of colon CA. Cologuard ordered 11/10/23. Initially declined colonoscopy referral, but then did accept and was referred to [facility] in March 2024 Pap: 07/12/22 NILM [...] safety Hypothyroidism 05/04/2023 Overview (04/06/2024): Following with [facility] Davida Agrawal Levothyroxine 112mcg daily Assessment & Plan (04/06/2024 11:15 AM EDT): Repeat TSH ordered Assessment & Plan (08/11/2023 6:18 AM EDT): Following with Mirtha Agrawal Moderate depressive disorder 02/06/2023 Vitamin D deficiency 10/22/2022 Assessment & Plan (04/05/2024 11:21 AM EDT): -Cont Vit D 2000 units daily Family history of colon cancer 10/22/2022 Hypoparathyroidism 09/01/2022 Overview (10/31/2024): Following with [facility] Davida Agrawal/ Dr. Bellamy (last consult Oct 2024) Goal calcium range: 8-8.5 Referred for [facility] consult in Jul 2024 to eval [...] Plan (11/11/2023 11:55 AM EST): -Following with [facility] - Dr. Agrawal. Per last consult note in Aug 2022: Hypoparathyroidism. Possible etiologies behind the hypocalcemia could include secondary hyperparathyroidism due to vitamin-D deficiency versus idiopathic hypoparathyroidism. Plan is to recheck calcium, phosphorus, PTH, albumin. Further workup and/or treatment will be based on the above Menorrhagia with irregular cycle 02/16/2022 Overview (08/18/2024): Following with [facility] RULING TECHNICIAN - Dr. Mayers 2013: recommendation for EMB & sonohysterogram d/t focal endometrial hypoechoic area on US measuring [id number] Pap: 07/12/22 NILM HPV neg [facility]: hysteroscopy with polypectomy, D&C, IUD insertion on 06/10/24 Assessment & Plan (04/06/2024 11:41 AM EDT): Have missed multiple appts for procedure, although niece reports that pt recently completed US and has follow up scheduled with [facility] RULING TECHNICIAN within the next month. Reviewed importance of keeping appt Physical deconditioning 07/19/2018 Assessment & Plan (10/20/2024 7:56 PM EST): - High risk for falls - Preventative measures: Bariatric commode: DME request Jul 2024 - pending Bariatric Tub Transfer Bench: DME request 10/20/24 Microcytic anemia 11/10/2015 Overview (10/20/2024): Following with [facility] Heme/Onc - Dr. De Paz (last consult note Sep 2024) Completed IV iron (Venofer) in 2023 GI: referred to [facility], initial consult scheduled. Per Heme/Onc note Sep 2024, pt declining colonoscopy but open to Cologuard. Order placed through PCP on 10/20/24 RULING TECHNICIAN: following with [facility] - had IUD placement in 2023 [...] AM EDT): Hx ANIYA, previously followed by [facility]e/Onc. Last available consult note from Jul 2018 Plan to cont on oral iron (pt declined IV iron), and to arrange for colonoscopy (does not appear this was performed) ED precautions reviewed Follow up with [facility] Heme/Onc as scheduled Assessment & Plan (11/11/2023 12:02 PM EST): ?? Hx ANIYA, previously followed by [facility] Heme/Onc. Last available consult note from Jul 2018 ?? Plan to cont on oral iron (pt declined IV iron), and to arrange for colonoscopy (does not appear this was performed) ?? Repeat labs ordered today Assessment & Plan (05/10/2023 7:45 AM EDT): Requested to check POC Hbg, WNL in office today Essential hypertension 11/10/2015 Overview (08/15/2024): Following with [facility] - Dr. Reece (last consult: March 2024) [...] eval completed Jul 2024. 2nd eval at [facility] completed Sep 2024. Documents faxed to [employer]. DME request for bariatric [...] DME request for 2XL diapers from other [employer] company as current diapers no longer very absorbant per pt report Assessment & Plan (05/10/2023 7:43 AM EDT): ?? 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 Date Type Department Care Team Description 02/10/2025 10:15 AM EDT Office Visit [facility] [address] [place] [address] Jamila Ledbetter MD Microcytic anemia (Primary Dx); Hypothyroidism, unspecified type; Hypocalcemia; Screening for colon cancer; Dietary counseling; Exercise counseling; Severe obesity (BMI >= 40) ([facility]); Anxiety 02/10/2025 Orders Only GENERIC EXTERNAL DATA DEPARTMENT Provider, Generic External Data 02/10/2025 Travel 02/06/2025 Telephone [facility] [address] [place] [phone] Monica Hernandez FNP ER Follow-up 01/28/2025 Telephone [facility] [address] [place] [phone] Monica Hernandez FNP ER Follow-up 01/28/2025 Orders Only GENERIC EXTERNAL DATA DEPARTMENT Provider, Generic External Data 01/27/2025 Orders Only GENERIC EXTERNAL DATA DEPARTMENT Provider, Generic External Data 01/27/2025 Telephone [facility] PEDIATRICS [address] [place] [phone] Monica Hernandez FNP critical lab 01/23/2025 Telephone [facility]S [address] [place], [place] [phone] Monica Hernandez FNP January recall from Last 3 Months Immunizations Name Administration [...] Sign Reading Time Taken Comments Blood Pressure 130/72 02/10/2025 10:27 AM EDT Pulse 63 02/10/2025 10:27 AM EDT Temperature 36.6 ??C (97.9 ??F) 02/10/2025 10:27 AM E DT Respiratory Rate 20 02/10/2025 10:27 AM EDT Oxygen Saturation 95% 02/10/2025 10:27 AM EDT Inhaled Oxygen Concentration - - Weight 177 kg (390 lb) 02/10/2025 10:27 AM EDT Height 160 cm (5' 3 ) 02/10/2025 10:27 AM EDT Body Mass Index 69.09 02/10/2025 10:27 AM EDT Plan of Treatment Upcoming Encounters Date Type Department Care Team (Late st Contact Info) Description 03/03/2025 11:15 AM EDT Office Visit [facility] [address] [place] [address] Monica Hernandez, VICE PRESIDENT COMPLIANCE [address] [place] [address] Health Maintenance Due Date Last Done Comments CT Colonography 1970 Colonoscopy 1970 Colorectal Cancer Screening 1970 FIT DNA/Cologuard 1970 FIT 1970 FOBT 1970 Sigmoidoscopy 1970 Alcohol/Substance Use Screening 1982 Hepatitis B Vaccines (1 of 3 - 19+ 3-dose series) 1989 Pneumococcal Vaccine: 50+ Years (2 of 2 - PCV) 2020 10/10/2011, 06/29/2010 COVID-19 Vaccine ( - season) 2024 02/17/2022, 04/14/2021, 03/17/2021 Influenza Vaccine (#1) 2024 07/21/2011 SDOH Screening 04/05/2025 04/05/2024 Mammogram 06/19/2025 06/19/2024, 02/26/2019 Pap Smear 07/15/2025 07/15/2022 Depression Monitoring (PHQ-9) 08/14/2025 02/11/2025, 02/11/2025 Tobacco Screening 08/16/2025 08/16/2024 Depression Screening 02/11/2026 02/11/2025, 02/12/20 Cervical Cancer Screening 07/15/2027 HPV/Cotest 07/15/2027 07/15/2022 [...] Procedure Name Priority Date/Time Associated Diagnosis Comments CALCIUM, IONIZED Routine 02/10/2025 11:3 2 AM EDT TSH Routine 02/10/2025 11:32 AM EDT T4, FREE Routine 02/10/2025 11:32 AM EDT PHOSPHATE ( PHOSPHORUS) Routine 02/10/2025 11:32 AM EDT BASIC METABOLIC PANEL Routine 02/10/2025 11:32 AM EDT ALBUMIN Routine 02/10/2025 11:32 AM EDT BASIC METABOLIC PANEL Routine 02/10/2025 11:32 AM EDT Hypocalcemia CBC Routine 02/10/2025 11:32 AM EDT Microcytic anemia HEPATIC FUNCTION PANEL Routine 11:32 AM EDT Hypocalcemia HEPATIC FUNCTION PANEL Routine 7:53 PM EDT CALCIUM Routine 01/28/2025 7:53 PM EDT MAGNESIUM Routine 01/28/2025 6:38 PM [...] to Health Maintenance Results * (ABNORMAL) CBC (02/10/2025 11:32 AM EDT) White Blood Count 6.1 4.8 - 10.8 X10*3/uL [facility] Red Blood Count 3.87(L) 4.20 - 5.50 X10*6/uL [facility] Hemoglobin 8.5(L) 12.0 - 16.0 g/dl [facility] Hematocrit 29.8(L) 37.0 - 47.0 % [facility] Mean Corpuscular Volume 77.0(L) 80.0 - 98.0 fL [facility] Mean Corpuscular Hemoglobin 22.0(L) 27.0 - 33.0 pg [facility] Mean Corpuscular HGB Conc 28.5(L) 31.0 - 35.0 g/dl [facility] Red Cell Distribution Width 21.6(H) 11.0 - 16.0 % [facility] Platelet Count 328 160 - 400 X10*3/uL [facility] Mean Platelet Volume 10.1 9.4 - 12.3 fL [facility] NRBC Pct Auto 0.0 0.0 - 0.2 /100WBC [facility] NRBC Abs Auto 0.000 0.0 - 0.012 X10*3/uL [facility] Blood Venous blood specimen / Unknown 02/10/2025 11:32 AM EDT 02/10/2025 2:20 PM EDT us [employer] Mg VICE PRESIDENT COMPLIANCE LAB BLOOD ORDERABLES Final Res ult Performing Organization Address [facility]/ZIP Co de Phone Number [facility] [address] [place] [phone] * TSH (02/10/2025 11:32 AM EDT) Pathologist [facility] Thyroid Stimulating Hormone 3.09 0.32 - 4.0 uIU/mL [facility] Comment:Note: A sustained TS H level above 2.5 uIU/mL may warrant further investigation. TSH 3rd Generation ([facility]) 02/10/2025 11:3 2 AM EDT 02/10/2025 2:21 PM EDT us Generic External Data Provider LAB BLOOD ORDERAB LES Final Result Performing Organization Address [facility] Co de Phone Number [facility] [address] [place] [phone] * T4, Free (02/10/2025 11:32 AM EDT) Only the most recent of2 resultswithin the time period is included. Free T4 (Free Thyroxine) 1.12 0.71 - 1.85 ng/dL [facility] 02/10/2025 11:3 2 AM EDT 02/10/2025 2:21 PM EDT Generic External Data Provider LAB BLOOD ORDERAB LES Final Result Performing Organization Address [facility] Co de Phone Number [facility] [address] [place] [address] [phone] * (ABNORMAL) Phosphate (As Phosphorus) (02/10/2025 11:32 AM EDT) Only the most recent of2 resultswithin the time period is included. Phosphorus 4.6(H) 2.7 - 4.5 mg/dL [facility] 02/10/2025 11:3 2 AM EDT 02/10/2025 2:21 PM EDT Generic External Data Provider LAB BLOOD ORDERAB LES Final Result Performing Organization Address [facility] Co de Phone Number [facility] [address] [place] [phone] * Calcium, Ionized (02/10/2025 11:32 AM EDT) Only the most recent of2 resultswithin the time period is included. Calcium, Ionized 4.9 4.7 - 5.5 mg/dL [facility] Comment:THIS TEST WAS PERFOR MED AT:[employer] [place] [phone] BARR MD 02/10/2025 11:3 2 AM EDT 02/10/2025 2:20 PM EDT Generic External Data Provider LAB BLOOD ORDERAB LES Final Result Performing Organization Address [facility] Co de Phone Number [facility] [address] [place] [phone] * Albumin (02/10/2025 11:32 AM EDT) Albumin Level 3.6 3.5 - 5.0 g/dL [facility] 02/10/2025 11:3 2 AM EDT 02/10/2025 2:21 PM EDT us Generic External Data Provider LAB BLOOD ORDERAB LES Final Result Performing Organization Address City/[facility]/ZIP Co de Phone Number [facility] [address] [place] [phone] * (ABNORMAL) Hepatic Function Panel (02/10/2025 11:32 AM EDT) Only the most recent of2 resultswithin the time period is included. Bilirubin, Total 0.5 0.0 - 1.0 mg/dL [facility] Bilirubin, Direct 0.2 0.0 - 0.5 mg/dL [facility] Aspartate Amino Transferase 25 5 - 31 U/L [facility] Alanine Aminotransferase 23 0 - 31 U/L [facility] Total Protein 7.7 6.5 - 8.0 g/dL [facility] Albumin Level 3.6 3.5 - 5.0 g/dL [facility] Alkaline Phosphatase 122(H) 39 - 117 U/L [facility] Blood Venous blood specimen / Unknown 02/10/2025 11:32 AM EDT 02/10/2025 2:21 PM EDT us Beba Mg VICE PRESIDENT COMPLIANCE LAB BLOOD ORDERABLES Final Res ult Performing Organization Address City/[facility]/ZIP Co de Phone Number [facility] [address] [place] [phone] * (ABNORMAL) Basic Metabolic Panel (02/10/2025 11:32 AM EDT) Only the most recent of3 resultswithin the time period is included. Sodium 142 135 - 145 mmol/L [facility] Potassium 4.0 3.3 - 5.1 mmol/L [facility] Chloride 104 96 - 108 mmol/L [facility] Carbon Dioxide 27 22 - 29 mmol/L [facility] Anion Gap 15 12 - 20 [facility] Urea Nitrogen (BUN) 19(H) 9 - 16 mg/dL [facility] Creatinine, Serum 0.86 0.5 - 1.4 mg/dL [facility] Estimated Glomerular Filt Rate >60 [facility] Comment:Chronic Kidney Disea se: Estimated GFR < 60 mL/min/[id number] Kidney Disease: Estimated GFR < 15 mL/min/1.73m2 Glucose 127(H) 60 - 115 mg/dL [facility] Calcium 8.8 8.4 - 10.2 mg/dL [facility] 02/10/2025 11:3 2 AM EDT 02/10/2025 2:21 PM EDT Generic External Data Provider LAB BLOOD ORDERAB LES Final Result [facility] [address] [place] [phone] * (ABNORMAL) Calcium (01/28/2025 7:53 PM EDT) Pathologist [facility] Calcium 6.7(L) 8.4 - 10.2 mg/dL [facility] 01/28/2025 7:53 PM EDT 01/28/2025 7:57 PM EDT us Generic External Data Provider LAB BLOOD ORDERAB LES Final Result Performing Organization Address City/[facility]/ZIP Co de Phone Number [facility] [address] [place] [phone] * (ABNORMAL) CBC auto differential (01/28/2025 6:38 PM EDT) Only the most recent of4 resultswithin the time period is included. White Blood Count 6.5 4.8 - 10.8 X10*3/uL [facility] Red Blood Count 3.50(L) 4.20 - 5.50 X10*6/uL [facility] Hemoglobin 7.8(L) 12.0 - 16.0 g/dl [facility] Hematocrit 26.8(L) 37.0 - 47.0 % [facility] Mean Corpuscular Volume 76.6(L) 80.0 - 98.0 fL [facility] Mean Corpuscular Hemoglobin 22.3(L) 27.0 - 33.0 pg [facility] Mean Corpuscular HGB Conc 29.1(L) 31.0 - 35.0 g/dl [facility] Red Cell Distribution Width 19.6(H) 11.0 - 16.0 % [facility] Platelet Count 260 160 - 400 X10*3/uL [facility] Mean Platelet Volume 9.6 9.4 - 12.3 fL [facility] Neutrophils Percent Auto 72.8 45 - 73 % [facility] Imm Gran Pct Auto 0.8(H) 0.0 - 0.4 % [facility] Lymphocytes Percent Auto 12.5(L) 20 - 40 % [facility] Monocytes Percent Auto 9.6 2 - 11 % [facility] Eosinophils Percent Auto 3.1 0 - 4 % [facility] Basophils Percent Auto 1.2 0 - 2 % [facility] NRBC Pct Auto 0.8(H) 0.0 - 0.2 /100WBC [facility] Neutrophils Absolute Auto 4.7 2.0 - 8.3 x10*3/uL [facility] Imm Gran Abs Auto 0.05(H) 0.00 - 0.03 X10*3/uL [facility] Lymphocytes Absolute Auto 0.8(L) 1.2 - 4.9 X10*3/uL [facility] Monocytes Absolute Auto 0.6 0.1 - 1.2 X10*3/uL [facility] Eosinophils Absolute Auto 0.2 0.0 - 0.4 X10*3/uL [facility] Basophils Absolute Auto 0.1 0.0 - 0.2 X10*3/uL [facility] NRBC Abs Auto 0.050(H) 0.0 - 0.012 X10*3/uL [facility] 01/28/2025 6:38 PM EDT 01/28/2025 6:42 PM EDT us Generic External Data Provider LAB BLOOD ORDERAB LES Final Result [facility] [address] [place] [phone] * Magnesium (01/28/2025 6:38 PM EDT) Only the most recent of3 resultswithin the time period is included. Magnesium 1.8 1.6 - 2.6 mg/dL [facility] 01/28/2025 6:38 PM EDT 01/28/2025 6:42 PM EDT us Generic External Data Provider LAB BLOOD ORDERAB LES Final Result Performing Organization Address [facility] Co de Phone Number [facility] [address] [place] [phone] * (ABNORMAL) Iron And Total Iron Binding Capacity (01/27/2025 4:23 PM EDT) Iron 11(L) 30 - 160 mcg/dL [facility] Total Iron Binding Capacity 307 228 - 428 mcg/dL [facility] Percent Iron Saturation 4(L) 15 - 50 % [facility] Unsaturated Iron Binding 296 ug/dL [facility] 01/27/2025 4:23 PM EDT 01/27/2025 4:27 PM EDT us Generic External Data Provider LAB BLOOD ORDERAB LES Final Result Performing Organization Address [facility]/ZIP Co de Phone Number [facility] [address] [place] [phone] * Partial Thromboplastin Time, Activated (APTT) (01/27/2025 4:23 PM EDT) Partial Thromboplastin Time 26.5 26.0 - 36.8 SEC [facility] Comment:For information rega rding the monitoring of direct thrombininhibitors, please refer to Pharmacy. 01/27/2025 4:23 PM EDT 01/27/2025 4:27 PM EDT us Generic External Data Provider LAB BLOOD ORDERAB LES Final Result Performing Organization Address City/[facility]/ZIP Co de Phone Number [facility] [address] [place] [address] [phone] * (ABNORMAL) Prothrombin Time-INR (01/27/2025 4:23 PM EDT) [facility] Prothrombin Time 13.9(H) 10.9 - 12.4 SEC [facility] INTERNATIONAL NORM RATIO 1.2(H) 0.9 - 1.1 [facility] Comment:INTERNATIONAL NORMAL IZED RATIO (INR) [...] ORDERAB LES Final Result Performing Organization Address [facility]/ZIP Co de Phone Number [facility] [address] [place] [phone] * Type and screen (01/27/2025 4:23 PM EDT) Blood Type BP [facility] Antibody Screen NEGATIVE [facility] 01/27/2025 4:23 PM EDT 01/27/2025 4:29 PM EDT us Generic External Data Provider LAB BLOOD BANK TE ST ORDERABLES Final Result [facility] [address] [place] [phone] * (ABNORMAL) Comprehensive Metabolic Panel (01/27/2025 4:23 PM EDT) Only the most recent of2 resultswithin the time period is included. Sodium 138 135 - 145 mmol/L [facility] Potassium 3.8 3.3 - 5.1 mmol/L [facility] Chloride 104 96 - 108 mmol/L [facility] Carbon Dioxide 26 22 - 29 mmol/L [facility] [facility] Anion Gap 12 12 - 20 [facility] Urea Nitrogen (BUN) 18(H) 9 - 16 mg/dL [facility] Creatinine, Serum 0.66 0.5 - 1.4 mg/dL [facility] Creatinine Clr Calc Pharmacy 157.8 [facility] Comment:Provided height and weight: 157.48 cm,181.437 kg.eGFR (calculated from the MDRD study equation) and eCrCl(calculated from the Cockcroft-Gault equation) are based ondifferent parameters and may not yield comparable results.If eCrCl result is absurd, please check patient'sheight/weight. Estimated Glomerular Filt Rate >60 [facility] Comment:Chronic Kidney Disea se: Estimated GFR < 60 mL/min/1.59k5Txrqps Kidney Disease: Estimated GFR < 15 mL/min/1.73m2 Glucose 143(H) 60 - 115 mg/dL [facility] Calcium 6.4(L) 8.4 - 10.2 mg/dL [facility] Bilirubin, Total 0.6 0.0 - 1.0 mg/dL [facility] Aspartate Amino Transferase 30 5 - 31 U/L [facility] Alanine Aminotransferase 19 0 - 31 U/L [facility] Total Protein 7.4 6.5 - 8.0 g/dL [facility] Albumin Level 3.4(L) 3.5 - 5.0 g/dL [facility] Alkaline Phosphatase 90 39 - 117 U/L [facility] 01/27/2025 4:23 PM EDT 01/27/2025 4:27 PM EDT us Generic External Data Provider LAB BLOOD ORDERAB LES Final Result Performing Organization Address [facility] Co de Phone Number [facility] [address] [place] [phone] * Pathologist Review - CBC (01/27/2025 12:16 PM EDT) Pathologist Review - CBC SEE NOTE [facility] Comment:- Microcytic and hyp ochromic anemia with rare nucleatedRBCs: consider iron deficiency vs anemia of chronic diseasevs blood loss vs other etiologies.- No significant schistocytes are seen.Reviewed by Faustina Robertson MD 01/27/2025 12:1 6 PM EDT 01/27/2025 12:16 PM EDT us Monica Hernandez VICE PRESIDENT COMPLIANCE LAB BLOOD ORDERABLES Final Res ult Performing Organization Address [facility] Co de Phone Number [facility] [address] [place] [address] [phone] * Vitamin D, 25-Hydroxy, Total, Immunoassay (01/27/2025 12:16 PM EDT) Vitamin D 25-OH Total 34.4 >30 ng/mL [facility] Comment:Health Based Referen ce Values*< 20 ng/mL Vnjbrjlgp20-74 ng/mL Insufficient> 30 ng/mL Sufficient*Tena CHERY. N [...] ORDERAB LES Final Result Performing Organization Address [facility]/ZIP Co de Phone Number [facility] [address] [place] [phone] * (ABNORMAL) TSH with Reflex to Free T4 (01/27/2025 12:16 PM EDT) TSH reflex Free T4 4.02(H) 0.32 - 4.0 uIU/mL [facility] 01/27/2025 12:1 6 PM EDT 01/27/2025 12:16 PM EDT Generic External Data Provider LAB BLOOD ORDERAB LES Final Result Performing Organization Address [facility] Co de Phone Number [facility] [address] [place] [phone] * PTH, Intact Without Calcium (01/27/2025 12:16 PM EDT) Parathyroid Hormone, Intact 10.3 8.7 - 77.1 pg/mL [facility] 01/27/2025 12:1 6 PM EDT 01/27/2025 12:16 PM EDT Generic External Data Provider LAB BLOOD ORDERAB LES Final Result Performing Organization Address [facility] Co de Phone Number [facility] [address] [place] [phone] * (ABNORMAL) Hemoglobin A1c (01/27/2025 12:16 PM EDT) Hemoglobin A1c 7.1(H) <6.0 % [facility] Comment:Hemoglobin A1C Refer ence Range Adults: 4.8 - 6.0 % Non diabetic: < 6.0 % Goal: < 7.0 %Additional Action Suggested: > 8.0 %Note: Hemoglobin A1c results are invalid for patients with abnormal amounts of HbF. Blood transfusions may impact the HbA1c concentration in the patient sample. Estimated Average Glucose 157 mg/dL [facility] Comment:eAG = Estimated ave rage glucose which is %A1C expressed asaverage glucose, using the formula of the G9X-YswkapuYyekzdx Glucose study (ADAG), Diabetes Care, Vol.31,#8,2007 Blood Venous blood specimen / Unknown 01/27/2025 12:16 PM EDT 01/27/2025 12:16 PM EDT Monica Hernandez [facility] LAB BLOOD ORDERABLES Final Res ult Performing Organization Address [facility] Co de Phone Number [facility] [address] [place] [phone] * Hepatitis C Viral RNA, Quantitative, Real-Time PCR (10/07/2024 10:25 AM EST) Pathologist [facility] Hepatitis C Viral Load <15 NOT DETECTED NOT DETECTED IU/mL [facility] HCV Log PCR <1.18 NOT DETECTED NOT DETECTED Log IU/mL [facility] Comment:For additional infor juan josé, please refer tohttp://education.[employer]/faq/KKP19f0(This link is being provided for informational/educational purposes only.)THIS TEST WAS PERFORMED AT:[employer] [place] [phone] BARR MD Blood 10/07/2024 10:2 5 AM EST 10/07/2024 10:25 AM EST Monica Hernandez [facility] LAB BLOOD ORDERABLES Final Res ult Performing Organization Address City/[facility]/ZIP Co de Phone Number [facility] [address] [place] [phone] [phone] * HIV-1/2 Antigen and Antibodies, Fourth Generation, with Reflexes (10/07/2024 10:25 AM EST) [facility] HIV AB/AG Nonreactive Nonreactive [facility] Comment:HIV-1 p24 Ag and/or HIV-1/HIV-2 Ab not detected.A test result that is nonreactive does not exclude thepossibility of exposure to or infection with HIV-1 and/orHIV-2. Nonreactive results in this assay for individualswith prior exposure to HIV-1 and/or HIV-2 may be due toantigen and antibody levels that are below the limit ofdetection of this assay.The [facility] HIV Ag/Ab Combo assay result andsupplemental assay results should be interpreted inconjunction with the patient's clinical presentation,history and other laboratory results. If the results areinconsistent with clinical evidence, additional testing issuggested to confirm the result. Blood Venous blood specimen / Unknown 10/07/2024 10:25 AM EST 10/07/2024 10:25 AM EST Monica Hernandez [facility] LAB BLOOD ORDERABLES Final Res ult Performing Organization Address [facility] Co de Phone Number [facility] [address] [place] [address] [phone] * BI Mammogram Screening Tomosynthesis Bilateral (06/19/2024 10:05 AM EDT) Anatomical Region Laterality Modality Breast Bilateral Mammography 06/19/2024 10:0 5 AM EDT Narrative 06/26/2024 11:59 AM EDT ? [facility] [place] ? [address] ?[place] [address] ? Mammography Report ? Signed ? Patient: Lee,Shayy ?MR#: [id number] ?? [id number] ? : 1970 ?Acct:[id number] ? Age/Sex: 54 / F ?ADM Date: 07/31/24 ? Loc: HO.MAMMO ? Attending Dr: Anahy Mcbride ? Ordering Physician: Monica Hernandez VICE PRESIDENT COMPLIANCE ?Results: 1Negat ?? francesca ? Date of Service: 06/19/24 ?Follow Up: 1 Year From Orig ?? inal Mammogram ? Procedure(s): MM tomosynthesis screening BI ?? Accession Number(s): [id number] ? cc: Monica Hernandez ? EXAMINATION: ?? MM SCREENING DIGITAL BREAST [...] 1155 ? DD/ 1005 ? TD/TT: ? Health Policy Nurse: ? Procedure Note Larry Cuevas - 06/26/2024 [facility] [address] [place], [place] [address] Mammography Report Signed Patient: Yael Lee MMR#: [id number] : 1970Acct:[id number] Age/Sex: 54 / FADM Date: 06/19/24 Loc: ALICIAO Attending Dr: Anahy Mcbride Ordering Physician: Monica Hernandez FNPResults: 1Negat francesca Date of Service: 06/19/24Follow Up: 1 Year From Orig inal Mammogram Procedure(s): MM tomosynthesis screening BI Accession Number(s): [id number] cc: Monica Hernandez VICE PRESIDENT COMPLIANCE EXAMINATION: MM SCREENING DIGITAL BREAST TOMOSYNTHESIS, BILATERAL [...] in OV> 06/26/24 1155 DD/ 1005 TD/TT: Health Policy Nurse: Monica Hernandez VICE PRESIDENT COMPLIANCE IMG BI PROCEDURES Final Result * THINPREP TIS PAP AND HPV mRNA E6/E7, CT/NG, TRICH (07/15/2022 5:54 PM EDT) Chlamydia trachomatis RNA, TMA, Urogenital NOT DETECTED NOT DETECTED [facility] Clinical Information: None given [facility] COMMENT SEE COMMENT [facility] Comment: The analytical performance characteristics of this assay, when used to test SurePath(TM) specimens have been determined by [employer]. The modifications have not been cleared or approved by the FDA. This assay has been validated pursuant to the CLIA regulations and is used for clinical purposes. ?? For additional information, please refer to https://education.[employer]/faq/BRY337 (This link is being provided for information/ [...] was manually screened according to routine procedures. Audio Visual Director: SEE COMMENT [facility] Comment: RAMIRO CALABRESE(ASCP) CT screening location: [address] ??[phone] HPV nRNA E6/E7 Not Detected Not Detected [facility] Comment: Methodology: Finger Grip Machine Operator-Mediated Amplification This assay detects E6/E7 viral messenger RNA (mRNA) from 14 high-risk HPV types (16,18,31,33,35,39,45,51,52,56,58,59,66,68). ? Cervical sources are required for HPV testing. If a vaginal source from a patient who has had a total hysterectomy with removal of cervix was ?? submitted, please contact the testing laboratory for alternative testing options. ?? For additional information, please refer to http://Qianxs.com.[employer]/faq/NQY884r2 (This link if provided for information/ educational [...] TMA, PAP Vial NOT DETECTED NOT DETECTED [facility] Comment: The analytical performance characteristics of this assay have been determined by [employer]. The modifications have not been cleared or approved by the FDA. This assay has been validated pursuant to the CLIA regulations and is used for clinical purposes. ?? For additional information, please refer to http://[employer]ianxs.com.[employer]/ faq/Trichomonastma (This link is being provided for information/ educational purposes only.) ?? NO COLLECTION DATE RECEIVED. WE HAVE USED THE DATE THE SPECIMEN WAS RECEIVED BY THIS LABORATORY THE COLLECTION DATE. IF THIS IS INCORRECT, PLEASE CONTACT CLIENT SERVICES. PHONE NUMBER: ?? Chlamydia trachomatis RNA, TMA, Urogenital NOT DETECTED NOT DETECTED [facility] Clinical Information: None given [facility] COMMENT SEE COMMENT [facility] Comment: The analytical performance characteristics of this assay, when used to test SurePath(TM) specimens have been determined by [facility]. The modifications have not been cleared or approved by the FDA. This assay has been validated pursuant to the CLIA regulations and is used for clinical purposes. ?? For additional information, please refer to https://Qianxs.com.[employer]/faq/FUV136 (This link is being provided for information/ [...] was manually screened according to routine procedures. Audio Visual Director: SEE COMMENT [facility] Comment: RAMIRO CALABRESE(ASCP) CT screening location: [address] ??[address] HPV nRNA E6/E7 Not Detected Not Detected [facility] Comment: Methodology: Finger Grip Machine Operator-Mediated Amplification This assay detects E6/E7 viral messenger RNA (mRNA) from 14 high-risk HPV types (16,18,31,33,35,39,45,51,52,56,58,59,66,68). ? Cervical sources are required for HPV testing. If a vaginal source from a patient who has had a total hysterectomy with removal of cervix was ?? submitted, please contact the testing laboratory for alternative testing options. ?? For additional information, please refer to http://Qianxs.com.[employer]/faq/VYH214y5 (This link if provided for information/ educational [...] of this assay have been determined by [employer]. The modifications have not been cleared or approved by the FDA. This assay has been validated pursuant to the CLIA regulations and is used for clinical purposes. ?? For additional information, please refer to http://education.[employer]/ faq/Trichomonastma (This link is being provided for information/ educational purposes only.) ?? NO COLLECTION DATE RECEIVED. WE HAVE USED THE DATE THE SPECIMEN WAS RECEIVED BY THIS LABORATORY THE COLLECTION DATE. IF THIS IS INCORRECT, PLEASE CONTACT CLIENT SERVICES. PHONE NUMBER: ?? 07/15/2022 5:54 PM EDT Anahy Mcbride [facility] PATHOLOGY ORDERABLES Final Result [facility] [address] from Last 3 Months or Most Recently Relevant to Health Maintenance Insurance [facility] STANDARD MEDICARE Care Teams Ballet Teacher Relationship Specialty Start Date End Date MaryMonicaCLARISSE [address] [place] [address] PCP - General Family Medicine 07/14/22 Loc Agrawal MD [address] [place] [address] [place] [address] Endocrinology 10/20/24 Lamar De Paz MD [address] [place] [address] Hematology and Oncology 10/20/24 Ralph Reece MD [address] [place] [address] Cardiology 10/20/24
--- OUTSIDE RECORDS SUMMARY | 2025-02-13 15:33 | XMS_ITS | Patient Health Record ---
Author Organization [facility] enter Address [address] [place] [phone] Support Name Relationship Address Phone Yael Lee Guarantor Unknown [phone] Allergies Allergen (clinical drug ingredient) Drug/Non Drug [...] Insured Coverage Start Date Coverage End Date [facility] [address] [place] [phone] [id number] Yael Lee Self - patient is the insured [facility] Medicare Advantage Plan 1 [facility] [address] [place] [address] [id number] Yael Lee Self - patient is the insured Medical (General) History Medical History History ICD Code hypertension Hypothyroidism anemia
--- OUTSIDE RECORDS SUMMARY | 2025-02-13 15:33 | XMS_ITS | Encounter Summary ---
Author Organization [employer] Address [address] [facility] 7t [place] [address] Care Team Providers Care Senior Oracle Pl Sql Developer Name Role Phone Monica Hernandez Primary Care Provider Loc Agrawal MD Unavailable [phone] Lamar De Paz MD Unavailable [phone] Ralph Reece MD Unavailable [phone] Reason for Visit * Reason Comments Med Refill Encounter Details Date Type Department Care Team (Late st Contact Info) Description 08/12/2023 Refill [facility] MEDICINE [address] [place] [address] Monica Hernandez FNP [address] [place] [address] Sleep difficulties Social History Tobacco Use Types [...] Description 03/03/2025 11:15 AM EDT Office Visit [facility] MED & PEDS [address] [place] [address] Monica Hernandez FNP [address] [place] [address] documented as of this encounter Visit Diagnoses Diagnosis Sleep difficulties documented in this encounter Additional Health Concerns Assessment Noted Time PHQ-9 Depression Total Score: 2 05/09/20 23 9:29 AM EDT documented as of this encounter Care Teams Senior Oracle Pl Sql Developer Relationship Specialty Start Date End Date Monica Hernandez FNP [address] [place] [address] PCP - General Family Medicine 07/14/22 Loc Agrawal MD [address] [place] [address] Endocrinology 10/20/24 Lamar De Paz MD [address] [place] [address] Hematology and Oncology 10/20/24 Ralph Reece MD [address] [place] [address] Cardiology 10/20/24 documented as of this encounter
--- OUTSIDE RECORDS SUMMARY | 2025-02-13 15:33 | XMS_ITS | Encounter Summary ---
Author Organization [employer] Address [address] [facility] [address] [place] [address] Care Team Providers Care Global Head [employer] Solutions Name Role Phone Monica Hernandez Primary Care Provider [phone] Loc Agrawal MD Unavailable [phone] Lamar De Paz MD Unavailable [phone] Ralph Reece MD Unavailable [phone] Reason for Visit * Reason Onset Date Comments ER Follow-up 02/06/2025 Encounter Details Date Type Department Care Team (Late st Contact Info) Description 02/06/2025 Telephone [facility] MEDICINE [address] [place] [address] Monica Hernandez FNP [address] [place], [place] [phone] ER Follow-up Social History Tobacco Use Types [...] encounter Miscellaneous Notes * Telephone Encounter - Madyson Pantoja RN - 02/06/2025 10:30 AM EDT TC to pt using director of strategy & mobile. Pt sister answered and gave the phone to pt. Pt told nurse thatrafi is not feeling like how she was in the hospital, but still tired. Pt asked if we could speak with her sister instead. Hospital follow up needed per sister, not ED. RN set up an appointment with 02/10/25 with pt sister at 10:[address] Ledbetter. RN explained to pt sister that Dr. Ledbetter works c losely with Monica Hernandez and has the soonest availability. Pt sister verbalized understanding and agreement with the plan. * Telephone Encounter - Zahra Fernandez - 02/06/2025 8:51 AM EDT Patient sister calling to report ED visit on : Date: 01/30 Hospital: [facility] Seen for: Hypocalcemia Symptomatic No *if yes message should go to Triage Patient advised will forward to team nurse for follow up [phone] (Pt's sister DENIED FORENSIC ANTHROPOLOGIST, states don't answer calls that appear to be scams) Pt has an appointment today with Oncologist ([facility]) at 2:00PM documented in this encounter Plan of Treatment Upcoming Encounters Date Type Department Care Team (Late st Contact Info) Description 03/03/2025 11:15 AM EDT Office Visit [facility] [address] [place] [address] Monica Hernandez FNP [address] [place] [address] documented as of this encounter Visit Diagnoses Not on filedocumented in this encounter Additional Health Concerns Assessment Noted Time PHQ-9 Depression Total Score: 4 04/05/20 10:31 AM EDT documented as of this encounter Care Teams Global Head [employer] Solutions Relationship Specialty Start Date End Date Monica Hernandez FNP [address] [place] [address] PCP - General Family Medicine 07/14/22 Loc Agrawal MD [address] [place] [address] Endocrinology 10/20/24 Lamar De Paz MD [address] [place] [address] Hematology and Oncology 10/20/24 Ralph Reece MD [address] [place] [address] Cardiology 10/20/24 documented as of this encounter
--- OUTSIDE RECORDS SUMMARY | 2025-02-13 15:33 | XMS_ITS | Encounter Summary ---
Author Organization [employer] Address [address] [facility] [address] [place] [address] Care Team Providers Care Tinsmith Helper Name Role Phone Monica Hernandez Primary Care Provider [phone] Loc Agrawal MD Unavailable [phone] Lamar De Paz MD Unavailable Ralph Reece MD Unavailable [phone] Reason for Visit * Reason Comments Med Refill Encounter Details Date Type Department Care Team (Late st Contact Info) Description 05/06/2024 Refill [facility] MED [facility] PEDS [address] [place], [place] [phone] Monica Hernandez FNP [address] [place], [place] [phone] Hypothyroidism, unspecified type Social History Tobacco Use [...] SYSTEM - [facility] [address] [place] [address] Monica Hernandez FNP [address] [place] [address] documented as of this encounter Visit Diagnoses Diagnosis Hypothyroidism, unspecified type documented in this encounter Additional Health Concerns Assessment Noted Time PHQ-9 Depression Total Score: 4 04/05/20 24 10:31 AM EDT documented as of this encounter Care Teams Tinsmith Helper Relationship Specialty Start Date End Date Monica Hernandez FNP [address] [place] [address] PCP - General Family Medicine 07/14/22 Loc Agrawal MD [address] [address] Endocrinology 10/20/24 Lamar De Paz MD [address] [place] [address] Hematology and Oncology 10/20/24 Ralph Reece MD [address] [place] [address] Cardiology 10/20/24 documented as of this encounter
--- OUTSIDE RECORDS SUMMARY | 2025-02-13 15:33 | XMS_ITS | Encounter Summary ---
Author Organization [employer] Address [address] [place] [address] 7[address] [place] [address] Care Team Providers Care Knitter Mechanic Name Role Phone Monica Hernandez Primary Care Provider [phone] Loc Agrawal MD Unavailable [phone] Lamar De Paz MD Unavailable [phone] Ralph Reece MD Unavailable [phone] Reason for Referral * Consultation (Routine) - Closed Specialty Diagnoses / Procedures Referred By Radha pelaez Referred To Contact Behavioral Health Diagnoses Anxiety Beba Mg FNP [address] [place] [address] Phone: tel: fax: Referral ID Status Reason Start Date Expiration Date V isits Requested Visits Authorized [id number] Closed Specialty Services Required 02/10/2025 02/10/2026 1 1 Encounter Details Date Type Department Care Team (Late st Contact Info) Description 02/10/2025 10:15 AM EDT Office Visit [facility]S [address] [place], [place] [phone] Jamila Ledbetter MD [address] [place], [place] [phone] Microcytic anemia (Primary Dx); Hypothyroidism, unspecified type; Hypocalcemia; Screening for colon cancer; Dietary counseling; Exercise counseling; Severe obesity (BMI >= 40) (CMS/HCC); Anxiety Social History Tobacco Use Types Packs/Day Years [...] AM EDT documented as of this encounter Last Filed Vital Signs Vital Sign Reading [...] Mass Index 69.09 02/10/2025 10:27 AM EDT documented in this encounter Progress Notes * Jamila Ledbetter MD - 02/10/2025 10:15 AM EDT [facility] from [facility] on the 01/28/2025. Patient was admitted on 01/28/2025 Hx of hypothyroid, hypoparathyroid, depression, intellectual disability, hypertension, microcystic anemia and PVD . Current concern: Patient was living with mother who about 3 weeks ago, since then she feels like standing and running and running but has been able to curtail self. Currently lives with sister. Hospital Course and Medication Reconciliation [facility] (01/28/2025 - 02/01/2025) Patient presented to the ED for evaluation of anemia following a blood transfusion and was discharged home. Subsequently, the patient had follow-up blood work with their urologic surgeon, who identified hypocalcemia (6.4 mg/dL) and advised the patient to return to the ER for further evaluation. Upon presentation to the ED, repeat laboratory results confirmed hypocalcemia (6.4 mg/dL). The patient was administered 4 grams of IV calcium gluconate. Consultation with the outpatient urologic surgeon recommended admission for further management, with a repeat calcium check in the morning, and an increase in calcitriol by 0.25 mg from the current dose. Incidental findings revealed iron deficiency anemia. The patient received 1 iron transfusion and was started on oral ferrous sulfate. A referral to GI for a colonoscopy was recommended; however, the patient declined. Calcium level improved (7.5 mg/dL) and the patient was discharged home with the recommendation to follow with their urologic surgeon. Medication changes that occurred during hospitalization include: Added Ferrous sulfate 324 mg by mouth once daily Changed Calcitriol increased to from 0.5 mcg to 0.75 mcg by mouth twice daily Discontinued: none Diagnoses: Acute hypocalcemia Discharge instructions: follow up with their urologic surgeon, GI for colonoscopy/cologuard, spindle repairer Discharge home with services: None DME required: None Current Outpatient Medications: calcitriol (Rocaltrol) 0.25 MCG capsule, Take 3 capsules by mouth 2 times daily., Disp: , Rfl: D3 Super Strength 50 MCG (2000 UT) capsule, TAKE 1 CAPSULE BY MOUTH EVERY MORNING, Disp: 90 capsule, Rfl: 3 dilTIAZem CD (Cardizem CD) 360 MG 24 hr capsule, TAKE 1 CAPSULE BY MOUTH EVERY MORNING, Disp: 90 capsule, Rfl: 1 docusate sodium (Colace) 100 MG capsule, TAKE 1 CAPSULE BY MOUTH TWICE DAILY IN THE MORNING AND IN THE EVENING, Disp: 180 capsule, Rfl: 1 ferrous sulfate 324 (65 Fe) MG EC tablet, Take 1 tablet by mouth in the morning., Disp: , Rfl: labetalol (Normodyne) 100 MG tablet, TAKE 2 TABLETS BY MOUTH TWICE DAILY IN THE MORNING AND EVENING, Disp: 360 tablet, Rfl: 1 levothyroxine (Synthroid, Levoxyl) 112 MCG tablet, TAKE 1 TABLET BY MOUTH EVERY MORNING, Disp: 90 tablet, Rfl: 0 lisinopril 40 MG tablet, TAKE 1 TABLET BY MOUTH EVERY MORNING, Disp: 90 tablet, Rfl: 3 melatonin 5 MG tablet, TAKE 1 TABLET BY MOUTH 60 MINUTES BEFORE BEDTIME NEEDED FOR SLEEP, Disp: 90 tablet, Rfl: 3 Oyster Shell Calcium 500 MG tablet, Take 1 tablet by mouth 2 times daily., Disp: , Rfl: Pain Reliever Plus 250-250-65 MG tablet, Take by mouth. TAKE 1 TABLET BY MOUTH EVERY 4 TO 6 HOURS NEEDED FOR HEADACHE, Disp: , Rfl: Patient Active Problem List Diagnosis Microcytic anemia Essential hypertension Hypoparathyroidism (CMS/HCC) Intellectual disability Menorrhagia with irregular cycle Severe obesity (BMI >= 40) (CMS/HCC) Peripheral venous insufficiency Physical deconditioning Urinary incontinence 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 (CMS/HCC) Vitamin D deficiency Family history of colon cancer Depressive disorder Hypothyroidism Venous stasis dermatitis of both lower extremities Healthcare maintenance Intermittent chest pain Elevated hemoglobin A1c Exercise counseling Screening for colon cancer Hypocalcemia Dietary counseling Anxiety Review of Systems Constitutional: Negative for chills and fever. Respiratory: Negative for cough, shortness of breath and wheezing. Cardiovascular: Negative for chest pain and palpitations. Gastrointestinal: Negative for vomiting. Musculoskeletal: Positive for gait problem (unsteady). Psychiatric/Behavioral: Positive for anxiety. Negative for suicidal ideas. Visit Vitals BP 130/72 (BP Location: Left arm, Patient Position: Sitting, BP Cuff Size: Adult long) Pulse 63 Temp 97.9 ??F (36.6 ??C) (Oral) Resp 20 Ht 5' 3 (1.6 m) Wt 390 lb (177 kg) SpO2 95% BMI 69.09 kg/m?? Smoking Status Former BSA 2.8 m?? SIMONA-7 Total Score: 8 (02/10/2025 11:14 AM) Patient Health Questionnaire-9 Score: 3 (02/10/2025 11:14 AM) Physical Exam Constitutional: Appearance: Normal appearance. She is obese. HENT: Head: Atraumatic. Right Ear: External ear normal. Left Ear: External ear normal. Pulmonary: Effort: Pulmonary effort is normal. Comments: Diminished breath sounds bilaterally Neurological: Mental Status: She is alert and oriented to person, place, and time. Psychiatric: Mood and Affect: Mood normal. Behavior: Behavior normal. Problem List Items Addressed This Visit Microcytic anemia - Primary Component Ref Range & Units (01/28/25) 2 wk ago (01/27/25) 4 mo ago (10/07/24) 11 mo ago (03/06/24) Red Blood Count 4.20 - 5.50 X10*6/uL 3.50 Low 2.98 Low 4.11 Low 3.43 Low Hemoglobin 12.0 - 16.0 g/dl 7.8 Low 6.2 Low Panic CM 11.9 Low 7.2 Low Hematocrit 37.0 - 47.0 % 26.8 Low 22.2 Low 36.7 Low 26.7 Low Following with [facility] Heme/Onc - Dr. De Paz (last consult note Sep 2024) TAPPER HELPER: Sister reports Yael bleeding for few weeks but stop last week and have an appointment with [facility] next week GI: Patient declining colonoscopy both out and in patient. Discussed Cologuard with patient and sister. Patient opened to sister thomas to monitor collection and sending out. Will place order for Cologuard Patient due for blood transfusions - this week and next @[facility] Continue to take your iron tab as prescribed Relevant Orders CBC Hypothyroidism Following with [facility] Endo - Dr. Agrawal On Levothyroxine 112mcg daily Reports taking med as prescribed daily Hypothyroidism stable Severe obesity (BMI >= 40) (CMS/HCC) Exercise counseling Dietary counseling BMI 69.09 Eat 3 meals a day, especially breakfast Eat healthy and focus on healthyfood choices daily fruits, vegetables, grains, low fat milk, low carbohydrate and fat Maintain healthy weight as this will lower your risk for many health problems. Be physically active at least 45 minutes a day Patient interested in weight loss medication. Discussed alternatives with patient, her niece and sister. Will discuss further with PCP at upcoming visit Screening for colon cancer Close family hx of colon CA Discuss with patient and sister the importance of screening. Patient verbalized fear of colonoscopy Agreed to cologuard. Sister to supervise collection and sending sample Will order cologuard Relevant Orders Cologuard?? colon cancer screening Hypocalcemia Component Ref Range & Units 13 d ago (01/28/25) 2 wk ago (01/27/25) Calcium 8.4 - 10.2 mg/dL 6.7 Low 6.4 Low Patient reports taking Calcitriol 0.75 mcg as prescribed Repeat test for blood calcium Continue to take medication as prescrbed Relevant Orders Hepatic Function Panel Basic Metabolic Panel Anxiety Patient was living with mother who became approximately 3 weeks ago. Patient reports at this visit since the passing of her mother she feels pressure and wants to run and run far away but has been able to hold self back. No SI. Patient support is family and currently staying with sister. SIMONA-7 Total Score: 8 (02/10/2025 11:14 AM) Patient Health Questionnaire-9 Score: 3 (02/10/2025 11:14 AM) Will refer to Relevant Orders Referral to Behavioral therapy CONTINUOUS CONVEYOR SCREEN DRIER Resident Attestation: Patient was seen and evaluated by Beba ROBB in collaboration with Jeremias Ledbetter MD who has reviewed my assessment and plan. I, Jamila Ledbetter MD, have reviewed the resident's note and agree with the assessment & plan of care as documented above. documented in this encounter Plan of Treatment Upcoming Encounters Date Type Department Care Team (Late st Contact Info) Description 03/03/2025 11:15 AM EDT Office Visit [facility] MED & PEDS [address] [place] [address] Monica Hernandez FNP [address] [place] [address] Scheduled Orders Name Type Priority Associated Diagnoses Orde r Schedule Cologuard?? colon cancer screening Lab Routine Screening for colon cancer Ordered: 02/10/2025 Scheduled Referrals Name Type Priority Associated Diagnoses Order Schedule Referral to Behavioral Health Outpatient Referral Routine Anxiety Expected: 02/10/2025 (Approximate), Expires: 02/10/2026 documented as of this encounter Procedures Procedure Name Priority Date/Time Associated Diagnosis Comments CBC Routine 02/10/2025 11:32 AM EDT Microcytic anemia HEPATIC FUNCTION PANEL Routine 02/10/2025 11:32 AM EDT Hypocalcemia BASIC METABOLIC PANEL Routine 02/10/2025 11:32 AM EDT Hypocalcemia documented in this encounter Results * (ABNORMAL) Basic Metabolic Panel (02/10/2025 11:32 AM EDT) Sodium 142 135 - 145 mmol/L [facility] Potassium 4.0 3.3 - 5.1 mmol/L [facility] Chloride 104 96 - 108 mmol/L [facility] Carbon Dioxide 28 22 - 29 mmol/L [facility] Anion Gap 14 12 - 20 [facility] Urea Nitrogen (BUN) 18(H) 9 - 16 mg/dL [facility] Creatinine, Serum 0.85 0.5 - 1.4 mg/dL [facility] Estimated Glomerular Filt Rate >60 [facility] Comment:Chronic Kidney Disea se: Estimated GFR < 60 mL/min/1.97p6Frkkdy Kidney Disease: Estimated GFR < 15 mL/min/1.73m2 Glucose 131(H) 60 - 115 mg/dL [facility] Calcium 9.0 8.4 - 10.2 mg/dL [facility] Blood Venous blood specimen / Unknown 02/10/2025 11:32 AM EDT 02/10/2025 2:21 PM EDT Beba Mg [facility] BLOOD ORDERABLES Final Res ult Performing Organization Address [facility]/ZIP Co de Phone Number [facility] [address] [place] [address] [phone] * (ABNORMAL) CBC (02/10/2025 11:32 AM EDT) White Blood Count 6.1 4.8 - 10.8 X10*3/uL [facility] Red Blood Count 3.87(L) 4.20 - 5.50 X10*6/uL [facility] Hemoglobin 8.5(L) 12.0 - 16.0 g/dl [facility] Hematocrit 29.8(L) 37.0 - 47.0 % [facility] Mean Corpuscular Volume 77.0(L) 80.0 - 98.0 fL [facility] Mean Corpuscular Hemoglobin 22.0(L) 27.0 - 33.0 pg [facility] Mean Corpuscular HGB Conc 28.5(L) 31.0 - 35.0 g/dl [facility] Red Cell Distribution Width 21.6(H) 11.0 - 16.0 % [facility] Platelet Count 328 160 - 400 X10*3/uL [facility] Mean Platelet Volume 10.1 9.4 - 12.3 fL [facility] NRBC Pct Auto 0.0 0.0 - 0.2 /100WBC [facility] NRBC Abs Auto 0.000 0.0 - 0.012 X10*3/uL [facility] Blood Venous blood specimen / Unknown 02/10/2025 11:32 AM EDT 02/10/2025 2:20 PM EDT us Beba Pattoncris [facility] BLOOD ORDERABLES Final Res ult [facility] [address] [place] [address] [phone] * (ABNORMAL) Hepatic Function Panel (02/10/2025 11:32 AM EDT) Bilirubin, Total 0.5 0.0 - 1.0 mg/dL [facility] Bilirubin, Direct 0.2 0.0 - 0.5 mg/dL [facility] Aspartate Amino Transferase 25 5 - 31 U/L [facility] Alanine Aminotransferase 23 0 - 31 U/L [facility] Total Protein 7.7 6.5 - 8.0 g/dL [facility] Albumin Level 3.6 3.5 - 5.0 g/dL [facility] Alkaline Phosphatase 122(H) 39 - 117 U/L [facility] Blood Venous blood specimen / Unknown 02/10/2025 11:32 AM EDT 02/10/2025 2:21 PM EDT us Beba Mg [facility] BLOOD ORDERABLES Final Res ult [facility] [address] [place] [address] [phone] documented in this encounter Visit Diagnoses Diagnosis Microcytic anemia- Primary Unspecified iron deficiency anemia Hypothyroidism, unspecified type Hypocalcemia Screening for colon cancer Special screening for malignant neoplasms, colon Dietary counseling Dietary surveillance and counseling Exercise counseling Severe obesity (BMI >= 40) (CMS/HCC) Anxiety Anxiety state, unspecified documented in this encounter Additional Health Concerns Assessment Noted Time PHQ-9 Depression Total Score: 3 02/11/20 25 11:14 AM EDT documented as of this encounter Care Teams Knitter Mechanic Relationship Specialty Start Date End Date Monica Hernandez FNP [address] [place] [address] PCP - General Family Medicine 07/14/22 Loc Agrawal MD [address] [place] [address] [place] [address] [place] [phone] Endocrinology 10/20/24 Lamar De Paz MD [address] [place] [address] Hematology and Oncology 10/20/24 Ralph Reece MD [address] [place] [address] Cardiology 10/20/24 documented as of this encounter
--- OUTSIDE RECORDS SUMMARY | 2025-02-13 15:33 | XMS_ITS | Clinical Summary ---
Author Organization [facility] it Address [address] [place] [address] Care Team Providers Care Supervisor Dried Yeast Name Role Phone Unavailable Primary Care Provider [...]
--- OUTSIDE RECORDS SUMMARY | 2025-02-13 15:33 | XMS_ITS | Encounter Summary ---
Author Organization [employer] Address [address] [facility] [address] [place] [address] Care Team Providers Care Talent Development Specialist Name Role Phone Monica Hernandez Primary Care Provider Loc Agrawal MD Unavailable [phone] Lamar De Paz MD Unavailable [phone] Ralph Reece MD Unavailable [phone] Reason for Visit * Reason Onset Date Comments Durable Medical Equipment 04/11/2024 Encounter Details Date Type Department Care Team (Late st Contact Info) Description 04/11/2024 Telephone [facility] MED & PEDS [address] [place], [place] [phone] Monica Hernandez FNP [address] [place], [place] [phone] Durable Medical Equipment Social History Tobacco Use [...] her that the script was sent to [facility], but now she states [...] script has to be sent over to [facility] instead. Sister quan little upset due to it being several month trying to get DME . Please contact phone# [phone] regarding next step. documented in this encounter Plan of Treatment Upcoming Encounters Date Type Department Care Team (Late st Contact Info) Description 03/03/2025 11:15 AM EDT Office Visit [facility]EDS [address] [place] [address] Monica Hernandez FNP [address] [place] [address] documented as of this encounter Visit Diagnoses Not on filedocumented in this encounter Additional Health Concerns Assessment Noted Time PHQ-9 Depression Total Score: 4 04/05/20 24 10:31 AM EDT documented as of this encounter Care Teams Talent Development Specialist Relationship Specialty Start Date End Date Monica Hernandez FNP [address] [place] [address] PCP - General Family Medicine 07/14/22 Loc Agrawal MD [address] [address] Endocrinology 10/20/24 Lamar De Paz MD [address] [place] [address] Hematology and Oncology 10/20/24 Ralph Reece MD [address] [place] [address] Cardiology 10/20/24 documented as of this encounter
--- OUTSIDE RECORDS SUMMARY | 2025-02-13 15:33 | XMS_ITS | Encounter Summary ---
Author Organization [employer] Address [address] [facility] 7t [place] [address] Care Team Providers Care Electric Accounting Machine Operator Name Role Phone Monica Hernandez Primary Care Provider Loc Agrawal MD Unavailable [phone] Lamar De Paz MD Unavailable [phone] Ralph Reece MD Unavailable [phone] Reason for Visit * Reason Onset Date Comments ER Follow-up 01/28/2025 Encounter Details Date Type Department Care Team (Late st Contact Info) Description 01/28/2025 Telephone [facility] [address] [place] [address] Monica Hernandez FNP [address] [place], [place] [phone] ER Follow-up Social History Tobacco Use Types [...] 10:31 AM EDT TC to pt using diplomatic interpreter/translator to schedule ER follow up appointment. No answer. Voicemail left instructing pt to return call to office. * Telephone Encounter - Gisela Sam - 01/28/2025 10:15 AM EDT Patient calling to report ED visit on : Date: 01/27/2025 Hospital: [facility] Seen for: Low hemoglobin (5) Symptomatic No *if yes message should go to Triage Patient advised will forward to team nurse for follow up documented in this encounter Plan of Treatment Upcoming Encounters Date Type Department Care Team ([facility] st Contact Info) Description 03/03/2025 11:15 AM EDT Office Visit [facility] MED & PEDS [address] [place] [address] Monica Hernandez FNP [address] [place], [place] [phone] documented as of this encounter Visit Diagnoses Not on filedocumented in this encounter Additional Health Concerns Assessment Noted Time PHQ-9 Depression Total Score: 4 04/05/20 10:31 AM EDT documented as of this encounter Care Teams Electric Accounting Machine Operator Relationship Specialty Start Date End Date Monica Hernandez FNP [address] [place] [address] PCP - General Family Medicine 07/14/22 Loc Agrawal MD [address] [place] [address] Endocrinology 10/20/24 Lamar De Paz MD [address] [place] [address] Hematology and Oncology 10/20/24 Ralph Reece MD [address] [place] [address] Cardiology 10/20/24 documented as of this encounter
--- OUTSIDE RECORDS SUMMARY | 2025-02-13 15:33 | XMS_ITS | Encounter Summary ---
Author Organization [employer] Address [address] [facility] [address] [place] [address] Care Team Providers Care Ranch Rider Name Role Phone Pedrocarlo Monica ROBB Primary Care Provider [phone] Loc Agrawal MD Unavailable [phone] Lamar De Paz MD Unavailable [phone] Ralph Reece MD Unavailable [phone] Encounter Details Date Type Department Care [...] 03/03/2025 11:15 AM EDT Office Visit [facility] [address] [place] [address] Monica Hernandez, SAP PP CONSULTANT [address] [place] [address] documented as of this encounter Procedures Procedure [...] (01/27/2025 4:23 PM EDT) Blood Type BP [facility] Antibody Screen NEGATIVE [facility] 01/27/2025 4:23 PM EDT 01/27/2025 4:29 PM EDT us Generic External Data Provider LAB BLOOD BANK TE ST ORDERABLES Final Result [facility] [address] [place] [address] [phone] * (ABNORMAL) Iron And Total Iron Binding Capacity (01/27/2025 4:23 PM EDT) Iron 11(L) 30 - 160 mcg/dL [facility] Total Iron Binding Capacity 307 228 - 428 mcg/dL [facility] Percent Iron Saturation 4(L) 15 - 50 % [facility] Unsaturated Iron Binding 296 ug/dL [facility] 01/27/2025 4:23 PM EDT 01/27/2025 4:27 PM EDT us Generic External Data Provider LAB BLOOD ORDERAB LES Final Result Performing Organization Address City/[facility]/ZIP Co de Phone Number [facility] [address] [place] [phone] * Magnesium (01/27/2025 4:23 PM EDT) Pathologist [facility] Magnesium 1.7 1.6 - 2.6 mg/dL [facility] 01/27/2025 4:23 PM EDT 01/27/2025 4:27 PM EDT Generic External Data Provider LAB BLOOD ORDERAB LES Final Result Performing Organization Address [facility] Co de Phone Number [facility] [address] [place] [phone] * (ABNORMAL) Comprehensive Metabolic Panel (01/27/2025 4:23 PM EDT) Pathologist [facility] Sodium 138 135 - 145 mmol/L [facility] Potassium 3.8 3.3 - 5.1 mmol/L [facility] Chloride 104 96 - 108 mmol/L [facility] Carbon Dioxide 26 22 - 29 mmol/L [facility] Anion Gap 12 12 - 20 [facility] Urea Nitrogen (BUN) 18(H) 9 - 16 mg/dL [facility] Creatinine, Serum 0.66 0.5 - 1.4 mg/dL [facility] Creatinine Clr Calc Pharmacy 157.8 [facility] Comment:Provided height and weight: 157.48 cm,181.437 kg.eGFR (calculated from the MDRD study equation) and eCrCl(calculated from the Cockcroft-Gault equation) are based ondifferent parameters and may not yield comparable results.If eCrCl result is absurd, please check patient'sheight/weight. Estimated Glomerular Filt Rate >60 [facility] Comment:Chronic Kidney Disea se: Estimated GFR < 60 mL/min/[id number] Kidney Disease: Estimated GFR < 15 mL/min/1.73m2 Glucose 143(H) 60 - 115 mg/dL [facility] Calcium 6.4(L) 8.4 - 10.2 mg/dL [facility] Bilirubin, Total 0.6 0.0 - 1.0 mg/dL [facility] Aspartate Amino Transferase 30 5 - 31 U/L [facility] Alanine Aminotransferase 19 0 - 31 U/L [facility] Total Protein 7.4 6.5 - 8.0 g/dL [facility] Albumin Level 3.4(L) 3.5 - 5.0 g/dL [facility] Alkaline Phosphatase 90 39 - 117 U/L [facility] 01/27/2025 4:23 PM EDT 01/27/2025 4:27 PM EDT Generic External Data Provider LAB BLOOD ORDERAB LES Final Result Performing Organization Address [facility] Co de Phone Number [facility] [address] [place] [phone] * Partial Thromboplastin Time, Activated (APTT) (01/27/2025 4:23 PM EDT) Partial Thromboplastin Time 26.5 26.0 - 36.8 SEC [facility] Comment:For information rega rding the monitoring of direct thrombininhibitors, please refer to Pharmacy. 01/27/2025 4:23 PM EDT 01/27/2025 4:27 PM EDT Generic External Data Provider LAB BLOOD ORDERAB LES Final Result Performing Organization Address [facility] Co de Phone Number [facility] [address] [place] [phone] * (ABNORMAL) Prothrombin Time-INR (01/27/2025 4:23 PM EDT) Prothrombin Time 13.9(H) 10.9 - 12.4 SEC [facility] INTERNATIONAL NORM RATIO 1.2(H) 0.9 - 1.1 [facility] Comment:INTERNATIONAL NORMAL IZED RATIO (INR) [...] Provider LAB BLOOD ORDERAB LES Final Result [facility] [address] [place] [phone] * (ABNORMAL) CBC auto differential (01/27/2025 4:23 PM EDT) White Blood Count 5.9 4.8 - 10.8 X10*3/uL [facility] Red Blood Count 2.97(L) 4.20 - 5.50 X10*6/uL [facility] Hemoglobin 6.2(LL) 12.0 - 16.0 g/dl [facility] Comment:Results of HGB leyva d to and read back by Amadeo 01/27/25 at 1633 by [email or web address] require pathologyreview. Hematocrit 21.6(L) 37.0 - 47.0 % [facility] Mean Corpuscular Volume 72.7(L) 80.0 - 98.0 fL [facility] Mean Corpuscular Hemoglobin 20.9(L) 27.0 - 33.0 pg [facility] Mean Corpuscular HGB Conc 28.7(L) 31.0 - 35.0 g/dl [facility] Red Cell Distribution Width 18.2(H) 11.0 - 16.0 % [facility] Platelet Count 249 160 - 400 X10*3/uL [facility] Mean Platelet Volume 9.2(L) 9.4 - 12.3 fL [facility] Neutrophils Percent Auto 68.4 45 - 73 % [facility] Imm Gran Pct Auto 0.8(H) 0.0 - 0.4 % [facility] Lymphocytes Percent Auto 14.8(L) 20 - 40 % [facility] Monocytes Percent Auto 12.3(H) 2 - 11 % [facility] Eosinophils Percent Auto 2.7 0 - 4 % [facility] Basophils Percent Auto 1.0 0 - 2 % [facility] NRBC Pct Auto 1.2(H) 0.0 - 0.2 /100WBC [facility] Neutrophils Absolute Auto 4.1 2.0 - 8.3 x10*3/uL [facility] Imm Gran Abs Auto 0.05(H) 0.00 - 0.03 X10*3/uL [facility] Lymphocytes Absolute Auto 0.9(L) 1.2 - 4.9 X10*3/uL [facility] Monocytes Absolute Auto 0.7 0.1 - 1.2 X10*3/uL [facility] Eosinophils Absolute Auto 0.2 0.0 - 0.4 X10*3/uL [facility] Basophils Absolute Auto 0.1 0.0 - 0.2 X10*3/uL [facility] NRBC Abs Auto 0.070(H) 0.0 - 0.012 X10*3/uL [facility] 01/27/2025 4:23 PM EDT 01/27/2025 4:27 PM EDT us Generic External Data Provider LAB BLOOD ORDERAB LES Final Result [facility] [address] [place] [phone] * Pathologist Review - CBC (01/27/2025 12:16 PM EDT) Pathologist Review - CBC SEE NOTE [facility] Comment:- Microcytic and hyp ochromic anemia with rare nucleatedRBCs: consider iron deficiency vs anemia of chronic diseasevs blood loss vs other etiologies.- No significant schistocytes are seen.Reviewed by Faustina Robertson MD 01/27/2025 12:1 6 PM EDT 01/27/2025 12:16 PM EDT us Monica Hernandez SAP PP CONSULTANT LAB BLOOD ORDERABLES Final Res ult Performing Organization Address [facility]/ZIP Co de Phone Number [facility] [address] [place] [phone] * (ABNORMAL) Calcium, Ionized (01/27/2025 12:16 PM EDT) Calcium, Ionized 3.6(A) 4.7 - 5.5 mg/dL [facility] Comment:THIS TEST WAS PERFOR MED AT:[facility] [place] [phone] BRAR MD 01/27/2025 12:1 6 PM EDT 01/27/2025 12:16 PM EDT us Generic External Data Provider LAB BLOOD ORDERAB LES Final Result Performing Organization Address [facility] Co de Phone Number [facility] [address] [place] [phone] * T4, Free (01/27/2025 12:16 PM EDT) Free T4 (Free Thyroxine) 1.12 0.71 - 1.85 ng/dL [facility] 01/27/2025 12:1 6 PM EDT 01/27/2025 12:16 PM EDT us Generic External Data Provider LAB BLOOD ORDERAB LES Final Result Performing Organization Address [facility] Co de Phone Number [facility] [address] [place] [phone] * (ABNORMAL) TSH with Reflex to Free T4 (01/27/2025 12:16 PM EDT) TSH reflex Free T4 4.02(H) 0.32 - 4.0 uIU/mL [facility] 01/27/2025 12:1 6 PM EDT 01/27/2025 12:16 PM EDT Generic External Data Provider LAB BLOOD ORDERAB LES Final Result Performing Organization Address City/[facility]/ZIP Co de Phone Number [facility] [address] [place] [phone] * Vitamin D, 25-Hydroxy, Total, Immunoassay (01/27/2025 12:16 PM EDT) [facility] Vitamin D 25-OH Total 34.4 >30 ng/mL [facility] Comment:Health Based Referen ce Values*< 20 ng/mL [id number] ng/mL Insufficient> 30 ng/mL Sufficient*Tena CHEYR. N Engl J Med. 2007;357:266-280Care must be [...] ORDERAB LES Final Result Performing Organization Address City/[facility]/ZIP Co de Phone Number [facility] [address] [place] [phone] * Magnesium (01/27/2025 12:16 PM EDT) Pathologist [facility] Magnesium 1.7 1.6 - 2.6 mg/dL [facility] 01/27/2025 12:1 6 PM EDT 01/27/2025 12:16 PM EDT Generic External Data Provider LAB BLOOD ORDERAB LES Final Result Performing Organization Address [facility] Co de Phone Number [facility] [address] [place] [phone] * (ABNORMAL) Phosphate (As Phosphorus) (01/27/2025 12:16 PM EDT) Phosphorus 4.6(H) 2.7 - 4.5 mg/dL [facility] 01/27/2025 12:1 6 PM EDT 01/27/2025 12:16 PM EDT Generic External Data Provider LAB BLOOD ORDERAB LES Final Result Performing Organization Address [facility] Phone Number [facility] [address] [place] [phone] * PTH, Intact Without Calcium (01/27/2025 12:16 PM EDT) Parathyroid Hormone, Intact 10.3 8.7 - 77.1 pg/mL [facility] 01/27/2025 12:1 6 PM EDT 01/27/2025 12:16 PM EDT Generic External Data Provider LAB BLOOD ORDERAB LES Final Result Performing Organization Address [facility] Co de Phone Number [facility] [address] [place] [phone] documented in this encounter Visit Diagnoses Not on filedocumented in this encounter Additional Health Concerns Assessment Noted Time PHQ-9 Depression Total Score: 4 04/05/20 24 10:31 AM EDT documented as of this encounter Care Teams Ranch Rider Relationship Specialty Start Date End Date Monica Hernandez FNP [address] [place] [phone] PCP - General Family Medicine 07/14/22 Loc Agrawal MD [address] [phone] Endocrinology 10/20/24 Lamar De Paz MD [address] [place] [address] Hematology and Oncology 10/20/24 Ralph Reece MD [address] [place] [address] Cardiology 10/20/24 documented as of this encounter
--- OUTSIDE RECORDS SUMMARY | 2025-02-13 15:33 | XMS_ITS | Encounter Summary ---
Author Organization [employer] Address [address] [facility] 7[address] [place] [address] Care Team Providers Care Digester Name Role Phone Monica Hernandez Primary Care Provider Loc Agrawal MD Unavailable [phone] Lamar De Paz MD Unavailable [phone] Ralph Reece MD Unavailable [phone] Encounter Details Date Type Department Care Team (Late st Contact Info) Description 10/25/2022 Telephone [facility] MEDICINE [address] [place] [address] Monica Hernandez FNP [address] [place], [place] [phone] Social History Tobacco Use Types Packs/Day Years [...] Description 03/03/2025 11:15 AM EDT Office Visit [facility] [address] [place], [place] [phone] Monica Hernandez FNP [address] [place], [place] [phone] documented as of this encounter Visit Diagnoses Not on filedocumented in this encounter Care Teams Digester Relationship Specialty Start Date End Date Monica Hernandez FNP [address] [place] [address] PCP - General Family Medicine 07/14/22 Loc Agrawal MD [address] [place] [phone] Endocrinology 10/20/24 Lamar De Paz MD [address] [place] [phone] Hematology and Oncology 10/20/24 Ralph Reece MD [address] [place] [address] Cardiology 10/20/24 documented as of this encounter
== END 2025-02-13 13:14 | disposition home or self-care (01) ==
LOC: HO.ENCR 12:15
PROVIDERS: PCP Registered Nurse; Visit Provider Student in an Organized Health Care Education/Training Program
DX: E20.9 Hypoparathyroidism, unspecified (principal); E06.3 Autoimmune thyroiditis
CPT/HCPCS: 99213

== ENCOUNTER → 2025-02-13 12:14 | Outpatient (BNVA) | payer MEDICARE, MEDICAID, SELFPAY | PROVIDERS: PCP Registered Nurse; Visit Provider Student in an Organized Health Care Education/Training Program | DX: E20.9 Hypoparathyroidism, unspecified (principal); E06.3 Autoimmune thyroiditis | CPT/HCPCS: 99212 ==

== ENCOUNTER 2025-02-25 10:30 | Outpatient (RCR) | payer MEDICARE, MEDICAID, SELFPAY ==
[2025-02-18 10:56] VITALS: BP 109/58; PULSE 53; RESP 16; TEMP 36.1; O2SAT 91
[2025-02-18] MEDS: Ferric Carboxymaltose 750 MG in 0.9 % Sodium Chloride 250 ML 1060 MG IV (11:19)
[2025-02-25 10:56] VITALS: BP 120/63; PULSE 53; RESP 16; TEMP 36.3; O2SAT 97
[2025-02-25] MEDS: Ferric Carboxymaltose 750 MG in 0.9 % Sodium Chloride 250 ML 1060 MG IV (11:06)
== END 2025-02-25 11:33 | disposition home or self-care (01) ==
LOC: HO.INF 10:30
PROVIDERS: Visit Provider Nurse Practitioner Family
DX: D50.9 Iron deficiency anemia, unspecified (principal)
CPT/HCPCS: 96365; J1439

== ENCOUNTER 2025-03-14 12:35 | Outpatient (REF) | payer MEDICARE, MEDICAID, SELFPAY ==
--- OUTSIDE RECORDS SUMMARY | 2025-03-14 13:23 | XMS_ITS | Clinical Summary ---
Author Organization [employer] Address [address] [facility] [facility] [place] [address] Care Team Providers Care Global Recruiter Name Role Phone PedroMonica matos CLARISSE Primary Care Provider [phone] Loc Agrawal MD Unavailable [phone] Lamar De Paz MD Unavailable [phone] Ralph Reece MD Unavailable [phone] Allergies Active Allergy Reactions Criticality Noted [...] 4 Active D3 Super Strength 50 MCG (1999) capsuleIndication s:Vitamin D deficiency TAKE 1 CAPSULE BY MOUTH EVERY MORNING 90 capsule 3 4 Active lisinopril 40 MG tabletIndications :Essential [...] FOR SLEEP 90 tablet 3 4 Active Pain Reliever Plus 250-250-65 MG tablet Take by mouth. TAKE 1 TABLET BY MOUTH EVERY 4 TO 6 HOURS NEEDED FOR HEADACHE 4 Active ferrous sulfate 324 (65 Fe) MG EC tablet Take 1 tablet by mouth in the morning. 5 Active calcitriol (Rocaltrol) 0.25 MCG capsule Take 3 capsules by mouth 2 times daily. Active Oyster Shell Calcium 500 MG tablet Take 1 tablet by mouth 2 times daily. Active Active Problems Problem Noted Date Diagnosed [...] chest pain 10/20/2024 Overview (10/20/2024): [facility] Dr. Reece Sep 2024: echo, nuclear stress test, 30 day Holter pending ED precautions Healthcare maintenance 11/11/2023 Overview (08/18/2024): Mammogram: BIRADS 1 on 06/09/24 Colon CA screening: (+) fam hx of colon CA. Cologuard ordered 11/10/23. Initially declined colonoscopy referral, but then did accept and was referred to [facility] in March 2024 Pap: 07/12/22 NILM [...] safety Hypothyroidism 05/04/2023 Overview (04/06/2024): Following with [facility] Davida Agrawal Levothyroxine 112mcg daily Assessment & Plan (04/06/2024 11:15 AM EDT): Repeat TSH ordered Assessment & Plan (08/11/2023 6:18 AM EDT): Following with [facility] Davida Agrawal Moderate depressive disorder 02/06/2023 Vitamin D deficiency 10/22/2022 Assessment & Plan (04/05/2024 11:21 AM EDT): -Cont Vit D 2000 units daily Family history of colon cancer 10/22/2022 Hypoparathyroidism 09/01/2022 Overview (03/03/2025): Following with [facility] Davida Agrawal/ Dr. Bellamy Goal calcium range: 8-8.5 Referred for [facility] genetics consult in Jul 2024 to eval for genetic mutations that may be contributing to condition Medications: Calcitriol 0.5mcg BID Vit D 2000 units daily Calcium 500mg BID Assessment & Plan (03/03/2025 2:19 PM EDT): Cont plan above Assessment & Plan (04/06/2024 11:22 AM EDT): -Endo note w/ calcium 500mg BID, although pt currently taking once daily. She would like to replace current calcium pill due to size. -Plan: check BMP, phosphorus, PTH, TSH -Med adjustment (calcium) pending lab results Assessment & Plan (11/11/2023 11:55 AM EST): -Following with [facility] - Dr. Agrawal. Per last consult note in Aug 2022: Hypoparathyroidism. Possible etiologies behind the hypocalcemia could include secondary hyperparathyroidism due to vitamin-D deficiency versus idiopathic hypoparathyroidism. Plan is to recheck calcium, phosphorus, PTH, albumin. Further workup and/or treatment will be based on the above Menorrhagia with irregular cycle 02/16/2022 Overview (08/18/2024): Following with [facility] MANAGER - Dr. Mayers 2013: recommendation for EMB & sonohysterogram d/t focal endometrial hypoechoic area on US measuring [id number] Pap: 07/12/22 NILM HPV neg [facility]: hysteroscopy with polypectomy, D&C, IUD insertion on 06/10/24 Assessment & Plan (04/06/2024 11:41 AM EDT): Have missed multiple appts for procedure, although hero reports that pt recently completed US and has follow up scheduled with [facility] MANAGER within the next month. Reviewed importance of keeping appt Physical deconditioning 07/19/2018 Assessment & Plan (10/20/2024 7:56 PM EST): - High risk for falls - Preventative measures: Bariatric commode: DME request Jul 2024 - pending Bariatric Tub Transfer Bench: DME request 10/20/24 Microcytic anemia 11/10/2015 Overview (03/03/2025): Following with [facility]e/Onc - Dr. De Paz Completed IV iron (Venofer) in 2023 GI: referred to [facility], initial consult scheduled. Per Heme/Onc note Sep 2024, pt declining colonoscopy but open to Cologuard. Order placed through PCP on 10/20/24 [employer] ASSIST[employer] MANAGER: following with [facility] - had IUD placement in 2023 but fell out shortly thereafter. Consideration of surgical intervention. Hospitalization January 2025 for anemia (Hbg 6.2 g/dL) Lab Results Component Value Date HGB 8.5 (L) 02/10/2025 HGB 7.8 (L) 01/28/2025 HGB 8.1 (L) 01/28/2025 Assessment & Plan (03/03/2025 2:27 PM EDT): - Improvement in recent readings noted - Repeat CBC and ferritin today - Cont following with specialist - Encouraged to complete Cologuard at earliest convenience Assessment & Plan (10/20/2024 7:41 PM EST): [...] AM EDT): Hx ANIYA, previously followed by [facility]. Last available consult note from Jul 2018 Plan to cont on oral iron (pt declined IV iron), and to arrange for colonoscopy (does not appear this was performed) ED precautions reviewed Follow up with [facility] as scheduled Assessment & Plan (11/11/2023 12:02 PM EST): ?? Hx ANIYA, previously followed by [facility]. Last available consult note from Jul 2018 ?? Plan to cont on oral iron (pt declined IV iron), and to arrange for colonoscopy (does not appear this was performed) ?? Repeat labs ordered today Assessment & Plan (05/10/2023 7:45 AM EDT): Requested to check POC Hbg, WNL in office today Essential hypertension 11/10/2015 Overview (08/15/2024): [facility] - Dr. Reece (last consult: March [...] eval completed Jul 2024. 2nd eval at [facility] completed Sep 2024. Documents faxed to [employer]. DME request for bariatric [...] DME request for 2XL diapers from other [employer] as current diapers no longer very absorbant per pt report Assessment & Plan (05/10/2023 7:43 AM EDT): ?? 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 Date Type Department Care Team Description 03/03/2025 11:15 AM EDT Office Visit [facility] [address] [place] [address] Monica Hernandez FNP Microcytic anemia (Primary Dx); Hypoparathyroidism, unspecified hypoparathyroidism type (CMS/HCC) 03/03/2025 Travel 02/10/2025 10:15 AM EDT Office Visit [facility] [address] [place] [address] Jamila Ledbetter MD Microcytic anemia (Primary Dx); Hypothyroidism, unspecified type; Hypocalcemia; Screening for colon cancer; Dietary counseling; Exercise counseling; Severe obesity (BMI >= 40) ([facility]); Anxiety 02/10/2025 Orders Only GENERIC EXTERNAL DATA DEPARTMENT Provider, Generic External Data 02/10/2025 Travel 02/06/2025 Telephone [facility] [address] [place] [phone] Monica Hernandez FNP ER Follow-up 01/28/2025 Telephone [facility] [address] [place] [phone] Monica Hernandez FNP ER Follow-up 01/28/2025 Orders Only GENERIC EXTERNAL DATA DEPARTMENT Provider, Generic External Data 01/27/2025 Orders Only GENERIC EXTERNAL DATA DEPARTMENT Provider, Generic External Data 01/27/2025 Telephone [facility] [address] [place] [phone] Monica Hernandez FNP critical lab 01/23/2025 Telephone [facility] [address], [place] [phone] Monica Hernandez FNP January recall from Last [...] housing situation today? I have vi bustos 03/03/[address] you li ve. Do you have problems with any of the following? None of the above 03/03/2025 Food Insecurity Answer Date Recorded Within the [...] Recorded Patient Health Questionnaire-2 Score 3 02/11/2025 Internet Access Answer Date Recorded Internet Access Q1 Yes 03/03/2025 Internet Access Q2 Not on file 03/03/2025 Comments Unknown Sex and Gender Information Value Date Recorded Sex Assigned at Female 09/19/2022 10:15 AM EDT Legal Sex Female 10:15 AM EDT Gender Identity Female 09/19/2022 10:15 AM EDT Sexual Orientation Choose not to disclose 2021 10:15 AM EDT Last Filed Vital Signs Vital Sign Reading Time Taken Comments Blood Pressure 134/72 03/03/2025 11:20 AM EDT Pulse 60 03/03/2025 11:20 AM EDT Temperature 36.6 ??C (97.8 ??F) 03/03/2025 11:20 AM E DT Respiratory Rate 20 03/03/2025 11:20 AM EDT Oxygen Saturation 97% 03/03/2025 11:20 AM EDT Inhaled Oxygen Concentration - - Weight 174 kg (384 lb) 03/03/2025 11:20 AM EDT Height 160 cm (5' 3 ) 03/03/2025 11:20 AM EDT Body Mass Index 68.02 03/03/2025 11:20 AM EDT Plan of Treatment Upcoming Encounters Date Type Department Care Team (Late st Contact Info) Description 06/02/2025 10:00 AM EDT Office Visit [facility] [address] [place] [address] Monica Hernandez, CLARISSE [address] [place] [address] Health Maintenance Due Date Last Done Comments CT Colonography 1970 Colonoscopy 1970 Colorectal Cancer Screening 1970 FIT DNA/Cologuard 1970 FIT 1970 FOBT 1970 Sigmoidoscopy 1970 Hepatitis B Vaccines (1 of 3 - 19+ 3-dose series) 1989 Pneumococcal Vaccine: 50+ Years (2 of 2 - PCV) 2020 10/10/2011, 06/29/2010 COVID-19 Vaccine ( - season) 2024 02/17/2022, 04/14/2021, 03/17/2021 Influenza Vaccine (#1) 2024 07/21/2011 Mammogram 06/19/2025 06/19/2024, 02/26/2019 Pap Smear 07/15/2025 07/15/2022 Depression Monitoring 08/14/2025 02/11/2025, 025 Depression Screening 02/11/2026 02/11/2025, 02/12/20 Alcohol/Substance Use Screening 03/03/2026 03/03/2025 SDOH Screening 03/03/2026 03/03/2025 Tobacco Screening 03/03/2026 03/03/2025 Cervical Cancer Screening 07/15/2027 HPV/Cotest 07/15/2027 07/15/2022 [...] Blood Count 6.1 4.8 - 10.8 X10*3/uL [facility] Red Blood Count 3.87(L) 4.20 - 5.50 X10*6/uL [facility] Hemoglobin 8.5(L) 12.0 - 16.0 g/dl [facility] Hematocrit 29.8(L) 37.0 - 47.0 % [facility] Mean Corpuscular Volume 77.0(L) 80.0 - 98.0 fL [facility] Mean Corpuscular Hemoglobin 22.0(L) 27.0 - 33.0 pg [facility] Mean Corpuscular HGB Conc 28.5(L) 31.0 - 35.0 g/dl [facility] Red Cell Distribution Width 21.6(H) 11.0 - 16.0 % [facility] Platelet Count 328 160 - 400 X10*3/uL [facility] Mean Platelet Volume 10.1 9.4 - 12.3 fL [facility] NRBC Pct Auto 0.0 0.0 - 0.2 /100WBC [facility] NRBC Abs Auto 0.000 0.0 - 0.012 X10*3/uL [facility] Blood Venous blood specimen / Unknown 02/10/2025 11:32 AM EDT 02/10/2025 2:20 PM EDT us Beba Haritha DIRECTOR OF WEB MARKETING LAB BLOOD ORDERABLES Final Res ult Performing Organization Address [facility]/ZIP Co de Phone Number [facility] [address] [place] [phone] * TSH (02/10/2025 11:32 AM EDT) Thyroid Stimulating Hormone 3.09 0.32 - 4.0 uIU/mL [facility] Comment:Note: A sustained TS H level above 2.5 uIU/mL may warrant further investigation. TSH 3rd Generation ([facility]) 02/10/2025 11:3 2 AM EDT 02/10/2025 2:21 PM EDT us Generic External Data Provider LAB BLOOD ORDERAB LES Final Result Performing Organization Address [facility]/ZIP Co de Phone Number [facility] [address] [place] [phone] * T4, Free (02/10/2025 11:32 AM EDT) Only the most recent of2 resultswithin the time period is included. Free T4 (Free Thyroxine) 1.12 0.71 - 1.85 ng/dL [facility] 02/10/2025 11:3 2 AM EDT 02/10/2025 2:21 PM EDT Generic External Data Provider LAB BLOOD ORDERAB LES Final Result Performing Organization Address [facility] [[email or web address]] de Phone Number [facility] [address] [place] [phone] * (ABNORMAL) Phosphate (As Phosphorus) (02/10/2025 11:32 AM EDT) Only the most recent of2 resultswithin the time period is included. Phosphorus 4.6(H) 2.7 - 4.5 mg/dL [facility] 02/10/2025 11:3 2 AM EDT 02/10/2025 2:21 PM EDT Generic External Data Provider LAB BLOOD ORDERAB LES Final Result Performing Organization Address [facility] Phone Number [facility] [address] [place] [phone] * Calcium, Ionized (02/10/2025 11:32 AM EDT) Only the most recent of2 resultswithin the time period is included. Calcium, Ionized 4.9 4.7 - 5.5 mg/dL [facility] Comment:THIS TEST WAS PERFOR MED AT:[facility] [place] [id number] BARR MD 02/10/2025 11:3 2 AM EDT 02/10/2025 2:20 PM EDT Generic External Data Provider LAB BLOOD ORDERAB LES Final Result Performing Organization Address [facility] [[email or web address]] de Phone Number [facility] [address] [place] [phone] * Albumin (02/10/2025 11:32 AM EDT) [facility] Albumin Level 3.6 3.5 - 5.0 g/dL [facility] 02/10/2025 11:3 2 AM EDT 02/10/2025 2:21 PM EDT us Generic External Data Provider LAB BLOOD ORDERAB LES Final Result Performing Organization Address [facility]/ZIP Co de Phone Number [facility] [address] [place] [phone] * (ABNORMAL) Hepatic Function Panel (02/10/2025 11:32 AM EDT) Only the most recent of2 resultswithin the time period is included. [facility] Bilirubin, Total 0.5 0.0 - 1.0 mg/dL [facility] Bilirubin, Direct 0.2 0.0 - 0.5 mg/dL [facility] Aspartate Amino Transferase 25 5 - 31 U/L [facility] Alanine Aminotransferase 23 0 - 31 U/L [facility] Total Protein 7.7 6.5 - 8.0 g/dL [facility] Albumin Level 3.6 3.5 - 5.0 g/dL [facility] Alkaline Phosphatase 122(H) 39 - 117 U/L [facility] Blood Venous blood specimen / Unknown 02/10/2025 11:32 AM EDT 02/10/2025 2:21 PM EDT us Bebalove Mg DIRECTOR OF WEB MARKETING LAB BLOOD ORDERABLES Final Res ult Performing Organization Address [facility]/ZIP Co de Phone Number [facility] [address] [place] [phone] * (ABNORMAL) Basic Metabolic Panel (02/10/2025 11:32 AM EDT) Only the most recent of3 resultswithin the time period is included. Sodium 142 135 - 145 mmol/L [facility] Potassium 4.0 3.3 - 5.1 mmol/L [facility] Chloride 104 96 - 108 mmol/L [facility] Carbon Dioxide 27 22 - 29 mmol/L [facility] Anion Gap 15 12 - 20 [facility] Urea Nitrogen (BUN) 19(H) 9 - 16 mg/dL [facility] Creatinine, Serum 0.86 0.5 - 1.4 mg/dL [facility] Estimated Glomerular Filt Rate >60 [facility] Comment:Chronic Kidney Disea se: Estimated GFR < 60 mL/min/1.76p8Pgyocz Kidney Disease: Estimated GFR < 15 mL/min/1.73m2 Glucose 127(H) 60 - 115 mg/dL [facility] Calcium 8.8 8.4 - 10.2 mg/dL [facility] 02/10/2025 11:3 2 AM EDT 02/10/2025 2:21 PM EDT us Generic External Data Provider LAB BLOOD ORDERAB LES Final Result Performing Organization Address City/[facility]/ZIP Co de Phone Number [facility] [address] [place] [phone] * (ABNORMAL) Calcium (01/28/2025 7:53 PM EDT) Calcium 6.7(L) 8.4 - 10.2 mg/dL [facility] 01/28/2025 7:53 PM EDT 01/28/2025 7:57 PM EDT us Generic External Data Provider LAB BLOOD ORDERAB LES Final Result Performing Organization Address [facility]/ZIP Co de Phone Number [facility] [address] [place] [phone] * (ABNORMAL) CBC auto differential (01/28/2025 6:38 PM EDT) Only the most recent of4 resultswithin the time period is included. White Blood Count 6.5 4.8 - 10.8 X10*3/uL [facility] Red Blood Count 3.50(L) 4.20 - 5.50 X10*6/uL [facility] Hemoglobin 7.8(L) 12.0 - 16.0 g/dl [facility] Hematocrit 26.8(L) 37.0 - 47.0 % [facility] Mean Corpuscular Volume 76.6(L) 80.0 - 98.0 fL [facility] Mean Corpuscular Hemoglobin 22.3(L) 27.0 - 33.0 pg [facility] Mean Corpuscular HGB Conc 29.1(L) 31.0 - 35.0 g/dl [facility] Red Cell Distribution Width 19.6(H) 11.0 - 16.0 % [facility] Platelet Count 260 160 - 400 X10*3/uL [facility] Mean Platelet Volume 9.6 9.4 - 12.3 fL [facility] Neutrophils Percent Auto 72.8 45 - 73 % [facility] Imm Gran Pct Auto 0.8(H) 0.0 - 0.4 % [facility] Lymphocytes Percent Auto 12.5(L) 20 - 40 % [facility] Monocytes Percent Auto 9.6 2 - 11 % [facility] Eosinophils Percent Auto 3.1 0 - 4 % [facility] Basophils Percent Auto 1.2 0 - 2 % [facility] NRBC Pct Auto 0.8(H) 0.0 - 0.2 /100WBC [facility] Neutrophils Absolute Auto 4.7 2.0 - 8.3 x10*3/uL [facility] Imm Gran Abs Auto 0.05(H) 0.00 - 0.03 X10*3/uL [facility] Lymphocytes Absolute Auto 0.8(L) 1.2 - 4.9 X10*3/uL [facility] Monocytes Absolute Auto 0.6 0.1 - 1.2 X10*3/uL [facility] Eosinophils Absolute Auto 0.2 0.0 - 0.4 X10*3/uL [facility] Basophils Absolute Auto 0.1 0.0 - 0.2 X10*3/uL [facility] NRBC Abs Auto 0.050(H) 0.0 - 0.012 X10*3/uL [facility] 01/28/2025 6:38 PM EDT 01/28/2025 6:42 PM EDT Generic External Data Provider LAB BLOOD ORDERAB LES Final Result Performing Organization Address [facility] Co de Phone Number [facility] [address] [place] [phone] * Magnesium (01/28/2025 6:38 PM EDT) Only the most recent of3 resultswithin the time period is included. Magnesium 1.8 1.6 - 2.6 mg/dL [facility] 01/28/2025 6:38 PM EDT 01/28/2025 6:42 PM EDT Generic External Data Provider LAB BLOOD ORDERAB LES Final Result Performing Organization Address [facility] [[email or web address]] de Phone Number [facility] [address] [place] [address] [phone] * (ABNORMAL) Iron And Total Iron Binding Capacity (01/27/2025 4:23 PM EDT) Iron 11(L) 30 - 160 mcg/dL [facility] Total Iron Binding Capacity 307 228 - 428 mcg/dL [facility] Percent Iron Saturation 4(L) 15 - 50 % [facility] Unsaturated Iron Binding 296 ug/dL [facility] 01/27/2025 4:23 PM EDT 01/27/2025 4:27 PM EDT Generic External Data Provider LAB BLOOD ORDERAB LES Final Result Performing Organization Address City/[facility] Co de Phone Number [facility] [address] [place] [address] [phone] * Partial Thromboplastin Time, Activated (APTT) (01/27/2025 4:23 PM EDT) Partial Thromboplastin Time 26.5 26.0 - 36.8 SEC [facility] Comment:For information rega rding the monitoring of direct thrombininhibitors, please refer to Pharmacy. 01/27/2025 4:23 PM EDT 01/27/2025 4:27 PM EDT us Generic External Data Provider LAB BLOOD ORDERAB LES Final Result Performing Organization Address [facility] Co de Phone Number [facility] [address] [place] [address] [phone] * (ABNORMAL) Prothrombin Time-INR (01/27/2025 4:23 PM EDT) Prothrombin Time 13.9(H) 10.9 - 12.4 SEC [facility] INTERNATIONAL NORM RATIO 1.2(H) 0.9 - 1.1 [facility] Comment:INTERNATIONAL NORMAL IZED RATIO (INR) [...] ORDERAB LES Final Result Performing Organization Address [facility] Co de Phone Number [facility] [address] [place] [address] [phone] * Type and screen (01/27/2025 4:23 PM EDT) Blood Type BP [facility] Antibody Screen NEGATIVE [facility] 01/27/2025 4:23 PM EDT 01/27/2025 4:29 PM EDT us Generic External Data Provider LAB BLOOD BANK TE ST ORDERABLES Final Result [facility] [address] [place] [phone] * (ABNORMAL) Comprehensive Metabolic Panel (01/27/2025 4:23 PM EDT) Only the most recent of2 resultswithin the time period is included. Sodium 138 135 - 145 mmol/L [facility] Potassium 3.8 3.3 - 5.1 mmol/L [facility] Chloride 104 96 - 108 mmol/L [facility] Carbon Dioxide 26 22 - 29 mmol/L [facility] Anion Gap 12 12 - 20 [facility] Urea Nitrogen (BUN) 18(H) 9 - 16 mg/dL [facility] Creatinine, Serum 0.66 0.5 - 1.4 mg/dL [facility] Creatinine Clr Calc Pharmacy 157.8 [facility] Comment:Provided height and weight: 157.48 cm,181.437 kg.eGFR (calculated from the MDRD study equation) and eCrCl(calculated from the Cockcroft-Gault equation) are based ondifferent parameters and may not yield comparable results.If eCrCl result is absurd, please check patient'sheight/weight. Estimated Glomerular Filt Rate >60 [facility] Comment:Chronic Kidney Disea se: Estimated GFR < 60 mL/min/1.03w2Enarev Kidney Disease: Estimated GFR < 15 mL/min/1.73m2 Glucose 143(H) 60 - 115 mg/dL [facility] Calcium 6.4(L) 8.4 - 10.2 mg/dL [facility] Bilirubin, Total 0.6 0.0 - 1.0 mg/dL [facility] Aspartate Amino Transferase 30 5 - 31 U/L [facility] Alanine Aminotransferase 19 0 - 31 U/L [facility] Total Protein 7.4 6.5 - 8.0 g/dL [facility] Albumin Level 3.4(L) 3.5 - 5.0 g/dL [facility] Alkaline Phosphatase 90 39 - 117 U/L [facility] 01/27/2025 4:23 PM EDT 01/27/2025 4:27 PM EDT us Generic External Data Provider LAB BLOOD ORDERAB LES Final Result Performing Organization Address [facility] Co de Phone Number [facility] [address] [place] [address] [phone] * Pathologist Review - CBC (01/27/2025 12:16 PM EDT) Pathologist Review - CBC SEE NOTE [facility] Comment:- Microcytic and hyp ochromic anemia with rare nucleatedRBCs: consider iron deficiency vs anemia of chronic diseasevs blood loss vs other etiologies.- No significant schistocytes are seen.Reviewed by Faustina Robertson MD 01/27/2025 12:1 6 PM EDT 01/27/2025 12:16 PM EDT us Monica Hernandez DIRECTOR OF WEB MARKETING LAB BLOOD ORDERABLES Final Res ult Performing Organization Address [facility] Co de Phone Number [facility] [address] [place] [phone] * Vitamin D, 25-Hydroxy, Total, Immunoassay (01/27/2025 12:16 PM EDT) Vitamin D 25-OH Total 34.4 >30 ng/mL [facility] Comment:Health Based Referen ce Values*< 20 ng/mL Adhqdhjcj14-65 ng/mL Insufficient> 30 ng/mL Sufficient*Tena CHERY. N [...] ORDERAB LES Final Result Performing Organization Address [facility] Co de Phone Number [facility] [address] [place] [phone] * (ABNORMAL) TSH with Reflex to Free T4 (01/27/2025 12:16 PM EDT) TSH reflex Free T4 4.02(H) 0.32 - 4.0 uIU/mL [facility] 01/27/2025 12:1 6 PM EDT 01/27/2025 12:16 PM EDT us Generic External Data Provider LAB BLOOD ORDERAB LES Final Result Performing Organization Address [facility] Co de Phone Number [facility] [address] [place] [phone] * PTH, Intact Without Calcium (01/27/2025 12:16 PM EDT) Parathyroid Hormone, Intact 10.3 8.7 - 77.1 pg/mL [facility] 01/27/2025 12:1 6 PM EDT 01/27/2025 12:16 PM EDT Generic External Data Provider LAB BLOOD ORDERAB LES Final Result Performing Organization Address [facility] Co de Phone Number [facility] [address] [place] [phone] * (ABNORMAL) Hemoglobin A1c (01/27/2025 12:16 PM EDT) Hemoglobin A1c 7.1(H) <6.0 % [facility] Comment:Hemoglobin A1C Refer ence Range Adults: 4.8 - 6.0 % Non diabetic: < 6.0 % Goal: < 7.0 %Additional Action Suggested: > 8.0 %Note: Hemoglobin A1c results are invalid for patients with abnormal amounts of HbF. Blood transfusions may impact the HbA1c concentration in the patient sample. Estimated Average Glucose 157 mg/dL [facility] Comment:eAG = Estimated ave rage glucose which is %A1C expressed asaverage glucose, using the formula of the J0U-SitwisiLtfadex Glucose study (ADAG), Diabetes Care, Vol.31,#8,Jun. 2007 Blood Venous blood specimen / Unknown 01/27/2025 12:16 PM EDT 01/27/2025 12:16 PM EDT Monica Hernandez [facility] LAB BLOOD ORDERABLES Final Res ult [facility] [address] [place] [phone] * Hepatitis C Viral RNA, Quantitative, Real-Time PCR (10/07/2024 10:25 AM EST) Hepatitis C Viral Load <15 NOT DETECTED NOT DETECTED IU/mL [facility] HCV Log PCR <1.18 NOT DETECTED NOT DETECTED Log IU/mL [facility] Comment:For additional infor juan josé, please refer tohttp://education.Angiologix/faq/CGU38e5(This link is being provided for informational/educational purposes only.)THIS TEST WAS PERFORMED AT:[facility] [place] [id number] BARR MD Blood 10/07/2024 10:2 5 AM EST 10/07/2024 10:25 AM EST us Monica Hernandez [facility] LAB BLOOD ORDERABLES Final Res ult Performing Organization Address [facility] Co de Phone Number [facility] [address] [place] [phone] * HIV-1/2 Antigen and Antibodies, Fourth Generation, with Reflexes (10/07/2024 10:25 AM EST) HIV AB/AG Nonreactive Nonreactive [facility] Comment:HIV-1 p24 Ag and/or HIV-1/HIV-2 Ab not detected.A test result that is nonreactive does not exclude thepossibility of exposure to or infection with HIV-1 and/orHIV-2. Nonreactive results in this assay for individualswith prior exposure to HIV-1 and/or HIV-2 may be due toantigen and antibody levels that are below the limit ofdetection of this assay.The [employer] [facility] HIV Ag/Ab Combo assay result andsupplemental assay results should be interpreted inconjunction with the patient's clinical presentation,history and other laboratory results. If the results areinconsistent with clinical evidence, additional testing issuggested to confirm the result. Blood Venous blood specimen / Unknown 10/07/2024 10:25 AM EST 10/07/2024 10:25 AM EST Monica Hernandez [facility] LAB BLOOD ORDERABLES Final Res ult Performing Organization Address [facility]/ZIP Co de Phone Number [facility] [address] [place] [phone] * BI Mammogram Screening Tomosynthesis Bilateral (06/19/2024 10:05 AM EDT) Anatomical Region Laterality Modality Breast Bilateral Mammography 06/19/2024 10:0 5 AM EDT Narrative 06/26/2024 11:59 AM EDT ? [facility] ? [address] ?[place] [address] ? Mammography Report ? Signed ? Patient: Lee,Shayy ?MR#: [id number] ?? [id number] ? : 1970 ?Acct:[id number] ? Age/Sex: 54 / F ?ADM Date: 07/31/24 ? Loc: HO.MAMMO ? Attending Dr: Anahy Mcbride ? Ordering Physician: Monica Hernandez ?Results: 1Negat ?? francesca ? Date of Service: 06/19/24 ?Follow Up: 1 Year From Orig ?? inal Mammogram ? Procedure(s): MM tomosynthesis screening BI ?? Accession Number(s): [id number] ? cc: Monica Hernandez ? EXAMINATION: ?? [...] by Silvana Espinoza MD in OV> ? 06/26/245 ? DD/ 1005 ? TD/TT: ? Software Implementation Project Manager: ? Procedure Note Donhazelter, Image - 06/26/2024 [facility] [address] [place], [place] [address] Mammography Report Signed Patient: Yael Lee MMR#: [id number] : 1970Acct:[id number] Age/Sex: 54 / FADM Date: 06/19/24 Loc: HO.MAMMO Attending Dr: Anahy Mcbride Ordering Physician: Monica Hernandez FNPResults: 1Negat francesca Date of Service: 06/19/24Follow Up: 1 Year From Orig inal Mammogram Procedure(s): MM tomosynthesis screening BI Accession Number(s): [id number] cc: Monica Hernandez DIRECTOR OF WEB MARKETING EXAMINATION: MM SCREENING DIGITAL BREAST TOMOSYNTHESIS, BILATERAL [...] in OV> 06/26/24 1155 DD/ 1005 TD/TT: Software Implementation Project Manager: Monica Hernandez DIRECTOR OF WEB MARKETING IMG BI PROCEDURES Final Result * THINPREP [...] test SurePath(TM) specimens have been determined by [facility]. The modifications have not been cleared or approved by the FDA. This assay has been validated pursuant to the CLIA regulations and is used for clinical purposes. ?? For additional information, please refer to https://education.Angiologix/faq/IKS932 (This link is being provided for information/ [...] was manually screened according to routine procedures. Medical Research Assistant: SEE COMMENT [facility] Comment: RAMIRO CALABRESE(ASCP) CT screening location: [address] ??[address] HPV nRNA E6/E7 Not Detected Not Detected [facility] Comment: Methodology: Appellate Court Clerk-Mediated Amplification This assay detects E6/E7 viral messenger RNA (mRNA) from 14 high-risk HPV types (16,18,31,33,35,39,45,51,52,56,58,59,66,68). ? Cervical sources are required for HPV testing. If a vaginal source from a patient who has had a total hysterectomy with removal of cervix was ?? submitted, please contact the testing laboratory for alternative testing options. ?? For additional information, please refer to http://Rococo Software.Angiologix/faq/GZO736l0 (This link if provided for information/ educational [...] of this assay have been determined by [facility]. The modifications have not been cleared or approved by the FDA. This assay has been validated pursuant to the CLIA regulations and is used for clinical purposes. ?? For additional information, please refer to http://[employer].Angiologix/ faq/Trichomonastma (This link is being provided for [...] test SurePath(TM) specimens have been determined by [facility]. The modifications have not been cleared or approved by the FDA. This assay has been validated pursuant to the CLIA regulations and is used for clinical purposes. ?? For additional information, please refer to https://Rococo Software.Angiologix/faq/SAY700 (This link is being provided for information/ [...] was manually screened according to routine procedures. Medical Research Assistant: [facility] Comment: RAMIRO CALABRESE(ASCP) CT screening location: [address] ??[address] HPV nRNA E6/E7 Not Detected Not Detected [facility] Comment: Methodology: Appellate Court Clerk-Mediated Amplification This assay detects E6/E7 viral messenger RNA (mRNA) from 14 high-risk HPV types (16,18,31,33,35,39,45,51,52,56,58,59,66,68). ? Cervical sources are required for HPV testing. If a vaginal source from a patient who has had a total hysterectomy with removal of cervix was ?? submitted, please contact the testing laboratory for alternative testing options. ?? For additional information, please refer to http://education.Angiologix/faq/NAV623f1 (This link if provided for information/ educational [...] of this assay have been determined by [facility]. The modifications have not been cleared or approved by the FDA. This assay has been validated pursuant to the CLIA regulations and is used for clinical purposes. ?? For additional information, please refer to http://education.Shapeways.Branch Metrics/ faq/Trichomonastma (This link is being provided for information/ educational purposes only.) ?? NO COLLECTION DATE RECEIVED. WE HAVE USED THE DATE THE SPECIMEN WAS RECEIVED BY THIS LABORATORY THE COLLECTION DATE. IF THIS IS INCORRECT, PLEASE CONTACT CLIENT SERVICES. PHONE NUMBER: ?? 07/15/2022 5:54 PM EDT us Anahy Mcbride DIRECTOR OF WEB MARKETING LAB PATHOLOGY ORDERABLES Final Result [facility] [address] from Last 3 Months or Most Recently Relevant to Health Maintenance Insurance [facility] STANDARD MEDICARE Care Teams Global Recruiter Relationship Specialty Start Date End Date Monica Hernandez FNP [address] [place] [address] PCP - General Family Medicine 07/14/22 Loc Agrawal MD [address] [place] [address] Endocrinology 10/20/24 Lamar De Paz MD [address] [place] [address] Hematology and Oncology 10/20/24 Ralph Reece MD [address] [place] [address] Cardiology 10/20/24
--- OUTSIDE RECORDS SUMMARY | 2025-03-14 13:23 | XMS_ITS | Encounter Summary ---
Author Organization [employer] Address [address] [facility] 7t [place] [address] Care Team Providers Care Extended Insurance Clerk Name Role Phone Monica Hernandez Primary Care Provider Loc Agrawal MD Unavailable [phone] Lamar De Paz MD Unavailable [phone] Ralph Reece MD Unavailable [phone] Encounter Details Date Type Department Care Team (Late st Contact Info) Description 10/25/2022 Telephone [facility] MEDICINE [address] [place] [address] Monica Hernandez FNP [address] [place], [place] [phone] Social History Tobacco Use Types Packs/Day Years [...] Description 06/02/2025 10:00 AM EDT Office Visit [facility] CHC MED & PEDS [address] [place], [place] [phone] Monica Hernandez FNP [address] [place], [place] [phone] documented as of this encounter Visit Diagnoses Not on filedocumented in this encounter Care Teams Extended Insurance Clerk Relationship Specialty Start Date End Date Monica Hernandez FNP [address] [place] [address] PCP - General Family Medicine 07/14/22 Loc Agrawal MD [address] [place] [address] Endocrinology 10/20/24 Lamar De Paz MD [address] [place] [address] Hematology and Oncology 10/20/24 Ralph Reece MD [address] [place] [address] Cardiology 10/20/24 documented as of this encounter
--- OUTSIDE RECORDS SUMMARY | 2025-03-14 13:23 | XMS_ITS | Encounter Summary ---
Author Organization [employer] Address 75 [facility] 7t [place] [address] Care Team Providers Care Dope Sprayer Name Role Phone Monica Hernandez Primary Care Provider Loc Agrawal MD Unavailable [phone] Lamar De Paz MD Unavailable [phone] Ralph Reece MD Unavailable [phone] Reason for Visit * Reason Comments Med Refill Encounter Details Date Type Department Care Team (Late st Contact Info) Description 08/12/2023 Refill [facility] MEDICINE [address] [place] [address] Monica Hernandez FNP [address] [place] [address] Sleep difficulties Social History Tobacco Use Types [...] Description 06/02/2025 10:00 AM EDT Office Visit [facility] CHC MED & PEDS [address] [place] [address] Monica Hernandez FNP [address] [place] [address] documented as of this encounter Visit Diagnoses Diagnosis Sleep difficulties documented in this encounter Additional Health Concerns Assessment Noted Time PHQ-9 Depression Total Score: 2 05/09/20 23 9:29 AM EDT documented as of this encounter Care Teams Dope Sprayer Relationship Specialty Start Date End Date Monica Hernandez FNP [address] [place] [address] PCP - General Family Medicine 07/14/22 Loc Agrawal MD [address] [place] [address] Endocrinology 10/20/24 Lamar De Paz MD [address] [place] [address] Hematology and Oncology 10/20/24 Ralph Reece MD [address] [place] [address] Cardiology 10/20/24 documented as of this encounter
--- OUTSIDE RECORDS SUMMARY | 2025-03-14 13:23 | XMS_ITS | Encounter Summary ---
Author Organization [employer] Address [address] [facility] 7t [place] [address] Care Team Providers Care Service Station Cashier Name Role Phone Monica Hernandez Primary Care Provider Loc Agrawal MD Unavailable [phone] Lamar De Paz MD Unavailable [phone] Ralph Reece MD Unavailable [phone] Reason for Visit * Reason Comments Med Refill Encounter Details Date Type Department Care Team (Late st Contact Info) Description 05/06/2024 Refill [facility] MED & PEDS [address] [place], [place] [phone] Monica Hernandez FNP [address] [place], [place] [phone] Hypothyroidism, unspecified type Social History Tobacco Use [...] Description 06/02/2025 10:00 AM EDT Office Visit [facility] MED & PEDS [address] [place] [address] Monica Hernandez FNP [address] [place] [address] documented as of this encounter Visit Diagnoses Diagnosis Hypothyroidism, unspecified type documented in this encounter Additional Health Concerns Assessment Noted Time PHQ-9 Depression Total Score: 4 04/05/20 24 10:31 AM EDT documented as of this encounter Care Teams Service Station Cashier Relationship Specialty Start Date End Date Monica Hernandez FNP [address] [place] [address] PCP - General Family Medicine 07/14/22 Loc Agrawal MD [address] [address] Endocrinology 10/20/24 Lamar De Paz MD [address] [place] [address] Hematology and Oncology 10/20/24 Ralph eRece MD [address] [place] [address] Cardiology 10/20/24 documented as of this encounter
--- OUTSIDE RECORDS SUMMARY | 2025-03-14 13:23 | XMS_ITS | Encounter Summary ---
Author Organization [email or web address] Address [address] [facility] 7t [place] [address] Care Team Providers Care Nut Grader Name Role Phone Monica Hernandez Primary Care Provider Loc Agrawal MD Unavailable [phone] Lamar De Paz MD Unavailable [phone] Ralph Reece MD Unavailable [phone] Reason for Visit * Reason Onset Date Comments Durable Medical Equipment 04/11/2024 Encounter Details Date Type Department Care Team (Late st Contact Info) Description 04/11/2024 Telephone [facility] CHC MED & PEDS [address] [place], [place] [phone] Monica Hernandez FNP [address] [place], [place] [phone] Durable Medical Equipment Social History Tobacco Use [...] her that the script was sent to [facility], but now she states [...] script has to be sent over to [facility] instead. Sister quan little upset due to it being several month trying to get DME . Please contact phone# [phone] regarding next step. documented in this encounter Plan of Treatment Upcoming Encounters Date Type Department Care Team (Late st Contact Info) Description 06/02/2025 10:00 AM EDT Office Visit [facility] CHC MED & PEDS [address] [place] [address] Monica Hernandez FNP [address] [place] [address] documented as of this encounter Visit Diagnoses Not on filedocumented in this encounter Additional Health Concerns Assessment Noted Time PHQ-9 Depression Total Score: 4 04/05/20 24 10:31 AM EDT documented as of this encounter Care Teams Nut Grader Relationship Specialty Start Date End Date Monica Hernandez FNP [address] [place] [address] PCP - General Family Medicine 07/14/22 Loc Agrawal MD [address] [address] Endocrinology 10/20/24 Lamar De Paz MD [address] [place] [address] Hematology and Oncology 10/20/24 Ralph Reece MD [address] [place] [address] Cardiology 10/20/24 documented as of this encounter
--- OUTSIDE RECORDS SUMMARY | 2025-03-14 13:24 | XMS_ITS | Patient Health Record ---
Author Organization [facility] Address [address] [place] [phone] Support Name Relationship Address Phone Yael Lee Guarantor Unknown [phone] Allergies Allergen (clinical drug ingredient) Drug/Non Drug [...] Insured Coverage Start Date Coverage End Date [facility] [address] [place] [phone] [id number] Yael Lee Self - patient is the insured [facility] Medicare Advantage Plan 1 [facility] [address] [place] [address] [id number] Yael Lee Self - patient is the insured Medical (General) History Medical History History ICD Code hypertension Hypothyroidism anemia
--- OUTSIDE RECORDS SUMMARY | 2025-03-14 13:24 | XMS_ITS | Clinical Summary ---
Author Organization [facility] it Address [address] [place] [address] Care Team Providers Care Cyber Instructor Name Role Phone Unavailable Primary Care Provider [...] - 2023-2 5 season) 2024 Influenza Vaccine (Season Ended) 2025 HIB Vaccines Aged Out No longer eligi [...] age to complete this topic Meningococcal B Vaccine Aged Out No l onger eligible based on patient's age to complete [...]
[2025-03-14 16:07] LABS: MANUAL DIFF FLAG NO
[2025-03-14 16:17] LABS: Basophils Absolute Auto 0.1 X10*3/uL (0.0-0.2); Basophils Percent Auto 1.1 % (0-2); Eosinophils Absolute Auto 0.3 X10*3/uL (0.0-0.4); Eosinophils Percent Auto 4.4 % (0-4); Hematocrit 37.4 % (37.0-47.0); Imm Gran Abs Auto 0.02 X10*3/uL (0.00-0.03); Imm Gran Pct Auto 0.3 % (0.0-0.4); Lymphocytes Absolute Auto 1.1 X10*3/uL (1.2-4.9); Lymphocytes Percent Auto 18.2 % (20-40); Mean Corpuscular HGB Conc 29.4 g/dl (31.0-35.0); Mean Corpuscular Hemoglobin 24.2 pg (27.0-33.0); Mean Corpuscular Volume 82.4 fL (80.0-98.0); Mean Platelet Volume 10.5 fL (9.4-12.3); Monocytes Absolute Auto 0.8 X10*3/uL (0.1-1.2); Monocytes Percent Auto 12.3 % (2-11); Neutrophils Absolute Auto 3.9 x10*3/uL (2.0-8.3); Neutrophils Percent Auto 63.7 % (45-73); Platelet Count 252 X10*3/uL (160-400); Red Blood Count 4.54 X10*6/uL (4.20-5.50); Red Cell Distribution Width 27.5 % (11.0-16.0); White Blood Count 6.2 X10*3/uL (4.8-10.8)
[2025-03-14 16:49] LABS: Ferritin 345 ng/mL (10-250)
== END 2025-03-14 12:36 | disposition home or self-care (01) ==
LOC: HO.HMGCLDS 12:35
PROVIDERS: PCP Registered Nurse; Visit Provider Registered Nurse
DX: D50.9 Iron deficiency anemia, unspecified (principal)
CPT/HCPCS: 36415; 82728; 85025

== ENCOUNTER 2025-04-29 09:50 | Outpatient (AMB) | payer MEDICARE, MEDICAID, SELFPAY ==
[2025-04-29 09:52] VITALS: BP 140/82; PULSE 66; O2SAT 94; BMI 71.1
--- NOTE | 2025-04-29 09:52 | MHC.OFFVIS ---
Vital Signs 04/29/25 09:52 Height 5 ft 2 in Weight 388 lb 14.327 oz BMI 71.1 BP 140/82 H Blood Pressure Location Lt brachial Position Sitting Pulse 66 Pulse Source Pulse Oximeter Pulse Oximetry (%) 94 Oxygen Delivery Method Room Air Intake Visit Reasons: Hypoparathyroidism Intake Note: Patient present today for Hypoparathyroidism office visit. Financial Services Technician Required: Yes Financial Services Technician Language: Physical Trainer Services: Financial Services Technician Present Financial Services Technician Name: Suzette [id number] Information Interpreted: non-clinical & clinical Accompanied by: Sister Allergies Penicillins Allergy (Unknown, Verified 04/29/25 10:32) RASH Medication List - Last Reconciled 04/29/25 by Gay Bellamy MD calcitriol 0.5 mcg (2 x 0.25 mcg) PO BID 30 days calcium carbonate 500 mg PO BID cholecalciferol (vitamin D3) 25 mcg PO DAILY diltiazem HCl CD 360 mg PO DAILY docusate sodium 100 mg PO BID labetalol 200 mg PO BID levothyroxine 112 mcg PO DAILY@0600 lisinopril 40 mg PO DAILY norethindrone acetate 5 mg PO DAILY HPI Comments Details: 54-year-old female coming in today for follow up of hypoparathyroidism. Here today with granddaughter HPI from prior visit Per chart review he was originally diagnosed sometime in 2020/beginning of 2021 with hypoparathyroidism after she was noted to be hypocalcemic. No history of thyroid or parathyroid surgery. Father has a history of hypocalcemia. She has no history of kidney stones. No history of fractures. Reviewed investigations of the time, which showed a normal magnesium level from 2020 of 1.9. Renal Us 08/13/24 normal No blood in urine. Perimenopausal, get periods every few months. No vision changes, but hasnt seen an eye doctor in a while. No history of cataracts. No kidney stones. No fractures or falls. No mental status changes. No nausea , vomiting, no abd pain , weight has been stable no weight changes. 2022 PTH of 8. Denies kidney stones or osteoporosis. labs are from April 12 calcium 7.5, albumin 3.6 labs 10/07/24 showed low ionized calcium of Ionized calcium of 4.5 which is low, low total calcium of 8.2 with albumin of 3.7, corrected calcium would be something around 8.5. Given she was having symptoms of perioral numbness, I had increased her calcium carbonate to 500 mg twice daily as well as went up on her calcitriol to 0.5 mcg twice daily. However patient at last visit in October 2024 endorsed she was not taking her calcium carbonate because the size of the pills was bothering her. I had emphasized to her importance of taking her calcium and low calcium levels in the blood can result in if not managed timely. I had also asked her to do blood work at that time, but no blood work was done. Interval history 02/13/2025 01/28/25 : calcium noted to be low at 6.7 , patient was sent to ED, normal EKG findings, patient was hospitalized in iv calcium given she will calcium became greater than 8 Patient is currently on vitamin D3 2 000 IU per day calcitriol increased to 0.75 ug in the morning and 0.75 mcg in evening from 0.5 Calcium carbonate 500 mg BID, back to prescription brand as there was concern whether she was taking the correct amount denies numbness or tingling in arms 02/10/2025: Phosphorus high at 4.6, normal kidney function, calcium of 9, ionized calcium of 4.9, albumin of 3.6, corrected calcium would be 9.3, she gets prepackaged medications. sister lives with her and reports good adherence to the medications denies history of seizures. Patients mother 2 weeks ago Interval history 04/29/2025 Patient was supposed to get blood work done in mid March, not done Currently on calcitriol 0.5 mcg b.i.d. Calcium carbonate 500 mg b.i.d. Vitamin-D 1000 units daily Physical exam General: sitting comfortably in no acute distress HEENT: normocephalic/atraumatic, , moist oral mucosa Neck: supple, symmetrical, Cardiac: normal heart sounds Pulm: normal breath sounds B/L, no added breath sounds Laboratory Tests 02/25/19 12/12/20 02/17/22 11:40 04:17 19:37 Hgb Hct Creatinine Estimated GFR Calcium 8.5 D 6.3 L 7.1 L D Magnesium 1.9 Phosphorus Iron 26 L Iron Saturation 8 L TIBC % Saturation Unsat Iron Binding Ferritin AST ALT TSH 3rd Generation 4.09 H PTH Intact Calcium (PTH Intact) Ur 24 Hour Volume Ur Creatinine 24 Hour Ur Calcium 24 Hr Calcium/Creat 24 Hr 11/22/22 12/26/22 01/10/23 08:29 01:39 13:15 Hgb Hct Creatinine 0.92 0.83 Estimated GFR > 60 > 60 Calcium 9.6 D 9.0 D Magnesium Phosphorus 5.5 H 5.2 H Iron Iron Saturation TIBC % Saturation Unsat Iron Binding Ferritin AST ALT TSH 3rd Generation PTH Intact 8 L Calcium (PTH Intact) 7.4 L Ur 24 Hour Volume Ur Creatinine 24 Hour Ur Calcium 24 Hr Calcium/Creat 24 Hr 01/23/23 01/23/23 08/30/23 08:00 08:00 15:41 Hgb Hct Creatinine 1.06 Estimated GFR 54 Calcium 7.9 L D Magnesium Phosphorus Iron Iron Saturation TIBC % Saturation Unsat Iron Binding Ferritin AST ALT TSH 3rd Generation PTH Intact Calcium (PTH Intact) Ur 24 Hour Volume 3000 Ur Creatinine 24 Hour 2.49 H 2.5 H Ur Calcium 24 Hr 339 H Calcium/Creat 24 Hr 136 03/06/24 04/02/24 05/16/24 12:07 11:00 12:42 Hgb 7.2 L D 8.7 L D 10.9 L D Hct 26.7 L 30.5 L 35.5 L Creatinine 0.71 Estimated GFR > 60 Calcium 7.5 L Magnesium Phosphorus Iron 18 L 207 H Iron Saturation TIBC 301 347 % Saturation 6 L 60 H Unsat Iron Binding 283 140 Ferritin 35 31 133 AST 17 ALT 9 TSH 3rd Generation PTH Intact Calcium (PTH Intact) Ur 24 Hour Volume Ur Creatinine 24 Hour Ur Calcium 24 Hr Calcium/Creat 24 Hr Laboratory Tests 01/23/23 04/02/24 10/07/24 08:00 11:00 10:25 Calcium 8.2 L D Ionized Calcium 4.5 L Phosphorus 5.2 H Magnesium 1.7 Albumin 3.6 3.7 25-OH Vitamin D Total 32.9 TSH 2.78 PTH Intact 9.7 Ur 24 Hour Volume Ur Creatinine mg/dL 83.35 Ur Creatinine 24 Hour Ur Calcium 24 Hr Calcium/Creat 24 Hr 10/09/24 08:00 Calcium Ionized Calcium Phosphorus Magnesium Albumin 25-OH Vitamin D Total TSH PTH Intact Ur 24 Hour Volume 975 Ur Creatinine mg/dL 72.71 Ur Creatinine 24 Hour 0.7 L Ur Calcium 24 Hr 189 Calcium/Creat 24 Hr 285 H Laboratory Tests 02/25/19 12/12/20 02/17/22 11:40 04:17 19:37 Hgb Hct Creatinine Estimated GFR Calcium 8.5 D 6.3 L 7.1 L D Magnesium 1.9 Phosphorus Ionized Calcium Iron 26 L Iron Saturation 8 L TIBC % Saturation Unsat Iron Binding Ferritin AST ALT Albumin TSH 3rd Generation 4.09 H TSH Free T4 PTH Intact Calcium (PTH Intact) Ur 24 Hour Volume Ur Creatinine 24 Hour Ur Calcium 24 Hr Calcium/Creat 24 Hr 11/22/22 12/26/22 01/10/23 08:29 01:39 13:15 Hgb Hct Creatinine 0.92 0.83 Estimated GFR > 60 > 60 Calcium 9.6 D 9.0 D Magnesium Phosphorus 5.5 H 5.2 H Ionized Calcium Iron Iron Saturation TIBC % Saturation Unsat Iron Binding Ferritin AST ALT Albumin TSH 3rd Generation TSH Free T4 PTH Intact 8 L Calcium (PTH Intact) 7.4 L Ur 24 Hour Volume Ur Creatinine 24 Hour Ur Calcium 24 Hr Calcium/Creat 24 Hr 01/23/23 01/23/23 08/30/23 08:00 08:00 15:41 Hgb Hct Creatinine 1.06 Estimated GFR 54 Calcium 7.9 L D Magnesium Phosphorus Ionized Calcium Iron Iron Saturation TIBC % Saturation Unsat Iron Binding Ferritin AST ALT Albumin TSH 3rd Generation TSH Free T4 PTH Intact Calcium (PTH Intact) Ur 24 Hour Volume 3000 Ur Creatinine 24 Hour 2.49 H 2.5 H Ur Calcium 24 Hr 339 H Calcium/Creat 24 Hr 136 03/06/24 04/02/24 05/16/24 12:07 11:00 12:42 Hgb 7.2 L D 8.7 L D 10.9 L D Hct 26.7 L 30.5 L 35.5 L Creatinine 0.71 Estimated GFR > 60 Calcium 7.5 L Magnesium Phosphorus Ionized Calcium Iron 18 L 207 H Iron Saturation TIBC 301 347 % Saturation 6 L 60 H Unsat Iron Binding 283 140 Ferritin 35 31 133 AST 17 ALT 9 Albumin TSH 3rd Generation TSH Free T4 PTH Intact Calcium (PTH Intact) Ur 24 Hour Volume Ur Creatinine 24 Hour Ur Calcium 24 Hr Calcium/Creat 24 Hr 01/28/25 01/29/25 01/30/25 19:53 04:36 08:39 Hgb Hct Creatinine 0.74 Estimated GFR > 60 Calcium 6.7 L 7.5 L D 8.1 L D Magnesium Phosphorus Ionized Calcium 4.0 L Iron Iron Saturation TIBC % Saturation Unsat Iron Binding Ferritin AST ALT Albumin 3.5 TSH 3rd Generation TSH Free T4 PTH Intact Calcium (PTH Intact) Ur 24 Hour Volume Ur Creatinine 24 Hour Ur Calcium 24 Hr Calcium/Creat 24 Hr 02/06/25 02/10/25 14:24 11:32 Hgb Hct Creatinine 0.85 Estimated GFR > 60 > 60 Calcium 9.1 D 9.0 Magnesium Phosphorus 4.6 H Ionized Calcium 4.9 Iron Iron Saturation TIBC % Saturation Unsat Iron Binding Ferritin AST ALT Albumin 3.6 3.6 TSH 3rd Generation TSH 3.09 Free T4 1.12 PTH Intact Calcium (PTH Intact) Ur 24 Hour Volume Ur Creatinine 24 Hour Ur Calcium 24 Hr Calcium/Creat 24 Hr US RETROPERITONEAL LIMITED (RENAL ONLY) 08/13/24 CLINICAL INFORMATION: Hypoparathyroidism, unspecified.. COMPARISON: Ultrasound renal with Doppler 12/08/2021. TECHNIQUE: Real-time imaging of the kidneys. Technically limited study secondary to body habitus. FINDINGS: RIGHT KIDNEY: 9.9 x 4.6 x 6.5 cm (SAG x AP x TRV). The kidney is normal in size, contour, and echogenicity. Renal cortical thickness is normal. No calculi or focal parenchymal lesions. No hydronephrosis. LEFT KIDNEY: 10.9 x 4.9 x 6.6 cm (SAG x AP x TRV). The kidney is normal in size, contour, and echogenicity. Renal cortical thickness is normal. No calculi or focal parenchymal lesions. No hydronephrosis. US/US renal BI IMPRESSION: Normal exam without nephrolithiasis. Electronically signed by: Keagan Guillen MD 10/03/2024 11:51 AM [facility] US RETROPERITONEAL LIMITED (RENAL ONLY) Nov 2021 US RENAL DOPPLER CLINICAL INFORMATION: Hypertension. Rule out renal artery stenosis. COMPARISON: None TECHNIQUE: Mckeno-scale and color imaging of the kidneys. Mckeon-scale, color and Doppler imaging of the renal arteries including waveform spectral analysis. Exam is limited due to patient body habitus. FINDINGS: RIGHT KIDNEY: 10.8 x 5.5 x 6.1 cm (SAG x AP x TRV). The kidney is normal in size, contour, and echogenicity. Renal cortical thickness is normal. No calculi or focal parenchymal lesions. No hydronephrosis. LEFT KIDNEY: 10.5 x 5.1 x 5.2 cm (SAG x AP x TRV). The kidney is normal in size, contour, and echogenicity. Renal cortical thickness is normal. No calculi or focal parenchymal lesions. No hydronephrosis. The abdominal aorta is difficult to visualize. Peak systolic velocity measures 220 cm/s which is elevated making calculation of renal artery to aorta ratio inaccurate. The visualized right renal artery appears patent. Right renal artery peak systolic velocities are normal measuring 134 cm/s, 128 cm/s and 80 cm/s proximally, in the midportion and distally. Segmental resistive indices in the right kidney are normal measuring between 0.6 and 0.8. The right renal vein is patent. The visualized left renal artery appears patent. Left renal artery peak systolic velocities are normal measuring 101, 81 and 79 cm/s proximally, in the midportion and distally. Resistive indices of the segmental renal arteries in the left kidney are normal measuring 0.7. The left renal vein is patent. US/US renal BI IMPRESSION: Limited exam due to patient body habitus. Normal-appearing kidneys. No evidence of renal artery stenosis. [facility] Medical History Hypoparathyroidism TBI (traumatic brain injury) Obesity Cognitive impairment Anemia DVT (deep venous thrombosis) Hypothyroid Hypertension Surgical History No pertinent past surgical history Family History Mother HTN (hypertension) Father Diabetes Paternal Aunt Colon cancer Maternal Aunt Breast CA Social History Household Members Other:: mom Housing: House Alcohol intake: never Patient Tobacco Use Status: Never used Tobacco service: No Physical Exam Vital Signs: Last Vital Signs Pulse 66 04/29/25 09:52 BP 140/82 H 04/29/25 09:52 Pulse Ox 94 04/29/25 09:52 Oxygen Delivery Method Room Air 04/29/25 09:52 BMI result Body Mass Index 71.1 Assessment & Plan Assessment & Plan (1) Hypoparathyroidism: Code(s): E20.9 - Hypoparathyroidism, unspecified Category: Medical Qualifiers: Hypoparathyroidism type: unspecified Qualified Code(s): E20.9 - Hypoparathyroidism, unspecified Plan: Patient who is diagnosed with hypoparathyroidism sometime around 11/2021, who is currently maintained on calcitriol 0.75 mcg in a.m. and 0.75 mcg in evening, and vitamin-D 2000 units daily, Our goal is to maintain calcium it in the lower normal range which would be something around 8-8.5. This is in order to prevent hypercalciuria. in 2022 showed her 24 hour urine calcium was 339 which is elevated since goal in woman is less than 250 mg per 24 hours, however her urine volume was 3 L which was also very increased so inadequate collection. Her kidney function stable, and renal ultrasound from 2023 did not show any nephrocalcinosis, These should be done of the 2 or 3 year kylah on treatment. US renal done 07/29/24 She has not had any workup for why she has developed hypoparathyroidism. Differentials include autoimmune polyglandular syndrome type 1, however no history of candidiasis. She does not have any symptoms of adrenal insufficiency, Twenty-one hydroxylase antibodies came back negative. Other differentials include other genetic mutations causing hypoparathyroidism especially given that she has family history of hypocalcemia in her father per the chart. I referred her to Genetics at [facility] in 08/13. [facility] genetics has a wait time of 6-9 months and at this time referral is pending evaluation.This was placed previously as well but does not seem like patient was able to get to them. She was also previously given a referral for [facility] to see hyperparathyroidism expert over there, however she says she did not hear from them, I placed this again visit in Jul 2024 as she would benefit from genetic workup to evaluate this and I have asked them to call their office. Patients daughter expressed difficult yregarding trnasport to [facility] and at this time the refusing to go, will let me know of the change their mind. . Her mother also recently, and she is very distraught at this time. In September 2024, patient was not adherent to her calcium pills because of the size of the pills was bothering her hence we told her to switch to some other brand and she was taking [employer] gummies, however early January 2025, calcium levels dropped to 6.7 and she was sent to the ED for IV calcium replacement. Given there was concern of whether she is taking the correct amount or not, plus they are unable to bring medication bottles to the visit as she gets prepackaged pills, we decided to switch back to prescription only pills. Her calcitriol was increased to 0.75 mcg b.i.d.. Most recent labs from 02/10/2025 showed calcium is at 9, with albumin of 3.6, corrected calcium would be 9.3-9.4. Since phosphorus was also high, we decreased the amount of calcitriol back to 0.5 mcg b.i.d.. She was supposed to do labs in March 2025 prior to this follow up however did not get blood work done. Plan: -orders already in place for repeat calcium, phosphorus, creatinine, , ionized calcium, albumin, vitamin-D to be done now -[facility] genetics referral already in place, she is on the wait list, [facility] genetics referral also placed and Patient scheduled on 07/22/25 @9:00., I stressed to them importance of following up on this appointment. -[facility] endocrinology referral for further evaluation of hyperparathyroidism etiology if genetics is more feasible to be done there , patient refusing at this time we will let us know if she changes her mind -continue calcitriol 0.5 mcg in a.m. 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 Normal TSH and free T4 from January 2025 Plan: -continue levothyroxine 112 mcg daily Plan See above Patient Instructions: Continue calcitriol 0.5 mcg (2 capsules) twice a day Continue calcium 500 mg twice daily Continue vitamin D 1000 units daily Do blood work today See [facility] genetics appointment scheduled for 07/22/25 at 9 AM, please tell them to fax notes to my office (Dr. Gay Bellamy [facility] [phone]) Follow up with me in July 2025 Contin?e con calcitriol 0.5 mcg (2 c?psulas) dos veces al d?a. Contin?e con calcio 500 mg dos veces al d?a. Contin?e con vitamina D 1000 unidades diarias. Brayden an?lisis de rosanna shelley. Consulte con el especialista en gen?krysten de [employer] para el 12/29/24 a las 9:00 a. m. Ind?queles que env?en las notas por fax a mi consultorio (Dra. Gay Bellamy, [facility], ). Vuelva a visitarme en 2024. 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
--- OUTSIDE RECORDS SUMMARY | 2025-04-29 11:02 | XMS_ITS | Encounter Summary ---
Author Organization [employer] Address [address] [place] [address] [address] [place] [address] Care Team Providers Care Podiatry Teacher Name Role Phone Monica Hernandez Primary Care Provider [phone] Loc Agrawal MD Unavailable Lamar De Paz MD Unavailable [phone] Ralph Reece MD Unavailable Reason for Visit * Reason Comments Med Refill Encounter Details Date Type Department Care Team (Late st Contact Info) Description 08/12/2023 Refill [facility] [address] [place] [address] Monica Hernandez FNP [address] [place] [address] Sleep difficulties Social History Tobacco Use Types [...] Description 06/02/2025 10:00 AM EDT Office Visit [facility] [address] [place] [address] Monica Hernandez FNP [address] [place] [address] documented as of this encounter Visit Diagnoses Diagnosis Sleep difficulties documented in this encounter Additional Health Concerns Assessment Noted Time PHQ-9 Depression Total Score: 2 05/09/20 23 9:29 AM EDT documented as of this encounter Care Teams Podiatry Teacher Relationship Specialty Start Date End Date Monica Hernandez FNP [address] [place] [address] PCP - General Family Medicine 07/14/22 Loc Agrawal MD [address] [place] [address] Endocrinology 10/20/24 Lamar De Paz MD [address] [place] [address] Hematology and Oncology 10/20/24 Ralph Reece MD [address] [place] [address] Cardiology 10/20/24 documented as of this encounter
== END 2025-04-29 10:56 | disposition home or self-care (01) ==
LOC: HO.ENCR 09:51
PROVIDERS: PCP Registered Nurse; Visit Provider Student in an Organized Health Care Education/Training Program
DX: E20.9 Hypoparathyroidism, unspecified (principal); E06.3 Autoimmune thyroiditis
CPT/HCPCS: 99213

== ENCOUNTER → 2025-04-29 09:50 | Outpatient (BNVA) | payer MEDICARE, MEDICAID, SELFPAY | PROVIDERS: PCP Registered Nurse; Visit Provider Student in an Organized Health Care Education/Training Program | DX: Z13.89 Encounter for screening for other disorder (principal) | CPT/HCPCS: 99212 ==

== ENCOUNTER 2025-04-29 11:09 | Outpatient (REF) | payer MEDICARE, MEDICAID, SELFPAY ==
[2025-04-29 13:58] LABS: Albumin Level 3.9 g/dL (3.5-5.0); Anion Gap 11 (12-20); Blood Urea Nitrogen 14 mg/dL (9-16); Calcium 8.4 mg/dL (8.4-10.2); Calcium 8.5 mg/dL (8.4-10.2); Carbon Dioxide 29 mmol/L (22-29); Chloride 104 mmol/L (96-108); Estimated Glomerular Filt Rate > 60; Glucose Random 160 mg/dL (60-115); Phosphorus 3.9 mg/dL (2.7-4.5); Potassium 3.8 mmol/L (3.3-5.1); Sodium 140 mmol/L (135-145)
[2025-04-29 14:15] LABS: Vitamin D 25-OH Total 16.4 ng/mL (>30)
[2025-05-01 13:13] LABS: Calcium, Ionized 4.7 mg/dL (4.7-5.5)
== END 2025-04-29 11:10 | disposition home or self-care (01) ==
LOC: HO.10HDL 11:09
PROVIDERS: Visit Provider Student in an Organized Health Care Education/Training Program
DX: E20.9 Hypoparathyroidism, unspecified (principal); E06.3 Autoimmune thyroiditis; Z79.890 Hormone replacement therapy
CPT/HCPCS: 36415; 80048; 82040; 82306; 82310; 82330; 84100; 99212

== ENCOUNTER → 2025-05-26 09:50 | Outpatient (REF) | payer MEDICARE, MEDICAID, SELFPAY ==
--- OUTSIDE RECORDS SUMMARY | 2025-05-26 10:23 | XMS_ITS | Clinical Summary ---
Author Organization [facility] it Address [address] [place] [address] Care Team Providers Care Line Builder Name Role Phone Unavailable Primary Care Provider [...] Vaccines (1 of 2) 2020 COVID-19 Vaccine (1 - 2023-2 5 season) 2024 Influenza Vaccine (#1) 2025 HIB Vaccines Aged Out No longer [...]
--- OUTSIDE RECORDS SUMMARY | 2025-05-26 10:23 | XMS_ITS | Encounter Summary ---
Author Organization [employer] Address [address] [place] [address] 7[address] [place] [address] Care Team Providers Care Radius Grinder Name Role Phone Monica Hernandez Primary Care Provider [phone] Loc Agrawal MD Unavailable [phone] Lamar De Paz MD Unavailable [phone] Ralph Reece MD Unavailable [phone] Reason for Visit * Reason Comments Med Refill Encounter Details Date Type Department Care Team (Late st Contact Info) Description 08/12/2023 Refill [facility] [address] [place] [address] Monica Hernandez FNP [address] [place] [address] Sleep difficulties Social History Tobacco Use Types [...] Description 06/02/2025 10:00 AM EDT Office Visit [facility] [address] [place] [address] Monica Hernandez FNP [address] [place] [address] documented as of this encounter Visit Diagnoses Diagnosis Sleep difficulties documented in this encounter Additional Health Concerns Assessment Noted Time PHQ-9 Depression Total Score: 2 05/09/20 23 9:29 AM EDT documented as of this encounter Care Teams Radius Grinder Relationship Specialty Start Date End Date Monica Hernandez FNP [address] [place] [address] PCP - General Family Medicine 07/14/22 Loc Agrawal MD [address] [place] [address] Endocrinology 10/20/24 Lamar De Paz MD [address] [place] [address] Hematology and Oncology 10/20/24 Ralph Reece MD [address] [place] [address] Cardiology 10/20/24 documented as of this encounter
--- OUTSIDE RECORDS SUMMARY | 2025-05-26 10:24 | XMS_ITS | Patient Health Record ---
Author Organization [facility] enter Address [address] [place] [id number] Support Name Relationship Address Phone Yael Lee Guarantor Unknown [phone] Allergies Allergen (clinical drug ingredient) Drug/Non Drug [...] Insured Coverage Start Date Coverage End Date [facility] [address] [place] [address] [id number] Yael Lee Self - patient is the insured [facility] Medicare Advantage Plan 1 [facility] [address] [place] [address] [id number] Yael Lee Self - patient is the insured Medical (General) History Medical History History ICD Code hypertension Hypothyroidism anemia
== END ==
LOC: HO.CARD 09:50
PROVIDERS: PCP Registered Nurse; Visit Provider Internal Medicine Cardiovascular Disease
DX: Z13.89 Encounter for screening for other disorder (principal)
CPT/HCPCS: J0280; J2785

== ENCOUNTER 2025-06-12 11:45 | Outpatient (REF) | payer MEDICARE, MEDICAID, SELFPAY ==
--- OUTSIDE RECORDS SUMMARY | 2025-06-12 12:35 | XMS_ITS | Encounter Summary ---
Author Organization [employer] Address [address] [place] [address] [address] [place] [address] Care Team Providers Care Digital Marketing Specialist Name Role Phone Monica Hernandez Primary Care Provider [phone] Loc Agrawal MD Unavailable Lamar De Paz MD Unavailable [phone] Ralph Reece MD Unavailable Reason for Visit * Reason Comments Med Refill Encounter Details Date Type Department Care Team (Late st Contact Info) Description 08/12/2023 Refill [facility] [address] [place] [address] Monica Hernandez FNP [address] [place] [address] Sleep difficulties Social History Tobacco Use Types [...] as of this encounter Plan of Treatment Not on file documented as of this encounter Visit Diagnoses Diagnosis Sleep difficulties documented in this encounter Additional Health Concerns Assessment Noted Time PHQ-9 Depression Total Score: 2 05/09/20 23 9:29 AM EDT documented as of this encounter Care Teams Digital Marketing Specialist Relationship Specialty Start Date End Date Monica Hernandez FNP [address] [place] [address] PCP - General Family Medicine 07/14/22 Loc Agrawal MD [address] [place] [address] Endocrinology 10/20/24 Lamar De Paz MD [address] [place] [address] Hematology and Oncology 10/20/24 Ralph Reece MD [address] [place] [address] Cardiology 10/20/24 documented as of this encounter
--- OUTSIDE RECORDS SUMMARY | 2025-06-12 12:35 | XMS_ITS | Patient Health Record ---
Author Organization [facility] enter Address [address] [place] [address] Support Name Relationship Address Phone Yael Lee Guarantor Unknown [phone] Allergies Allergen (clinical drug ingredient) Drug/Non Drug [...] Insured Coverage Start Date Coverage End Date [facility] [address] [place] [address] [id number] Yael Lee Self - patient is the insured [facility] Medicare Advantage Plan 1 [facility] [address] [place] [address] [id number] Yael Lee Self - patient is the insured Medical (General) History Medical History History ICD Code hypertension Hypothyroidism anemia
--- OUTSIDE RECORDS SUMMARY | 2025-06-12 12:35 | XMS_ITS | Clinical Summary ---
Author Organization [employer] ity Address [address] [place] [address] Care Team Providers Care Railway Traction Line Worker Name Role Phone Unavailable Primary Care Provider [...] Vaccine ( - 2023-2 5 season) 2024 Depression Screening 11/20/2024 Influenza Vaccine (#1) 2025 HIB Vaccines Aged [...]
[2025-06-12 14:12] LABS: Hematocrit 29.7 % (37.0-47.0); Hemoglobin 8.9 g/dl (12.0-16.0)
[2025-06-12 14:23] LABS: Hemoglobin A1C 126.8656 umol/L; Total Hemoglobin (HGBA1C) 2395.0425 umol/L
[2025-06-12 14:34] LABS: Anion Gap 10 (12-20); Blood Urea Nitrogen 15 mg/dL (9-16); Calcium 8.0 mg/dL (8.4-10.2); Carbon Dioxide 28 mmol/L (22-29); Chloride 105 mmol/L (96-108); Estimated Glomerular Filt Rate > 60; Potassium 4.2 mmol/L (3.3-5.1); Sodium 139 mmol/L (135-145)
== END 2025-06-12 11:46 | disposition home or self-care (01) ==
LOC: HO.CHCLDS 11:45
PROVIDERS: Visit Provider Registered Nurse
DX: R73.09 Other abnormal glucose (principal)
CPT/HCPCS: 36415; 80048; 82985; 83036; 85014; 85018

== ENCOUNTER 2025-08-15 10:12 | Outpatient (AMB) | payer MEDICARE, MEDICAID, SELFPAY ==
[2025-08-15 10:18] VITALS: BP 120/72; PULSE 72; O2SAT 96; BMI 70.6
--- NOTE | 2025-08-15 10:18 | A.OFFVIS_ITS ---
Vital Signs 08/15/25 10:18 Height 5 ft 2 in Weight 385 lb 12.943 oz BMI 70.6 BP 120/72 Blood Pressure Location Rt brachial Position Sitting Pulse 72 Pulse Source Pulse Oximeter Pulse Oximetry (%) 96 Oxygen Delivery Method Room Air Intake Visit Reasons: Hypothyroidism (Adult) Intake Note: Patient present today for Hypoparathyroidism follow up. Last seen by DR Gay Bellamy MD. Bladder Tier Required: Yes Bladder Tier Language: Sole Scraper Services: Bladder Tier Offered & Declined Bladder Tier Name: Suzette [id number] Information Interpreted: non-clinical & clinical Accompanied by: Niece Allergies Penicillins Allergy (Unknown, Verified 08/15/25 10:21) RASH HPI Comments Details: 54-year-old female coming in today for follow up of hypoparathyroidism. HPI from prior visit Per chart review he was originally diagnosed sometime in 2020/beginning of 2021 with hypoparathyroidism after she was noted to be hypocalcemic. No history of thyroid or parathyroid surgery. Father has a history of hypocalcemia. She has no history of kidney stones. No history of fractures. Reviewed investigations of the time, which showed a normal magnesium level from 2020 of 1.9. Renal Us 08/13/24 normal No blood in urine. Perimenopausal, get periods every few months. No vision changes, but hasnt seen an eye doctor in a while. No history of cataracts. No kidney stones. No fractures or falls. No mental status changes. No nausea , vomiting, no abd pain , weight has been stable no weight changes. 2022 PTH of 8. Denies kidney stones or osteoporosis. labs are from April 12 calcium 7.5, albumin 3.6 labs 10/07/24 showed low ionized calcium of Ionized calcium of 4.5 which is low, low total calcium of 8.2 with albumin of 3.7, corrected calcium would be something around 8.5. Given she was having symptoms of perioral numbness, I had increased her calcium carbonate to 500 mg twice daily as well as went up on her calcitriol to 0.5 mcg twice daily. However patient at last visit in October 2024 endorsed she was not taking her calcium carbonate because the size of the pills was bothering her. I had emphasized to her importance of taking her calcium and low calcium levels in the blood can result in if not managed timely. I had also asked her to do blood work at that time, but no blood work was done. Patient had an episode of hypocalcemia requiring hospitalization in January 2025. Interval history 04/29/2025 Patient was supposed to get blood work done in mid March, not done Currently on calcitriol 0.5 mcg b.i.d. Calcium carbonate 500 mg b.i.d. Vitamin-D 1000 units daily interval history 08/15/2025 Patient previously established and seen by Dr. Agrawal and Dr. Bellamy. This is my 1st time seeing this patient Patient reports feeling overall well Denies symptoms concerning for hypocalcemia including weakness, constipation, tingling numbness in the hands or perioral area Her previous visit, patient was scheduled to have genetic appointment at [facility] on 07/22 2025, but the patient reported that she did not hear from them She also denies symptoms concerning for symptomatic urolithiasis Currently on calcitriol 0.5 mcg b.i.d. Calcium carbonate 500 mg b.i.d. Vitamin-D 1000 units daily Physical exam General: Morbidly obese. NAD. Eyes: No conjunctival injection CV: RRR, no murmur. Bilateral lymphedema Resp:Lungs clear to auscultation bilaterally Abdomen: nontender. Obese Extremities/Neuro: No weakness or tremor of outstretched hands Laboratory tests 01/23/23 10/09/24 02/10/25 08:00 08:00 11:32 Potassium Creatinine Calcium Phosphorus 4.6 H Albumin 25-OH Vitamin D Total Ur Creatinine 24 Hour 2.5 H 0.7 L Ur Calcium 24 Hr 339 H 189 Calcium/Creat 24 Hr 136 285 H 04/29/25 05/12/25 06/12/25 11:15 11:23 11:47 Potassium 4.2 Creatinine 0.74 0.86 Calcium 9.0 D 8.0 L D Phosphorus 3.9 Albumin 3.7 25-OH Vitamin D Total 16.4 L Ur Creatinine 24 Hour Ur Calcium 24 Hr Calcium/Creat 24 Hr Imaging US RETROPERITONEAL LIMITED (RENAL ONLY) 08/13/24 CLINICAL INFORMATION: Hypoparathyroidism, unspecified.. COMPARISON: Ultrasound renal with Doppler 12/08/2021. TECHNIQUE: Real-time imaging of the kidneys. Technically limited study secondary to body habitus. FINDINGS: RIGHT KIDNEY: 9.9 x 4.6 x 6.5 cm (SAG x AP x TRV). The kidney is normal in size, contour, and echogenicity. Renal cortical thickness is normal. No calculi or focal parenchymal lesions. No hydronephrosis. LEFT KIDNEY: 10.9 x 4.9 x 6.6 cm (SAG x AP x TRV). The kidney is normal in size, contour, and echogenicity. Renal cortical thickness is normal. No calculi or focal parenchymal lesions. No hydronephrosis. [facility] Medical History Hypoparathyroidism TBI (traumatic brain injury) Obesity Cognitive impairment Anemia DVT (deep venous thrombosis) Hypothyroid Hypertension Surgical History No pertinent past surgical history Family History Mother HTN (hypertension) Father Diabetes Paternal Aunt Colon cancer Maternal Aunt Breast CA Social History Household Members Other:: mom Housing: House Alcohol intake: never Patient Tobacco Use Status: Never used Tobacco service: No Physical Exam Vital Signs: Last Vital Signs Pulse 72 08/15/25 10:18 BP 120/72 08/15/25 10:18 Pulse Ox 96 08/15/25 10:18 Oxygen Delivery Method Room Air 08/15/25 10:18 BMI result Body Mass Index 70.6 Assessment & Plan Assessment & Plan (1) Hypoparathyroidism: Code(s): E20.9 - Hypoparathyroidism, unspecified Category: Medical Qualifiers: Hypoparathyroidism type: unspecified Qualified Code(s): E20.9 - Hypoparathyroidism, unspecified Plan: Patient who is diagnosed with hypoparathyroidism sometime around 11/2021, who is currently maintained on calcitriol 0.5 mcg in a.m. and 0.5 mcg in evening, and vitamin-D 2000 units daily, Our goal is to maintain calcium it in the lower normal range which would be something around 7.8-8.5. This is in order to prevent hypercalciuria and complications like kidney stones or nephrocalcinosis. in 2022 showed her 24 hour urine calcium was 339 which is elevated since goal in woman is less than 250 mg per 24 hours, however her urine volume was 3 L which was also very increased so inadequate collection. Her kidney function stable, and renal ultrasound from 2023 did not show any nephrocalcinosis, These should be done of the 2 or 3 year kylah on treatment. US renal done 07/29/24 She has not had any workup for why she has developed hypoparathyroidism. Differentials include autoimmune polyglandular syndrome type 1, however no history of candidiasis. She does not have any symptoms of adrenal insufficiency, Twenty-one hydroxylase antibodies came back negative. Other differentials include other genetic mutations causing hypoparathyroidism especially given that she has family history of hypocalcemia in her father per the chart. Patient was referred to Genetics at [facility] in 08/13. [facility] genetics has a wait time of 6-9 months and at this time referral is pending evaluation. This was placed previously as well but does not seem like patient was able to get to them. She was also previously given a referral for [facility] to see hyperparathyroidism expert over there, however she says she did not hear from them, referral was placed again during visit in Jul 2024 as she would benefit from genetic workup to evaluate this and I have asked them to call their office. In September 2024, patient was not adherent to her calcium pills because of the size of the pills was bothering her hence we told her to switch to some other brand and she was taking [employer] gummies, however early January 2025, calcium levels dropped to 6.7 and she was sent to the ED for IV calcium replacement. Given there was concern of whether she is taking the correct amount or not, plus they are unable to bring medication bottles to the visit as she gets prepackaged pills, we decided to switch back to prescription only pills. Her calcitriol was increased to 0.75 mcg b.i.d.. Most recently patient seems to be feeling better, with no symptoms of hypocalcemia. She is taking Tums twice daily, calcitriol 0.5 b.i.d. and vitamin-D 2000 IU daily. Her more recent labs from May 2025 showed creatinine 0.86, calcium 8.0. Plan: Obtain comprehensive metabolic panel including phosphorus, magnesium Obtain vitamin-D levels We will obtain renal ultrasound [facility] genetics referral already in place, she is on the wait list She did not have the [facility] genetics appointment on 07/22/25 @9:00, patient report she did not hear from them Will discuss in next appointment [facility] [place] for further evaluation of hypoparathyroidism etiology if genetics is more feasible to be done there continue calcitriol 0.5 mcg in a.m. 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 Normal TSH and free T4 from January 2025 Clinically euthyroid Plan: -continue levothyroxine 112 mcg daily -repeat TSH Plan See above Orders: Orders Comprehensive [place]. Panel Fast Today E06.3 - Autoimmune thyroiditis, E20.9 - Hypoparathyroidism, unspecified US renal BI Today E06.3 - Autoimmune thyroiditis, E20.9 - Hypoparathyroidism, unspecified TSH reflex Free T4 Today E06.3 - Autoimmune thyroiditis Vitamin D 25-OH Total Today E20.9 - Hypoparathyroidism, unspecified Patient Instructions: Instrucciones sobre la Dieta de F?sforo ?Por qu? es importante el f?sforo? El f?sforo es un mineral presente en muchos alimentos. Es esencial para la corey ?sea, la producci?n de energ?a y el funcionamiento celular. Sin embargo, en ciertas condiciones?tacos la enfermedad renal cr?joanna?el f?sforo puede acumularse en la rosanna, lo que puede causar complicaciones tacos enfermedad ?sea, picaz?n y calcificaci?n vascular. En estos casos, es necesario seguir josh dieta baja en f?sforo. Instrucciones para josh Dieta Baja en F?sforo Prop?sito: Ayudar a controlar los niveles de f?sforo en rosanna y reducir el riesgo de complicaciones. Puntos clave: * Limite los alimentos ricos en f?sforo. * Jaqui las etiquetas de los alimentos para identificar aditivos con f?sforo (busque palabras tacos ?fos?). * Sandia los quelantes de f?sforo seg?n lo indicado, si corresponde. Alimentos que debe evitar o limitar: * L?cteos:?Leche, queso, yogur, helado * Alimentos procesados:?Bocadillos envasados, bryce procesadas, comida r?pida, refrescos de cola * Carmen secos y semillas:?Almendras, man?, semillas de girasol * Legumbres:?Frijoles, garbanzos, lentejas * Cereales integrales:?Salvado, marroquin integral, herbie * V?sceras:?H?gado, ri??n * Chocolate y productos con cacao * Ciertos pescados y mariscos:?Dorita, anchoas Alimentos permitidos (bajos en f?sforo): * Frutas y verduras:?Manzanas, bayas, uvas, dawna, pepino, pimientos * Cereales refinados:?Marroquin tello, arroz tello, pasta * Bryce magras:?yves Bonilla (frescos, no procesados) * Claras de huevo * Cremas no l?cteas y leche de arroz (no fortificada) * Refrescos chandrakant, limonada Consejos: * Hierva las bryce y deseche el agua para reducir el contenido de f?sforo. * Evite alimentos con aditivos de f?sforo (comunes en alimentos procesados). * Prefiera alimentos frescos o congelados en lugar de enlatados o envasados. Instrucciones para josh Dieta Elizabeth en F?sforo (Para pacientes que requieren un mayor consumo de f?sforo, tacos algunos con hipofosfatemia) Alimentos recomendados: * Productos l?cteos (leche, queso, yogur) * Carmen secos, semillas y mantequilla de man? * Legumbres (frijoles, lentejas, garbanzos) * Cereales integrales (salvado, herbie, marroquin integral) * V?sceras (h?gado, ri??n) * Pescados y mariscos (especialmente dorita, anchoas) * Chocolate y productos con cacao ?nfasis en la Dieta Baja en F?sforo ?Por qu? es importante josh dieta baja en f?sforo para usted? En eaton condici?n, eaton cuerpo no puede eliminar el exceso de f?sforo de manera eficiente. Los niveles altos de f?sforo pueden causar problemas graves de corey, tacos debilidad ?sea, enfermedades card?acas y picaz?n en la piel. Al seguir josh dieta baja en f?sforo, ayuda a proteger khoi huesos, vasos sangu?neos y eaton corey en general. Recuerde: * Siga las recomendaciones sobre los alimentos permitidos. * Evite alimentos procesados y de conveniencia con aditivos de f?sforo. * Sandia los medicamentos seg?n lo indicado para ayudar a controlar los niveles de f?sforo. Si tiene preguntas o necesita ayuda para planificar khoi comidas, consulte a eaton equipo de ocrey. 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
--- OUTSIDE RECORDS SUMMARY | 2025-08-15 11:27 | XMS_ITS | Encounter Summary ---
Author Organization [employer] Address [address] [place] [address] 7[address] [place] [address] Care Team Providers Care Registered Nurse Obstetrics Name Role Phone Monica Hernandez Primary Care Provider [phone] Loc Agrawal MD Unavailable [phone] Lamar De Paz MD Unavailable [phone] Ralph Reece MD Unavailable [phone] Encounter Details Date Type Department Care Team (Late st Contact Info) Description 07/14/2025 Results Follow-Up [facility] [address] [place], [place] [phone] Monica Hernandez FNP [address] [place], [place] [phone] Hemoglobin A1c, Basic Metabolic Panel, Fructosamine, Hemoglobin and Hematocrit Social History Tobacco Use Types Packs/Day Years [...] Care Team (Late st Contact Info) Description 09/19/2025 10:00 AM EDT Office Visit [facility] [address] [place] [address] Monica Hernandez FNP [address] [place] [address] documented as of this encounter Visit Diagnoses Not on filedocumented in this encounter Additional Health Concerns Assessment Noted Time PHQ-9 Depression Total Score: 11 025 11:03 AM EDT documented as of this encounter Care Teams Registered Nurse Obstetrics Relationship Specialty Start Date End Date Monica Hernandez FNP [address] [place] [address] PCP - General Family Medicine 07/14/22 Loc Agrawal MD [address] [place] [address] Endocrinology 10/20/24 Lamar De Paz MD [address] [place] [address] Hematology and Oncology 10/20/24 Ralph Reece MD [address] [place] [address] Cardiology 10/20/24 documented as of this encounter
--- OUTSIDE RECORDS SUMMARY | 2025-08-15 11:27 | XMS_ITS | Patient Health Record ---
Author Organization [facility] Address [address] [place] [address] Support Name Relationship Address Phone Yael Lee Guarantor Unknown [phone] Allergies Allergen (clinical drug ingredient) Drug/Non Drug [...] Insured Coverage Start Date Coverage End Date [facility] [address] [place] [phone] [id number] Yael Lee Self - patient is the insured [facility] Medicare Advantage Plan 1 [facility] [address] [place] [address] [id number] Yael Lee Self - patient is the insured Medical (General) History Medical History History ICD Code hypertension Hypothyroidism anemia
--- OUTSIDE RECORDS SUMMARY | 2025-08-15 11:27 | XMS_ITS | Encounter Summary ---
Author Organization [employer] Address [address] [place] [address] 7t [place] [address] Care Team Providers Care Electricians Top Helper Name Role Phone Monica Hernandez Primary Care Provider Loc Agrawal MD Unavailable [phone] Lamar De Paz MD Unavailable [phone] Ralph Reece MD Unavailable Encounter Details Date Type Department Care Team (Late st Contact Info) Description 10/25/2022 Telephone [facility] [address] [place] [address] Monica Hernandez FNP [address] [place], [place] [phone] Social History Tobacco Use Types Packs/Day Years [...] Description 09/19/2025 10:00 AM EDT Office Visit [facility] [address] [place], [place] [phone] Monica Hernandez FNP [address] [place], [place] [phone] documented as of this encounter Visit Diagnoses Not on filedocumented in this encounter Care Teams Electricians Top Helper Relationship Specialty Start Date End Date Monica Hernandez FNP [address] [place] [address] PCP - General Family Medicine 07/14/22 Loc Agrawal MD [address] [place] [address] Endocrinology 10/20/24 Lamar De Paz MD [address] [place] [address] Hematology and Oncology 10/20/24 Ralph Reece MD [address] [place] [address] Cardiology 10/20/24 documented as of this encounter
--- OUTSIDE RECORDS SUMMARY | 2025-08-15 11:27 | XMS_ITS | Encounter Summary ---
Author Organization [employer] Address [address] [place] [address] 7t [place] [address] Care Team Providers Care Docket Clerk Name Role Phone Monica Hernandez Primary Care Provider Loc Agrawal MD Unavailable [phone] Lamar De Paz MD Unavailable [phone] Ralph Reece MD Unavailable [phone] Reason for Visit * Reason Comments Med Refill Encounter Details Date Type Department Care Team ([facility] st Contact Info) Description 05/06/2024 Refill [facility] [address] [place], [place] [phone] Monica Hernandez FNP [address] [place], [place] [phone] Hypothyroidism, unspecified type Social History Tobacco Use [...] 10:00 AM EDT Office Visit [facility] P[facility] [address] [place] [address] Monica Hernandez FNP [address] [place] [address] documented as of this encounter Visit Diagnoses Diagnosis Hypothyroidism, unspecified type documented in this encounter Additional Health Concerns Assessment Noted Time PHQ-9 Depression Total Score: 4 04/05/20 24 10:31 AM EDT documented as of this encounter Care Teams Docket Clerk Relationship Specialty Start Date End Date Monica Hernandez FNP [address] [place] [address] PCP - General Family Medicine 07/14/22 Loc Agrawal MD [address] [address] Endocrinology 10/20/24 Lamar De Paz MD [address] [place] [address] Hematology and Oncology 10/20/24 Ralph Reece MD [address] [place] [address] Cardiology 10/20/24 documented as of this encounter
--- OUTSIDE RECORDS SUMMARY | 2025-08-15 11:27 | XMS_ITS | Encounter Summary ---
Author Organization [employer] Address [address] [place] [address] Care Team Providers Care Sorting Machine Operator Name Role Phone Monica Hernandez Primary Care Provider [phone] Loc Agrawal MD Unavailable [phone] Lamar De Paz MD Unavailable [phone] Ralph Reece MD Unavailable [phone] Encounter Details Date Type Department Care Team (Late st Contact Info) Description 06/11/2025 Orders Only [facility]S [address] [place] [address] Provider, MD Sung Social History Tobacco Use Types Packs/Day Years [...] Description 09/19/2025 10:00 AM EDT Office Visit [facility] [address] [place] [address] Monica Hernandez FNP [address] [place] [address] documented as of this encounter Procedures Procedure Name Priority Date/Time Associated Diagnosis Comments ECG 12-LEAD Routine 01/28/2025 2:56 PM EDT documented in this encounter Results * ECG 12 lead (01/28/2025 2:56 PM EDT) us Historical Provider ECG ORDERABLES Final Res ult documented in this encounter Visit Diagnoses Not on filedocumented in this encounter Additional Health Concerns Assessment Noted Time PHQ-9 Depression Total Score: 11 025 11:03 AM EDT documented as of this encounter Care Teams Sorting Machine Operator Relationship Specialty Start Date End Date Monica Hernandez FNP [address] [place] [address] PCP - General Family Medicine 07/14/22 Loc Agrawal MD [address] [place] [address] [place] [address] Endocrinology 10/20/24 Lamar De Paz MD [address] [place] [address] Hematology and Oncology 10/20/24 Ralph Reece MD [address] [place] [address] Cardiology 10/20/24 documented as of this encounter
--- OUTSIDE RECORDS SUMMARY | 2025-08-15 11:27 | XMS_ITS | Clinical Summary ---
Author Organization [employer] Address [address] [place] [address] [address] [place] [address] Care Team Providers Care Commercial Glazier Name Role Phone Pedrocarlo Monica ROBB Primary Care Provider Loc Agrawal MD Unavailable Lamar De Paz MD Unavailable [phone] Ralph Reece MD Unavailable [phone] Allergies Active Allergy Reactions Criticality Noted [...] EVERY MORNING 90 tablet 3 4 Active melatonin 5 MG tabletIndications :Sleep [...] tablet by mouth 2 times daily. Active dilTIAZem CD (Cardizem CD) 360 MG 24 hr capsule TAKE 1 CAPSULE BY MOUTH EVERY MORNING 90 capsule 1 5 Active docusate sodium (Colace) 100 MG capsuleIndication s:Constipation, unspecified constipation type TAKE 1 CAPSULE BY MOUTH TWICE DAILY IN THE MORNING AND IN THE EVENING 180 capsule 1 5 Active labetalol (Normodyne) 100 MG tablet TAKE 2 TABLETS BY MOUTH TWICE DAILY IN THE MORNING AND EVENING 360 tablet 1 5 Active Active Problems Problem Noted Date Diagnosed Date Muscle twitch 06/03/2025 Assessment & Plan (06/03/2025 8:26 AM EDT): Intermittent muscle twitch left chin x 1-2 months. Stressful life event ~4 months ago with loss of mother. 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 Referral to re-establish with Neurology for further eval Given hx of hypoparathyroid, will also repeat calcium level Grief 02/11/2025 Exercise counseling 02/10/2025 Screening for colon cancer 02/10/2025 Assessment & Plan (06/03/2025 7:54 AM EDT): Previously ordered cologuard as pt had declined colonosopy. (+) fam hx of colon cancer. Discussion again today regarding colon cancer screening, and she is in agreement to proceed with colonoscopy. Referral to GI placed. Hypocalcemia 02/10/2025 Dietary counseling 02/10/2025 Anxiety 02/10/2025 Elevated hemoglobin A1c 10/31/2024 Assessment & Plan (06/03/2025 7:53 AM EDT): - Repeat A1c w/ H/H. Will also check fructosamine level given the fluctuating H/H w/ anemia - Encouraged lifestyle intervention to decrease simple sugar/carb intake Assessment & Plan (10/31/2024 11:15 AM EST): Lab Results Component Value Date HGBA1C 6.6 (H) 10/07/2024 - Repeat A1c to confirm diagnosis - Encouraged lifestyle intervention to decrease simple sugar/carb intake Intermittent chest pain 10/20/2024 Overview (10/20/2024): Followed by [facility]DA - Dr. Reece Sep 2024: echo, nuclear stress test, 30 day Holter pending ED precautions Healthcare maintenance 11/11/2023 Overview (08/18/2024): Mammogram: BIRADS 1 on 06/09/24 Colon CA screening: (+) fam hx of colon CA. Cologuard ordered 11/10/23. Initially declined colonoscopy referral, but then did accept and was referred to [facility] in March 2024 Pap: 07/12/22 NILM [...] med use and safety Hypothyroidism 05/04/2023 Overview (06/03/2025): Following with [facility] - Dr. Bellamy Levothyroxine 112mcg daily Lab Results Component Value Date TSH 3.09 02/10/2025 Assessment & Plan (06/03/2025 7:49 AM EDT): Well controlled, cont with current regimen Assessment & Plan (04/06/2024 11:15 AM EDT): Repeat TSH ordered Assessment & Plan (08/11/2023 6:18 AM EDT): Following with [facility] Davida Agrawal Moderate depressive disorder 02/06/2023 Vitamin D deficiency 10/22/2022 Assessment & Plan (04/05/2024 11:21 AM EDT): -Cont Vit D 2000 units daily Family history of colon cancer 10/22/2022 Hypoparathyroidism 09/01/2022 Overview (06/03/2025): Following with [facility] Donnell Bellamy Goal calcium range: 8-8.5 Referred for [facility] genetics consult in Jul 2024 to eval for genetic mutations that may be contributing to condition (scheduled 07/22/25 at [facility] [employer]) Medications: Calcitriol 0.5mcg BID Vit D 1000 units daily Calcium 500mg BID Assessment & Plan (06/03/2025 7:50 AM EDT): Cont plan above Assessment & Plan (03/03/2025 2:19 PM EDT): Cont plan above Assessment & Plan (04/06/2024 11:22 AM EDT): -Endo note w/ calcium 500mg BID, although pt currently taking once daily. She would like to replace current calcium pill due to size. -Plan: check BMP, phosphorus, PTH, TSH -Med adjustment (calcium) pending lab results Assessment & Plan (11/11/2023 11:55 AM EST): -Following with [facility] Davida Agrawal. Per last consult note in Aug 2022: Hypoparathyroidism. Possible etiologies behind the hypocalcemia could include secondary hyperparathyroidism due to vitamin-D deficiency versus idiopathic hypoparathyroidism. Plan is to recheck calcium, phosphorus, PTH, albumin. Further workup and/or treatment will be based on the above Menorrhagia with irregular cycle 02/16/2022 Overview (08/18/2024): Following with [facility] [employer]CHNICIAN - Dr. Mayers 2013: recommendation for EMB & sonohysterogram d/t focal endometrial hypoechoic area on US measuring 10g76wh Pap: 07/12/22 NILM HPV neg [facility] OBGYN: hysteroscopy with polypectomy, D&C, IUD insertion on 06/10/24 Assessment & Plan (04/06/2024 11:41 AM EDT): Have missed multiple appts for procedure, although niece reports that pt recently completed US and has follow up scheduled with [facility] TECHNICIAN within the next month. Reviewed importance of keeping appt Physical deconditioning 07/19/2018 Assessment & Plan (10/20/2024 7:56 PM EST): - High risk for falls - Preventative measures: Bariatric commode: DME request Jul 2024 - pending Bariatric Tub Transfer Bench: DME request 10/20/24 Microcytic anemia 11/10/2015 Overview (06/03/2025): Following with [facility] Heme/Onc - Dr. De Paz Completed IV iron (Venofer) in 2023 GI: referred to [facility], initial consult scheduled. Per Heme/Onc note Sep 2024, pt declining colonoscopy but open to Cologuard. Order placed through PCP on 10/20/24 WAFER FAB TECHNICIAN: following with [facility] OBGYN - had IUD placement in 2023 but fell out shortly thereafter. Consideration of surgical intervention --> consult summer 2024 at [facility] [employer] TECHNICIAN to further discuss Hospitalization January 2025 for anemia (Hbg 6.2 g/dL) Lab Results Component Value Date HGB 11.0 (L) 03/14/2025 HGB 8.5 (L) 02/10/2025 HGB 7.8 (L) 01/28/2025 Assessment & Plan (06/03/2025 8:00 AM EDT): - Plan per last reviewed consult note April 2025: IV injectafer 750mg weekly x 2. Cont daily ferrous sulfate and Vit D. - In agreement with colonoscopy, referral placed - Consult with [facility] WAFER F[employer] TECHNICIAN pending for possible surgical interventions r/t menorrhagia Assessment & Plan (03/03/2025 2:27 PM EDT): [...] AM EDT): Hx ANIYA, previously followed by [facility]. Last available consult note from Jul 2018 Plan to cont on oral iron (pt declined IV iron), and to arrange for colonoscopy (does not appear this was performed) ED precautions reviewed Follow up with [facility] as scheduled Assessment & Plan (11/11/2023 12:02 PM EST): Hx ANIYA, previously followed by [facility]. Last available consult note from Jul 2018 Plan to cont on oral iron (pt declined IV iron), and to arrange for colonoscopy (does not appear this was performed) Repeat labs ordered today Assessment & Plan (05/10/2023 7:45 AM EDT): Requested to check POC Hbg, WNL in office today Essential hypertension 11/10/2015 Overview (08/15/2024): Following with [facility] - Dr. Reece (last consult: March 2024) Medications: - lisinopril 40mg daily - labetalol 200mg BID - diltiazem 360mg daily Assessment & Plan (08/18/2024 2:54 PM EDT): Well controlled in office, cont as above Assessment & Plan (04/06/2024 11:27 AM EDT): Well controlled in office, cont as above Intellectual disability 11/10/2015 Assessment & Plan (06/03/2025 8:30 AM EDT): Previously completed significant workup/eval related to cognitive functioning when she was an adolescent in [place], although reports no longer available. Sister is heavily involved in the care of Ms. Lee Following with therapist, and plan to establish with psych prescriber in 2 days Plan for IB team to outreach to pt/sister regarding form and next steps. Severe obesity (BMI >= 40) 11/10/2015 Assessment [...] eval completed Jul 2024. 2nd eval at [facility] completed Sep 2024. Documents faxed to [employer]. DME request for bariatric [...] Assessment & Plan (05/10/2023 7:42 AM EDT): BMI 68.09 Encouraged lifestyle interventions including physical movement/activity and diet rich in fruits, vegetables, and lean meat Due to body habitus and gait instability, pt reports has experienced >2 falls in the past year Previous interventions include RW for ambulation and PT Proposed benefits of electric scooter: improve ability to complete iADLs and mobility outside of the home while still maintaining safety Referral to PT for eval of electric scooter on 05/09/23 Peripheral venous insufficiency 11/10/2015 Urinary incontinence 11/10/2015 Assessment & Plan (10/31/2024 11:13 AM EST): - DME request for 2XL diapers from other [employer] company as current diapers no longer very absorbant per pt report Assessment & Plan (05/10/2023 7:43 AM EDT): 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 Overview (04/06/2024): Following with [facility] PRN Resolved Problems Problem Noted Date Diagnosed Date Resolved Date Hypertension 05/04/2023 08/11/2023 Ulcerative lesion 02/06/2023 04/06/2024 Noncompliance with treatment regimen 02/16/2022 08/11/2023 Acquired hypothyroidism 11/10/201507/22 Encounters Date Type Department Care Team Description 07/14/2025 Results Follow-Up [facility] [address] [place] [address] Monica Hernandez FNP Hemoglobin A1c, Basic Metabolic Panel, Fructosamine, Hemoglobin and Hematocrit 06/11/2025 Orders Only [facility] [address] [place] [address] ProviderSung MD 06/09/2025 Telephone [facility] [address] [place] [address] Monica Hernandez FNP Transition Of Care (Tcm) 06/05/2025 Telephone [facility] [address] [place] [address] Monica Hernandez FNP Medical Report (I called Yary, regarding a Psychological Medical Report, from the Long-Term Board of the [facility]. I informed her that, per the patient's PCP, the report needs to be completed by her psych provider. She stated that she has not be scheduled with a new psych provider, but she will oyster picker the form at the [facility] Department. ) 06/02/2025 10:00 AM EDT Office Visit [facility] [address] [place] [address] Monica Hernandez FNP Intellectual disability (Primary Dx); Screening for colon cancer; Elevated hemoglobin A1c; Hypothyroidism, unspecified type; Hypoparathyroidism, unspecified hypoparathyroidism type (CMS/HCC); Colon cancer screening; Family history of colon cancer; Microcytic anemia; Neuropathy, cranial; Muscle twitch 06/02/2025 Travel 05/21/[address] [facility] [address] [place] [address] Moncia Hernandez FNP Constipation, unspecified constipation type from Last 3 Months Immunizations Immunization Administration Dates Next Due Influenza, IIV3, injectable [...] Sign Reading Time Taken Comments Blood Pressure 137/72 06/02/2025 9:58 AM EDT Pulse 60 06/02/2025 9:58 AM EDT Temperature 36.6 C (97.9 F) 06/02/2025 9:58 AM EDT Respiratory Rate 20 06/02/2025 9:58 AM EDT Oxygen Saturation 96% 06/02/2025 9:58 AM EDT Inhaled Oxygen Concentration - - Weight 174 kg (384 lb) 06/02/2025 9:58 AM EDT Height 160 cm (5' 3 ) 03/03/2025 11:20 AM EDT Body Mass Index 68.02 03/03/2025 11:20 AM EDT Plan of Treatment Upcoming Encounters Date Type Department Care Team ([facility] st Contact Info) Description 09/19/2025 10:00 AM EDT Office Visit [facility] [address] [place] [address] Monica Hernandez, CLARISSE [address] [place] [address] Health Maintenance Due Date Last Done Comments CT Colonography 1970 Colonoscopy 1970 Colorectal Cancer Screening 1970 FIT DNA/Cologuard 1970 FIT 1970 FOBT 1970 Sigmoidoscopy 1970 Hepatitis B Vaccines (1 of 3 - 19+ 3-dose series) 1989 Pneumococcal Vaccine: 50+ Years (2 of 2 - PCV) 2020 10/10/2011, 06/29/2010 Mammogram 06/19/2025 06/19/2024, 02/26/2019 COVID-19 Vaccine ( season) 2025 02/17/2022, 04/14/2021, 03/17/2021 Influenza Vaccine (#1) 2025 07/21/2011 Depression Monitoring 08/14/2025 02/11/2025, 025 Alcohol/Substance Use Screening 03/03/2026 03/03/2025 SDOH Screening 03/03/2026 03/03/2025 Disability Screening 06/02/2026 06/02/2025 Tobacco Screening 06/02/2026 06/02/2025 Cervical Cancer Screening 07/15/2027 HPV/Cotest 07/15/2027 07/15/2022 Pap Smear 07/15/2027 07/15/2022 Lipid Panel 10/07/2029 10/07/2024, 02/16/2022 [...] Procedure Name Priority Date/Time Associated Diagnosis Comments HEMOGLOBIN + HEMATOCRIT Routine 06/12/2025 11:47 AM EDT Elevated hemoglobin A1c FRUCTOSAMINE Routine 06/12/2025 11:47 AM EDT Elevated hemoglobin A1c BASIC METABOLIC PANEL Routine 06/12/2025 11:47 AM EDT Elevated hemoglobin A1c HEMOGLOBIN A1C Routine 06/12/2025 11:47 AM EDT Elevated hemoglobin A1c HEPATITIS C VIRAL RNA, QUANTITATIVE, REAL-TIME PCR [...] Relevant to Health Maintenance Results * (ABNORMAL) Hemoglobin and Hematocrit (06/12/2025 11:47 AM EDT) Hemoglobin 8.9(L) 12.0 - 16.0 g/dl [facility] Hematocrit 29.7(L) 37.0 - 47.0 % [facility] Blood Venous blood specimen / Unknown 06/12/2025 11:47 AM EDT 06/12/2025 2:02 PM EDT Monica Hernandez [facility] BLOOD ORDERABLES Final Res ult Performing Organization Address [facility] Co de Phone Number [facility] [address] [place] [phone] * Fructosamine (06/12/2025 11:47 AM EDT) Fructosamine 254 205 - 285 umol/L [facility] Comment:THIS TEST WAS PERFOR MED AT:[employer] [place] [phone] TAMEZ MD,PHD Blood Venous blood specimen / Unknown 06/12/2025 11:47 AM EDT 06/12/2025 2:02 PM EDT Monica [facility] BLOOD ORDERABLES Final Res ult Performing Organization Address [facility] Co de Phone Number [facility] [address] [place] [phone] * (ABNORMAL) Hemoglobin A1c (06/12/2025 11:47 AM EDT) Hemoglobin A1c 7.0(H) <6.0 % [facility] Comment:Hemoglobin A1C Refer ence Range Adults: 4.8 - 6.0 % Non diabetic: < 6.0 % Goal: < 7.0 %Additional Action Suggested: > 8.0 %Note: Hemoglobin A1c results are invalid for patients with abnormal amounts of HbF. Blood transfusions may impact the HbA1c concentration in the patient sample. Estimated Average Glucose 154 mg/dL [facility] Comment:eAG = Estimated ave rage glucose which is %A1C expressed asaverage glucose, using the formula of the D0F-LswsyasJenctad Glucose study (ADAG), Diabetes Care, Vol.31,#8,Jun. 2007 Blood Venous blood specimen / Unknown 06/12/2025 11:47 AM EDT 06/12/2025 2:02 PM EDT us Monica Hernandez ACID RECOVERY OPERATOR LAB BLOOD ORDERABLES Final Res ult [facility] [address] [place] [phone] * (ABNORMAL) Basic Metabolic Panel (06/12/2025 11:47 AM EDT) Sodium 139 135 - 145 mmol/L [facility] Potassium 4.2 3.3 - 5.1 mmol/L [facility] Chloride 105 96 - 108 mmol/L [facility] Carbon Dioxide 28 22 - 29 mmol/L [facility] Anion Gap 10(L) 12 - 20 [facility] Urea Nitrogen (BUN) 15 9 - 16 mg/dL [facility] Creatinine, Serum 0.86 0.5 - 1.4 mg/dL [facility] Estimated Glomerular Filt Rate >60 [facility] Comment:Chronic Kidney Disea se: Estimated GFR < 60 mL/min/1.53l9Pdndbt Kidney Disease: Estimated GFR < 15 mL/min/1.73m2 Glucose 136(H) 60 - 115 mg/dL [facility] Calcium 8.0(L) 8.4 - 10.2 mg/dL [facility] Blood Venous blood specimen / Unknown 06/12/2025 11:47 AM EDT 06/12/2025 2:02 PM EDT Monica Hernandez [facility] BLOOD ORDERABLES Final Res ult Performing Organization Address [facility] Co de Phone Number [facility] [address] [place] [phone] * Hepatitis C Viral RNA, Quantitative, Real-Time PCR (10/07/2024 10:25 AM EST) [facility] Hepatitis C Viral Load <15 NOT DETECTED NOT DETECTED IU/mL [facility] HCV Log PCR <1.18 NOT DETECTED NOT DETECTED Log IU/mL [facility] Comment:For additional infor juan josé, please refer tohttp://education.BizAnytime/faq/ODZ86e4(This link is being provided for informational/educational purposes only.)THIS TEST WAS PERFORMED AT:[facility] [place] [phone] BARR MD Blood 10/07/2024 10:2 5 AM EST 10/07/2024 10:25 AM EST Monica Hernandez [facility] BLOOD ORDERABLES Final Res ult Performing Organization Address [facility] de Phone Number [facility] [address] [place] [phone] * HIV-1/2 Antigen and Antibodies, Fourth Generation, with Reflexes (10/07/2024 10:25 AM EST) [facility] HIV AB/AG Nonreactive Nonreactive [facility] Comment:HIV-1 p24 Ag and/or HIV-1/HIV-2 Ab not detected.A test result that is nonreactive does not exclude thepossibility of exposure to or infection with HIV-1 and/orHIV-2. Nonreactive results in this assay for individualswith prior exposure to HIV-1 and/or HIV-2 may be due toantigen and antibody levels that are below the limit ofdetection of this assay.The [employer] HIV Ag/Ab Combo assay result andsupplemental assay results should be interpreted inconjunction with the patient's clinical presentation,history and other laboratory results. If the results areinconsistent with clinical evidence, additional testing issuggested to confirm the result. Blood Venous blood specimen / Unknown 10/07/2024 10:25 AM EST 10/07/2024 10:25 AM EST Monica Hernandez ACID RECOVERY OPERATOR LAB BLOOD ORDERABLES Final Res ult [facility] [address] [place] [phone] * BI Mammogram Screening Tomosynthesis Bilateral (06/19/2024 10:05 AM EDT) Anatomical Region Laterality Modality Breast Bilateral Mammography 06/19/2024 10:0 5 AM EDT Narrative 06/26/2024 11:59 AM EDT [address] [place] [address] Mammography Report Signed Patient: Yael Lee MR#: [id number] : 1970 Acct:[id number] Age/Sex: 54 / F ADM Date: 06/19/24 Loc: HO.MAMMO Attending Dr: Anahy Mcbride Ordering Physician: Monica Hernandez Results: 1Negat francesca Date of Service: 06/19/24 Follow Up: 1 Year From Orig inal Mammogram Procedure(s): MM tomosynthesis screening BI Accession Number(s): [id number] cc: Monica Hernandez EXAMINATION: MM SCREENING DIGITAL BREAST TOMOSYNTHESIS, BILATERAL [...] in OV> 06/26/24 1155 DD/ 1005 TD/TT: Carnival Worker: Procedure Note Donotuseinterpreter, Image - 06/26/2024 [facility] [address] [place] [address] Mammography Report Signed Patient: Yael Lee MMR#: [id number] : 1970Acct:[id number] Age/Sex: 54 / FADM Date: 06/19/24 Loc: [facility] Attending Dr: Anahy Mcbride Ordering Physician: Monica Hernandez FNPResults: 1Negat francesca Date of Service: 06/19/24Follow Up: 1 Year From Orig inal Mammogram Procedure(s): MM tomosynthesis screening BI Accession Number(s): [id number] cc: Monica Hernandez ACID RECOVERY OPERATOR EXAMINATION: MM SCREENING DIGITAL BREAST TOMOSYNTHESIS, BILATERAL [...] date for their next mammogram. Dictated By: iSlvana Espinoza MD Signed By: <Electronically signed by Silvana Espinoza MD in OV> 06/26/24 1155 DD/ 1005 TD/TT: Carnival Worker: Monica Hernandez ACID RECOVERY OPERATOR IMG BI PROCEDURES Final Result * THINPREP TIS PAP AND HPV mRNA E6/E7, CT/NG, TRICH (07/15/2022 5:54 PM EDT) Chlamydia trachomatis RNA, TMA, Urogenital NOT DETECTED NOT DETECTED [facility] Clinical Information: None given [facility] COMMENT SEE COMMENT [facility] Comment: The analytical performance characteristics of this assay, when used to test SurePath(TM) specimens have been determined by [employer]. The modifications have not been cleared or approved by the FDA. This assay has been validated pursuant to the CLIA regulations and is used for clinical purposes. For additional information, please refer to https://education.BizAnytime/faq/PQG630 (This link is being provided for information/ educational purposes only.) COMMENT SEE COMMENT [facility] Comment: EXPLANATORY NOTE: The Pap is a screening test for cervical cancer. It is not a diagnostic test and is subject to false negative and false positive results. It is most reliable when a satisfactory sample, regularly obtained, is submitted with relevant clinical findings and history, and when the Pap result is evaluated along with historic and current clinical information. COMMENT: SEE COMMENT [facility] Comment: This case could not be evaluated with computer assisted technology. The slide was manually screened according to routine procedures. Sports Marketing Coordinator: SEE COMMENT [facility] Comment: RAMIRO CALABRESE(ASCP) CT screening location: [place] [address] HPV nRNA E6/E7 Not Detected Not Detected [facility] Comment: Methodology: Truck Trailer Final Inspector-Mediated Amplification This assay detects E6/E7 viral messenger RNA (mRNA) from 14 high-risk HPV types (16,18,31,33,35,39,45,51,52,56,58,59,66,68). Cervical sources are required for HPV testing. If a vaginal source from a patient who has had a total hysterectomy with removal of cervix was submitted, please contact the testing laboratory for alternative testing options. For additional information, please refer to http://[employer].BizAnytime/faq/TCT035e7 (This link if provided for information/ educational [...] of this assay have been determined by [employer]. The modifications have not been cleared or approved by the FDA. This assay has been validated pursuant to the CLIA regulations and is used for clinical purposes. For additional information, please refer to [email or web address]/ faq/Trichomonastma (This link is being provided for information/ educational purposes only.) NO COLLECTION DATE RECEIVED. WE HAVE USED THE DATE THE SPECIMEN WAS RECEIVED BY THIS LABORATORY THE COLLECTION DATE. IF THIS IS INCORRECT, PLEASE CONTACT CLIENT SERVICES. PHONE NUMBER: Chlamydia trachomatis RNA, TMA, Urogenital NOT DETECTED NOT DETECTED [facility] Clinical Information: None given [facility] COMMENT SEE COMMENT [facility] Comment: The analytical performance characteristics of this assay, when used to test SurePath(TM) specimens have been determined by [employer]. The modifications have not been cleared or approved by the FDA. This assay has been validated pursuant to the CLIA regulations and is used for clinical purposes. For additional information, please refer to [email or web address] (This link is being provided for information/ educational purposes only.) COMMENT SEE COMMENT [facility] Comment: EXPLANATORY NOTE: The Pap is a screening test for cervical cancer. It is not a diagnostic test and is subject to false negative and false positive results. It is most reliable when a satisfactory sample, regularly obtained, is submitted with relevant clinical findings and history, and when the Pap result is evaluated along with historic and current clinical information. COMMENT: SEE [facility]MENT [facility] Comment: This case could not be evaluated with computer assisted technology. The slide was manually screened according to routine procedures. Sports Marketing Coordinator: SEE COMMENT [facility] Comment: RAMIRO CALABRESE(ASCP) CT screening location: [place] [address] HPV nRNA E6/E7 Not Detected Not Detected [facility] Comment: Methodology: Truck Trailer Final Inspector-Mediated Amplification This assay detects E6/E7 viral messenger RNA (mRNA) from 14 high-risk HPV types (16,18,31,33,35,39,45,51,52,56,58,59,66,68). Cervical sources are required for HPV testing. If a vaginal source from a patient who has had a total hysterectomy with removal of cervix was submitted, please contact the testing laboratory for alternative testing options. For additional information, please refer to [email or web address] (This link if provided for information/ educational [...] LAB SYSTEM Statement Of Adequacy: SEE COMMENT [facility] Comment: Satisfactory for evaluation. Endocervical/transformation zone component absent. Age and/or menstrual status not provided Trichomonas vaginalis, QL, TMA, PAP Vial NOT DETECTED NOT DETECTED [facility] Comment: The analytical performance characteristics of this assay have been determined by [employer]. The modifications have not been cleared or approved by the FDA. This assay has been validated pursuant to the CLIA regulations and is used for clinical purposes. For additional information, please refer to [email or web address] (This link is being provided for information/ educational purposes only.) NO COLLECTION DATE RECEIVED. WE HAVE USED THE DATE THE SPECIMEN WAS RECEIVED BY THIS LABORATORY THE COLLECTION DATE. IF THIS IS INCORRECT, PLEASE CONTACT CLIENT SERVICES. PHONE NUMBER: 07/15/2022 5:54 PM EDT Anahyinocencio Mcbride ACID RECOVERY OPERATOR LAB PATHOLOGY ORDERABLES Final Result [facility] [address] from Last 3 Months or Most Recently Relevant to Health Maintenance Insurance [facility] STANDARD MEDICARE Care Teams Commercial Glazier Relationship Specialty Start Date End Date Monica Hernandez FNP [address] [place] [address] PCP - General Family Medicine 07/14/22 Loc Agrawal MD [address] [place] [address] Endocrinology 10/20/24 Lamar De Paz MD [address] [place] [address] Hematology and Oncology 10/20/24 Ralph Reece MD [address] [place] [address] Cardiology 10/20/24
--- OUTSIDE RECORDS SUMMARY | 2025-08-15 11:27 | XMS_ITS | Clinical Summary ---
Author Organization [facility] ity Address [address] [place] [address] Care Team Providers Care Pedigree Researcher Name Role Phone Unavailable Primary Care Provider [...] 2020 Zoster Vaccines (1 of 2) 2020 Depression Screening 11/20/2024 COVID-19 Vaccine ( - 2023-2 5 season) 2025 Influenza Vaccine (#1) 2025 HIB Vaccines Aged [...]
--- OUTSIDE RECORDS SUMMARY | 2025-08-15 11:27 | XMS_ITS | Encounter Summary ---
Author Organization [employer] Address [address] [place] [address] 7[address] [place] [address] Care Team Providers Care Funeral Attendant Name Role Phone Monica Hernandez Primary Care Provider [phone] Loc Agrawal MD Unavailable [phone] Lamar De Paz MD Unavailable [phone] Ralph Reece MD Unavailable Reason for Visit * Reason Comments Med Refill Encounter Details Date Type Department Care Team (Late st Contact Info) Description 08/12/2023 Refill [facility] MEDICINE [address] [place] [address] Monica Hernandez FNP [address] [place] [address] Sleep difficulties Social History Tobacco Use Types [...] Description 09/19/2025 10:00 AM EDT Office Visit [facility] MED & PEDS [address] [place] [address] Monica Hernandez FNP [address] [place] [address] documented as of this encounter Visit Diagnoses Diagnosis Sleep difficulties documented in this encounter Additional Health Concerns Assessment Noted Time PHQ-9 Depression Total Score: 2 05/09/20 23 9:29 AM EDT documented as of this encounter Care Teams Funeral Attendant Relationship Specialty Start Date End Date Monica Hernandez FNP [address] [place] [address] PCP - General Family Medicine 07/14/22 Loc Agrawal MD [address] [place] [address] Endocrinology 10/20/24 Lamar De Paz MD [address] [place] [address] Hematology and Oncology 10/20/24 Ralph Reece MD [address] [place] [address] Cardiology 10/20/24 documented as of this encounter
--- OUTSIDE RECORDS SUMMARY | 2025-08-15 11:27 | XMS_ITS | Encounter Summary ---
Author Organization [employer] Address [address] [place] [address] [address] [place] [address] Care Team Providers Care Torch Heater Name Role Phone Monica Hernandez Primary Care Provider [phone] Loc Agrawal MD Unavailable [phone] Lamar De Paz MD Unavailable [phone] Ralph Reece MD Unavailable [phone] Reason for Visit * Reason Onset Date Comments Durable Medical Equipment 04/11/2024 Encounter Details Date Type Department Care Team (Late st Contact Info) Description 04/11/2024 Telephone [facility] MED & PEDS [address] [place], [place] [phone] Monica Hernandez FNP [address] [place], [place] [phone] Durable Medical Equipment Social History Tobacco Use [...] her that the script was sent to [facility], but now she states [...] script has to be sent over to [facility] instead. Sister quan little upset due to it being several month trying to get DME . Please contact phone# [phone] regarding next step. documented in this encounter Plan of Treatment Upcoming Encounters Date Type Department Care Team (Late st Contact Info) Description 09/19/2025 10:00 AM EDT Office Visit [facility] MED & PEDS [address] [place] [address] Monica Hernandez FNP [address] [place] [address] documented as of this encounter Visit Diagnoses Not on filedocumented in this encounter Additional Health Concerns Assessment Noted Time PHQ-9 Depression Total Score: 4 04/05/20 24 10:31 AM EDT documented as of this encounter Care Teams Torch Heater Relationship Specialty Start Date End Date Monica Hernandez FNP [address] [place] [address] PCP - General Family Medicine 07/14/22 Loc Agrawal MD [address] [address] Endocrinology 10/20/24 Lamar De Paz MD [address] [place] [address] Hematology and Oncology 10/20/24 Ralph Reece MD [address] [place] [address] Cardiology 10/20/24 documented as of this encounter
== END 2025-08-15 11:04 | disposition home or self-care (01) ==
LOC: HO.ENCR 10:12
PROVIDERS: PCP Registered Nurse; Visit Provider Student in an Organized Health Care Education/Training Program
DX: E20.9 Hypoparathyroidism, unspecified (principal); E06.3 Autoimmune thyroiditis
CPT/HCPCS: 99214

== ENCOUNTER → 2025-08-15 10:12 | Outpatient (BNVA) | payer MEDICARE, MEDICAID, SELFPAY | PROVIDERS: PCP Registered Nurse; Visit Provider Student in an Organized Health Care Education/Training Program | DX: E20.9 Hypoparathyroidism, unspecified (principal); E06.3 Autoimmune thyroiditis | CPT/HCPCS: 99212 ==

== ENCOUNTER 2025-08-28 09:51 | Outpatient (REF) | payer MEDICARE, MEDICAID, SELFPAY ==
[2025-08-28 17:26] LABS: Alanine Aminotransferase 17 U/L (0-31); Albumin Level 4.2 g/dL (3.5-5.0); Alkaline Phosphatase 90 U/L (39-117); Anion Gap 15 (12-20); Aspartate Amino Transferase 30 U/L (5-31); Blood Urea Nitrogen 15 mg/dL (9-16); Calcium 8.1 mg/dL (8.4-10.2); Carbon Dioxide 25 mmol/L (22-29); Chloride 103 mmol/L (96-108); Estimated Glomerular Filt Rate > 60; Potassium 4.0 mmol/L (3.3-5.1); Sodium 139 mmol/L (135-145); Total Protein 8.0 g/dL (6.5-8.0)
== END 2025-08-28 09:52 | disposition home or self-care (01) ==
LOC: HO.HMGCLDS 09:51
PROVIDERS: PCP Registered Nurse; Visit Provider Student in an Organized Health Care Education/Training Program
DX: E06.3 Autoimmune thyroiditis (principal); E20.9 Hypoparathyroidism, unspecified; Z13.21 Encounter for screening for nutritional disorder
CPT/HCPCS: 36415; 80053; 82306; 84443

== ENCOUNTER 2025-09-26 11:55 | Outpatient (REF) | payer MEDICARE, MEDICAID, SELFPAY ==
--- OUTSIDE RECORDS SUMMARY | 2025-09-26 14:20 | XMS_ITS | Encounter Summary ---
Author Organization [employer] Address [address] [place] [address] 7[address] [place] [address] Care Team Providers Care Spike Driver Name Role Phone Monica Hernandez Primary Care Provider Loc Agrawal MD Unavailable [phone] Lamar De Pza MD Unavailable [phone] Ralph Reece MD Unavailable [phone] Reason for Visit * Reason Onset Date Comments Durable Medical Equipment 04/11/2024 Encounter Details Date Type Department Care Team (Late st Contact Info) Description 04/11/2024 Telephone [facility] MED [facility] PEDS [address] [place], [place] [phone] Monica Hernandez FNP [address] [place], [place] [phone] Durable Medical Equipment Social History Tobacco Use [...] her that the script was sent to [facility], but now she states [...] script has to be sent over to [facility] instead. Sister quan little upset due to it being several month trying to get DME . Please contact phone# [phone] regarding next step. documented in this encounter Plan of Treatment Not on file documented as of this encounter Visit Diagnoses Not on filedocumented in this encounter Additional Health Concerns Assessment Noted Time PHQ-9 Depression Total Score: 4 04/05/20 24 10:31 AM EDT documented as of this encounter Care Teams Spike Driver Relationship Specialty Start Date End Date Monica Hernandez FNP [address] [place] [address] PCP - General Family Medicine 07/14/22 Loc Agrawal MD [address] [place] [address] Endocrinology 10/20/24 Lamar De Paz MD [address] [place] [address] Hematology and Oncology 10/20/24 Ralph Reece MD [address] [place] [address] Cardiology 10/20/24 documented as of this encounter
--- OUTSIDE RECORDS SUMMARY | 2025-09-26 14:20 | XMS_ITS | Encounter Summary ---
Author Organization [employer] Address [address] [place] [address] 7[address] [place] [address] Care Team Providers Care Terrazzo Worker Name Role Phone Monica Hernandez Primary Care Provider Loc Agrawal MD Unavailable [phone] Lamar De Paz MD Unavailable [phone] Ralph Reece MD Unavailable Reason for Visit * Reason Comments Med Refill Encounter Details Date Type Department Care Team (Late st Contact Info) Description 08/12/2023 Refill [facility] MEDICINE [address] [place] [address] Monica Hernandez FNP [address] [place] [address] Sleep difficulties Social History Tobacco Use Types [...] documented as of this encounter Care Teams Terrazzo Worker Relationship Specialty Start Date End Date Monica Hernandez FNP [address] [place] [address] PCP - General Family Medicine 07/14/22 Loc Agrawal MD [address] [place] [address] Endocrinology 10/20/24 Lamar De Paz MD [address] [place] [address] Hematology and Oncology 10/20/24 Ralph Reece MD [address] [place] [address] Cardiology 10/20/24 documented as of this encounter
--- OUTSIDE RECORDS SUMMARY | 2025-09-26 14:20 | XMS_ITS | Clinical Summary ---
Author Organization [employer] Address [address] [place] [address] [address] [place] [address] Care Team Providers Care Help Desk Consultant Name Role Phone Pedrocarlo Monica ROBB Primary Care Provider [phone] Loc Agrawal MD Unavailable Lamar De Paz MD Unavailable [phone] Ralph Reece MD Unavailable Allergies Active Allergy Reactions Criticality Noted Date [...] D3 Super Strength 50 MCG (1999 UT) capsuleIndicatio ns:Vitamin D deficiency TAKE 1 CAPSULE BY MOUTH EVERY MORNING 90 capsule 3 4 Active melatonin 5 MG tabletIndication s:Sleep difficulties [...] 5 Active docusate sodium (Colace) 100 MG capsuleIndicatio ns:Constipation, unspecified constipation type TAKE 1 CAPSULE BY MOUTH TWICE DAILY IN THE MORNING AND IN THE EVENING 180 capsule 1 5 Active labetalol (Normodyne) 100 MG tablet TAKE 2 TABLETS BY MOUTH TWICE DAILY IN THE MORNING AND EVENING 360 tablet 1 5 Active olmesartan (Benicar) 40 MG tabletIndication s:Essential hypertension Take 1 tablet (40 mg) by mouth Once per day. 90 tablet 1 5 09/19/20 26 Active lisinopril 40 MG tabletIndication s:Essential hypertension TAKE 1 TABLET BY MOUTH EVERY MORNING 90 tablet 3 4 09/19/20 25 Discontinu ed(Dose adjustment ) Active Problems Problem Noted Date Diagnosed Date [...] Hypocalcemia 02/10/2025 Dietary counseling 02/10/2025 Anxiety 02/10/2025 Prediabetes 10/31/2024 Assessment & Plan (09/21/2025 6:39 PM EST): - Will attempt to control blood glucose through dietary modifications for 2 months. Ordered repeat blood work a few days before next visit in October to reassess glycemic control. - Excessive intake of sugary beverages, including fruit juices and sodas, contributing to elevated blood glucose and prediabetes. - Recommended limiting juice intake to less than one cup per day, diluting with water (half juice, half water). Advised to eliminate sugary drinks and artificial sweeteners when possible. Suggested monitoring carbohydrate intake to less than 60 grams per meal including beverages. Provided education on reading nutrition labels for sugar and carbohydrate content. Encouraged use of natural fruit over powdered or artificial juices. Offered further nutrition counseling if desired. Assessment & Plan (06/03/2025 7:53 AM EDT): [...] chest pain 10/20/2024 Overview (10/20/2024): [facility]. Reece Sep 2024: echo, nuclear stress test, 30 day Holter pending ED precautions Healthcare maintenance 11/11/2023 Overview (08/18/2024): Mammogram: BIRADS 1 on 06/09/24 Colon CA screening: (+) fam hx of colon CA. Cologuard ordered 11/10/23. Initially declined colonoscopy referral, but then did accept and was referred [place] [facility] [place] [...] med use and safety Hypothyroidism 05/04/2023 Overview (09/21/2025): Following with [facility] Davida Bellamy Levothyroxine 112mcg daily Lab Results Component Value Date TSH 2.65 08/28/2025 Assessment & Plan (09/21/2025 6:21 PM EST): Well controlled, cont with current regimen Assessment & Plan (06/03/2025 7:49 AM EDT): Well controlled, cont with current regimen Assessment & Plan (04/06/2024 11:15 AM EDT): Repeat TSH ordered Assessment & Plan (08/11/2023 6:18 AM EDT): Following with [facility] [place] Agrawal Moderate depressive disorder 02/06/2023 Vitamin D deficiency 10/22/2022 Assessment & Plan (04/05/2024 11:21 AM EDT): -Cont Vit D 2000 units daily Family history of colon cancer 10/22/2022 Hypoparathyroidism 09/01/2022 Overview (09/21/2025): Following with [facility] Bellamy/Dr. Rutherford. Goal calcium range: 7.5-8.5 [place] [facility] [place] Jul 2024 to eval for genetic mutations that may be contributing to condition (scheduled 07/22/25 at [facility] Gen[facility]) Medications: Calcitriol 0.5mcg BID Vit D 1000 units daily Calcium TUMS 500mg BID Assessment & Plan (09/21/2025 6:20 PM EST): Cont as above. Reports went to genetics consult, request records. Assessment & Plan (06/03/2025 7:50 AM EDT): [...] Plan (11/11/2023 11:55 AM EST): -Following with [facility] - Dr. Agrawal. Per last consult note in Aug 2022: Hypoparathyroidism. Possible etiologies behind the hypocalcemia could include secondary hyperparathyroidism due to vitamin-D deficiency versus idiopathic hypoparathyroidism. Plan is to recheck calcium, phosphorus, PTH, albumin. Further workup and/or treatment will be based on the above Menorrhagia with irregular cycle 02/16/2022 Overview (08/18/2024): Following with [facility] PROPERTY CLAIMS MANAGER - Dr. Mayers 2013: recommendation for EMB & sonohysterogram d/t focal endometrial hypoechoic area on US measuring [id number] Pap: 07/12/22 NILM HPV neg [facility]: hysteroscopy with polypectomy, D&C, IUD insertion on 06/10/24 Assessment & Plan (04/06/2024 11:41 AM EDT): Have missed multiple appts for procedure, although niece reports that pt recently completed US and has follow up scheduled with [facility]ERTY CLAIMS MANAGER within the next month. Reviewed importance of keeping appt Physical deconditioning 07/19/2018 Assessment & Plan (10/20/2024 7:56 PM EST): - High risk for falls - Preventative measures: Bariatric commode: DME request Jul 2024 - pending Bariatric Tub Transfer Bench: DME request 10/20/24 Microcytic anemia 11/10/2015 Overview (06/03/2025): Following with [facility] - Dr. De Paz Completed IV iron (Venofer) in 2023 GI: referred to [facility], initial consult scheduled. Per Heme/Onc note Sep 2024, pt declining colonoscopy but open to Cologuard. Order placed through PCP on 10/20/24 PROPERTY CLAIMS MANAGER: following with [facility] - had IUD placement in 2023 but fell out shortly thereafter. Consideration of surgical intervention --> consult summer 2024 at [facility] PROPERTY CLAIMS MANAGER to further discuss Hospitalization January 2025 for [...] with colonoscopy, referral placed - Consult with [facility] PROPERTY CLAIMS MANAGER pending for possible surgical interventions r/t menorrhagia [...] AM EDT): Hx ANIYA, previously followed by [facility]. Last available consult note from Jul 2018 Plan to cont on oral iron (pt declined IV iron), and to arrange for colonoscopy (does not appear this was performed) ED precautions reviewed Follow up with [facility] as scheduled Assessment & Plan (11/11/2023 12:02 PM EST): Hx ANIYA, previously followed by [facility]. Last available consult note from Jul 2018 Plan to cont on oral iron (pt declined IV iron), and to arrange for colonoscopy (does not appear this was performed) Repeat labs ordered today Assessment & Plan (05/10/2023 7:45 AM EDT): Requested to check POC Hbg, WNL in office today Essential hypertension 11/10/2015 Overview (09/21/2025): [facility] - Dr. Reece (last consult: March 2024) Medications: - olmesartan 40mg daily - labetalol 200mg BID - diltiazem 360mg daily Assessment & Plan (09/21/2025 6:37 PM EST): - Essential hypertension not at target, with recent elevated blood pressure readings. - Plan: Discontinue lisinopril START olmesartan 40mg daily due to higher antihypertensive potency and provides more sustained 24-hour blood pressure control She is feeling overwhelmed right now with medical appointments and has good support from family at home. Recommended f/up 2 months with PCP. Follow up sooner if home BP values continue above target. Assessment & Plan (08/18/2024 2:54 PM EDT): Well controlled in office, cont as above Assessment & Plan (04/06/2024 11:27 AM EDT): Well controlled in office, cont as above Intellectual disability 11/10/2015 Assessment & Plan (06/03/2025 8:30 AM EDT): Previously completed significant workup/eval related to cognitive functioning when she was an adolescent in [place], although reports no longer available. Sister is heavily involved in the care of Ms. Lee Following with therapist, and plan to establish with psych prescriber in 2 days Plan for IBH team to outreach to pt/sister regarding form and next steps. Severe obesity (BMI >= 40) (CMS/[facility]) 11/10/2015 Assessment & Plan (09/19/2025 10:31 AM EDT): BMI 64.66 Encouraged lifestyle interventions including physical movement/activity and diet rich in fruits, vegetables, and lean meat Previous interventions include RW for ambulation and PT Proposed benefits of electric scooter: improve ability to complete iADLs and mobility outside of the home while still maintaining safety. TEAM Rehab eval completed Jul 2024. 2nd eval at [facility] completed Sep 2024. Documents faxed to [employer]. DME request for bariatric commode placed 04/06/24 DME request for bariatric tub transfer bench placed 10/20/24 Assessment & Plan (10/20/2024 8:00 PM EST): BMI 64.66 Encouraged lifestyle interventions including physical movement/activity and diet rich in fruits, vegetables, and lean meat Previous interventions include RW for ambulation and PT Proposed benefits of electric scooter: improve ability to complete iADLs and mobility outside of the home while still maintaining safety. TEAM Rehab eval completed Jul 2024. 2nd eval at [facility] completed Sep 2024. Documents faxed to [facility]. DME request for bariatric commode placed 04/06/24 [...] extremity with ulcer Overview (04/06/2024): Following with [facility] PRN Resolved Problems Problem Noted Date Diagnosed Date Resolved Date Hypertension 05/04/2023 08/11/2023 Ulcerative lesion 02/06/2023 04/06/2024 Noncompliance with treatment regimen 02/16/2022 08/11/2023 Acquired hypothyroidism 11/10/201507/22 Encounters Date Type Department Care Team Description 09/19/2025 10:00 AM EDT Office Visit [facility] [address] [place] [address] Monica Hernandez FNP Essential hypertension (Primary Dx); Elevated hemoglobin A1c; Prediabetes; Hypoparathyroidism, unspecified hypoparathyroidism type (CMS/HCC); Hypothyroidism, unspecified type 09/19/2025 Travel 09/09/2025 Telephone [facility] [address] [place] [address] Monica Hernandez FNP 08/28/2025 Orders Only GENERIC EXTERNAL DATA DEPARTMENT Provider, Generic External Data 07/14/2025 Results Follow-Up [facility] [address] [place] [address] Monica Hernandez FNP Hemoglobin A1c, Basic Metabolic Panel, Fructosamine, Hemoglobin and Hematocrit from Last 3 Months Immunizations Immunization Administration [...] Passive Smoke Exposure: Never Smokeless Tobacco: Never Tobacco Cessation:Counseling Given: Not Answered Alcohol Use Standard Drinks/Week Comments Never 0 [...] Sign Reading Time Taken Comments Blood Pressure 157/87 09/19/2025 10:23 AM EDT Pulse 58 09/19/2025 10:23 AM EDT Temperature 36.3 C (97.3 F) 09/19/2025 10:23 AM EDT Respiratory Rate 22 09/19/2025 10:23 AM EDT Oxygen Saturation 96% 09/19/2025 10:23 AM EDT Inhaled Oxygen Concentration - - Weight 170 kg (374 lb) 09/19/2025 10:23 AM EDT Height 158.8 cm (5' 2.5 ) 09/19/2025 10:23 AM ED T Body Mass Index 67.32 09/19/2025 10:23 AM EDT Plan of Treatment Health Maintenance Due Date Last Done Comments CT Colonography 1970 Colonoscopy 1970 Colorectal Cancer Screening 1970 FIT DNA/Cologuard 1970 FIT 1970 FOBT 1970 Sigmoidoscopy 1970 Hepatitis B Vaccines (1 of 3 - 19+ 3-dose series) 1989 Pneumococcal Vaccine: 50+ Years (2 of 2 - PCV) 2020 10/10/2011, 06/29/2010 Mammogram 06/19/2025 06/19/2024, 02/26/2019 Depression Monitoring 08/14/2025 02/11/2025, 025 Alcohol/Substance Use Screening 03/03/2026 03/03/2025 SDOH Screening 03/03/2026 03/03/2025 Influenza Vaccine (#1) 2026 07/21/2011 Postp oned from 07/21/2025 (Patient Refused) Disability Screening 06/02/2026 06/02/2025 Diabetes: Hemoglobin A1C 06/12/2026 025, 01/27/2025, 10/07/2024, Additional history exists COVID-19 Vaccine () 09/19/2026 02/17/2022, 04/14/2021, 03/17/2021 Postponed from 07/21/2025 (Patient Refused) Tobacco Screening 09/19/2026 09/19/2025 Cervical Cancer Screening 07/15/2027 HPV/Cotest 07/15/2027 07/15/2022 [...] Name Priority Date/Time Associated Diagnosis Comments TSH W/REFLEX TO FT4 Routine 08/28/2025 1 :25 PM EDT VITAMIN D,25-OH,TOTAL,IA Routine 08/28/2025 1:25 PM EDT COMPREHENSIVE METABOLIC PANEL, FASTING Routine 08/28/2025 1:25 PM EDT HEMOGLOBIN A1C Routine 06/12/2025 11:47 AM EDT [...] Relevant to Health Maintenance Results * (ABNORMAL) Comprehensive Metabolic Panel, Fasting (08/28/2025 1:25 PM EDT) Sodium 139 135 - 145 mmol/L [facility] Potassium 4.0 3.3 - 5.1 mmol/L [facility] Chloride 103 96 - 108 mmol/L [facility] Carbon Dioxide 25 22 - 29 mmol/L [facility] Anion Gap 15 12 - 20 [facility] Urea Nitrogen (BUN) 15 9 - 16 mg/dL [facility] Creatinine, Serum 0.86 0.5 - 1.4 mg/dL [facility] Estimated Glomerular Filt Rate >60 [facility] Comment:Chronic Kidney Disea se: Estimated GFR < 60 mL/min/1.36x9Pfbren Kidney Disease: Estimated GFR < 15 mL/min/1.73m2 Glucose Fasting 212(H) 60 - 99 mg/dL [facility] Comment:A fasting glucose of 126 mg/dl or greater on more than oneoccasion is considered diagnostic of diabetes. Calcium 8.1(L) 8.4 - 10.2 mg/dL [facility] Bilirubin, Total 0.5 0.0 - 1.0 mg/dL [facility] Aspartate Amino Transferase 30 5 - 31 U/L [facility] Alanine Aminotransferase 17 0 - 31 U/L [facility] Total Protein 8.0 6.5 - 8.0 g/dL [facility] Albumin Level 4.2 3.5 - 5.0 g/dL [facility] Alkaline Phosphatase 90 39 - 117 U/L [facility] 08/28/2025 1:25 PM EDT 08/28/2025 4:25 PM EDT us Generic External Data Provider LAB BLOOD ORDERAB LES Final Result [facility] [address] [place] [phone] * Vitamin D, 25-Hydroxy, Total, Immunoassay (08/28/2025 1:25 PM EDT) Vitamin D 25-OH Total 40.7 >30 ng/mL [facility] Comment: Health Based Reference Values*< 20 ng/mL Qnpylrgwp39-28 ng/mL Insufficient> 30 ng/mL Sufficient*Tena CHERY. N Engl J Med. 2007;357:266-280There is no well-established upper level of normal vitamin Dlevels. Some laboratories use 50 ng/mL as an upper limit ofnormal. However, toxicity is patient-dependent and may occurat any level. Careful correlation with the patient'spresentation is necessary and, if there is concern forvitamin D toxicity, treatment should be consideredirrespective of the serum level.Care must be taken in interpreting Vitamin D [...] confirmed with another method such as LC-MS/MS. 08/28/2025 1:25 PM EDT 08/28/2025 4:25 PM EDT Generic External Data Provider LAB BLOOD ORDERAB LES Final Result Performing Organization Address [facility]/ZIP Co de Phone Number [facility] [address] [place] [phone] * TSH with Reflex to Free T4 (08/28/2025 1:25 PM EDT) TSH reflex Free T4 2.65 0.32 - 4.0 uIU/mL [facility] 08/28/2025 1:25 PM EDT 08/28/2025 4:25 PM EDT us Generic External Data Provider LAB BLOOD ORDERAB LES Final Result Performing Organization Address [facility]/ZIP Co de Phone Number [facility] [address] [place] [phone] * (ABNORMAL) Hemoglobin A1c (06/12/2025 11:47 AM EDT) Hemoglobin A1c 7.0(H) <6.0 % [facility] Comment:Hemoglobin A1C Refer ence Range Adults: 4.8 - 6.0 % Non diabetic: < 6.0 % Goal: < 7.0 %Additional Action Suggested: > 8.0 %Note: Hemoglobin A1c results are invalid for patients with abnormal amounts of HbF. Blood transfusions may impact the HbA1c concentration in the patient sample. Estimated Average Glucose 154 mg/dL [facility] Comment:eAG = Estimated ave rage glucose which is %A1C expressed asaverage glucose, using the formula of the T7O-UlvqwgpPahdbqd Glucose study (ADAG), Diabetes Care, Vol.31,#8,Jun. 2007 Blood Venous blood specimen / Unknown 06/12/2025 11:47 AM EDT 06/12/2025 2:02 PM EDT Monica Hernandez [facility] LAB BLOOD ORDERABLES Final Res ult Performing Organization Address [facility]/ZIP Co de Phone Number [facility] [address] [place] [address] [phone] * Hepatitis C Viral RNA, Quantitative, Real-Time PCR (10/07/2024 10:25 AM EST) Hepatitis C Viral Load <15 NOT DETECTED NOT DETECTED IU/mL [facility] HCV Log PCR <1.18 NOT DETECTED NOT DETECTED Log IU/mL [facility] Comment:For additional infor juan josé, please refer tohttp://education.Optaros/faq/GSY45b3(This link is being provided for informational/educational purposes only.)THIS TEST WAS PERFORMED AT:[facility] [place] [phone] BARR MD Blood 10/07/2024 10:2 5 AM EST 10/07/2024 10:25 AM EST Monica Hernandez [facility] LAB BLOOD ORDERABLES Final Res ult Performing Organization Address [facility]/State/ZIP Co de Phone Number [facility] [address] [place] [phone] * HIV-1/2 Antigen and Antibodies, Fourth Generation, with Reflexes (10/07/2024 10:25 AM EST) HIV AB/AG Nonreactive Nonreactive [facility] Comment:HIV-1 p24 Ag and/or HIV-1/HIV-2 Ab not detected.A test result that is nonreactive does not exclude thepossibility of exposure to or infection with HIV-1 and/orHIV-2. Nonreactive results in this assay for individualswith prior exposure to HIV-1 and/or HIV-2 may be due toantigen and antibody levels that are below the limit ofdetection of this assay.The Moonfrye HIV Ag/Ab Combo assay result andsupplemental assay results should be interpreted inconjunction with the patient's clinical presentation,history and other laboratory results. If the results areinconsistent with clinical evidence, additional testing issuggested to confirm the result. Blood Venous blood specimen / Unknown 10/07/2024 10:25 AM EST 10/07/2024 10:25 AM EST us Monica ROBB LAB BLOOD ORDERABLES Final Res ult [facility] [address] [place] [address] [phone] * BI Mammogram Screening Tomosynthesis Bilateral (06/19/2024 10:05 AM EDT) Anatomical Region Laterality Modality Breast Bilateral Mammography 06/19/2024 10:0 5 AM EDT Narrative 06/26/2024 11:59 AM EDT [facility] [address] [place] [address] Mammography Report Signed Patient: Yael Lee MR#: [id number] : 1970 Acct:[id number] Age/Sex: 54 / F ADM Date: 06/19/24 Loc: HO.MAMMO Attending Dr: Anahy Mcbride Ordering Physician: Monica Hernandez Results: 1Negat francesca Date of Service: 06/19/24 Follow Up: 1 Year From Orig inal Mammogram Procedure(s): MM tomosynthesis screening BI Accession Number(s): [id number] cc: Monica Hernandez VISITOR SERVICES INFORMATION ASSISTANT EXAMINATION: MM SCREENING DIGITAL BREAST TOMOSYNTHESIS, BILATERAL [...] in OV> 06/26/24 1155 DD/ 1005 TD/TT: Mine Safety Engineer: Procedure Note Donotuseinterpreter, Image - 06/26/2024 [facility] [address] [place], [place] [address] Mammography Report Signed Patient: Yael Lee [facility]#: [id number] : 1970Acct:[id number] Age/Sex: 54 / FADM Date: 06/19/24 Loc: CLARA.MAMMO Attending Dr: Anahy Mcbride Ordering Physician: Monica Hernandez FNPResults: 1Negat francesca Date of Service: 06/19/24Follow Up: 1 Year From Orig inal Mammogram Procedure(s): MM tomosynthesis screening BI Accession Number(s): [id number] cc: Monica Hernandez VISITOR SERVICES INFORMATION ASSISTANT EXAMINATION: MM SCREENING DIGITAL BREAST TOMOSYNTHESIS, BILATERAL [...] in OV> 06/26/24 1155 DD/ 1005 TD/TT: Mine Safety Engineer: Monica Hernandez VISITOR SERVICES INFORMATION ASSISTANT IMG BI PROCEDURES Final Result * THINPREP TIS PAP AND HPV mRNA E6/E7, CT/NG, TRICH (07/15/2022 5:54 PM EDT) Chlamydia trachomatis RNA, TMA, Urogenital NOT DETECTED NOT DETECTED [facility] Clinical Information: None given [facility] COMMENT [facility] Comment: The analytical performance characteristics of this assay, when used to test SurePath(TM) specimens have been determined by [email or web address]. The modifications have not been cleared or approved by the FDA. This assay has been validated pursuant to the CLIA regulations and is used for clinical purposes. For additional information, please refer to https://education.goDog Fetch.Plaxo/faq/VRU385 (This link is being provided for information/ [...] was manually screened according to routine procedures. Firearms Instructor: [facility] Comment: RAMIRO CALABRESE(ASCP) CT screening location: [place] [address] HPV nRNA E6/E7 Not Detected Not Detected [facility] Comment: Methodology: Shoemaking Finisher-Mediated Amplification This assay detects E6/E7 viral messenger RNA (mRNA) from 14 high-risk HPV types (16,18,31,33,35,39,45,51,52,56,58,59,66,68). Cervical sources are required for HPV testing. If a vaginal source from a patient who has had a total hysterectomy with removal of cervix was submitted, please contact the testing laboratory for alternative testing options. For additional information, please refer to http://Nexus EnergyHomes.Optaros/faq/JNY515b7 (This link if provided for information/ educational [...] of this assay have been determined by [employer]. The modifications have not been cleared or approved by the FDA. This assay has been validated pursuant to the CLIA regulations and is used for clinical purposes. For additional information, please refer to http://Nexus EnergyHomes.Optaros/ faq/Trichomonastma (This link is being provided for [...] test SurePath(TM) specimens have been determined by [email or web address]. The modifications have not been cleared or approved by the FDA. This assay has been validated pursuant to the CLIA regulations and is used for clinical purposes. For additional information, please refer to https://Nexus EnergyHomes.Optaros/faq/VTG701 (This link is being provided for information/ [...] was manually screened according to routine procedures. Firearms Instructor: [facility] Comment: RAMIRO CALABRESE(ASCP) CT screening location: [place] [address] HPV nRNA E6/E7 Not Detected Not Detected [employer] Comment: Methodology: Shoemaking Finisher-Mediated Amplification This assay detects E6/E7 viral messenger RNA (mRNA) from 14 high-risk HPV types (16,18,31,33,35,39,45,51,52,56,58,59,66,68). Cervical sources are required for HPV testing. If a vaginal source from a patient who has had a total hysterectomy with removal of cervix was submitted, please contact the testing laboratory for alternative testing options. For additional information, please refer to http://education.Optaros/faq/BFN822b4 (This link if provided for information/ educational purposes only.) Interpretation/Re sult: Negative for intraepithelial lesion or malignancy. [facility] LMP: NONE GIVEN [facility] Neisseria gonorrhoeae RNA, TMA, Urogenital NOT DETECTED NOT DETECTED [facility] Prev. BX: NONE GIVEN [facility] Prev. PAP: NONE GIVEN [facility]OUND[facility] ON LAB SYSTEM SOURCE: None given [facility] Statement Of Adequacy: SEE COMMENT [facility] Comment: Satisfactory for evaluation. Endocervical/transformation zone component absent. Age and/or menstrual status not provided Trichomonas vaginalis, QL, TMA, PAP Vial NOT DETECTED NOT DETECTED [facility] Comment: The analytical performance characteristics of this assay have been determined by [employer]. The modifications have not been cleared or approved by the FDA. This assay has been validated pursuant to the CLIA regulations and is used for clinical purposes. For additional information, please refer to http://education.[employer]/ faq/Trichomonastma (This link is being provided for information/ educational purposes only.) NO COLLECTION DATE RECEIVED. WE HAVE USED THE DATE THE SPECIMEN WAS RECEIVED BY THIS LABORATORY THE COLLECTION DATE. IF THIS IS INCORRECT, PLEASE CONTACT CLIENT SERVICES. PHONE NUMBER: 07/15/2022 5:54 PM EDT us Anahy Mcbride [facility] PATHOLOGY ORDERABLES Final Result [facility] [address] from Last 3 Months or Most Recently Relevant to Health Maintenance Insurance [facility] MEDICARE Care Teams Help Desk Consultant Relationship Specialty Start Date End Date Monica Hernandez FNP [address] [place] [address] PCP - General Family Medicine 07/14/22 Loc Agrawal MD [address] [place] [address] Endocrinology 10/20/24 Lamar De Paz MD [address] [place] [address] Hematology and Oncology 10/20/24 Ralph Reece MD [address] [place] [address] Cardiology 10/20/24
--- OUTSIDE RECORDS SUMMARY | 2025-09-26 14:20 | XMS_ITS | Encounter Summary ---
Author Organization [employer] Address [address] [place] [address] 7t [place] [address] Care Team Providers Care Industrial Rehabilitation Consultant Name Role Phone Monica Hernandez Primary Care Provider Loc Agrawal MD Unavailable [phone] Lamar De Paz MD Unavailable [phone] Ralph Reece MD Unavailable Encounter Details Date Type Department Care Team (Late st Contact Info) Description 10/25/2022 Telephone [facility] MED[facility]INE [address] [place] [address] Monica Hernandez FNP [address] [place], [place] [phone] Social History Tobacco Use Types Packs/Day Years [...] on filedocumented in this encounter Care Teams Industrial Rehabilitation Consultant Relationship Specialty Start Date End Date Monica Hernandez FNP [address] [place] [address] PCP - General Family Medicine 07/14/22 Loc Agrawal MD [address] [place], [place] [address], [place] [address] Endocrinology 10/20/24 Lamar De Paz MD [address] [place] [address] Hematology and Oncology 10/20/24 Ralph Reece MD [address] [place] [address] Cardiology 10/20/24 documented as of this encounter
--- OUTSIDE RECORDS SUMMARY | 2025-09-26 14:20 | XMS_ITS | Clinical Summary ---
Author Organization [facility] Address [address] [place] [address] Care Team Providers Care Automotive Collision Estimator Name Role Phone Monica Hernandez Primary Care Provider [phone] Encounters Date Type Department Care Team Description 09/17/2025 10:00 AM EDT Evaluation [facility] [address] [place] [address] [phone] Fish Skinning Machine Feeder: Suze Stringer MD Smith, Alice Iona, SIER[place] Intellectual disability (Primary Dx); Hypoparathyroidism, unspecified hypoparathyroidism type (HCC); Obesity, unspecified class, unspecified obesity type, unspecified whether serious comorbidity present from Last 3 Months Social History Tobacco Use Types Packs/Day Years Used Date Smoking Tobacco: Never Assessed Comments Unknown Sex and Gender Information Value Date Recorded Sex Assigned at Female 02/13/2025 4:11 PM EDT Legal Sex Female 11:46 AM EDT Gender Identity Not on file Sexual Orientation Not on file Plan of Treatment Health Maintenance Due Date Last Done Comments Cervical Cancer Screening 1970 Cologuard 1970 Colon Cancer Screening 1970 Colonoscopy 1970 FOBT / Fit Test 1970 HPV and Pap Smear 1970 Hepatitis C Screening 1970 Pap Smear 1970 Sigmoidoscopy 1970 Medicare AWV 1971 Hepatitis B Vaccines (1 of 3 - 19+ 3-dose series) 1989 Pneumococcal Vaccine: 50+ Ye ars (2 of 2 - PCV) 2020 10/10/2011, 06/29/2010 Mammogram 02/26/2021 02/26/2019 Alcohol/Substance Use Screening 11/20/2024 Depression Screening and Follow-Up 11/20/2024 Social Drivers of Health Zuly ual Screening 11/20/2024 COVID-19 Vaccine ( - 2024-2 6 season) 2025 02/17/2022, 04/14/2021, 03/17/2021 Influenza Vaccine (#1) 2025 07/21/2011 DTaP,Tdap,and Td Vaccines (3 - Td or Tdap) 05/09/2033 05/09/2023, 12/28/2012, 11/28/2006, Additional history exists Zoster Vaccines Completed 05/31/2022, 03/23/2022 HIV Screening Completed 10/07/2024, 10/07/2024 Insurance [facility] MEDICARE Care Teams Automotive Collision Estimator Relationship Specialty Start Date End Date Monica Hernandez [address] [place] [address] PCP - General Family Medicine 02/13/25
--- OUTSIDE RECORDS SUMMARY | 2025-09-26 14:20 | XMS_ITS | Patient Health Record ---
Author Organization [facility] Address [address] [place] [phone] Support Name Relationship Address Phone Yael Lee Guarantor Unknown [phone] Allergies Allergen (clinical drug ingredient) Drug/Non Drug [...] Insured Coverage Start Date Coverage End Date [facility] [address] [place] [address] [id number] Yael Lee Self - patient is the insured [facility] Medicare Advantage Plan 1 [facility] [address] [place] [phone] [id number] Yael Lee Self - patient is the insured Medical (General) History Medical History History ICD Code hypertension Hypothyroidism anemia
--- OUTSIDE RECORDS SUMMARY | 2025-09-26 14:20 | XMS_ITS | Encounter Summary ---
Author Organization [employer] Address [address] [place] [address] 7t [place] [address] Care Team Providers Care Fitness Leader Name Role Phone Monica Hernandez Primary Care Provider Loc Agrawal MD Unavailable [phone] Lamar De Paz MD Unavailable [phone] Ralph Reece MD Unavailable [phone] Reason for Visit * Reason Comments Med Refill Encounter Details Date Type Department Care Team ([facility] st Contact Info) Description 05/06/2024 Refill [facility]S [address] [place], [place] [phone] Monica Hernandez FNP [address] [place], [place] [phone] Hypothyroidism, unspecified type Social History Tobacco Use [...] documented as of this encounter Care Teams Fitness Leader Relationship Specialty Start Date End Date Monica Hernandez FNP [address] [place] [address] PCP - General Family Medicine 07/14/22 Loc Agrawal MD [address] [address] Endocrinology 10/20/24 Lamar De Paz MD [address] [place] [address] Hematology and Oncology 10/20/24 Ralph Reece MD [address] [place] [address] Cardiology 10/20/24 documented as of this encounter
--- OUTSIDE RECORDS SUMMARY | 2025-09-26 14:20 | XMS_ITS | Encounter Summary ---
Author Organization [employer] Address [address] 7t [place] [address] Care Team Providers Care Division Plant Engineer Name Role Phone Monica Hernandez Primary Care Provider [phone] Loc Agrawal MD Unavailable [phone] Lamar De Paz MD Unavailable [phone] Ralph Reece MD Unavailable [phone] Encounter Details Date Type Department Care Team (Late st Contact Info) Description 06/11/2025 Orders Only [facility]S [address] [place] [address] Provider, MD Sung Social History Tobacco Use [...] on file documented as of this encounter Procedures Procedure [...] documented as of this encounter Care Teams Division Plant Engineer Relationship Specialty Start Date End Date Monica Hernandez FNP [address] [place] [address] PCP - General Family Medicine 07/14/22 Loc Agrawal MD [address] [place] [address] [place] [address] Endocrinology 10/20/24 Lamar De Paz MD [address] [place] [address] Hematology and Oncology 10/20/24 Ralph Reece MD [address] [place] [address] Cardiology 10/20/24 documented as of this encounter
--- OUTSIDE RECORDS SUMMARY | 2025-09-26 14:20 | XMS_ITS | Clinical Summary ---
Author Organization [facility] Address [address] [place] [address] Care Team Providers Care Crown Assembly Machine Set Up Mechanic Name Role Phone Unavailable Primary Care Provider [...] Last Done Comments Breast Cancer Screening 1970 Hepatitis B Vaccines (1 of 3 - 19+ 3-dose series) 1989 Cervical Cancer Screening: Pap Smear 1991 Pneumococcal Vaccine: 50+ Years (2 of 2 - PCV) 2020 10/10/2011, 06/29/2010 Depression Screening 11/20/2024 COVID-19 Vaccine ( season) 2025 02/17/2022, 04/14/2021, 03/17/2021 Influenza Vaccine (#1) 2025 07/21/2011 DTaP,Tdap,and Td Vaccines (5 - Td or Tdap) 05/09/2033 05/09/2023, 12/28/2012, 11/28/2006, Additional history exists RSV Immunization Adult Patients (1 - 1-dose 75+ series) 2045 Zoster Vaccines Completed 05/31/2022, 03/23/2022 HIB Vaccines Aged Out No longer eligi [...] to complete this topic RSV Immunization Patients Under 20 months Aged Out No longer eligible based on patient's age to complete this topic Varicella Vaccines Aged Out No longer eligible based on patient's age to complete this topic
--- OUTSIDE RECORDS SUMMARY | 2025-09-26 14:20 | XMS_ITS | Encounter Summary ---
Author Organization [employer] Address [address] [facility] 7t [place] [address] Care Team Providers Care Chief Telephone Operator Name Role Phone Monica Hernandez Primary Care Provider Loc Agrawal MD Unavailable [phone] Lamar De Paz MD Unavailable [phone] Ralph Reece MD Unavailable [phone] Encounter Details Date Type Department Care Team (Late st Contact Info) Description 09/09/2025 Telephone [facility] MED[facility]INE [address] [place] [address] Monica Hernandez FNP [address] [place], [place] [phone] Social History Tobacco Use Types Packs/Day Years [...] encounter Miscellaneous Notes * Telephone Encounter - Lela Kenney - 09/09/2025 11:42 AM EDT TC from Yary sister of pt staring that they went to a ginecology appointment and pt refuse evaluation due to DREver Was not properly treating pt good on the appointment pt was having super high blood pressure they let pt go like that and sister want to change to another provider/location was not happy with this place. Pt went to this place to get uterus evaluation. PCP Personalized Living Assistant Mary documented in this encounter Plan of Treatment Not on file documented as of this encounter Visit Diagnoses Not on filedocumented in this encounter Additional Health Concerns Assessment Noted Time PHQ-9 Depression Total Score: 11 025 11:03 AM EDT documented as of this encounter Care Teams Chief Telephone Operator Relationship Specialty Start Date End Date Monica Hernandez FNP [address] [place] [address] PCP - General Family Medicine 07/14/22 Loc Agrawal MD [address] [place] [address] [place] [address] Endocrinology 10/20/24 Lamar De Paz MD [address] [place] [address] Hematology and Oncology 10/20/24 Ralph Reece MD [address] [place] [address] Cardiology 10/20/24 documented as of this encounter
== END 2025-09-26 11:56 | disposition home or self-care (01) ==
LOC: HO.MAMMO 11:55
PROVIDERS: PCP Registered Nurse; Visit Provider Registered Nurse
DX: Z12.31 Encounter for screening mammogram for malignant neoplasm of breast (principal)
CPT/HCPCS: 77063; 77067

== ENCOUNTER → 2025-09-26 12:15 | Outpatient (BNV) | payer MEDICARE, MEDICAID, SELFPAY | PROVIDERS: PCP Registered Nurse; Visit Provider Internal Medicine | DX: Z12.31 Encounter for screening mammogram for malignant neoplasm of breast (principal) | CPT/HCPCS: 77063; 77067 ==

== ENCOUNTER 2025-10-31 09:39 | Outpatient (REF) | payer MEDICARE, MEDICAID, SELFPAY ==
[2025-10-31 15:08] LABS: MANUAL DIFF FLAG NO
[2025-10-31 15:20] LABS: Hematocrit 37.1 % (37.0-47.0); Hemoglobin 11.3 g/dl (12.0-16.0); Imm Gran Abs Auto 0.09 X10*3/uL (0.00-0.03); Imm Gran Pct Auto 1.2 % (0.0-0.4); Lymphocytes Absolute Auto 1.1 X10*3/uL (1.2-4.9); Mean Corpuscular HGB Conc 30.5 g/dl (31.0-35.0); Mean Corpuscular Hemoglobin 24.6 pg (27.0-33.0); Mean Corpuscular Volume 80.8 fL (80.0-98.0); NRBC Abs Auto 0.000 X10*3/uL (0.0-0.012); NRBC Pct Auto 0.0 /100WBC (0.0-0.2); Platelet Count 245 X10*3/uL (160-400); Red Blood Count 4.59 X10*6/uL (4.20-5.50); White Blood Count 7.3 X10*3/uL (4.8-10.8)
[2025-10-31 15:39] LABS: Anion Gap 14 (12-20); Blood Urea Nitrogen 21 mg/dL (9-16); Calcium 8.5 mg/dL (8.4-10.2); Carbon Dioxide 27 mmol/L (22-29); Chloride 101 mmol/L (96-108); Estimated Glomerular Filt Rate > 60; Potassium 3.7 mmol/L (3.3-5.1); Sodium 138 mmol/L (135-145)
== END 2025-10-31 09:40 | disposition home or self-care (01) ==
LOC: HO.CHCLDS 09:39
PROVIDERS: Visit Provider Registered Nurse
DX: I10 Essential (primary) hypertension (principal); R73.03 Prediabetes
CPT/HCPCS: 36415; 80048; 82985; 83036; 85025

== ENCOUNTER 2025-11-18 09:58 | Outpatient (AMB) | payer MEDICARE, MEDICAID, SELFPAY ==
--- NOTE | 2025-11-18 10:01 | A.OFFVIS_ITS ---
Vital Signs 11/18/25 10:02 Height 5 ft 2 in Weight 396 lb 13.313 oz BMI 72.6 BP 130/72 Blood Pressure Location Rt brachial Position Sitting Pulse 57 Pulse Source Pulse Oximeter Pulse Oximetry (%) 96 Oxygen Delivery Method Room Air Intake Visit Reasons: Hypothyroidism Intake Note: Patient presents here today for Hypothyroidism follow-up after completion of work-up. Renal Ultrasound: Booked Today Comprehensive metabolic panel including phosphorus, magnesium & vitamin-D levels: Labs completed on 08/28/2025 Program Consultant Required: Yes Program Consultant Language: Pediatric Oncologist Services: Program Consultant Offered & Declined (DR Leon Speak Fluent Divehi) Accompanied by: Niece Allergies Penicillins Allergy (Unknown, Verified 08/15/25 10:21) RASH HPI Comments Details: 54-year-old female coming in today for follow up of hypoparathyroidism. HPI from prior visit Per chart review he was originally diagnosed sometime in 2020/beginning of 2021 with hypoparathyroidism after she was noted to be hypocalcemic. No history of thyroid or parathyroid surgery. Father has a history of hypocalcemia. She has no history of kidney stones. No history of fractures. Reviewed investigations of the time, which showed a normal magnesium level from 2020 of 1.9. Renal Us 08/13/24 normal No blood in urine. Perimenopausal, get periods every few months. No vision changes, but hasnt seen an eye doctor in a while. No history of cataracts. No kidney stones. No fractures or falls. No mental status changes. No nausea , vomiting, no abd pain , weight has been stable no weight changes. 2022 PTH of 8. Denies kidney stones or osteoporosis. labs are from April 12 calcium 7.5, albumin 3.6 labs 10/07/24 showed low ionized calcium of Ionized calcium of 4.5 which is low, low total calcium of 8.2 with albumin of 3.7, corrected calcium would be something around 8.5. Given she was having symptoms of perioral numbness, I had increased her calcium carbonate to 500 mg twice daily as well as went up on her calcitriol to 0.5 mcg twice daily. However patient at last visit in October 2024 endorsed she was not taking her calcium carbonate because the size of the pills was bothering her. I had emphasized to her importance of taking her calcium and low calcium levels in the blood can result in if not managed timely. I had also asked her to do blood work at that time, but no blood work was done. Patient had an episode of hypocalcemia requiring hospitalization in January 2025. Interval history Patient reports feeling overall well Denies symptoms concerning for hypocalcemia including weakness, tingling numbness in the hands or perioral area She had the genetic consultation by phone in August 2025, she reports that no specific test was indicated She also denies symptoms concerning for symptomatic urolithiasis She will have the renal US today Currently on calcitriol 0.5 mcg b.i.d. Calcium carbonate 500 mg b.i.d. Vitamin-D 1000 units daily Physical exam General: Morbidly obese. NAD. Eyes: No conjunctival injection CV: RRR, no murmur. Bilateral lymphedema Resp:Lungs clear to auscultation bilaterally Abdomen: nontender. Obese Extremities/Neuro: No weakness or tremor of outstretched hands Laboratory Tests 08/28/25 10/31/25 13:25 09:41 Creatinine 0.86 0.77 Estimated GFR > 60 > 60 Calcium 8.1 L 8.5 Total Bilirubin 0.5 Albumin 4.2 25-OH Vitamin D Total 40.7 TSH 2.65 Laboratory tests 01/23/23 10/09/24 02/10/25 08:00 08:00 11:32 Potassium Creatinine Calcium Phosphorus 4.6 H Albumin 25-OH Vitamin D Total Ur Creatinine 24 Hour 2.5 H 0.7 L Ur Calcium 24 Hr 339 H 189 Calcium/Creat 24 Hr 136 285 H 04/29/25 05/12/25 06/12/25 11:15 11:23 11:47 Potassium 4.2 Creatinine 0.74 0.86 Calcium 9.0 D 8.0 L D Phosphorus 3.9 Albumin 3.7 25-OH Vitamin D Total 16.4 L Ur Creatinine 24 Hour Ur Calcium 24 Hr Calcium/Creat 24 Hr Imaging US RETROPERITONEAL LIMITED (RENAL ONLY) 08/13/24 CLINICAL INFORMATION: Hypoparathyroidism, unspecified.. COMPARISON: Ultrasound renal with Doppler 12/08/2021. TECHNIQUE: Real-time imaging of the kidneys. Technically limited study secondary to body habitus. FINDINGS: RIGHT KIDNEY: 9.9 x 4.6 x 6.5 cm (SAG x AP x TRV). The kidney is normal in size, contour, and echogenicity. Renal cortical thickness is normal. No calculi or focal parenchymal lesions. No hydronephrosis. LEFT KIDNEY: 10.9 x 4.9 x 6.6 cm (SAG x AP x TRV). The kidney is normal in size, contour, and echogenicity. Renal cortical thickness is normal. No calculi or focal parenchymal lesions. No hydronephrosis. [facility] Medical History Hypoparathyroidism TBI (traumatic brain injury) Obesity Cognitive impairment Anemia DVT (deep venous thrombosis) Hypothyroid Hypertension Surgical History No pertinent past surgical history Family History Mother HTN (hypertension) Father Diabetes Paternal Aunt Colon cancer Maternal Aunt Breast CA Social History Household Members Other:: mom Housing: House Alcohol intake: never Patient Tobacco Use Status: Never used Tobacco service: No Physical Exam Vital Signs: Last Vital Signs Pulse 57 11/18/25 10:02 BP 130/72 11/18/25 10:02 Pulse Ox 96 11/18/25 10:02 Oxygen Delivery Method Room Air 11/18/25 10:02 BMI result Body Mass Index 72.6 Assessment & Plan Assessment & Plan (1) Hypoparathyroidism: Code(s): E20.9 - Hypoparathyroidism, unspecified Category: Medical Qualifiers: Hypoparathyroidism type: unspecified Qualified Code(s): E20.9 - Hypoparathyroidism, unspecified Plan: Patient who is diagnosed with hypoparathyroidism sometime around 11/2021, who is currently maintained on calcitriol 0.5 mcg in a.m. and 0.5 mcg in evening, and vitamin-D 2000 units daily, Our goal is to maintain calcium it in the lower normal range which would be something around 7.8-8.5. This is in order to prevent hypercalciuria and complications like kidney stones or nephrocalcinosis. in 2022 showed her 24 hour urine calcium was 339 which is elevated since goal in woman is less than 250 mg per 24 hours, however her urine volume was 3 L which was also very increased so inadequate collection. Her kidney function stable, and renal ultrasound from 2023 did not show any nephrocalcinosis, These should be done of the 2 or 3 year kylah on treatment. US renal done 07/29/24 She has not had any workup for why she has developed hypoparathyroidism. Differentials include autoimmune polyglandular syndrome type 1, however no history of candidiasis. She does not have any symptoms of adrenal insufficiency, Twenty-one hydroxylase antibodies came back negative. Other differentials include other genetic mutations causing hypoparathyroidism especially given that she has family history of hypocalcemia in her father per the chart. Patient was referred to Genetics at [facility] in 08/13. [facility] genetics has a wait time of 6-9 months and at this time referral is pending evaluation. This was placed previously as well but does not seem like patient was able to get to them. She was also previously given a referral for [facility] to see hyperparathyroidism expert over there, however she says she did not hear from them, referral was placed again during visit in Jul 2024 as she would benefit from genetic workup to evaluate this and I have asked them to call their office. In September 2024, patient was not adherent to her calcium pills because of the size of the pills was bothering her hence we told her to switch to some other brand and she was taking [employer] gummies, however early January 2025, calcium levels dropped to 6.7 and she was sent to the ED for IV calcium replacement. Given there was concern of whether she is taking the correct amount or not, plus they are unable to bring medication bottles to the visit as she gets prepackaged pills, we decided to switch back to prescription only pills. Her calcitriol was increased to 0.75 mcg b.i.d.. Most recently patient seems to be feeling better, with no symptoms of hypocalcemia. She is taking Tums twice daily, calcitriol 0.5 b.i.d. and vitamin-D 2000 IU daily. Labs from May 2025 showed creatinine 0.86, calcium 8.0. Most recent labs 8.5, alb 4.2, calcium adjusted for albumin 8.3. Plan: Obtain comprehensive metabolic panel including phosphorus, magnesium Obtain 24 hours urine calcium/cr Renal ultrasound pending She had the genetic consultation by phone in August 2025, she reports that no specific test was indicated-Please obtain records continue calcitriol 0.5 mcg in a.m. 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 Normal TSH and free T4 from Aug 2025 Clinically euthyroid Plan: -continue levothyroxine 112 mcg daily -repeat TSH in 6 months Plan See above Orders: Orders Comprehensive Met. Panel 8 Weeks E20.9 - Hypoparathyroidism, unspecified Calcium, 24 Hr Ur 8 Weeks E20.9 - Hypoparathyroidism, unspecified Magnesium 8 Weeks E20.9 - Hypoparathyroidism, unspecified Phosphorus 8 Weeks E20.9 - Hypoparathyroidism, unspecified Creatinine, 24 Hr Group 8 Weeks E20.9 - Hypoparathyroidism, unspecified Patient Instructions: Recoja la orina antes de realizarse el an?lisis de rosanna. El d?a que lleve la muestra de orina al laboratorio debe realizarse tambi?n el an?lisis de rosanna. Instrucciones para la Recolecci?n de Calcio en Orina de 24 Horas Prop?sito: Esta prueba mide la cantidad de calcio excretado en la orina samantha un per?odo de 24 horas. Ayuda a evaluar el metabolismo del calcio y a diagnosticar ciertas condiciones. Materiales Necesarios: * Recipiente para recolecci?n de orina de 24 horas (proporcionado por el laboratorio o la cl?joanna) * Dispositivo para recolectar orina (opcional, para facilitar la recolecci?n) * Instrucciones escritas (esta hoja) Instrucciones: Inicio de la Recolecci?n: * Elija un d?a en el que pueda estar en casa o tenga f?cil acceso a un ba?o. * Al despertarse el primer d?a, orine y deseche esta primera orina de la ma?crow. No la recoja. Anote la hora exacta; esta ser? eaton hora de inicio. Recolecci?n de Toda la Orina: * Samnatha las siguientes 24 horas, recolecte toda la orina que elimine en el recipiente proporcionado. * Cada vez que orine, h?anika en un recipiente limpio y luego transfi?ralo al recipiente de recolecci?n de 24 horas. * Mantenga el recipiente de recolecci?n en un lugar fresco, preferiblemente en el refrigerador o sobre hielo, samantha el per?odo de recolecci?n. Finalizaci?n de la Recolecci?n: * Exactamente 24 horas despu?s de la hora de inicio, orine por ?ltima vez y agregue esta orina al recipiente. Banquete completa la recolecci?n. Despu?s de la Recolecci?n: * Aseg?rese de que la tapa est? aryan cerrada. * Etiquete el recipiente con eaton nombre, la fecha y las horas de inicio y finalizaci?n. * Devuelva el recipiente al laboratorio o al consultorio de eaton m?dico lo antes posible despu?s de completar la recolecci?n. Consejos Importantes: * No omita ninguna micci?n samantha el per?odo de 24 horas. Si lo hace, es posible que deba repetir la prueba. * No permita que papel higi?bhupinder, heces u otros materiales entren en la muestra de orina. * Contin?e con eaton dieta habitual, a menos que se le indique lo contrario. * Algunas pruebas pueden requerir que evite ciertos alimentos o medicamentos; siga cualquier instrucci?n adicional proporcionada por eaton m?dico. 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
[2025-11-18 10:02] VITALS: BP 130/72; PULSE 57; O2SAT 96; BMI 72.6
--- OUTSIDE RECORDS SUMMARY | 2025-11-18 13:00 | XMS_ITS | Encounter Summary ---
Author Organization [facility] Address [address] [place] [address] [address] [place] [address] Care Team Providers Care Buhr Dresser Name Role Phone Monica Hernandez Primary Care Provider Loc Agrawal MD Unavailable [phone] Lamar De Paz MD Unavailable [phone] Ralph Reece MD Unavailable Encounter Details Date Type Department Care Team (Late st Contact Info) Description 10/25/2022 Telephone [facility] [address] [place] [address] Mnoica Hernandez FNP [address] [place], [place] [phone] Social History Tobacco Use Types Packs/Day Years [...] on filedocumented in this encounter Care Teams Buhr Dresser Relationship Specialty Start Date End Date Monica Hernandez FNP [address] [place] [address] PCP - General Family Medicine 07/14/22 Loc Agrawal MD [address] [place], [place] [address], [place] [address] Endocrinology 10/20/24 Lamar De Paz MD [address] [place] [address] Hematology and Oncology 10/20/24 Ralph Reece MD [address] [place] [address] Cardiology 10/20/24 documented as of this encounter
--- OUTSIDE RECORDS SUMMARY | 2025-11-18 13:00 | XMS_ITS | Encounter Summary ---
Author Organization [facility] Address [address] [place] [address] Care Team Providers Care Hot Car Operator Name Role Phone Monica Hernandez Primary Care Provider [phone] Encounter Details Date Type Department Care Team (Late st Contact Info) Description 10/22/2025 Results Follow-Up [facility] [address] [place] [id number] Theatrical Variety Agent: Peggy Bliss [address] [phone] Social History Tobacco Use Types Packs/Day Years Used Date Smoking Tobacco: Never Assessed Comments Unknown Sex and Gender Information Value Date Recorded Sex Assigned at Female 02/13/2025 4:11 PM EDT Legal Sex Female 11:46 AM EDT Gender Identity Not on file Sexual Orientation Not on file documented as of this encounter Miscellaneous Notes * Result Encounter Note - Peggy Champion [facility] [place] 10/22/2025 2:42 PM EST STATUTORY PROTECTED INFORMATION, SPECIFIC AUTHORIZATION REQUIRED FOR DISCLOSURE. The whole exome sequencing (ASIM) from [facility] came back negative/normal. A genetic cause of Yael's personal history of hypoparathyroidism, hypocalcemia, obesity, hypertension, peripheral venous insufficiency, anemia, depression, and intellectual disability was not identified. As there are still genes yet to be identified it does not mean there is no underlying genetic cause, but from the information we know today, we were unable to find a genetic cause of their presentation at this time. We recommend that Yael re-contact genetics periodically to see if new testing is available/indicated. Peggy Champion MS, [facility] Genetic Counselor documented in this encounter Plan of Treatment Not on file documented as of this encounter Visit Diagnoses Not on filedocumented in this encounter Care Teams Hot Car Operator Relationship Specialty Start Date End Date Monica Hernandez [address] [place] [address] PCP - General Family Medicine 02/13/25 documented as of this encounter
--- OUTSIDE RECORDS SUMMARY | 2025-11-18 13:00 | XMS_ITS | Clinical Summary ---
Author Organization [employer] Address [address] [place] [address] [address] [place] [address] Care Team Providers Care Traffic Agent Name Role Phone Pedrocarlo Monica ROBB Primary Care Provider [phone] Loc Agrawal MD Unavailable Lamar De Paz MD Unavailable [phone] Ralph Reece MD Unavailable [phone] Allergies Active Allergy Reactions Criticality Noted [...] capsule 3 4 Active melatonin 5 MG tabletIndications [...] 1 5 Active olmesartan (Benicar) 40 MG tabletIndications :Essential hypertension Take 1 tablet (40 mg) by mouth Once per day. 90 tablet 1 5 09/19/20 26 Active lidocaine (Lidoderm) 5 % patchIndications: Bilateral low back pain without sciatica, unspecified chronicity Apply 1 patch topically if needed each day for moderate pain. Remove & discard patch within 12 hours or as directed by provider. 30 patch 3 5 11/30/19 26 Active Active Problems Problem Noted Date Diagnosed Date Obstructive sleep apnea 11/02/2025 Assessment & Plan (11/02/2025 4:13 PM EST): - Obstructive sleep apnea with poor CPAP adherence, resulting in poor sleep quality and increased risk for cardiovascular complications. - Strongly recommended consistent use of CPAP device to improve sleep quality and reduce associated risks. Muscle twitch 06/03/2025 Assessment & Plan (06/03/2025 8:26 AM EDT): Intermittent muscle twitch left chin x 1-2 months. Stressful life event ~4 months ago with loss of mother. 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 Referral to re-establish with Neurology for further eval Given hx of hypoparathyroid, will also repeat calcium level Grief 02/11/2025 Screening for colon cancer 02/10/2025 Assessment & Plan (06/03/2025 7:54 AM EDT): Previously ordered cologuard as pt had declined colonosopy. (+) fam hx of colon cancer. Discussion again today regarding colon cancer screening, and she is in agreement to proceed with colonoscopy. Referral to GI placed. Hypocalcemia 02/10/2025 Anxiety 02/10/2025 Prediabetes 10/31/2024 Assessment & Plan (11/02/2025 4:12 PM EST): - Prediabetes with prior elevated blood glucose, likely related to high intake of sugary beverages. - Recommended increased water intake and reduction of juice and sugary drinks. Will review recent blood work to assess current glucose status. Advised to continue dietary modifications. Will call with laboratory results. Assessment & Plan (09/21/2025 6:39 PM EST): [...] pending ED precautions Healthcare maintenance 11/11/2023 Overview (11/02/2025): Mammogram: BIRADS 1 on 09/26. Colon CA screening: (+) fam hx of colon CA. Cologuard ordered 11/10/23. Initially declined colonoscopy referral, but then did accept and was referred to [facility] GI in March 2024. Scheduled Sep 2025 for consult. Pap: 07/12/22 NILM HPV neg (repeat 3 [...] safety Hypothyroidism 05/04/2023 Overview (09/21/2025): Following with [facility] Davida Bellamy Levothyroxine 112mcg daily Lab Results Component Value Date TSH 2.65 08/28/2025 Assessment & Plan (09/21/2025 6:21 PM EST): Well controlled, cont with current regimen Assessment & Plan (06/03/2025 7:49 AM EDT): Well controlled, cont with current regimen Assessment & Plan (04/06/2024 11:15 AM EDT): Repeat TSH ordered Assessment & Plan (08/11/2023 6:18 AM EDT): Following with [facility] Davida Agrawal Moderate depressive disorder 02/06/2023 Vitamin D deficiency 10/22/2022 Assessment & Plan (04/05/2024 11:21 AM EDT): -Cont Vit D 2000 units daily Family history of colon cancer 10/22/2022 Hypoparathyroidism 09/01/2022 Overview (09/21/2025): Following with [facility] Endo - Dr. Bellamy/Dr. Rutherford. Goal calcium range: 7.5-8.5 Referred for [facility] genetics consult in Jul 2024 to eval for genetic mutations that may be contributing to condition (scheduled 07/22/25 at [facility] Genetics) Medications: Calcitriol 0.5mcg BID [...] (11/11/2023 11:55 AM EST): -Following with [facility] Endo - Dr. Agrawal. Per last consult note in Aug 2022: Hypoparathyroidism. Possible etiologies behind the hypocalcemia could include secondary hyperparathyroidism due to vitamin-D deficiency versus idiopathic hypoparathyroidism. Plan is to recheck calcium, phosphorus, PTH, albumin. Further workup and/or treatment will be based on the above Menorrhagia with irregular cycle 02/16/2022 Overview (08/18/2024): Following with [facility] DEVOPS ENGINEER - Dr. Mayers 2013: recommendation for EMB & sonohysterogram d/t focal endometrial hypoechoic area on US measuring 29q22pv Pap: 07/12/22 NILM HPV neg [facility] OBGYN: hysteroscopy with polypectomy, D&C, IUD insertion on 06/10/24 Assessment & Plan (04/06/2024 11:41 AM EDT): Have missed multiple appts for procedure, although hero reports that pt recently completed US and has follow up scheduled with [facility] DEVOPS ENGINEER within the next month. Reviewed importance of keeping appt Physical deconditioning 07/19/2018 Assessment & Plan (10/20/2024 7:56 PM EST): - High risk for falls - Preventative measures: Bariatric commode: DME request Jul 2024 - pending Bariatric Tub Transfer Bench: DME request 10/20/24 Microcytic anemia 11/10/2015 Overview (06/03/2025): Following with [facility] Heme/Onc - Dr. De Paz Completed IV iron (Venofer) in 2023 GI: referred to [facility], initial consult scheduled. Per Heme/Onc note Sep 2024, pt declining colonoscopy but open to Cologuard. Order placed through PCP on 10/20/24 DEVOPS ENGINEER: following with [facility] OBGYN - had IUD placement in 2023 but fell out shortly thereafter. Consideration of surgical intervention --> consult summer 2024 at [facility] DEVOPS ENGINEER to further discuss Hospitalization January 2025 for [...] with colonoscopy, referral placed - Consult with [facility] DEVOPS ENGINEER pending for possible surgical interventions r/t menorrhagia [...] EDT): Hx ANIYA, previously followed by [facility] Heme/Onc. Last available consult note from Jul 2018 Plan to cont on oral iron (pt declined IV iron), and to arrange for colonoscopy (does not appear this was performed) ED precautions reviewed Follow up with [facility] Heme/Onc as scheduled Assessment & Plan (11/11/2023 12:02 PM EST): Hx ANIYA, previously followed by [facility] Heme/Onc. Last available consult note from Jul 2018 Plan to cont on oral iron (pt declined IV iron), and to arrange for colonoscopy (does not appear this was performed) Repeat labs ordered today Assessment & Plan (05/10/2023 7:45 AM EDT): Requested to check POC Hbg, WNL in office today Essential hypertension 11/10/2015 Overview (11/02/2025): [facility] Dr. Reece Medications: - olmesartan 40mg daily - labetalol 200mg BID - diltiazem 360mg daily Assessment & Plan (11/02/2025 4:13 PM EST): - Hypertension, currently controlled at home, with occasional elevated readings. - Continue current management. Monitor blood pressure at home. No medication changes at this time. Assessment & Plan (09/21/2025 6:37 PM EST): [...] functioning when she was an adolescent in [place], although reports no longer available. Sister is heavily involved in the care of Ms. Lee Following with therapist, and plan to establish with psych prescriber in 2 days Plan for IB team to outreach to pt/sister regarding form and next steps. Severe obesity (BMI >= 40) (CMS/HCC) 11/10/2015 Assessment & Plan (09/19/2025 10:31 AM EDT): BMI 64.66 Encouraged lifestyle interventions including physical movement/activity and diet rich in fruits, vegetables, and lean meat Previous interventions include RW for ambulation and PT Proposed benefits of electric scooter: improve ability to complete iADLs and mobility outside of the home while still maintaining safety. TEAM Rehab eval completed Jul 2024. 2nd eval at [facility] Rehab completed Sep 2024. Documents faxed to [employer]. DME request for bariatric [...] eval completed Jul 2024. 2nd eval at [facility] Rehab completed Sep 2024. Documents faxed to [employer]. 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 Overview (04/06/2024): Following with [facility] PRN Resolved Problems Problem Noted Date Diagnosed Date Resolved Date Exercise counseling 02/10/2025 11/02/20 Dietary counseling 02/10/2025 Hypertension 05/04/2023 08/11/2023 Ulcerative lesion 02/06/2023 04/06/2024 Noncompliance with treatment regimen 02/16/2022 08/11/2023 Acquired hypothyroidism 11/10/201507/22 Encounters Date Type Department Care Team Description 10/31/2025 10:00 AM EST Office Visit [facility] [address] [place] [address] Monica Hernandez FNP Healthcare maintenance (Primary Dx); Severe obesity (BMI >= 40) (CMS/HCC) ([facility]); Bilateral low back pain without sciatica, unspecified chronicity; Prediabetes; Obstructive sleep apnea; Essential hypertension 10/31/2025 Telephone [facility] [address] [place] [phone] Monica Hernandez FNP [place] 10/31/2025 Travel 10/29/2025 Telephone [facility] [address] [place] [address] Monica Hernandez FNP Chart Prep 10/08/2025 Telephone [facility] [address] [place] [address] Monica Hernandez FNP 10/07/2025 Telephone [facility] [address] [place] [address] Monica Hernandez FNP 09/19/2025 10:00 AM EDT Office Visit [facility] [address] [place] [address] Monica Hernandez FNP Essential hypertension (Primary Dx); Elevated hemoglobin A1c; Prediabetes; Hypoparathyroidism, unspecified hypoparathyroidism type (CMS/HCC); Hypothyroidism, unspecified type 09/19/2025 Travel 09/09/2025 Telephone [facility] [address] [place] [phone] Mary MonicaCLARISSE bro 08/28/2025 Orders Only GENERIC EXTERNAL DATA DEPARTMENT Provider, Generic External Data from Last 3 Months Immunizations Immunization Administration [...] Sign Reading Time Taken Comments Blood Pressure 136/80 10/31/2025 9:57 AM EST Pulse 61 10/31/2025 9:57 AM EST Temperature 36.3 C (97.3 F) 09/19/2025 10:23 AM EDT Respiratory Rate 20 10/31/2025 9:57 AM EST Oxygen Saturation 98% 10/31/2025 9:57 AM EST Inhaled Oxygen Concentration - - Weight 183 kg (403 lb) 10/31/2025 9:57 AM EST Height 158.8 cm (5' 2.5 ) 10/31/2025 9:57 AM EST Body Mass Index 72.54 10/31/2025 9:57 AM EST Plan of Treatment Health Maintenance Due Date Last Done Comments CT Colonography 1970 Colonoscopy 1970 Colorectal Cancer Screening 1970 FIT DNA/Cologuard 1970 FIT 1970 FOBT 1970 Sigmoidoscopy 1970 Hepatitis B Vaccines (1 of 3 - 19+ 3-dose series) 1989 Pneumococcal Vaccine: 50+ Years (2 of 2 - PCV) 2020 10/10/2011, 06/29/2010 RSV Patients and Patients Aged 60 years or older (1 - Risk 50-74 years 1-dose series) 2020 Depression Monitoring 08/14/2025 02/11/2025, 025 Alcohol/Substance Use Screening 03/03/2026 03/03/2025 SDOH Screening 03/03/2026 03/03/2025 Influenza Vaccine (#1) 2026 07/21/2011 Postp oned from 07/21/2025 (Patient Refused) Disability Screening 06/02/2026 06/02/2025 COVID-19 Vaccine ( season) 2026 02/17/2022, 04/14/2021, 03/17/2021 Postponed from 07/21/2025 (Patient Refused) Tobacco Screening 09/19/2026 09/19/2025 Mammogram 09/26/2026 09/26/2025, 05/22, 02/26/2019 Diabetes: Hemoglobin A1C 10/31/2026 025, 10/31/2025, 06/12/2025, Additional history exists Cervical Cancer Screening 07/15/2027 HPV/Cotest 07/15/2027 07/15/2022 [...] Procedure Name Priority Date/Time Associated Diagnosis Comments BASIC METABOLIC PANEL Routine 10/31/2025 9:41 AM EST Essential hypertension FRUCTOSAMINE Routine 10/31/2025 9:41 AM EST Prediabetes CBC WITH AUTO DIFFERENTIAL Routine 10/31/2025 9:41 AM EST Prediabetes HEMOGLOBIN A1C Routine 10/31/2025 9:41 AM EST Prediabetes BI MAMMOGRAM SCREENING TOMOSYNTHESIS BILATERAL Routine 09/26/2025 12:10 PM EST TSH W/REFLEX TO FT4 Routine 08/28/2025 1 :25 PM EDT VITAMIN D,25-OH,TOTAL,IA Routine 08/28/2025 1:25 PM EDT COMPREHENSIVE METABOLIC PANEL, FASTING Routine 08/28/2025 1:25 PM EDT HEPATITIS C VIRAL RNA, QUANTITATIVE, REAL-TIME PCR Routine 10/07/2024 10:25 AM EST Healthcare maintenance HIV 1/2 ANTIGEN/ANTIBODY, FOURTH GENERATION W/RFL Routine 10/07/2024 10:25 AM EST Healthcare maintenance LIPID PANEL, STANDARD Routine 10/07/2024 10:25 AM EST Healthcare maintenance THINPREP IMAGING PAP AND HPV MRNA E6/E7, WITH CT/NG, TRICHOMONAS Routine 07/15/2022 5:54 PM EDT from Last 3 Months or Most Recently Relevant to Health Maintenance Results * (ABNORMAL) CBC auto differential (10/31/2025 9:41 AM EST) White Blood Count 7.3 4.8 - 10.8 X10*3/uL [facility] Red Blood Count 4.59 4.20 - 5.50 X10*6/uL [facility] Hemoglobin 11.3(L) 12.0 - 16.0 g/dl [facility] Hematocrit 37.1 37.0 - 47.0 % [facility] Mean Corpuscular Volume 80.8 80.0 - 98.0 fL [facility] Mean Corpuscular Hemoglobin 24.6(L) 27.0 - 33.0 pg [facility] Mean Corpuscular HGB Conc 30.5(L) 31.0 - 35.0 g/dl [facility] Red Cell Distribution Width 19.6(H) 11.0 - 16.0 % [facility] Platelet Count 245 160 - 400 X10*3/uL [facility] Mean Platelet Volume 10.8 9.4 - 12.3 fL [facility] Neutrophils Percent Auto 70.7 45 - 73 % [facility] Imm Gran Pct Auto 1.2(H) 0.0 - 0.4 % [facility] Lymphocytes Percent Auto 14.4(L) 20 - 40 % [facility] Monocytes Percent Auto 8.8 2 - 11 % [facility] Eosinophils Percent Auto 4.1(H) 0 - 4 % [facility] Basophils Percent Auto 0.8 0 - 2 % [facility] NRBC Pct Auto 0.0 0.0 - 0.2 /100WBC [facility] Neutrophils Absolute Auto 5.1 2.0 - 8.3 x10*3/uL [facility] Imm Gran Abs Auto 0.09(H) 0.00 - 0.03 X10*3/uL [facility] Lymphocytes Absolute Auto 1.1(L) 1.2 - 4.9 X10*3/uL [facility] Monocytes Absolute Auto 0.6 0.1 - 1.2 X10*3/uL [facility] Eosinophils Absolute Auto 0.3 0.0 - 0.4 X10*3/uL [facility] Basophils Absolute Auto 0.1 0.0 - 0.2 X10*3/uL [facility] NRBC Abs Auto 0.000 0.0 - 0.012 X10*3/uL [facility] Blood Venous blood specimen / Unknown 10/31/2025 9:41 AM EST 10/31/2025 3:04 PM EST Monica Hernandez [facility] LAB BLOOD ORDERABLES Final Res ult Performing Organization Address [facility] Co de Phone Number [facility] [address] [place] [phone] * Fructosamine (10/31/2025 9:41 AM EST) Fructosamine 249 205 - 285 umol/L [facility] Comment:THIS TEST WAS PERFOR MED AT:[facility] [place] [address]EVHZPGIKEVIN TAMEZ MD,PHD Blood Venous blood specimen / Unknown 10/31/2025 9:41 AM EST 10/31/2025 3:04 PM EST Monica Hernandez [facility] LAB BLOOD ORDERABLES Final Res ult Performing Organization Address [facility] Number [facility] [address] [place] [phone] * (ABNORMAL) Hemoglobin A1c (10/31/2025 9:41 AM EST) Hemoglobin A1c 7.2(H) <6.0 % [facility] Comment:Hemoglobin A1C Refer ence Range Adults: 4.8 - 6.0 % Non diabetic: < 6.0 % Goal: < 7.0 %Additional Action Suggested: > 8.0 %Note: Hemoglobin A1c results are invalid for patients with abnormal amounts of HbF. Blood transfusions may impact the HbA1c concentration in the patient sample. Estimated Average Glucose 160 mg/dL [facility] Comment:eAG = Estimated ave rage glucose which is %A1C expressed asaverage glucose, using the formula of the [id number]-[id number] Glucose study (ADAG), Diabetes Care, Vol.31,#8,2007 Blood Venous blood specimen / Unknown 10/31/2025 9:41 AM EST 10/31/2025 3:04 PM EST Monica Hernandez [employer] LAB BLOOD ORDERABLES Final Res ult Performing Organization Address [facility]/ZIP Co de Phone Number [facility] [address] [place] [phone] * (ABNORMAL) Basic Metabolic Panel (10/31/2025 9:41 AM EST) Sodium 138 135 - 145 mmol/L [facility] Potassium 3.7 3.3 - 5.1 mmol/L [facility] Chloride 101 96 - 108 mmol/L [facility] Carbon Dioxide 27 22 - 29 mmol/L [facility] Anion Gap 14 12 - 20 [facility] Urea Nitrogen (BUN) 21(H) 9 - 16 mg/dL [facility] Creatinine, Serum 0.77 0.5 - 1.4 mg/dL [facility] Estimated Glomerular Filt Rate >60 [facility] Comment:Chronic Kidney Disea se: Estimated GFR < 60 mL/min/1.60d2Bloivv Kidney Disease: Estimated GFR < 15 mL/min/1.73m2 Glucose 151(H) 60 - 115 mg/dL [facility] Calcium 8.5 8.4 - 10.2 mg/dL [facility] Blood Venous blood specimen / Unknown 10/31/2025 9:41 AM EST 10/31/2025 3:04 PM EST Monica Hernandez [employer] LAB BLOOD ORDERABLES Final Res ult Performing Organization Address City/[facility]/ZIP Co de Phone Number [facility] [address] [place] [phone] * BI Mammogram Screening Tomosynthesis Bilateral (09/26/2025 12:10 PM EST) Anatomical Region Laterality Modality Breast Bilateral Mammography 09/26/2025 12:1 0 PM EST Narrative 09/30/2025 5:37 PM EST [address] [place], [place] [address] Mammography Report Signed Patient: Yael Lee MR#: [id number] 308 : 1970 Acct:[id number] Age/Sex: 55 / F ADM Date: 09/26/25 Loc: HO.MAMMO Attending Dr: Monica Hernandez LADLE [employer]ILLER Ordering Physician: Monica Hernandez Results: 1Negat francesca Date of Service: 09/26/25 Follow Up: 1 Year From Orig ina Mammogram Procedure(s): MM tomosynthesis screening BI Accession Number(s): [id number] cc: Monica Hernandez Reason For Exam: SCREENING EXAMINATION: MM SCREENING DIGITAL BREAST TOMOSYNTHESIS, BILATERAL CLINICAL INFORMATION: Screening. Asymptomatic. COMPARISON: Mammography: Comparison is made with available priors TECHNIQUE: Digital breast mammography with tomosynthesis is performed in both the craniocaudal and mediolateral oblique views along with computer-aided detection (CAD). FINDINGS: There are scattered areas of fibroglandular density. There are no significant masses, abnormal calcifications, or other abnormalities. MM/MM tomosynthesis screening BI IMPRESSION: No mammographic evidence of malignancy. ASSESSMENT: BI-RADS Category 1: Negative RECOMMENDATION: Routine annual mammography screening. 1 year F/U This examination should not preclude the clinical evaluation of a suspicious palpable abnormality. This patient's information was entered into a reminder system with a target due date for their next mammogram. Electronically signed by: Evita Moeller DO 09/30/2025 05:34 PM EST Dictated By: Evita Moeller DO Signed By: <Electronically signed by Evita Moeller DO in OV> 09/30/25 1734 DD/ 1210 TD/TT: 09/26/25 1240 Nutrition Services Associate: Procedure Note Donotuseinterpreter, Image - 09/30/[address] [place] [address] Mammography Report Signed Patient: Yael Lee MMR#: [id number] : 1970Acct:[id number] Age/Sex: 55 / FADM Date: 09/26/25 Loc: HO.MAMMO Attending Dr: Monica ROBB Ordering Physician: Monica HernandezPResults: 1Negat francesca Date of Service: 09/26/25Follow Up: 1 Year From Orig inal Mammogram Procedure(s): MM tomosynthesis screening BI Accession Number(s): [id number] cc: Monica Hernandez Reason For Exam: SCREENING EXAMINATION: MM SCREENING DIGITAL BREAST TOMOSYNTHESIS, BILATERAL CLINICAL INFORMATION: Screening. Asymptomatic. COMPARISON: Mammography: Comparison is made with available priors TECHNIQUE: Digital breast mammography with tomosynthesis is performed in both the craniocaudal and mediolateral oblique views along with computer-aided detection (CAD). FINDINGS: There are scattered areas of fibroglandular density. There are no significant masses, abnormal calcifications, or other abnormalities. MM/MM tomosynthesis screening BI IMPRESSION: No mammographic evidence of malignancy. ASSESSMENT: BI-RADS Category 1: Negative RECOMMENDATION: Routine annual mammography screening. 1 year F/U This examination should not preclude the clinical evaluation of a suspicious palpable abnormality. This patient's information was entered into a reminder system with a target due date for their next mammogram. Electronically signed by: Evita Moeller DO 09/30/2025 05:34 PM [facility] Dictated By: Evita Moeller DO Signed By: <Electronically signed by Evita Moeller DO in OV> 09/30/25 1734 DD/ 1210 TD/TT: 09/26/25 1240 Nutrition Services Associate: Monica ROBB IMG BI PROCEDURES Final Result * (ABNORMAL) Comprehensive Metabolic Panel, Fasting (08/28/2025 1:25 PM EDT) Sodium 139 135 - 145 mmol/L [facility] Potassium 4.0 3.3 - 5.1 mmol/L [facility] Chloride 103 96 - 108 mmol/L [facility] Carbon Dioxide 25 22 - 29 mmol/L [facility] Anion Gap 15 12 - 20 [facility] Urea Nitrogen (BUN) 15 9 - 16 mg/dL [facility] Creatinine, Serum 0.86 0.5 - 1.4 mg/dL [facility] Estimated Glomerular Filt Rate >60 [facility] Comment:Chronic Kidney Disea se: Estimated GFR < 60 mL/min/1.61v5Gvrjjt Kidney Disease: Estimated GFR < 15 mL/min/1.73m2 Glucose Fasting 212(H) 60 - 99 mg/dL [facility] Comment:A fasting glucose of 126 mg/dl or greater on more than oneoccasion is considered diagnostic of diabetes. Calcium 8.1(L) 8.4 - 10.2 mg/dL [facility] Bilirubin, Total 0.5 0.0 - 1.0 mg/dL [facility] Aspartate Amino Transferase 30 5 - 31 U/L [facility] Alanine Aminotransferase 17 0 - 31 U/L [facility] Total Protein 8.0 6.5 - 8.0 g/dL [facility] Albumin Level 4.2 3.5 - 5.0 g/dL [facility] Alkaline Phosphatase 90 39 - 117 U/L [facility] 08/28/2025 1:25 PM EDT 08/28/2025 4:25 PM EDT us Generic External Data Provider LAB BLOOD ORDERAB LES Final Result [facility] [address] [place] [phone] * Vitamin D, 25-Hydroxy, Total, Immunoassay (08/28/2025 1:25 PM EDT) Vitamin D 25-OH Total 40.7 >30 ng/mL [facility] Comment: Health Based Reference Values*< 20 ng/mL Citffllwy39-29 ng/mL Insufficient> 30 ng/mL Sufficient*Holick MF. N Engl J Med. 2007;357:266-280There is no [...] ORDERAB LES Final Result Performing Organization Address [facility] Co de Phone Number [facility] [address] [place] [phone] * TSH with Reflex to Free T4 (08/28/2025 1:25 PM EDT) Pathologist [facility] TSH reflex Free T4 2.65 0.32 - 4.0 uIU/mL [facility] 08/28/2025 1:25 PM EDT 08/28/2025 4:25 PM EDT Generic External Data Provider LAB BLOOD ORDERAB LES Final Result Performing Organization Address [facility] Co de Phone Number [facility] [address] [place] [phone] * Hepatitis C Viral RNA, Quantitative, Real-Time PCR (10/07/2024 10:25 AM EST) Pathologist [facility] Hepatitis C Viral Load <15 NOT DETECTED NOT DETECTED IU/mL [facility] HCV Log PCR <1.18 NOT DETECTED NOT DETECTED Log IU/mL [facility] Comment:For additional infor juan josé, please refer tohttp://education.[employer] Tal[employer]/faq/MJQ80t7(This link is being provided for informational/educational purposes only.)THIS TEST WAS PERFORMED AT:[facility] [employer] [place] [id number] BARR MD Blood 10/07/2024 10:2 5 AM EST 10/07/2024 10:25 AM EST us Monica GARCIAP LAB BLOOD ORDERABLES Final Res ult Performing Organization Address [facility] Co de Phone Number [facility] [address] [place] [address] [phone] * HIV-1/2 Antigen and Antibodies, Fourth Generation, with Reflexes (10/07/2024 10:25 AM EST) Pathologist [facility] HIV AB/AG Nonreactive Nonreactive [facility] Comment:HIV-1 p24 Ag and/or HIV-1/HIV-2 Ab not detected.A test result that is nonreactive does not exclude thepossibility of exposure to or infection with HIV-1 and/orHIV-2. Nonreactive results in this assay for individualswith prior exposure to HIV-1 and/or HIV-2 may be due toantigen and antibody levels that are below the limit ofdetection of this assay.The [facility] [employer] HIV Ag/Ab Combo assay result andsupplemental assay results should be interpreted inconjunction with the patient's clinical presentation,history and other laboratory results. If the results areinconsistent with clinical evidence, additional testing issuggested to confirm the result. Blood Venous blood specimen / Unknown 10/07/2024 10:25 AM EST 10/07/2024 10:25 AM EST us Monica ROBB LAB BLOOD ORDERABLES Final Res ult Performing Organization Address [facility]/ZIP Co de Phone Number [facility] [address] [place] [address] [phone] * THINPREP TIS PAP AND HPV mRNA E6/E7, CT/NG, TRICH (07/15/2022 5:54 PM EDT) Chlamydia trachomatis RNA, TMA, Urogenital NOT DETECTED NOT DETECTED [facility] Clinical Information: None given [facility] COMMENT SEE COMMENT [facility] Comment: The analytical performance characteristics of this assay, when used to test SurePath(TM) specimens have been determined by [employer]. The modifications have not been cleared or approved by the FDA. This assay has been validated pursuant to the CLIA regulations and is used for clinical purposes. For additional information, please refer to https://[employer].Global Talent Track/faq/QIF822 (This link is being provided for information/ [...] along with historic and current clinical information. Comment: SEE COMMENT [facility] Comment: This case could not be evaluated with computer assisted technology. The slide was manually screened according to routine procedures. Machine Ii Coremaker: SEE COMMENT [facility] Comment: MARAMIRO Gallagher(ASCP) CT screening location: [place] [address] HPV nRNA E6/E7 Not Detected Not Detected [facility] Comment: Methodology: Veneer Sander-Mediated Amplification This assay detects E6/E7 viral messenger RNA (mRNA) from 14 high-risk HPV types (16,18,31,33,35,39,45,51,52,56,58,59,66,68). Cervical sources are required for HPV testing. If a vaginal source from a patient who has had a total hysterectomy with removal of cervix was submitted, please contact the testing laboratory for alternative testing options. For additional information, please refer to http://education.[employer]/faq/EVC208v7 (This link if provided for information/ educational [...] SYSTEM Statement Of Adequacy: SEE COMMENT [facility] Comment: Satisfactory for evaluation. Endocervical/transformation zone component absent. Age and/or menstrual status not provided Trichomonas vaginalis, QL, TMA, PAP Vial NOT DETECTED NOT DETECTED [facility] Comment: The analytical performance characteristics of this assay have been determined by [facility]. The modifications have not been cleared or approved by the FDA. This assay has been validated pursuant to the CLIA regulations and is used for clinical purposes. For additional information, please refer to http://[employer]/ faq/Trichomonastma (This link is being provided for [...] test SurePath(TM) specimens have been determined by [facility]. The modifications have not been cleared or approved by the FDA. This assay has been validated pursuant to the CLIA regulations and is used for clinical purposes. For additional information, please refer to https://education.Global Tal[employer] Track/faq/VGB895 (This link is being provided for information/ [...] along with historic and current clinical information. Comment: SEE COMMENT [facility] Comment: This case could not be evaluated with computer assisted technology. The slide was manually screened according to routine procedures. Machine Ii Coremaker: SEE COMMENT [facility] Comment: RAMIRO CALABRESE(ASCP) CT screening location: [place] [address] HPV nRNA E6/E7 Not Detected Not Detected [facility] Comment: Methodology: Veneer Sander-Mediated Amplification This assay detects E6/E7 viral messenger RNA (mRNA) from 14 high-risk HPV types (16,18,31,33,35,39,45,51,52,56,58,59,66,68). Cervical sources are required for HPV testing. If a vaginal source from a patient who has had a total hysterectomy with removal of cervix was submitted, please contact the testing laboratory for alternative testing options. For additional information, please refer to http://[employer] Track/faq/RSH132z7 (This link if provided for information/ educational [...] of this assay have been determined by [facility]. The modifications have not been cleared or approved by the FDA. This assay has been validated pursuant to the CLIA regulations and is used for clinical purposes. For additional information, please refer to http://education.[employer] Track/ faq/Trichomonastma (This link is being provided for information/ educational purposes only.) NO COLLECTION DATE RECEIVED. WE HAVE USED THE DATE THE SPECIMEN WAS RECEIVED BY THIS LABORATORY THE COLLECTION DATE. IF THIS IS INCORRECT, PLEASE CONTACT CLIENT SERVICES. PHONE NUMBER: 07/15/2022 5:54 PM EDT Anahy Mcbride [facility] LAB PATHOLOGY ORDERABLES Final Result [facility] [address] from Last 3 Months or Most Recently Relevant to Health Maintenance Insurance [facility] STANDARD [place] [id number] Care Teams Traffic Agent Relationship Specialty Start Date End Date Monica Hernandez FNP [address] [place] [address] PCP - General Family Medicine 07/14/22 Loc Agrawal MD [address] [place] [address] Endocrinology 10/20/24 Lamar De Paz MD [address] [place] [address] Hematology and Oncology 10/20/24 Ralph Reece MD [address] [place] [address] Cardiology 10/20/24
--- OUTSIDE RECORDS SUMMARY | 2025-11-18 13:00 | XMS_ITS | Clinical Summary ---
Author Organization [facility] Address [address] [place] [address] Care Team Providers Care Search Engineer Name Role Phone Monica Hernandez Primary Care Provider [phone] Encounters Date Type Department Care Team Description 10/22/2025 Results Follow-Up [facility] [address] [place] [address] Order Puller: Peggy Bliss CGC 09/17/2025 10:00 AM EDT Evaluation [facility] [address] [place] [address] Order Puller: Suze Stringer MD Smith, Alice Iona, CGC Intellectual disability (Primary Dx); Hypoparathyroidism, unspecified hypoparathyroidism [...] Drivers of Health Zuly ual Screening 11/20/2024 Influenza Vaccine (#1) 2025 07/21/2011 COVID-19 Vaccine (4 - 2024-2 6 season) 2025 02/17/2022, 04/14/2021, 03/17/2021 DTaP,Tdap,and Td Vaccines (3 - Td or Tdap) 05/09/2033 05/09/2023, 12/28/2012, 11/28/2006, Additional history exists Zoster Vaccines Completed 05/31/2022, 03/23/2022 HIV Screening Completed 10/07/2024, 10/07/2024 Procedures * Due to [place] [employer] law, this organization might not be sharing negative HIV tests. Procedure Name Priority Date/Time Associated Diagnosis Comments GENETIC TEST, OUTSIDE LAB Routine 10/08/2025 3:19 PM EST from Last 3 Months Results * Due to [place] [employer] law, this organization might not be sharing negative HIV tests. * Genetic Test, Outside Lab (10/08/2025 3:19 PM EST) Suze Vaz MD LAB BLOOD ORDERABLES Final Res ult from Last 3 Months [facility] Care Teams Search Engineer Relationship Specialty Start Date End Date Monica Hernandez [address] [place] [address] PCP - General Family Medicine 02/13/25
--- OUTSIDE RECORDS SUMMARY | 2025-11-18 13:00 | XMS_ITS | Encounter Summary ---
Author Organization [employer] Address [address] [facility] 7t [place] [address] Care Team Providers Care Warehouse Distribution Specialist Name Role Phone Monica Hernandez Primary Care Provider Loc Agrawal MD Unavailable [phone] Lamar De Paz MD Unavailable [phone] Ralph Reece MD Unavailable [phone] Encounter Details Date Type Department Care Team (Late st Contact Info) Description 09/09/2025 Telephone [facility] [address] [place] [address] Monica Hernandez FNP [address] [place], [place] [phone] Social History Tobacco Use Types Packs/Day Years [...] this place to get uterus evaluation. PCP Chartered Accountant Mary documented in this encounter Plan of Treatment Not on file documented as of this encounter Visit Diagnoses Not on filedocumented in this encounter Additional Health Concerns Assessment Noted Time PHQ-9 Depression Total Score: 11 025 11:03 AM EDT documented as of this encounter Care Teams Warehouse Distribution Specialist Relationship Specialty Start Date End Date Monica Hernandez FNP [address] [place] [address] PCP - General Family Medicine 07/14/22 Loc Agrawal MD [address] [place] [address] [place] [address] Endocrinology 10/20/24 Lamar De Paz MD [address] [place] [address] Hematology and Oncology 10/20/24 Ralph Reece MD [address] [place] [address] Cardiology 10/20/24 documented as of this encounter
--- OUTSIDE RECORDS SUMMARY | 2025-11-18 13:00 | XMS_ITS | Encounter Summary ---
Author Organization [employer] Address [address] [place] [address] 7t [place] [address] Care Team Providers Care Planning Official Name Role Phone Monica Hernandez Primary Care Provider Loc Agrawal MD Unavailable [phone] Lamar De Paz MD Unavailable [phone] Ralph Reece MD Unavailable Reason for Visit * Reason Comments Med Refill Encounter Details Date Type Department Care Team (Late st Contact Info) Description 08/12/2023 Refill [facility] [address] [place] [address] Monica Hernandez FNP [address] [place], [place] [phone] Sleep difficulties Social History Tobacco Use Types [...] documented as of this encounter Care Teams Planning Official Relationship Specialty Start Date End Date Monica Hernandez FNP [address] [place] [address] PCP - General Family Medicine 07/14/22 Loc Agrawal MD [address] [place] [address] Endocrinology 10/20/24 Lamar De Paz MD [address] [place] [address] Hematology and Oncology 10/20/24 Ralph Reece MD [address] [place] [address] Cardiology 10/20/24 documented as of this encounter
--- OUTSIDE RECORDS SUMMARY | 2025-11-18 13:00 | XMS_ITS | Encounter Summary ---
Author Organization [employer] Address [address] [facility] [address] 7t [place] [address] Care Team Providers Care Bulb Packer Name Role Phone Monica Hernandez Primary Care Provider [phone] Loc Agrawal MD Unavailable [phone] Lamar De Paz MD Unavailable Ralph Reece MD Unavailable [phone] Encounter Details Date Type Department Care Team (Late st Contact Info) Description 06/11/2025 Orders Only [facility] [address] [place] [address] Provider, MD Sung Social History Tobacco Use [...] documented as of this encounter Care Teams Bulb Packer Relationship Specialty Start Date End Date Monica Hernandez FNP [address] [place] [address] PCP - General Family Medicine 07/14/22 Loc Agrawal MD [address] [place] [address] [place] [address] Endocrinology 10/20/24 Lamar De Paz MD [address] [place] [address] Hematology and Oncology 10/20/24 Ralph Reece MD [address] [place] [address] Cardiology 10/20/24 documented as of this encounter
--- OUTSIDE RECORDS SUMMARY | 2025-11-18 13:00 | XMS_ITS | Clinical Summary ---
Author Organization [facility] ity Address [address] [place] [address] Care Team Providers Care Property Valuer Name Role Phone Unavailable Primary Care Provider [...]
--- OUTSIDE RECORDS SUMMARY | 2025-11-18 13:00 | XMS_ITS | Encounter Summary ---
Author Organization [employer] Address [address] [place] [address] 7t [place] [address] Care Team Providers Care Patient Case Manager Name Role Phone Monica Hernandez Primary Care Provider [phone] Loc Agrawal MD Unavailable [phone] Lamar De Paz MD Unavailable [phone] Ralph Reece MD Unavailable [phone] Reason for Visit * Reason Comments Med Refill Encounter Details Date Type Department Care Team ([facility] st Contact Info) Description 05/06/2024 Refill [facility] [address] [place], [place] [phone] Monica Hernandez FNP [address] [place], [place] [phone] Hypothyroidism, unspecified type Social History Tobacco Use [...] documented as of this encounter Care Teams Patient Case Manager Relationship Specialty Start Date End Date Monica Hernandez FNP [address] [place] [address] PCP - General Family Medicine 07/14/22 Loc Agrawal MD [address] [address] Endocrinology 10/20/24 Lamar De Paz MD [address] [place] [address] Hematology and Oncology 10/20/24 Ralph Reece MD [address] [place] [address] Cardiology 10/20/24 documented as of this encounter
--- OUTSIDE RECORDS SUMMARY | 2025-11-18 13:00 | XMS_ITS | Encounter Summary ---
Author Organization [employer] Address [address] [place] [address] 7t [place] [address] Care Team Providers Care Service Desk Agent Name Role Phone Monica Hernandez Primary Care Provider Loc Agrawal MD Unavailable [phone] Lamar De Paz MD Unavailable Ralph Reece MD Unavailable [phone] Reason for Visit * Reason Onset Date Comments Durable Medical Equipment 04/11/2024 Encounter Details Date Type Department Care Team (Late st Contact Info) Description 04/11/2024 Telephone [facility]S [address] [place], [place] [phone] Monica Hernandez FNP [address] [place], [place] [phone] Durable Medical Equipment Social History Tobacco Use [...] her that the script was sent to [facility], but now she states [...] script has to be sent over to [facility] instead. Sister quan little upset due to it being several month trying to get DME . Please contact phone# [phone] regarding next step. documented in this encounter Plan of Treatment Not on file documented as of this encounter Visit Diagnoses Not on filedocumented in this encounter Additional Health Concerns Assessment Noted Time PHQ-9 Depression Total Score: 4 04/05/20 24 10:31 AM EDT documented as of this encounter Care Teams Service Desk Agent Relationship Specialty Start Date End Date Monica Hernandez FNP [address] [place] [address] PCP - General Family Medicine 07/14/22 Loc Agrawal MD [address] [place] [address] Endocrinology 10/20/24 Lamar De Paz MD [address] [place] [address] Hematology and Oncology 10/20/24 Ralph Reece MD [address] [place] [address] Cardiology 10/20/24 documented as of this encounter
--- OUTSIDE RECORDS SUMMARY | 2025-11-18 13:00 | XMS_ITS | Patient Health Record ---
Author Organization [facility] Address [address] [place] [phone] Support Name Relationship Address Phone Yael Lee Guarantor Unknown [phone] Allergies Allergen (clinical drug ingredient) Drug/Non Drug [...] Insured Coverage Start Date Coverage End Date [facility] [address] [place] [phone] [id number] Yael Lee Self - patient is the insured [facility] Medicare Advantage Plan [facility] [address] [place] [address] [id number] Yael Lee Self - patient is the insured Medical (General) History Medical History History ICD Code hypertension Hypothyroidism anemia
== END 2025-11-18 10:32 | disposition home or self-care (01) ==
LOC: HO.ENCR 09:58
PROVIDERS: PCP Registered Nurse; Visit Provider Student in an Organized Health Care Education/Training Program
DX: E20.9 Hypoparathyroidism, unspecified (principal); E06.3 Autoimmune thyroiditis
CPT/HCPCS: 99214; G2211

== ENCOUNTER 2025-11-18 14:18 | Outpatient (REF) | payer MEDICARE, MEDICAID, SELFPAY ==
--- NOTE | ~2025-11-18 | US_ITS ---
EXAMINATION: US KIDNEY BILATERAL HISTORY: E06.3 - hypoparathyroidism TECHNIQUE: Real-time grayscale ultrasound imaging of the kidneys was performed and images were reviewed. COMPARISON: Comparison is made with the prior examination dated 08/15/2024. FINDINGS: Right kidney: The right kidney measures 9.7 x 4.8 x 6 x 7 cm. Renal parenchymal echotexture and thickness are normal. There are no masses. There is no hydronephrosis or renal calculi. Left Kidney: The left kidney measures 11.0 x 4.7 x 6.0 cm. Renal parenchymal echotexture and thickness are normal. There are no masses. There is no hydronephrosis or renal calculi. US/US renal BI IMPRESSION: Unremarkable renal ultrasound. Electronically signed by: Loc Ferreira MD 11/18/2025 03:03 PM KRISTEN
== END 2025-11-18 14:19 | disposition home or self-care (01) ==
LOC: HO.HMGCX 14:18
PROVIDERS: PCP Registered Nurse; Visit Provider Student in an Organized Health Care Education/Training Program
DX: E06.3 Autoimmune thyroiditis (principal); E20.9 Hypoparathyroidism, unspecified; Z79.899 Other long term (current) drug therapy
CPT/HCPCS: 76775; 99212

== ENCOUNTER → 2025-11-18 14:33 | Outpatient (BNV) | payer MEDICARE, MEDICAID, SELFPAY | PROVIDERS: PCP Registered Nurse; Visit Provider Radiology Diagnostic Radiology | DX: E20.9 Hypoparathyroidism, unspecified (principal) | CPT/HCPCS: 76775 ==